=== PATIENT | female | born 1985 | race Caucasian/White ===

== ENCOUNTER 2023-11-07 06:38 | Emergency (ER) | payer SELFPAY ==
[2023-11-07 06:39] VITALS: BP 143/69
[2023-11-07 06:40] VITALS: BP 143/69; PULSE 72; RESP 16; TEMP 36.4; O2SAT 98; BMI 47.3
[2023-11-07 06:43] VITALS: BP 143/69; PULSE 72; RESP 16; TEMP 36.4; O2SAT 98
--- NOTE | 2023-11-07 06:53 | EX.ED.DYSGE1 ---
HPI History of Present Illness Chief Complaint: Dental Informant: patient Narrative Narrative: 1 week history right-sided jaw pain worse with opening closing and chewing. She has history of poor dentition however denies any hot cold sensitivities. Today she reported subjective fever took Tylenol. She is concerned also ear infection. No hearing loss. No drainage from the ear. History of nonalcoholic cirrhosis. Denies kidney injury or gastric ulcers. PFSH PFS Medical History Anxiety Asthma Bipolar disorder Congestive heart failure (CHF) Depression Hyperthyroidism Migraines Non-alcoholic cirrhosis Seizures Smoker Stroke/cerebrovascular accident Home Medications ibuprofen 600 mg tablet 600 mg PO Q6H PRN PRN pain #20 TABLETS 11/07/23 [Rx Last Taken Unknown] Allergy/AdvReac Type Severity Reaction Status Date / Time bee venom protein (honey bee) Allergy Severe Anaphylaxis Verified 11/07/23 06:52 diphenhydramine Allergy Severe Anaphylaxis Verified 11/07/23 06:52 [From Benadryl] Fish Containing Products AdvReac Severe Anaphylaxis Verified 11/07/23 06:52 Social History Smoking Status: Current every day smoker tobacco type: cigarettes ROS ROS ED Constitutional Constitutional ED: Denies chills, fever(s) or sweats Eyes Eyes: Denies change in vision ENT ENT ED: Reports other Details: Right jaw pain. ; Denies dysphagia or sore throat Cardiovascular Cardiovascular: Denies chest pain, leg edema, palpitations or racing heartbeat Respiratory/Chest Respiratory/Chest: Denies cough, dyspnea or dyspnea on exertion Gastrointestinal Gastrointestinal: Denies abdominal pain, diarrhea, nausea or vomiting Genitourinary Genitourinary ED: Denies dysuria, hematuria or urinary frequency Musculoskeletal Musculoskeletal: Denies back pain, extremity pain or neck pain Integumentary Denies rash or wounds Neurologic Neurologic: Denies headache(s), paresthesias or weakness EXAM Physical Exam Const Vital Signs: 11/07/23 06:40 11/07/23 06:39 11/07/23 06:43 Temperature 97.5 F L 97.5 F L Temperature Source Oral Oral Pulse Rate 72 72 Respiratory Rate 16 16 Blood Pressure 143/69 H 143/69 H 143/69 H Blood Pressure Mean 93 93 93 Pulse Ox 98 98 Oxygen Delivery Method Room Air Room Air Positive well nourished and well developed General Appearance ED: well developed and NAD HEENT Reports TM's clear and moist mucous membranes HEENT Narrative: Tender palpation right TMJ worse with opening closing the mouth. TMs are normal bilaterally. Poor dentition, there is broken tooth on right molar #2 around the feeling. There is no tenderness to percussion. No gum swelling. Missing tooth 29 and 30. No lower gum swelling no sublingual edema. normocephalic and atraumatic Tympanic Membrane ED: Yes TM's clear Eyes PERRL, EOMs intact bilaterally and conjunctivae normal General Eye ED: Yes normal appearance of both eyes Neck no lymphadenopathy and supple General: Negative for tenderness Chest Wall Chest: Negative for tenderness Resp normal respiratory effort and normal air movement Effort and Inspection: symmetric chest movement; Negative for respiratory distress Cardio regular rate, regular rhythm and no murmurs Peripheral Pulses: pulses 2+ throughout GI normal to inspection, nondistended, normoactive bowel sounds and non-tender Palpation: Negative for guarding or rebound tenderness present Back/Spine no CVA tenderness and no thoracic nor lumbar tenderness Extremity normal to inspection General Extremety ED: Negative for edema or tenderness General Extremity: Negative for edema Neuro oriented x3 and no sensory deficits noted Sensorium / Orientation: awake and alert Skin no rashes or lesions noted and no wounds MDM MDM MDM Narrative Medical decision making narrative: Interventions / MDM: Differential diagnosis: TMJ syndrome, dental caries Diagnosis considered but do not suspect: No clinical otitis media. No clinical dental infection My EKG interpretation: N/A Imaging independently reviewed and interpreted by myself: N/A External documents reviewed: N/A Test considered but not ordered:N/A ED course: Patient exam concerns more TMJ syndrome. No signs otitis media. Dental caries without pain or symptoms of infection. No indication for antibiotics. Started on ibuprofen, with a short prescription. Outpatient follow-up given ENT. All questions were answered. Re-evaluation: stable Disposition discussed with patient/family/significant other: Patient Case discussed with consulting clinician: N/A This note was generated with [employer] dictation software. It may contain incorrect words, spelling, and punctuation that were not noted in checking the note before signing. Discharge Plan Triage Chief Complaint: Dental ED Provider: Marcin Lazar Dx/Rx/DC Orders Clinical Impression: TMJ syndrome, Jaw pain Instructions: TMD Self Care, TMD Pain Relief Prescriptions: New ibuprofen 600 mg tablet 600 mg PO Q6H PRN PRN (Reason: pain) Qty: 20 0RF Referrals: Leander Rico MD [Med Staff - Active Staff] - 1 Week Disposition Disposition: Home, Self Care
[2023-11-07] MEDS: Ibuprofen 600 MG Tablet PO (06:57)
== END 2023-11-07 07:07 | disposition home or self-care (01) ==
LOC: ED 07:06
PROVIDERS: Emergency Provider Emergency Medicine; Visit Provider Emergency Medicine
DX: M26.629 Arthralgia of temporomandibular joint, unspecified side (principal); I50.9 Heart failure, unspecified; F17.210 Nicotine dependence, cigarettes, uncomplicated; Z86.73 Personal history of transient ischemic attack (TIA), and cerebral infarction without residual deficits
CPT/HCPCS: 99282

== ENCOUNTER 2024-04-11 20:56 | Emergency (ER) | payer SELFPAY ==
[2024-04-11 20:57] VITALS: BP 150/69; PULSE 85; RESP 18; TEMP 36.3; O2SAT 99; BMI 41.1
[2024-04-11 21:10] LABS: Mucous, Urine 0 SEEN /hpf (<or=2+); Red Blood Cells-Urine 0 SEEN /hpf (0-5); Squamous Epithelial Cells - UA 0 SEEN /hpf (5-10)
[2024-04-11 21:30] LABS: Color, Urine Yellow (Yellow); Glucose, Dipstick Normal (Normal); Ketone-Dipstick Negative (Negative); Leukocyte Esterase-Dipstick 25 /ul (Negative); Nitrite-Dipstick Negative (Negative); Occult Blood-Urine 10 /ul (Negative); Protein-Dipstick 15 mg/dl (Negative); Specific Gravity, Urine 1.025 (1.002-1.030); Urine Bilirubin Dipstick Negative (Negative); Urine Clarity Sl. Cloudy (Clear); Urine Urobilinogen 1 mg/dl (Normal)
[2024-04-11 22:25] LABS: Bacteria 1+ /hpf (None Seen); White Blood Cells 0-5 SEEN /hpf (0-5)
--- NOTE | 2024-04-11 22:34 | CT_ITS ---
EXAM: CT ABDOMEN AND PELVIS WITHOUT INTRAVENOUS CONTRAST CLINICAL INDICATION: lower abdominal pain TECHNIQUE: Helically acquired images were obtained of the abdomen and pelvis without intravenous contrast. This CT exam was performed using one or more of the following dose reduction techniques: automated exposure control, adjustment of the mA and/or kV according to patient size, and/or use of iterative reconstruction technique. COMPARISON: No relevant prior studies available. FINDINGS: LOWER THORAX: No significant abnormality. Lung bases are clear. No cardiomegaly. No significant pericardial effusion. ABDOMEN: LIVER: No significant abnormality. Homogeneous. GALLBLADDER AND BILE DUCTS: No significant abnormality. No calcified gallstones. No gallbladder distention or wall edema. No intra- or extrahepatic biliary ductal dilation. PANCREAS: No significant abnormality. No focal cystic mass. SPLEEN: No significant abnormality. Normal size without focal cystic or solid mass. ADRENALS: No significant abnormality. No nodules. KIDNEYS AND URETERS: No significant abnormality. Normal renal size and position. No hydronephrosis. STOMACH AND BOWEL: Diverticulosis of the colon without evidence of acute diverticulitis. No stomach or bowel distention. PELVIS: APPENDIX: A normal appendix is identified in the right lower quadrant. BLADDER: No significant abnormality. REPRODUCTIVE: Normal as visualized. No mass. ABDOMEN and PELVIS: INTRAPERITONEAL SPACE: No significant abnormality. No ascites or other fluid collection. No free air. BONES/JOINTS: No significant abnormality. No suspicious lytic or blastic abnormality. SOFT TISSUES: Body wall edema/anasarca. No discrete abdominal or pelvic wall hernia. VASCULATURE: No significant abnormality. Abdominal aorta is non-dilated. LYMPH NODES: Mildly prominent bilateral inguinal, iliac, and retroperitoneal lymph nodes which are nonspecific. CT/Abdomen/Pelvis without Cont IMPRESSION: 1. Body wall edema/anasarca. 2. Mildly prominent bilateral inguinal, iliac, and retroperitoneal lymph nodes which are nonspecific. 3. No additional acute pathology. 4. Diverticulosis of the colon without evidence of acute diverticulitis. Electronically Signed: Ji Irene DO at 23:59 EDT ,
--- NOTE | 2024-04-11 22:37 | EDS_ITS ---
HPI History of Present Illness Chief Complaint: Abd Pain Narrative Narrative: Chief complaint and HPI: Abdominal pain. 38-year-old female with history of anxiety, depression, seizures presents for evaluation of abdominal pain. Onset of symptoms was approximately 1.5 hours ago. Patient states she was sitting outside when she developed suprapubic and left flank pain. She states she took Tylenol with some relief of her symptoms. She denies any fever, chills, shortness of breath, chest pain, nausea, vomiting, diarrhea, constipation, dysuria, hematuria. Patient states her last menstrual cycle was 03/29/24 and normal at that time. She states she has a regular menstrual cycle. She denies any concern for STI. Denies any vaginal pain, bleeding, discharge. She denies any pelvic pain. Denies any abdominal surgeries. Review of systems: See HPI Medications: As listed on the chart Allergies: As listed on the chart PFSH: Per chart Vital signs: As listed on the chart. Reviewed. Physical exam: Gen: A&O x3, NAD Head: Normocephalic, atraumatic Eyes: No sclera icterus, conjunctiva clear ENT: Moist mucous membranes Neck: Trachea midline, No JVD CV: RRR, no murmurs, no peripheral edema Resp: Lungs CTA BL, no w/r/c GI: Abd soft, non-distended, minimal tender to palpation suprapubically, no r/r/g : No CVA tenderness Musc: Full ROM, no deformity Skin: Warm, dry Neuro: Alert, oriented, grossly intact, sensation intact Psych: Cooperative, appropriate mood and affect PFS PFS Medical History Anxiety Asthma Bipolar disorder Congestive heart failure (CHF) Depression Hyperthyroidism Migraines Non-alcoholic cirrhosis Seizures Smoker Stroke/cerebrovascular accident Home Medications ?Medication ?Instructions ?Recorded ?Last Taken ?Type ibuprofen 600 mg tablet 600 mg PO Q6H PRN PRN pain #20 11/07/23 Unknown Rx TABLETS cephalexin 500 mg capsule 500 mg PO BID 5 days #10 caps 04/12/24 Unknown Rx Allergy/AdvReac Type Severity Reaction Status Date / Time bee venom protein (honey bee) Allergy Severe Anaphylaxis Verified 04/11/24 20:57 diphenhydramine (From Allergy Severe Anaphylaxis Verified 04/11/24 20:57 Benadryl) Fish Containing Products AdvReac Severe Anaphylaxis Verified 04/11/24 20:57 Social History Smoking Status: Current every day smoker tobacco type: cigarettes EXAM Physical Exam Const Vital Signs: 04/11/24 20:57 04/11/24 23:02 04/12/24 00:33 Temperature 97.3 F L 98.4 F Temperature Source Temporal Pulse Rate 85 74 74 Respiratory Rate 18 18 18 Blood Pressure 150/69 H 138/56 H Blood Pressure Mean 96 83 Pulse Ox 99 97 96 Oxygen Delivery Method Room Air MDM MDM MDM Narrative Medical decision making narrative: 38-year-old female presents for evaluation of abdominal pain. Onset of symptoms about 1.5 hours ago. Vital stable other than hypertension. She denies any associated symptoms other than pain. UA was obtained in triage and is cloudy with leuk esterase and occult blood. +1 bacteria. UA is concerning for UTI however given the blood cannot rule out urolithiasis or infected stone given her flank pain. Will obtain basic labs including CT abdomen and pelvis. Dif ferential diagnosis includes but is not limited to UTI, urolithiasis. Less likely diverticulitis or gastroenteritis. Patient denies concern for STI. Denies pelvic pain. Pain medication with antiemetic given. CBC without leukocytosis. Patient has anemia of 11.3. I do not have any previous labs to compare to however she denies any GI bleeding. Currently asymptomatic from anemia. CMP relatively unremarkable except for mildly elevated alkaline phosphatase at 164. Patient states she has known fatty liver disease. She is not endorsing any right upper quadrant or epigastric abdominal pain. Urine negative. CT abdomen pelvis shows body wall edema/anasarca. She has mildly prominent bilateral inguinal/iliac, and retroperitoneal lymph nodes which are nonspecific. Diverticulosis without acute diverticulitis. Otherwise no acute abdominal pathology. No urolithiasis. At this point in time, I suspect that patient's symptoms are likely secondary to a UTI. Her physical exam was relatively benign other than some mild suprapubic tenderness and I do not think any further imaging is needed at this time. Patient's pain has improved. Her urine was sent for culture. Will put her on 5 days of Keflex. Patient was updated on all her results and the plan for discharge home. She was referred to PCP. She was told she needs to follow-up for her anemia as well as elevated alk phos and nonspecific lymphadenopathy in her abdomen. She confirmed understanding of the plan. Patient requesting work note. This was given. Return precautions explained Impression: 1. UTI Lab Data Labs: Laboratory Results - last 24 hr 04/11/24 04/11/24 21:00 22:56 WBC 7.1 RBC 4.42 Hgb 11.3 L Hct 36.8 L MCV 83.3 MCH 25.6 L MCHC 30.7 L RDW Std Deviation 42.2 RDW Coeff of Woody 13.9 Plt Count 212 MPV 10.2 Immature Gran % (Auto) 0.300 Neut % (Auto) 50.7 Lymph % (Auto) 40.6 [place] % (Auto) 5.7 Eos % (Auto) 2.4 Baso % (Auto) 0.3 Absolute Neuts (auto) 3.6 Absolute Lymphs (auto) 2.87 Nucleated RBC % 0 Sodium 137 Potassium 3.9 Chloride 106 Carbon Dioxide 26.0 Anion Gap 5 BUN 10 Creatinine 0.36 L Estim Creat Clear Calc 276.09 Est GFR (MDRD) Af Amer 257 Est GFR (MDRD) Non-Af 212 BUN/Creatinine Ratio 27.5 H Glucose 99 Calcium 9.0 Total Bilirubin 0.40 AST 17 ALT 23 Alkaline Phosphatase 164 H Total Protein 7.3 Albumin 3.0 L Globulin 4.3 H Albumin/Globulin Ratio 0.7 L Lipase 19 Urine Color Yellow Urine Clarity Sl. Cloudy Urine pH 6.0 Ur Specific [place] 1.025 Urine Protein 15 H Urine Glucose (UA) Normal Urine Ketones Negative Urine Occult Blood 10 H Urine Nitrite Negative Urine Bilirubin Negative Urine Urobilinogen 1 H Ur Leukocyte Esterase 25 H Urine RBC 0 SEEN Urine WBC 0-5 SEEN Ur Squamous Epith Cells 0 SEEN Urine Bacteria 1+ Urine Mucus 0 SEEN Urine Test Negative Radiography Diagnostic Testing: Clinical Impression(s) from Imaging Studies Abdomen/Pelvis CT 04/11/24 22:34 IMPRESSION: 1. Body wall edema/anasarca. 2. Mildly prominent bilateral inguinal, iliac, and retroperitoneal lymph nodes which are nonspecific. 3. No additional acute pathology. 4. Diverticulosis of the colon without evidence of acute diverticulitis. Electronically Signed: Ji Irene DO at 23:59 EDT , Discharge Plan Triage Chief Complaint: Abd Pain ED Provider: Mohan Gaspar Dx/Rx/DC Orders Clinical Impression: UTI (urinary tract infection) Instructions: Urinary Tract Infections in Women, UTIs Understanding Prescriptions: New cephalexin 500 mg capsule 500 mg PO BID 5 Days Qty: 10 0RF No Action ibuprofen 600 mg tablet 600 mg PO Q6H PRN PRN (Reason: pain) Qty: 20 0RF Stand Alone Forms: ED Work / School Excuse Primary Care Provider: Care Physician,No Primary Referrals: Lowell Franco MD [Med Staff - Active Staff] - 3-5 Days if not improving Print Language: [place] Disposition Disposition: Home, Self Care Discharge Date/Time: 04/12/24 00:49
[2024-04-11] MEDS: Morphine 4 MG/ML Syringe IV (22:55)
[2024-04-11] MEDS: Ondansetron 4 MG/2 ML Vial IV (22:55)
[2024-04-11] MEDS: 0.9% Normal Saline (1000mL) 1,000 ML 999 ML IV (22:55)
[2024-04-11 23:02] VITALS: PULSE 74; RESP 18; O2SAT 97
[2024-04-11 23:04] LABS: Absolute Lymphocyte Count 2.87 X10^3/uL (0.83-4.51); Absolute Neutrophil Count 3.6 X10^3/uL (2.0-7.7); Basophil# 0.02 X10^3/uL; Basophil% 0.3 % (0-1); Eosinophil# 0.17 X10^3/uL; Eosinophils% 2.4 % (0-5); Hematocrit 36.8 % (37-47); Hemoglobin 11.3 g/dL (12.0-15.0); Lymphocyte # 2.87 X10^3/ul (0.83-4.51); Lymphocyte % 40.6 % (19-41); Mean Corp Hgb Conc 30.7 g/dL (32-36); Mean Corpuscular Hgb 25.6 pg (27.0-32.0); Mean Corpuscular Volume 83.3 fL (81-99); Mean Platelet Vol. 10.2 fl (6.2-12.0); Monocyte% 5.7 % (0-10); NRBC Flagged by Analyzer 0 % (0-5); Neutrophil # 3.59 X10^3/uL (2.7-7.7); Neutrophil % 50.7 % (47-70); Platelet Count 212 K/mm3 (150-450); RBC Distribution Width CV 13.9 % (11.6-14.6); RBC Distribution Width SD 42.2 fl (35.1-43.9); Red Blood Count 4.42 M/mm3 (4.2-5.4); White Blood Count 7.1 K/mm3 (4.4-11.0)
[2024-04-11 23:04] LABS: Internal QC Validated? YES +Cl - CLEAR BKGD; Pregnancy, Urine Negative Negative
[2024-04-11 23:22] LABS: ALB/GLOB Ratio 0.7 RATIO (0.9-2.4); AST(SGOT) 17 U/L (15-37); Alanine Aminotransfer ALT/SGPT 23 U/L (13-56); Alkaline Phosphatase 164 U/L (45-117); Anion Gap 5 (5-15); BUN 10 mg/dL (7-18); BUN/Creat Ratio 27.5 RATIO (10-20); Chloride 106 mmol/L (98-107); Creatinine, Serum 0.36 mg/dL (0.55-1.02); EST Glomerular Filtration Rate 212 mL/min (>60); Est Glom Filt Rate - Afr Amer 257 mL/min (>60); Estimated Creatinine Clearance 276.09 ml/min; Globulin 4.3 g/dL (2.2-4.2); Glucose 99 mg/dL (74-106); Lipase 19 U/L (13-75); Potassium 3.9 mmol/L (3.5-5.1); Protein, Total 7.3 g/dL (6.4-8.2); Sodium Level 137 mmol/L (136-145)
[2024-04-12 00:33] VITALS: BP 138/56; PULSE 74; RESP 18; TEMP 36.9; O2SAT 96
== END 2024-04-12 00:49 | disposition home or self-care (01) ==
PROVIDERS: Emergency Provider Surgery; Visit Provider Surgery
DX: N39.0 Urinary tract infection, site not specified (principal); I50.9 Heart failure, unspecified; I11.0 Hypertensive heart disease with heart failure; K57.30 Diverticulosis of large intestine without perforation or abscess without bleeding; R59.9 Enlarged lymph nodes, unspecified; F41.9 Anxiety disorder, unspecified; D64.9 Anemia, unspecified; F17.210 Nicotine dependence, cigarettes, uncomplicated; Z86.73 Personal history of transient ischemic attack (TIA), and cerebral infarction without residual deficits
CPT/HCPCS: 74176; 80053; 81001; 81025; 83690; 85025; 87086; 87088; 96361; 96374; 96375; 99283; J7030; A4216; J2405

== ENCOUNTER 2024-04-19 20:20 | Emergency (ER) | payer SELFPAY ==
[2024-04-19 20:21] VITALS: BP 166/73; PULSE 98; RESP 16; TEMP 36.8; O2SAT 99; BMI 41.8
[2024-04-19] MEDS: LORazepam 2 MG/ML Syringe 1 MG IM (22:53)
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
[2024-04-19] MEDS: Acetaminophen 500 MG Tablet 1000 MG PO (23:24)
[2024-04-19 23:31] VITALS: BP 167/76; PULSE 85; RESP 18; TEMP 36.6; O2SAT 97
== END 2024-04-19 23:34 | disposition home or self-care (01) ==
PROVIDERS: Emergency Provider Surgery; Visit Provider Surgery
DX: F41.1 Generalized anxiety disorder (principal); K74.60 Unspecified cirrhosis of liver; I50.9 Heart failure, unspecified; F17.210 Nicotine dependence, cigarettes, uncomplicated; Z79.899 Other long term (current) drug therapy; Z86.73 Personal history of transient ischemic attack (TIA), and cerebral infarction without residual deficits
CPT/HCPCS: 96372; 99283

== ENCOUNTER 2024-05-07 02:11 | Emergency (ER) | payer SELFPAY ==
[2024-05-07 02:12] VITALS: BP 159/81; PULSE 107; RESP 18; TEMP 37.8; O2SAT 98; BMI 41.9
--- NOTE | 2024-05-07 02:29 | RAD_ITS ---
STUDY: X-RAY CHEST REASON FOR EXAM: Female, 38 years old patient with cough and shortness of breath. TECHNIQUE: PA and lateral views of the chest. COMPARISON: Prior comparison studies are not available for review at this time. FINDINGS: There appears to be crowding of the prominent bronchovascular markings. There is interstitial thickening visible throughout both lungs. There may be some peribronchial cuffing as well. The lungs are under expanded. There is no demonstrated pleural abnormality. Normal size heart. Normal mediastinum and juany. Normal visualized pulmonary arteries. Normal visualized aortic arch and descending thoracic aorta. Normal visualized thoracic spine. Normal visualized ribs, clavicles, and shoulders. There is no demonstrated abnormality of the visualized soft tissue structures of the upper abdomen. RAD/Chest PA and Lateral IMPRESSION: Findings suggest sequela of acute exacerbation of reactive airway disease and/or viral infection. Electronically Signed: Marita Jacobsen MD at 4:19 EDT ,
--- NOTE | 2024-05-07 02:30 | EX.ED.DYSGE1 ---
HPI History of Present Illness Chief Complaint: General Illness Informant: patient and friend Narrative Narrative: 38-year-old female for the last 5 or 6 hours or so has felt poorly, with subjective fevers and chills, cough with sputum that is sometimes clear sometimes yellowish nonbloody, little short of breath, and bodyaches all over. The body aches includes her abdomen but she does not specifically denote abdominal pain. No nausea, vomiting, or diarrhea. Friends/roommates, [facility] which [facility], accompanying her and states they all have the same illness and multiple others there as well have illnesses. She admits to urinary frequency but denies any dysuria or hematuria or burning. [facility] Medical History Anxiety Bipolar disorder Depression Hyperthyroidism Smoker Asthma Non-alcoholic cirrhosis Congestive heart failure (CHF) Migraines Stroke/cerebrovascular accident Seizures Home Medications ?Medication ?Instructions ?Recorded ?Last Taken ?Type ibuprofen 600 mg tablet 600 mg PO Q6H PRN PRN pain #20 11/07/23 Unknown Rx TABLETS spironolactone 50 mg tablet 50 mg PO DAILY liver cirrhosis 05/07/24 Unknown History (Aldactone) Allergy/AdvReac Type Severity Reaction Status Date / Time bee venom protein (honey bee) Allergy Severe Anaphylaxis Verified 05/07/24 02:17 diphenhydramine (From Allergy Severe Anaphylaxis Verified 05/07/24 02:17 Benadryl) Fish Containing Products AdvReac Severe Anaphylaxis Verified 05/07/24 02:17 Social History Smoking Status: Current every day smoker tobacco type: cigarettes ROS ROS ED Constitutional Constitutional ED: Reports body ache(s), chills, fever(s) and malaise Eyes Eyes: Denies change in vision or diplopia ENT ENT ED: Reports nasal congestion, rhinorrhea and sore throat; Denies throat swelling Cardiovascular Cardiovascular: Denies chest pain or palpitations Respiratory/Chest Respiratory/Chest: Reports cough, dyspnea and sputum Gastrointestinal Gastrointestinal: Denies diarrhea, nausea or vomiting Genitourinary Genitourinary ED: Denies dysuria or hematuria Musculoskeletal Musculoskeletal: Denies back pain or neck pain Integumentary Denies abscess or rash Neurologic Neurologic: Reports headache(s); Denies paresthesias or weakness EXAM Physical Exam Const Vital Signs: 05/07/24 02:12 05/07/24 02:18 05/07/24 02:58 Temperature 100.1 F H Temperature Source Oral Pulse Rate 107 H 110 H Respiratory Rate 18 26 H Respiratory Pattern Normal Tachypnea Blood Pressure 159/81 H Blood Pressure Mean 107 Pulse Ox 98 Oxygen Delivery Method Room Air Positive well nourished, well developed and obese General Appearance ED: well developed and NAD Nutritional Appearance: obese HEENT Reports moist mucous membranes normocephalic and atraumatic Throat: posterior oropharynx normal Eyes PERRL and EOMs intact bilaterally Neck full ROM, no lymphadenopathy and supple Resp normal respiratory effort and clear to auscultation bilaterally Cardio regular rate, regular rhythm and no murmurs GI non-tender and non-distended Auscultation: normoactive bowel sounds Palpation: soft Back/Spine no CVA tenderness General Back: other FROM Extremity normal to inspection General Extremety ED: Negative for edema, pulses abnormal or tenderness General Extremity: Negative for edema or pulses abnormal Neuro oriented x3, CN's II-XII intact bilaterally and no sensory deficits noted Sensorium / Orientation: awake and alert Motor Exam: strength 5/5 throughout Psych Mood & Affect: anxious Skin no rashes or lesions noted and no wounds MDM MDM MDM Narrative Medical decision making narrative: I suspect patient has viral syndrome especially given her multiple sick contacts with similar symptoms. She does have a history of asthma but since she was dyspneic without wheezing on exam, I obtained a chest x-ray. 2 views on my interpretation negative for pneumonia. She was given albuterol treatment which did help significantly suggesting asthma as the etiology for her dyspnea. We also did a urinalysis given her frequency, on my interpretation it does not indicate acute infection given lack of pyuria and more squamous epithelial cells and no bacteria. She was given an injection of Toradol as well as some oral Tylenol for her myalgias/pains and fever. She was conversive with her roommates and appeared objectively better, walking back and forth to the bathroom without difficulty. Her COVID/RSV/influenza swab returned negative. I suspect she has a different respiratory virus infection, we have been seeing quite a bit of this in the area recently. I do not think she needs a septic workup, she is well-appearing. She was offered steroids for asthma, short burst in the form of either a Kenalog injection or prescription for prednisone. She does not require prescription for antibiotic she is okay with an injection of steroids which will be given prior to discharge. Also she does not have a rescue inhaler, we are going to give her a couple of puffs and dispense it to her. Lab Data Attestation: I reviewed the patient's lab results. Labs: Laboratory Results - last 24 hr 05/07/24 02:55 Urine Color Yellow Urine Clarity Clear Urine pH 6.0 Ur Specific [place] 1.015 Urine Protein Negative Urine Glucose (UA) Normal Urine Ketones Negative Urine Occult Blood 25 H Urine Nitrite Negative Urine Bilirubin Negative Urine Urobilinogen Normal Ur Leukocyte Esterase 100 H Urine RBC 5-10 SEEN Urine WBC 0-5 SEEN Ur Squamous Epith Cells 5-10 SEEN Urine Bacteria 0 SEEN Hyaline Casts 0-5 SEEN Fine Granular Casts 0-5 SEEN Urine Mucus 0 SEEN Discharge Plan Triage Chief Complaint: General Illness ED Provider: Farzad Cortes Dx/Rx/DC Orders Clinical Impression: Acute viral syndrome, Acute asthma exacerbation Instructions: Asthma Prescriptions: No Action ibuprofen 600 mg tablet 600 mg PO Q6H PRN PRN (Reason: pain) Qty: 20 0RF spironolactone [Aldactone] 50 mg tablet 50 mg PO DAILY Primary Care Provider: Care Physician,No Primary Referrals: Evelyn Tee [Non-Staff] - 1 Week if not improving Print Language: Frisian Disposition Disposition: Home, Self Care
--- OUTSIDE RECORDS SUMMARY | 2024-05-07 02:37 | XMS RPT_ITS | CCD ---
Author Organization [facility] Care Team Providers Care Electronics Assembler And Tester Name Role Phone CASSIE MARTÍNEZ OLIVERLAS Attending Unavailabl CELINA Aburto Referring Unavailable NO, PHYSICIAN Primary Care Unavailable NO, PHYSICIAN Primary Care Unavailable No, Physician Primary Care Provider Unavailabl e No, Physician Primary Care Provider Unavailabl e SUSIE MEDLEY Attending Unavailable SYSTEM, PROVIDER NOT IN Primary Care Unavaila ble System, Provider Not In Primary Care Provider Un available Brent ASSEMBLY CLEANER, [place] Unavailable Unavailable Brent SUPERVISOR SHEARING-ASSEMBLY CLEANER, [place] D Primary Care Provider Doni SUPERVISOR SHEARING-ASSEMBLY CLEANER, Ludy Primary Care Provider Marcelo SUPERVISOR SHEARING-ASSEMBLY CLEANER, Concepción Duckworth Primary Care Provider [phone] Marcelo SUPERVISOR SHEARING-ASSEMBLY CLEANER, Concepción Donita Primary Care Provider CYNDY MARIN Attending Unavailable NO, PHYSICIAN Primary Care Unavailable CYNDY MARIN Admitting Unavailable NO, PHYSICIAN Primary Care Unavailable OMERO WALLER Attending Unavaila ble BRENT, AZALEA D Primary Care Unavailable BRENT, AZALEA D Primary Care Unavailable ROMARIO PAREKH Attending Unavailable CONSULT, NEUROLOGY Consulting Unavailable FLOYD RODRIGUEZ Admitting Unavailable DONI, LUDY Primary Care Unavailable CARLA MARROQUIN Admitting Unavailable NINOSKA FERNANDEZ Attending Unavailable DONI, LUDY Primary Care Unavailable BRENT, AZALEA D Primary Care Unavailable SHADI LOUIS Attending Unavailable BRENT, AZALEA D Primary Care Unavailable LUIS ARMANDO ESCOBEDO Attending Unavailable SELF, SELF Referring Unavailable VANGIE JON Attending Unavailable SELF, SELF Referring Unavailable DONI, LUDY Primary Care Unavailable BRENT, AZALEA D Referring Unavailable BRENT, AZALEA D Attending Unavailable BRENT, AZALEA D Primary Care Unavailable BRENT, AZALEA D Referring Unavailable RL TAVERAS Attending Unavailable BRENT, AZALEA D Primary Care Unavailable BRENT, AZALEA D Primary Care Unavailable BRENT, AZALEA D Primary Care Unavailable LUIS ARMANDO ESCOBEDO Attending Unavailable SELF, SELF Referring Unavailable MIKE DUKE Attending Unavailabl e MIKE DUKE Admitting Unavailabl e DONI, [place] Primary Care Unavailable DONI, [place] Primary Care Unavailable CARON DUGGAN Attending Unavailable DONI, [place] Primary Care Unavailable SHADI LOUIS Attending Unavailable FLOYD RODRIGUEZ Attending Unavailable DONI, [place] Primary Care Unavailable BRENT, AZALEA D Primary Care Unavailable MARROQUINCARLA Attending Unavailable OLGA LIDIA, CARON Sampson Attending Unavailable BRENT, AZALEA D Primary Care Unavailable BRENT, AZALEA D Primary Care Unavailable OLGA LIDIA, CARON Sampson Attending Unavailable BRENT, AZALEA D Primary Care Unavailable CARLA MARROQUIN Attending Unavailable DONI, [place] Primary Care Unavailable SAMAN-TOPPENVERAIS P Attending Unavail able DONI, [place] Primary Care Unavailable SAMAN-TOPPEN, CIRO P Attending Unavail able SUSIE PRATT Attending Unavailable SUSIE PRATT Admitting Unavailable ARACELI TAPIA Referring Unavailable BRENT, AZALEA D Primary Care Unavailable SYSTEM, PROVIDER NOT IN Primary Care UnavailAUBRIE Bruce JR. Attending Unavail able NO, PHYSICIAN Primary Care Unavailable JAYLON NIEVES Attending Unavailable Patel ASSEMBLY CLEANER, [place] Primary Care Provider Doni CUTTER HELPER, [place] Attending Unavailable Doni CUTTER HELPER, [place] Referring Unavailable RUBIN UP Attending Unavailable Allergies Allergy Classification Reported Allergen(s) Allergy Type Date of Onset Reaction(s) Facility (20 sources) diphenhydrAMINE; Translations: [Unknown] Drug Allergy 9 Hives, Shortness of Breath, Rash [facility] Repository (10 sources) FISH CONTAINING PRODUCTS; Translations: [FISH CONTAINING PRODUCTS] Propensity to adverse reactions to drug (disorder) 8 [facility] Repository (1 source) diphenhydrAMINE; Translations: [DIPHENHYDRAMINE HCL] Drug Allergy 5 Rash [facility] (11 sources) Fish - dietary Propensity to adverse reactions to drug 9 [facility] (7 sources) polyethylene glycol 300 Drug Allergy 1 [facility] (9 sources) *Seafood - Food Allergy Propensity to adverse reactions to drug 1 [facility] (9 sources) Fish-Derived Products Propensity to adverse reactions to drug 1 Rash [facility] (3 sources) Bee pollen; Translations: [BEE POLLEN] Propensity to adverse reactions to drug (disorder) 2 Unknown [facility] Repository (1 source) BENADRYL ALLERGY DECONGESTANT; Translations: [BENADRYL ALLERGY DECONGESTANT] Propensity to adverse reactions to drug (disorder) [facility] Repository Medications Current Medications Medication Drug Class(es) Dates Sig (Normalized) Sig (Original) [id number] 200 actuat albuterol 0.09 mg/actuat metered dose inhaler (6 sources) beta2-Adrenergic Agonist Start: 10-29-2021 take 1 puff(s) by inhalation every six hours as needed albuterol 108 (90 Base) MCG/ACT Aero Soln inhaler Inhale 1 puff every 6 hours as needed for Shortness of Breath. 6.7 g 0 10/29/2021 Active amoxicillin 875 mg / clavulanate 125 mg oral tablet (1 source) Penicillin-class Antibacterial Start: 03-25-2022 End: 04-04-2022 take 1 tablet by mouth every twelve hours amoxicillin-clavulan ate 875-125 MG tablet Take 1 tablet by mouth every 12 hours for 10 days. 20 tablet 0 03/25/2022 04/04/2022 Active chlorhexidine gluconate 1.2 mg/ml mouthwash (2 sources) Start: 01-22-2021 take 15 mL by mouth every twelve hours chlorhexidine 0.12 % Solution oral solution Swish and spit 15 mL every 12 hours for 7 days. 210 mL 0 01/22/2021 Active CUSTOM MEDICATION (2 sources) Start: 11-22-2020 CUSTOM MEDICATION Please obtain Chem 6 and Magnesium. Please fax labs attn: Ludy Doni ASSEMBLY CLEANER to [phone]. She will need to go to [facility] or another lab to have the labs drawn. 1 Each 0 11/22/2020 Active cyclobenzaprine hydrochloride 10 mg oral tablet (4 sources) Muscle Relaxant Start: 05-21-2020 End: 05-21-2020 take 1 tablet by mouth three times daily as needed for muscle spasms cyclobenzaprine 10 MG tablet Take 1 tablet by mouth 3 times daily as needed for Muscle spasms. 21 tablet 0 05/21/2020 Active famotidine 20 mg oral tablet (7 sources) Histamine-2 Receptor Antagonist Start: 09-02-2021 take 1 tablet by mouth every twelve hours faMOTIdine 20 MG tablet Take 1 tablet by mouth every 12 hours. 60 tablet 0 09/02/2021 Active furosemide 20 mg oral tablet (11 sources) Loop Diuretic Start: 08-20-2022 End: 08-20-2023 take 1 tablet by mouth once daily furosemide (LASIX) 20 MG tablet Take 1 (one) tablet (20 mg total) by mouth daily . 30 tablet 2 08/20/2022 08/20/2023 Active Start: 08-02-2021 take 1 tablet by faby th twice daily Lasix 40 mg tablet take 1 tablet by mouth twice daily - Active directions corrected. please discontinue previous order Start: 11-22-2020 take 1 tablet by faby th twice daily furOSEmide 40 MG tablet Take 1 tablet by mouth 2 times daily for 21 days. 42 tablet 0 11/22/2020 Active furOSEmide 40 MG tablet Take 20 mg by mouth 2 times daily. 0 Active take 1 tablet by faby th once daily furOSEmide 40 MG tablet Take 40 mg by mouth daily. 0 Active Comment on above: directions corrected . please discontinue previous order hydroCHLOROthiazide 12.5 mg oral capsule (2 sources) Thiazide Diuretic Start: 2020 take 1 capsule by mouth once daily hydroCHLOROthiazide (MICROZIDE) 12.5 mg capsule Take 1 (one) capsule (12.5 mg total) by mouth daily for 14 days . 14 capsule 0 06/19/2021 Active lisinopril 10 mg oral tablet (9 sources) Angiotensin Converting Enzyme Inhibitor Start: 2022 End: 2023 take 1 tablet by mouth once daily lisinopriL (PRINIVIL,ZESTRIL) 10 MG tablet Take 1 (one) tablet (10 mg total) by mouth daily . 30 tablet 2 08/20/2022 08/20/2023 Active Start: 07-21-2021 take 1 tablet by faby th twice daily lisinopril 10 mg tablet TAKE 1 TABLET BY MOUTH TWICE A DAY - Active take 1 tablet by faby th once daily lisinopril 10 MG tablet Take 10 mg by mouth daily. 0 Active meloxicam 7.5 mg oral tablet (2 sources) Nonsteroidal Anti-inflammatory Drug Start: 03-25-2022 take 1 tablet by mouth once daily meloxicam 7.5 MG tablet Take 1 tablet by mouth daily. 30 tablet 0 03/25/2022 Active methIMAzole 10 mg oral tablet (11 sources) Thyroid Hormone Synthesis Inhibitor Start: 09-04-2022 End: 09-04-2023 take 1 tablet by mouth three times daily methIMAzole (Tapazole) 10 MG tablet Take 1 (one) tablet (10 mg total) by mouth 3 (three) times a day . 90 tablet 1 09/04/2022 09/04/2023 Active Start: 08-02-2021 take 2 tablets by mo uth once daily methimazole 10 mg tablet take 2 tablet by oral route every day 20 MG - Active Start: 11-22-2020 take 2 tablets by mo uth twice daily methimazole 10 MG tablet Take 2 tablets by mouth 2 times daily. 120 tablet 0 11/22/2020 Active oxyCODONE hydrochloride 5 mg oral tablet (2 sources) Opioid Agonist Start: 01-22-2021 take 1 tablet by mouth every six hours as needed for pain oxyCODONE 5 MG tablet Indications: Neck abscess Take 1 tablet by mouth every 6 hours as needed for Moderate Pain for up to 5 days. 7 tablet 0 01/22/2021 Active polyethylene glycol 3350 23567 mg powder for oral solution (2 sources) Osmotic Laxative Start: 01-22-2021 take 1 dose by mouth once daily as needed for constipation polyethylene glycol 17 g Pack packet Take 1 packet by mouth daily as needed for Constipation 1st Line. 24 Each 0 01/22/2021 Active 21-iron fu-folic acid ( Complete) 14 mg iron- 400 mcg Tab (2 sources) Start: 06-19-2021 take 1 tablet by mouth once daily 21-iron fu-folic acid ( Complete) 14 mg iron- 400 mcg Tab Take 1 tablet by mouth daily . 30 tablet 0 06/19/2021 Active spironolactone 50 mg oral tablet (11 sources) Aldosterone Antagonist Start: 08-20-2022 End: 08-20-2023 take 1 tablet by mouth once daily spironolactone (ALDACTONE) 50 MG tablet Take 1 (one) tablet (50 mg total) by mouth daily . 30 tablet 2 08/20/2022 08/20/2023 Active Start: 09-03-2021 take 1 tablet by faby th once daily spironolactone 100 MG tablet Take 1 tablet by mouth daily. 30 tablet 0 09/03/2021 Active Start: 11-23-2020 take 1 tablet by faby th once daily spironolactone 100 MG tablet Take 1 tablet by mouth daily. 30 tablet 0 11/23/2020 Active Completed/Discontinued Medications Medication Drug Class(es) Dates Sig (Normalized) Sig (Original) acetaminophen 500 mg oral tablet (3 sources) Start: 04-09-2022 End: 04-09-2022 acetaminophen (TYLENOL) tablet 500 mg Start: 03-18-2022 End: 03-18-2022 acetaminophen (TYLENOL) tabl et 1,000 mg Start: 10-29-2021 End: 10-29-2021 acetaminophen (TYLENOL) tabl et 1,000 mg cephalexin 500 mg oral capsule (2 sources) Cephalosporin Antibacterial Start: 12-01-2021 End: 12-01-2021 cephALEXin (KEFLEX) capsule 500 mg Start: 11-30-2021 End: 12-05-2021 take 1 capsule by mouth every twelve hours cephALEXin 500 MG capsule Take 1 capsule by mouth every 12 hours for 5 days. 10 capsule 0 11/30/2021 12/05/2021 Active dexamethasone phosphate 10 mg/ml injectable solution (1 source) Corticosteroid Start: 03-10-2021 End: 03-10-2021 dexAMETHasone PF (DECADRON) 10 mg Start: 03-10-2021 End: 03-10-2021 dexAMETHasone PF (DECADRON) 10 mg ibuprofen 600 mg oral tablet (7 sources) Nonsteroidal Anti-inflammatory Drug Start: 01-31-2022 End: 01-31-2022 ibuprofen (MOTRIN) tablet 600 mg Start: 11-30-2021 End: 11-30-2021 ibuprofen (MOTRIN) tablet 60 0 mg Start: 10-29-2021 End: 10-29-2021 ibuprofen (MOTRIN) tablet 60 0 mg Start: 01-22-2021 take 1 tablet by faby th every six hours as needed ibuprofen 600 MG tablet Take 1 tablet by mouth every 6 hours as needed for Moderate Pain (1st line). 30 tablet 0 01/22/2021 Active Start: 06-10-2020 End: 06-10-2020 ibuprofen (MOTRIN) tablet 60 0 mg lidocaine 0.05 mg/mg medicated patch (2 sources) Antiarrhythmic, Amide Local Anesthetic Start: 01-31-2022 End: 01-31-2022 apply 1 dose transdermal route every twelve hours, then apply 1 dose transdermal route once 1 patch, Transdermal, Administer over 12 Hours, ONCE, 1 dose, On Thu01/31/22 at 0145 Apply to left foot . Remove patch after duration of 12 hours. An action of Patch Applied within the MAR will schedule the MAR patch removal 12 hours later. Start: 01-31-2022 End: 01-31-2022 lidocaine (LIDODERM) 5 % pat ch 1 patch naproxen 250 mg oral tablet (1 source) Nonsteroidal Anti-inflammatory Drug Start: 03-18-2022 End: 03-18-2022 naproxen (NAPROSYN) tablet 500 mg 2 ml ondansetron 2 mg/ml injection (8 sources) Serotonin-3 Receptor Antagonist Start: 11-30-2021 End: 11-30-2021 ondansetron 4mg/2ml (ZOFRAN) injection 4 mg Start: 11-30-2021 take 1 tablet by faby th every eight hours as needed ondansetron 4 MG Tab Dispersible tablet Take 1 tablet by mouth every 8 hours as needed for Nausea / Vomiting. 15 tablet 0 11/30/2021 Active Start: 10-29-2021 End: 11-30-2021 take 1 tablet by mouth every four hours as needed ondansetron 4 MG Tab Dispersible tablet Take 1 tablet by mouth every 4 hours as needed for Nausea. Place on tongue 30 tablet 0 10/29/2021 11/30/2021 Discontinued (Therapy completed) 250 ml sodium chloride 9 mg/ ml injection (3 sources) Start: 11-30-2021 End: 11-30-2021 sodium chloride 0.9% IV solution 1,000 mL Start: 10-16-2021 End: 10-18-2021 sodium chloride 0.9% IV solu tion Start: 10-16-2021 End: 10-18-2021 sodium chloride flush 0.9 % injection 5 mL Problems Active Problems Problem Classification Problem Date Documented Da te Episodic/Chronic Administrative/social admission (3 sources) Other reduced mobility; Translations: [Dietary counseling and surveillance] Onset: 09-13-2021 Episodic Cardiac dysrhythmias (2 sources) Tachycardia, unspecified; Translations: [Tachycardia, unspecified] Onset: 08-17-2022 Episodic Congestive heart failure; nonhypertensive (2 sources) Heart failure, unspecified; Translations: [Heart failure, unspecified] Onset: 08-30-2021 Chronic Diabetes mellitus without complication (14 sources) Type 2 diabetes mellitus; Translations: [Type 2 diabetes mellitus without complications] Onset: 02-02-2019 02-02-2019 Chronic Disorders of teeth and jaw (3 sources) Toothache; Translations: [Other specified disorders of teeth and supporting structures] Onset: 03-25-2022 Episodic Epilepsy; convulsions (2 sources) Epilepsy, unspecified, not intractable, without status epilepticus; Translations: [Epilepsy, unspecified, not intractable, without status epilepticus] Onset: 09-12-2021 Chronic Epilepsy; convulsions (6 sources) Neurological finding; Translations: [Unspecified convulsions] Onset: 03-03-2022 Episodic Essential hypertension (1 source) Essential (primary) hypertension; Translations: [Primary hypertension] Onset: 01-28-2023 Chronic Fracture of lower limb (3 sources) Closed fracture of fifth metatarsal bone; Translations: [Nondisplaced fracture of fifth metatarsal bone, left foot, initial encounter for closed fracture] Onset: 01-31-2022 Episodic Hepatitis (10 sources) Cirrhosis - non-alcoholic; Translations: [Nonalcoholic steatohepatitis (STEINER)] Onset: 09-10-2021 Chronic Menstrual disorders (5 sources) Amenorrhea; Translations: [Amenorrhea, unspecified] Onset: 02-02-2019 02-02-2019 Chronic Miscellaneous mental health disorders (2 sources) Other somatoform disorders; Translations: [Other somatoform disorders] Onset: 06-21-2021 Chronic Nonspecific chest pain (3 sources) Chest wall pain; Translations: [Other chest pain] Onset: 08-17-2022 Episodic Other gastrointestinal disorders (3 sources) Generalized intra-abdominal and pelvic swelling, mass and lump; Translations: [Generalized intra-abdominal and pelvic swelling, mass and lump] Onset: 07-11-2021 Episodic Other gastrointestinal disorders (1 source) Personal history of other diseases of the digestive system; Translations: [History of cirrhosis of liver] Onset: 01-28-2023 Episodic Other liver diseases (10 sources) Cirrhosis of liver; Translations: [Other cirrhosis of liver] Onset: 11-16-2020 Chronic Other liver diseases (2 sources) Unspecified cirrhosis of liver; Translations: [Unspecified cirrhosis of liver] Onset: 10-16-2021 Chronic Other nutritional; endocrine; and metabolic disorders (16 sources) Morbid obesity; Translations: [Morbid (severe) obesity due to excess calories] Onset: 02-02-2019 02-02-2019 Chronic Other nutritional; endocrine; and metabolic disorders (7 sources) Body mass index 40+ - severely obese; Translations: [Morbid (severe) obesity due to excess calories] Onset: 10-11-2020 08-31-2021 Chronic Other nutritional; endocrine; and metabolic disorders (2 sources) Other disorders of bilirubin metabolism; Translations: [Other disorders of bilirubin metabolism] Onset: 06-21-2021 Chronic Other nutritional; endocrine; and metabolic disorders (1 source) Body mass index (BMI) 45.0-49.9, adult; Translations: [Body mass index (BMI) 45.0-49.9, adult] Onset: 01-28-2023 Chronic Other nutritional; endocrine; and metabolic disorders (1 source) Localized adiposity; Translations: [Pendulous abdomen] Onset: 01-28-2023 Chronic Residual codes; unclassified (3 sources) Generalized edema; Translations: [Generalized edema] Onset: 11-16-2020 Episodic Residual codes; unclassified (3 sources) Patient's noncompliance with other medical treatment and regimen; Translations: [Patient's noncompliance with other medical treatment and regimen] Onset: 07-11-2021 Episodic Spondylosis; intervertebral disc disorders; other back problems (1 source) Sciatica, right side; Translations: [Sciatica, right side] Onset: 10-12-2023 Episodic Thyroid disorders (14 sources) Hyperthyroidism; Translations: [Thyrotoxicosis, unspecified without thyrotoxic crisis or storm] Onset: 11-17-2020 Chronic Unclassified (3 sources) Patient encounter status; Translations: [Encounter for preconception consultation] Onset: 02-02-2019 02-02-2019 Unclassified (1 source) Cough, unspecified; Translations: [Cough, unspecified] Onset: 05-22-2022 Viral infection (2 sources) COVID-19; Translations: [COVID-19] Onset: 04-09-2022 Past or Other Problems Problem Classification Problem Date Documented Da te Episodic/Chronic Abdominal pain (4 sources) Unspecified abdominal pain; Translations: [Pelvic and perineal pain] Onset: 06-15-2021 Episodic Acute bronchitis (2 sources) Acute bronchitis, unspecified; Translations: [Acute bronchitis, unspecified] Onset: 06-06-2021 Episodic Contraceptive and procreative management (2 sources) Patient encounter status; Translations: [Encounter for other general counseling and advice on procreation] Onset: 02-02-2019 02-02-2019 Episodic Deficiency and other anemia (7 sources) Deficiency anemias; Translations: [Other specified nutritional anemias] Onset: 01-20-2021 08-31-2021 Episodic Deficiency and other anemia (2 sources) Anemia; Translations: [Anemia, unspecified] Onset: 01-20-2021 01-20-2021 Episodic Deficiency and other anemia (2 sources) Anemia, unspecified; Translations: [Anemia, unspecified] Onset: 08-30-2021 Episodic Gastrointestinal hemorrhage (9 sources) Hematemesis; Translations: [Hematemesis] Onset: 11-16-2020 11-22-2020 Episodic Inflammatory diseases of female pelvic organs (2 sources) Inflammatory disease of cervix uteri; Translations: [Inflammatory disease of cervix uteri] Onset: 06-21-2021 Episodic Influenza (3 sources) Influenza due to Influenza A virus; Translations: [Influenza due to other identified influenza virus with other respiratory manifestations] Onset: 10-30-2021 Episodic Intracranial injury (2 sources) Concussion without loss of consciousness, initial encounter; Translations: [Concussion without loss of consciousness, initial encounter] Onset: 06-01-2021 Episodic Noninfectious gastroenteritis (3 sources) Acute gastroenteritis; Translations: [Noninfective gastroenteritis and colitis, unspecified] Onset: 11-30-2021 Episodic Other injuries and conditions due to external causes (2 sources) Other injury of unspecified body region, initial encounter; Translations: [Other injury of unspecified body region, initial encounter] Onset: 06-01-2021 Episodic Other lower respiratory disease (2 sources) Acute pulmonary edema; Translations: [Acute pulmonary edema] Onset: 08-30-2021 Episodic Other and delivery including normal (2 sources) Term Onset: 06-15-2021 Episodic Other skin disorders (9 sources) Facial swelling ; Translations: [Localized swelling, mass and lump, head] Onset: 01-20-2021 01-20-2021 Episodic Other upper respiratory infections (2 sources) Pharyngitis; Translations: [Acute pharyngitis, unspecified] Episodic Pleurisy; pneumothorax; pulmonary collapse (7 sources) Pleural effusion; Translations: [Pleural effusion, not elsewhere classified] Onset: 08-31-2021 08-31-2021 Episodic Residual codes; unclassified (5 sources) H/O: miscarriage; Translations: [Recurrent loss] Onset: 02-02-2019 02-02-2019 Episodic Residual codes; unclassified (9 sources) Edema, generalized; Translations: [Generalized edema] Onset: 11-16-2020 08-31-2021 Episodic Residual codes; unclassified (9 sources) Bilateral lower limb edema; Translations: [Localized edema] Onset: 11-22-2020 11-22-2020 Episodic Skin and subcutaneous tissue infections (13 sources) Abscess of neck; Translations: [Cutaneous abscess of neck] Onset: 01-20-2021 01-20-2021 Episodic Sprains and strains (1 source) Sprain of left ankle; Translations: [Sprain of unspecified ligament of left ankle, initial encounter] Episodic Unclassified (1 source) Level III - Detailed EST Onset: 09-11-2021 Unclassified (1 source) Cough, unspecified; Translations: [Cough, unspecified] Onset: 05-22-2022 Urinary tract infections (3 sources) Acute cystitis; Translations: [Acute cystitis without hematuria] Onset: 11-30-2021 Episodic Viral infection (3 sources) Disease caused by 2019-nCoV; Translations: [COVID-19] Onset: 10-31-2021 Episodic Results Test Name Value Interpretation Reference Range Facility XR CHEST PA/APon 08-17-2022 XR CHEST PA/AP EXAMINATION: XR CHEST PA/AP HISTORY: ORDERING SYSTEM PROVIDED HISTORY: sob, TECHNOLOGIST PROVIDED HISTORY: Illness/Other Reason for exam: sob Cancer History: . Surgery, RadiationHistory: . Encounter Type: Initial Additional signs and symptoms: sob and dizziness that started 2 hours ago ORDERING SYSTEM PROVIDED DIAGNOSIS CODES: COMPARISON: 05/22/2022 TECHNIQUE: Single view of the chest FINDINGS: Heart size is normal. No consolidation. No pleural effusion. No visualized pneumothorax. No vascular congestion. IMPRESSION: No acute findings. Workstation ID: [id number] Dictated by: GUS HUYNH on ThuAug 17, 2022 5:55:00 PM EST Transcribed by: GUS HUYNH on ThuAug 17, 2022 5:55:00 PM EST Finalized by: GUS HUYNH on ThuAug 17, 2022 5:55:00 PM EST Normal [facility] Comment on above: Order Comment: Injur y/Trauma or Illness?:Illness/Other How long have you had these symptoms (acute/chronic)?:Acute Reason for exam?:sob History of cancer?:. Surgeries, chemotherapy, or radiation?:. Type of Exam?:Initial Additional signs and symptoms?:sob and dizziness that started 2 hours ago XR CHEST AP/PA AND LATon XR CHEST AP/PA AND LAT EXAMINATION: XR CHEST AP/PA AND LAT DATE: 05/22/2022. HISTORY: cough Injury/Trauma or Illness?:Illness/Othe r How long have you had these symptoms (acute/chronic)?:Acut e Reason for exam?:cough History of cancer?: Surgeries, chemotherapy, or radiation?: R05.9 Cough, unspecified type COMPARISON: None available. TECHNIQUE: Frontal and lateral views of the chest are submitted. FINDINGS: Inspiration is suboptimal. No pleural effusion, focal dense infiltrate or overt vascular congestion is seen accounting for the suboptimal inspiration. The heart is not enlarged. Prominence of the left hilum is noted. Perihilar/peribronchi al cuffing is shown. IMPRESSION: 1. Limited inspiration with perihilar/peribronchi al cuffing compatible with reactive airways disease or bronchitis. 2. Prominence of the left hilum may be secondary to poor inspiration. Lymphadenopathy or other mass not excluded. Suggest follow-up PA and lateral views in 6-8 weeks. PRR/lab Workstation ID: [id number] Dictated by: VICTOR MANUEL VENCES on ThuMay 22, 2022 1:13:08 PM EDT Transcribed by: FLOYD BYNUM on ThuMay 22, 2022 1:34:56 PM EDT Finalized by: VICTOR MANUEL VENCES on ThuMay 22, 2022 2:20:03 PM EDT Normal [facility] Comment on above: Order Comment: Injur y/Trauma or Illness?:Illness/Other How long have you had these symptoms (acute/chronic)?:Acute Reason for exam?:cough History of cancer?: Surgeries, chemotherapy, or radiation?: Type of Exam?:Unknown Additional signs and symptoms?:productive cough x3 weeks BASIC METABOLIC PANELon 08- Calcium [Mass/Vol] 8.5 mg/dL Normal 8.4-10.2 [facility] Comment on above: Performed By: #### D NAPL #### [address] [address] CO2 [Moles/Vol] 26.0 mm/Hg Normal 22.0-30.0 [facility] Comment on above: Performed By: #### D NAPL #### [address] [address] Creatinine [Mass/Vol] 0.36 mg/dL Low 0.70-1.20 [facility] Comment on above: Performed By: #### D NAPL #### [address] [address] GFR/1.73 sq M.predicted (S/P/Bld) [Vol rate/Area] 218 mL/min Normal >60 [facility] Comment on above: Result Comment: Refe rence Range: 59 to 44 - Mild to moderate loss of kidney function 44 to 30 - Moderate to Severe loss of kidney function 29 to 15 - Severe loss of kidney function <15 - Kidney failure The estimated GFR is based on the MDRD formula for assessment of stable or slowly declining kidney function in adults. Estimated GFR values are not accurate in: -Obese (BMI>34) OR underweight (BMI<20) people -The very old OR very young -Races other than or -[place]an -People with acute illnesses, amputations, or acute kidney failure. Estimated GFR should be interpreted in clinical context and an alternative method such as a timed urine collection for creatinine clearance used to verify questionable results. (Ref. National Kid[employer] Foundation 2015) Performed By: #### D NAPL #### [address] [address] Glucose [Mass/Vol] 88 mg/dL Normal 70-100 [facility] Comment on above: Performed By: #### D NAPL #### [address] [address] Potassium [Moles/Vol] 5.8 mmol/L Normal [facility] Comment on above: Result Comment: 02-01 Performed By: #### D NAPL #### [address] [address] Urea nitrogen/Creatinine [Mass ratio] 8 mg/dL Normal 02-07 [facility] Comment on above: Performed By: #### D NAPL #### [address] [address] Chloride [Moles/Vol] 108 mmol/L Normal 100-110 [facility] [place] [facility] Comment on above: Performed By: #### D NAPL #### [address] [address] Potassium [Moles/Vol] 3.7 mmol/L Normal 3.5-5.0 [facility] Comment on above: Performed By: #### D NAPL #### [address] [address] Sodium [Moles/Vol] 139 mmol/L Normal 136-145 [facility] Comment on above: Performed By: #### D NAPL #### [address] [address] CBC WITH DIFFERENTIALon 02-17 Basophils (Bld) [#/Vol] 0.02 10*3/uL Normal 0.00-0.20 [facility] Comment on above: Performed By: #### D NAPL #### [address] [address] Basophils/100 WBC (Bld) 0.3 % Normal 0.0-2.0 [facility] Comment on above: Performed By: #### D NAPL #### [address] [address] Eosinophils (Bld) [#/Vol] 0.35 10*3/uL Normal 0.00-0.50 [facility] Comment on above: Performed By: #### D NAPL #### [address] [address] Eosinophils/100 WBC (Bld) 5.5 % High 0.0-4.0 [facility] Comment on above: Performed By: #### D NAPL #### [address] [address] Erythrocyte distribution width (RBC) [Ratio] 14.5 % Normal 11.5-14.5 [facility] Comment on above: Performed By: #### D NAPL #### [address] [address] Hematocrit (Bld) [Volume fraction] 33.2 % Low 35.0-47.0 [facility] Comment on above: Performed By: #### D NAPL #### [address] [address] Hemoglobin (Bld) [Mass/Vol] 10.6 g/dL Low 12.0-16.0 [facility] Comment on above: Performed By: #### D NAPL #### [address] [address] Lymphocytes (Bld) [#/Vol] 2.36 10*3/uL Normal 1.00-4.80 [facility] Comment on above: Performed By: #### D NAPL #### [address] [address] MCH (RBC) [Entitic mass] 27.0 pg Normal 25.6-32.2 [facility] Comment on above: Performed By: #### D NAPL #### [address] [address] MCHC (RBC) [Mass/Vol] 31.9 g/dL Low 32.0-36.0 [facility] Comment on above: Performed By: #### D NAPL #### [address] [address] MCV (RBC) [Entitic vol] 84.7 fL Normal 82.0-98.0 [facility] Comment on above: Performed By: #### D NAPL #### [address] [address] Monocytes (Bld) [#/Vol] 0.56 10*3/uL Normal 0.20-1.20 [facility] Comment on above: Performed By: #### D NAPL #### [address] [address] Monocytes/100 WBC (Bld) 8.8 % Normal 5.0-11.0 [facility] Comment on above: Performed By: #### D NAPL #### [address] [address] Neutrophils (Bld) [#/Vol] 3.10 10*3/uL Normal 2.00-7.50 [facility] Comment on above: Performed By: #### D NAPL #### [address] [address] NRBC COUNT 0.00 Normal 0.00-0.50 [facility] Comment on above: Performed By: #### D NAPL #### [address] [address] Nucleated RBC/100 WBC (Bld) [Ratio] 0.0 % Normal [facility] Comment on above: Performed By: #### D NAPL #### [address] [address] Platelet mean volume (Bld) [Entitic vol] 11.0 fL Normal 9.4-12.4 [facility] Comment on above: Performed By: #### D NAPL #### [address] [address] Platelets (Bld) [#/Vol] 184 10*3/uL Normal 150-400 [facility] Comment on above: Performed By: #### D NAPL #### [address] [address] RBC (Bld) [#/Vol] 3.92 10*6/uL Normal 3.80-5.10 [facility] Comment on above: Performed By: #### D NAPL #### [address] [address] Segmented neutrophils/100 WBC (Bld) 48.3 % Normal 36.0-66.0 [facility] Comment on above: Performed By: #### D NAPL #### [address] [address] Variant lymphocytes Auto Ql (Bld) 36.9 % Normal 24.0-44.0 [facility] Comment on above: Performed By: #### D NAPL #### [address] [address] WBC (Bld) [#/Vol] 6.40 10*3/uL Normal 4.80-10.80 [facility] Comment on above: Performed By: #### D NAPL #### [address] [address] [address] HEAD WITHOUT CONTRASTon 0 03-04-2022 CT HEAD WITHOUT CONTRAST CLINICAL INDICATION: headache, abnormal spells with possible seizure EXAM DESCRIPTION: CT HEAD WITHOUT CONTRAST 03/03/2022 5:05 pm COMPARISON: 06/01/2021 TECHNIQUE: Multiple contiguous 5 mm axial sections were obtained through the brain without contrast material. Dose modulation, iterative reconstruction, and/or weight based dosing was utilized when appropriate to reduce radiation dose to as low as reasonably achievable. FINDINGS: Cisternal spaces are well maintained. The ventricular system is normal. The wilde-white interface is normal. Osseous structures are unremarkable. IMPRESSION: Negative Normal [facility] Comment on above: Order Comment: Vet n o FOLATE SERUMon 03-04-2022 Folate [Mass/Vol] 11.70 ng/mL Normal 2.76-20.00 [facility] Comment on above: Performed By: #### D NAPL #### [address] [address] CBC WITH DIFFERENTIALon 02-17 Basophils (Bld) [#/Vol] 0.01 10*3/uL Normal 0.00-0.20 [facility] Comment on above: Performed By: #### L IPA, HFP, BASIC, CBCD, TROPO, NTBNP, DDIM, SPT #### [address] [address] Basophils/100 WBC (Bld) 0.1 % Normal 0.0-2.0 [facility] Comment on above: Performed By: #### L IPA, HFP, BASIC, CBCD, TROPO, NTBNP, DDIM, SPT #### [address] [address] Eosinophils (Bld) [#/Vol] 0.29 10*3/uL Normal 0.00-0.50 [facility] Comment on above: Performed By: #### L IPA, HFP, BASIC, CBCD, TROPO, NTBNP, DDIM, SPT #### [address] [address] Eosinophils/100 WBC (Bld) 4.3 % High 0.0-4.0 [facility] Comment on above: Performed By: #### L IPA, HFP, BASIC, CBCD, TROPO, NTBNP, DDIM, SPT #### [address] [address] Erythrocyte distribution width (RBC) [Ratio] 14.6 % High 11.5-14.5 [facility] Comment on above: Performed By: #### L IPA, HFP, BASIC, CBCD, TROPO, NTBNP, DDIM, SPT #### [address] [address] Hematocrit (Bld) [Volume fraction] 33.4 % Low 35.0-47.0 [facility] Comment on above: Performed By: #### L IPA, HFP, BASIC, CBCD, TROPO, NTBNP, DDIM, SPT #### [address] [address] Hemoglobin (Bld) [Mass/Vol] 10.7 g/dL Low 12.0-16.0 [facility] Comment on above: Performed By: #### L IPA, HFP, BASIC, CBCD, TROPO, NTBNP, DDIM, SPT #### [address] [address] Lymphocytes (Bld) [#/Vol] 2.15 10*3/uL Normal 1.00-4.80 [facility] Comment on above: Performed By: #### L IPA, HFP, BASIC, CBCD, TROPO, NTBNP, DDIM, SPT #### [address] [address] MCH (RBC) [Entitic mass] 27.4 pg Normal 25.6-32.2 [facility] Comment on above: Performed By: #### L IPA, HFP, BASIC, CBCD, TROPO, NTBNP, DDIM, SPT #### [address] [address] MCHC (RBC) [Mass/Vol] 32.0 g/dL Normal 32.0-36.0 [facility] Comment on above: Performed By: #### L IPA, HFP, BASIC, CBCD, TROPO, NTBNP, DDIM, SPT #### [address] [address] MCV (RBC) [Entitic vol] 85.6 fL Normal 82.0-98.0 [facility] Comment on above: Performed By: #### L IPA, HFP, BASIC, CBCD, TROPO, NTBNP, DDIM, SPT #### [address] [address] Monocytes (Bld) [#/Vol] 0.58 10*3/uL Normal 0.20-1.20 [facility] Comment on above: Performed By: #### L IPA, HFP, BASIC, CBCD, TROPO, NTBNP, DDIM, SPT #### [address] [address] Monocytes/100 WBC (Bld) 8.6 % Normal 5.0-11.0 [facility] Comment on above: Performed By: #### L IPA, HFP, BASIC, CBCD, TROPO, NTBNP, DDIM, SPT #### [address] [address] Neutrophils (Bld) [#/Vol] 3.73 10*3/uL Normal 2.00-7.50 [facility] Comment on above: Performed By: #### L IPA, HFP, BASIC, CBCD, TROPO, NTBNP, DDIM, SPT #### [address] [address] NRBC COUNT 0.00 Normal 0.00-0.50 [facility] Comment on above: Performed By: #### L IPA, HFP, BASIC, CBCD, TROPO, NTBNP, DDIM, SPT #### [address] [address] Nucleated RBC/100 WBC (Bld) [Ratio] 0.0 % Normal [facility] Comment on above: Performed By: #### L IPA, HFP, BASIC, CBCD, TROPO, NTBNP, DDIM, SPT #### [address] [address] Platelet mean volume (Bld) [Entitic vol] 10.4 fL Normal 9.4-12.4 [facility] Comment on above: Performed By: #### L IPA, HFP, BASIC, CBCD, TROPO, NTBNP, DDIM, SPT #### [address] [address] Platelets (Bld) [#/Vol] 174 10*3/uL Normal 150-400 [facility] Comment on above: Performed By: #### L IPA, HFP, BASIC, CBCD, TROPO, NTBNP, DDIM, SPT #### [address] [address] RBC (Bld) [#/Vol] 3.90 10*6/uL Normal 3.80-5.10 [facility] Comment on above: Performed By: #### L IPA, HFP, BASIC, CBCD, TROPO, NTBNP, DDIM, SPT #### [address] [address] Segmented neutrophils/100 WBC (Bld) 55.1 % Normal 36.0-66.0 [facility] Comment on above: Performed By: #### L IPA, HFP, BASIC, CBCD, TROPO, NTBNP, DDIM, SPT #### [address] [address] Variant lymphocytes Auto Ql (Bld) 31.8 % Normal 24.0-44.0 [facility] Comment on above: Performed By: #### L IPA, HFP, BASIC, CBCD, TROPO, NTBNP, DDIM, SPT #### [address] [address] WBC (Bld) [#/Vol] 6.77 10*3/uL Normal 4.80-10.80 [facility] Comment on above: Performed By: #### L IPA, HFP, BASIC, CBCD, TROPO, NTBNP, DDIM, SPT #### [address] [address] COMPREHENSIVE METABOLIC PANE Jude 03-03-2022 Albumin [Mass/Vol] 3.4 g/dL Low 3.5-5.0 [facility] Comment on above: Performed By: #### L IPA, HFP, BASIC, CBCD, TROPO, NTBNP, DDIM, SPT #### [address] [address] ALP [Catalytic activity/Vol] 123 U/L Normal 38-126 [facility] Comment on above: Performed By: #### L IPA, HFP, BASIC, CBCD, TROPO, NTBNP, DDIM, SPT #### [address] [address] ALT [Catalytic activity/Vol] 17 U/L Normal 9-52 [facility] Comment on above: Performed By: #### L IPA, HFP, BASIC, CBCD, TROPO, NTBNP, DDIM, SPT #### [address] [address] AST [Catalytic activity/Vol] 24 U/L Normal 14-56 [facility] Comment on above: Performed By: #### L IPA, HFP, BASIC, CBCD, TROPO, NTBNP, DDIM, SPT #### [address] [address] Bilirubin [Mass or moles/Vol] 0.4 mg/dL Normal 0.2-1.2 [facility] Comment on above: Performed By: #### L IPA, HFP, BASIC, CBCD, TROPO, NTBNP, DDIM, SPT #### [address] [address] Calcium [Mass/Vol] 8.6 mg/dL Normal 8.4-10.2 [facility] Comment on above: Performed By: #### L IPA, HFP, BASIC, CBCD, TROPO, NTBNP, DDIM, SPT #### [address] [address] CO2 [Moles/Vol] 25.0 mm/Hg Normal 22.0-30.0 [facility] Comment on above: Performed By: #### L IPA, HFP, BASIC, CBCD, TROPO, NTBNP, DDIM, SPT #### [address] [address] Creatinine [Mass/Vol] 0.38 mg/dL Low 0.70-1.20 [facility] Comment on above: Performed By: #### L IPA, HFP, BASIC, CBCD, TROPO, NTBNP, DDIM, SPT #### [address] [address] GFR/1.73 sq M.predicted (S/P/Bld) [Vol rate/Area] 204 mL/min Normal >60 [facility] Comment on above: Result Comment: Refe rence Range: 59 to 44 - Mild to moderate loss of kidney function 44 to 30 - Moderate to Severe loss of kidney function 29 to 15 - Severe loss of kidney function <15 - Kidney failure The estimated GFR is based on the MDRD formula for assessment of stable or slowly declining kidney function in adults. Estimated GFR values are not accurate in: -Obese (BMI>34) OR underweight (BMI<20) people -The very old OR very young -Races other than or -[place]an -People with acute illnesses, amputations, or acute kidney failure. Estimated GFR should be interpreted in clinical context and an alternative method such as a timed urine collection for creatinine clearance used to verify questionable results. (Ref. National Kidney Foundation 2015) Performed By: #### L IPA, HFP, BASIC, CBCD, TROPO, NTBNP, DDIM, SPT #### [address] [address] Glucose [Mass/Vol] 117 mg/dL High 70-100 [facility] Comment on above: Performed By: #### L IPA, HFP, BASIC, CBCD, TROPO, NTBNP, DDIM, SPT #### [address] [address] Potassium [Moles/Vol] 7.2 mmol/L Normal [facility] Comment on above: Result Comment: 02-01 Performed By: #### L IPA, HFP, BASIC, CBCD, TROPO, NTBNP, DDIM, SPT #### [address] [address] Protein [Mass/Vol] 6.8 g/dL Normal 6.0-8.2 [facility] Comment on above: Performed By: #### L IPA, HFP, BASIC, CBCD, TROPO, NTBNP, DDIM, SPT #### [address] [address] Urea nitrogen/Creatinine [Mass ratio] 7 mg/dL Normal 7-22 [facility] Comment on above: Performed By: #### L IPA, HFP, BASIC, CBCD, TROPO, NTBNP, DDIM, SPT #### [address] [address] Potassium [Moles/Vol] 3.5 mmol/L Normal 3.5-5.0 [facility] Comment on above: Performed By: #### L IPA, HFP, BASIC, CBCD, TROPO, NTBNP, DDIM, SPT #### [address] [address] Chloride [Moles/Vol] 108 mmol/L Normal 100-110 [facility] [place] [facility] Comment on above: Performed By: #### L IPA, HFP, BASIC, CBCD, TROPO, NTBNP, DDIM, SPT #### [address] [address] Sodium [Moles/Vol] 140 mmol/L Normal 136-145 [facility] Comment on above: Performed By: #### L IPA, HFP, BASIC, CBCD, TROPO, NTBNP, DDIM, SPT #### [address] [address] ECGon 03-03-2022 Electrocardiogram [facility] Test Date: 2022-03-03 Pat Name: GIULIANA GREWAL Department: Room: [facility] Gender: Female [employer] Clerk: : 1985 Requested By: [id number] Order Number: [id number] Donna MD: Romario Lawrence Measurements Intervals [place] Rate: 88 P: 76 [place]: 168 QRS: 82 QRSD: 98 T: 75 QT: 364 QTc: 440 Interpretive Statements Normal sinus rhythm Electronically Signed On 03-03-2022 15:06:37 EDT by Romario Lawrence [facility] Comment on above: Order Comment: Vet n o HCG - QUALITATIVEon 03-03-20 HCG ( test) Ql Negative [facility] Comment on above: Performed By: #### L IPA, HFP, BASIC, CBCD, TROPO, NTBNP, DDIM, SPT #### [address] [address] MAGNESIUMon 03-03-2022 Magnesium [Mass/Vol] 1.8 mg/dL Normal 1.7-2.2 [facility] [place] [facility] Comment on above: Order Comment: May u se already collected blood Performed By: #### L IPA, HFP, BASIC, CBCD, TROPO, NTBNP, DDIM, SPT #### [address] [address] PHOSPHORUSon 03-03-2022 Phosphate [Mass/Vol] 3.8 mg/dL Normal 2.5-4.6 [facility] Comment on above: Order Comment: May u se already collected blood Performed By: #### L IPA, HFP, BASIC, CBCD, TROPO, NTBNP, DDIM, SPT #### [address] [address] THYROID PANEL 1 REFLEXon Free T4 index Calc [Mass/Vol] 24.06 High 5.93-13.13 [facility] Comment on above: Performed By: #### L IPA, HFP, BASIC, CBCD, TROPO, NTBNP, DDIM, SPT #### [address] [address] T4 [Moles/Vol] 18.8 ug/dL High 5.5-11.0 [facility] Comment on above: Performed By: #### L IPA, HFP, BASIC, CBCD, TROPO, NTBNP, DDIM, SPT #### [address] [address] T3RU 51.2 % High 23.5-40.5 [facility] Comment on above: Performed By: #### L IPA, HFP, BASIC, CBCD, TROPO, NTBNP, DDIM, SPT #### [address] [address] TROPONIN Ion 03-03-2022 Troponin I.cardiac [Mass/Vol] ng/mL Normal 0.012-0.120 [facility] Comment on above: Result Comment: RE FERENCE RANGE IS 0.012 - 0.120 ng/ml cTnI - The cutoff of 0.120 ng/ml is recommended for diagnosis of AMI, yielding optimal performance of 95% sensitivity and 93% specificity. Performed By: #### L IPA, HFP, BASIC, CBCD, TROPO, NTBNP, DDIM, SPT #### [address] [address] TSH REFLEXon 03-03-2022 TSH Qn m[IU]/L Low 0.34-5.60 [facility] Comment on above: Result Comment: TSH REFERENCE RANGE IS FOR AGE 10 AND OLDER. CHILDREN UNDER 1 YEAR OLD HAVE SIGNIFICANTLY HIGHER NORMAL RANGE, WHICH GRADUALLY DECREASES WITH AGE. PLEASE CONSULT THE PATHOLOGIST FOR SPECIFIC INFORMATION. Performed By: #### L IPA, HFP, BASIC, CBCD, TROPO, NTBNP, DDIM, SPT #### [address] [address] VENOUS BLOOD GAS - Serena 02-17 Base excess Calc (BldV) [Moles/Vol] 0.9 mmol/L Normal [facility] Comment on above: Result Comment: Refe rence ranges have not been established for venous gases. Performed By: #### D NAPL #### [address] [address] Carboxyhemoglobin (BldV) [Mass fraction] 10.7 g/dL Normal [facility] Comment on above: Performed By: #### D NAPL #### [address] [address] CO2 (BldV) [Partial pressure] 24.6 mmol/L Normal [facility] Comment on above: Performed By: #### D NAPL #### [address] [address] CO2 [Moles/Vol] 44.5 mmol/L [facility] Comment on above: Performed By: #### D NAPL #### [address] [address] Deoxyhemoglobin (BldV) [Mass fraction] 21.5 [facility] Comment on above: Performed By: #### D NAPL #### [address] [address] Gas and Carbon monoxide panel (BldV) 4.4 [facility] Comment on above: Performed By: #### D NAPL #### [address] [address] HCO3 standard (BldV) [Moles/Vol] 26.3 mmol/L [facility] Comment on above: Performed By: #### D NAPL #### [address] [address] Methemoglobin (BldV) [Pure mass fraction] 1.0 [facility] Comment on above: Performed By: #### D NAPL #### [address] [address] Oxygen (BldV) [Partial pressure] 40.5 mm[Hg] [facility] Comment on above: Performed By: #### D NAPL #### [address] [address] Oxyhemoglobin (BldV) [Mass fraction] 73.1 [facility] Comment on above: Performed By: #### D NAPL #### [address] [address] pH (BldV) 7.380 [pH] [facility] Comment on above: Performed By: #### D NAPL #### [address] [address] SaO2% (BldCoV) [Mass fraction] 77.3 [facility] Comment on above: Performed By: #### D NAPL #### [address] [address] VITAMIN B12on 03-03-2022 Cobalamin (Vitamin B12) [Mass/Vol] 369 pg/mL Normal 239-931 [facility] Comment on above: Order Comment: May u se already collected blood Performed By: #### L IPA, HFP, BASIC, CBCD, TROPO, NTBNP, DDIM, SPT #### [address] [address] XR FOOT LEFT 3 VIEWSon 01-31 XR FOOT LEFT 3 VIEWS CLINICAL INDICATION : left foot pain EXAM DESCRIPTION: XR FOOT LEFT 3 VIEWS 01/31/2022 12:41 am COMPARISON: 03/13/2021 TECHNIQUE: Three views of the left foot were obtained. FINDINGS: Acute fracture is identified through the neck of the 5th metatarsal. No significant angulation or displacement is identified. Joint spaces are not involved. The remainder of the left foot is normal. IMPRESSION: Acute fracture 5th metatarsal Normal [facility] Comment on above: Order Comment: Vet n o XR Foot - left 3 Viewson IMPRESSION: Acute fracture 5th metatarsal RADIOLOGY CLINICAL INDICATION: left foot pain EXAM DESCRIPTION: XR FOOT LEFT 3 VIEWS 01/31/2022 12:41 am COMPARISON: 03/13/2021 TECHNIQUE: Three views of the left foot were obtained. FINDINGS: Acute fracture is identified through the neck of the 5th metatarsal. No significant angulation or displacement is identified. Joint spaces are not involved. The remainder of the left foot is normal. RADIOLOGY Shemar Hilton D O - 01/31/2022 CLINICAL INDICATION: left foot pain EXAM DESCRIPTION: XR FOOT LEFT 3 VIEWS 01/31/2022 12:41 am COMPARISON: 03/13/2021 TECHNIQUE: Three views of the left foot were obtained. FINDINGS: Acute fracture is identified through the neck of the 5th metatarsal. No significant angulation or displacement is identified. Joint spaces are not involved. The remainder of the left foot is normal. IMPRESSION IMPRESSION: Acute fracture 5th metatarsal [facility] Radiology Study observation (narrative) [facility] XR Foot - left 3 ViewsOrdere d By: Shemar Hilton on 01-31-2022 [facility] Work Phone: CULTURE-URINEon 12-02-2021 Bacteria identified Cx Nom (U) Abnormal [facility] Comment on above: Order Comment: For i ndwelling catheters, specimen collection is acceptableon catheter day 1 and 2 only. ?SPECIMEN SOURCE URINE - CLEAN CATCH--- PLEASE USE TO LABEL EXTRA URINE TUBES --- Result Comment: L- 601 75,000-100,000 CFU/mL Performed By: #### L IPA, HFP, BASIC, CBCD, TROPO, NTBNP, DDIM, SPT #### [address] [address] CBC WITH DIFFERENTIALon 11-17 Basophils (Bld) [#/Vol] 0.01 10*3/uL Normal 0.00-0.20 [facility] Comment on above: Order Comment: For i ndwelling catheters, specimen collection is acceptableon catheter day 1 and 2 only. ?SPECIMEN SOURCE URINE - CLEAN CATCH Performed By: #### L IPA, HFP, BASIC, CBCD, TROPO, NTBNP, DDIM, SPT #### [address] [address] Basophils/100 WBC (Bld) 0.2 % Normal 0.0-2.0 [facility] Comment on above: Order Comment: For i ndwelling catheters, specimen collection is acceptableon catheter day 1 and 2 only. ?SPECIMEN SOURCE URINE - CLEAN CATCH Performed By: #### L IPA, HFP, BASIC, CBCD, TROPO, NTBNP, DDIM, SPT #### [address] [address] Eosinophils (Bld) [#/Vol] 0.02 10*3/uL Normal 0.00-0.50 [facility] Comment on above: Order Comment: For i ndwelling catheters, specimen collection is acceptableon catheter day 1 and 2 only. ?SPECIMEN SOURCE URINE - CLEAN CATCH Performed By: #### L IPA, HFP, BASIC, CBCD, TROPO, NTBNP, DDIM, SPT #### [address] [address] Eosinophils/100 WBC (Bld) 0.3 % Normal 0.0-4.0 [facility] Comment on above: Order Comment: For i ndwelling catheters, specimen collection is acceptableon catheter day 1 and 2 only. ?SPECIMEN SOURCE URINE - CLEAN CATCH Performed By: #### L IPA, HFP, BASIC, CBCD, TROPO, NTBNP, DDIM, SPT #### [address] [address] Erythrocyte distribution width (RBC) [Ratio] 15.1 % High 11.5-14.5 [facility] [facility] Comment on above: Order Comment: For i ndwelling catheters, specimen collection is acceptableon catheter day 1 and 2 only. ?SPECIMEN SOURCE URINE - CLEAN CATCH Performed By: #### L IPA, HFP, BASIC, CBCD, TROPO, NTBNP, DDIM, SPT #### [address] [address] Hematocrit (Bld) [Volume fraction] 38.5 % Normal 35.0-47.0 [facility] Comment on above: Order Comment: For i ndwelling catheters, specimen collection is acceptableon catheter day 1 and 2 only. ?SPECIMEN SOURCE URINE - CLEAN CATCH Performed By: #### L IPA, HFP, BASIC, CBCD, TROPO, NTBNP, DDIM, SPT #### [address] [address] Hemoglobin (Bld) [Mass/Vol] 12.5 g/dL Normal 12.0-16.0 [facility] Comment on above: Order Comment: For i ndwelling catheters, specimen collection is acceptableon catheter day 1 and 2 only. ?SPECIMEN SOURCE URINE - CLEAN CATCH Performed By: #### L IPA, HFP, BASIC, CBCD, TROPO, NTBNP, DDIM, SPT #### [address] [address] Lymphocytes (Bld) [#/Vol] 1.10 10*3/uL Normal 1.00-4.80 [facility] Comment on above: Order Comment: For i ndwelling catheters, specimen collection is acceptableon catheter day 1 and 2 only. ?SPECIMEN SOURCE URINE - CLEAN CATCH Performed By: #### L IPA, HFP, BASIC, CBCD, TROPO, NTBNP, DDIM, SPT #### [address] [address] MCH (RBC) [Entitic mass] 28.0 pg Normal 25.6-32.2 [facility] Comment on above: Order Comment: For i ndwelling catheters, specimen collection is acceptableon catheter day 1 and 2 only. ?SPECIMEN SOURCE URINE - CLEAN CATCH Performed By: #### L IPA, HFP, BASIC, CBCD, TROPO, NTBNP, DDIM, SPT #### [address] [address] MCHC (RBC) [Mass/Vol] 32.5 g/dL Normal 32.0-36.0 [facility] [place] on above: Order Comment: For i ndwelling catheters, specimen collection is acceptableon catheter day 1 and 2 only. ?SPECIMEN SOURCE URINE - CLEAN CATCH Performed By: #### L IPA, HFP, BASIC, CBCD, TROPO, NTBNP, DDIM, SPT #### [address] [address] MCV (RBC) [Entitic vol] 86.3 fL Normal 82.0-98.0 [facility] Comment on above: Order Comment: For i ndwelling catheters, specimen collection is acceptableon catheter day 1 and 2 only. ?SPECIMEN SOURCE URINE - CLEAN CATCH Performed By: #### L IPA, HFP, BASIC, CBCD, TROPO, NTBNP, DDIM, SPT #### [address] [address] Monocytes (Bld) [#/Vol] 0.43 10*3/uL Normal 0.20-1.20 [facility] Comment on above: Order Comment: For i ndwelling catheters, specimen collection is acceptableon catheter day 1 and 2 only. ?SPECIMEN SOURCE URINE - CLEAN CATCH Performed By: #### L IPA, HFP, BASIC, CBCD, TROPO, NTBNP, DDIM, SPT #### [address] [address] Monocytes/100 WBC (Bld) 7.0 % Normal 5.0-11.0 [facility] Comment on above: Order Comment: For i ndwelling catheters, specimen collection is acceptableon catheter day 1 and 2 only. ?SPECIMEN SOURCE URINE - CLEAN CATCH Performed By: #### L IPA, HFP, BASIC, CBCD, TROPO, NTBNP, DDIM, SPT #### [address] [address] Neutrophils (Bld) [#/Vol] 4.60 10*3/uL Normal 2.00-7.50 [facility] Comment on above: Order Comment: For i ndwelling catheters, specimen collection is acceptableon catheter day 1 and 2 only. ?SPECIMEN SOURCE URINE - CLEAN CATCH Performed By: #### L IPA, HFP, BASIC, CBCD, TROPO, NTBNP, DDIM, SPT #### [address] [address] NRBC COUNT 0.00 Normal 0.00-0.50 [facility] Comment on above: Order Comment: For i ndwelling catheters, specimen collection is acceptableon catheter day 1 and 2 only. ?SPECIMEN SOURCE URINE - CLEAN CATCH Performed By: #### L IPA, HFP, BASIC, CBCD, TROPO, NTBNP, DDIM, SPT #### [address] [address] Nucleated RBC/100 WBC (Bld) [Ratio] 0.0 % Normal [facility] Comment on above: Order Comment: For i ndwelling catheters, specimen collection is acceptableon catheter day 1 and 2 only. ?SPECIMEN SOURCE URINE - CLEAN CATCH Performed By: #### L IPA, HFP, BASIC, CBCD, TROPO, NTBNP, DDIM, SPT #### [address] [address] Platelet mean volume (Bld) [Entitic vol] 9.9 fL Normal 9.4-12.4 [facility] Comment on above: Order Comment: For i ndwelling catheters, specimen collection is acceptableon catheter day 1 and 2 only. ?SPECIMEN SOURCE URINE - CLEAN CATCH Performed By: #### L IPA, HFP, BASIC, CBCD, TROPO, NTBNP, DDIM, SPT #### [address] [address] Platelets (Bld) [#/Vol] 172 10*3/uL Normal 150-400 [facility] Comment on above: Order Comment: For i ndwelling catheters, specimen collection is acceptableon catheter day 1 and 2 only. ?SPECIMEN SOURCE URINE - CLEAN CATCH Performed By: #### L IPA, HFP, BASIC, CBCD, TROPO, NTBNP, DDIM, SPT #### [address] [address] RBC (Bld) [#/Vol] 4.46 10*6/uL Normal 3.80-5.10 [facility] Comment on above: Order Comment: For i ndwelling catheters, specimen collection is acceptableon catheter day 1 and 2 only. ?SPECIMEN SOURCE URINE - CLEAN CATCH Performed By: #### L IPA, HFP, BASIC, CBCD, TROPO, NTBNP, DDIM, SPT #### [address] [address] Segmented neutrophils/100 WBC (Bld) 74.4 % High 36.0-66.0 [facility] Comment on above: Order Comment: For i ndwelling catheters, specimen collection is acceptableon catheter day 1 and 2 only. ?SPECIMEN SOURCE URINE - CLEAN CATCH Performed By: #### L IPA, HFP, BASIC, CBCD, TROPO, NTBNP, DDIM, SPT #### [address] [address] Variant lymphocytes Auto Ql (Bld) 17.8 % Low 24.0-44.0 [facility] Comment on above: Order Comment: For i ndwelling catheters, specimen collection is acceptableon catheter day 1 and 2 only. ?SPECIMEN SOURCE URINE - CLEAN CATCH Performed By: #### L IPA, HFP, BASIC, CBCD, TROPO, NTBNP, DDIM, SPT #### [address] [address] WBC (Bld) [#/Vol] 6.18 10*3/uL Normal 4.80-10.80 [facility] Comment on above: Order Comment: For i ndwelling catheters, specimen collection is acceptableon catheter day 1 and 2 only. ?SPECIMEN SOURCE URINE - CLEAN CATCH Performed By: #### L IPA, HFP, BASIC, CBCD, TROPO, NTBNP, DDIM, SPT #### [address] [address] COMPREHENSIVE METABOLIC PANE Jude 12-01-2021 Albumin [Mass/Vol] 3.4 g/dL Low 3.5-5.0 [facility] Comment on above: Order Comment: For i ndwelling catheters, specimen collection is acceptableon catheter day 1 and 2 only. ?SPECIMEN SOURCE URINE - CLEAN CATCH Performed By: #### L IPA, HFP, BASIC, CBCD, TROPO, NTBNP, DDIM, SPT #### [address] [address] ALP [Catalytic activity/Vol] 123 U/L Normal 38-126 [facility] Comment on above: Order Comment: For i ndwelling catheters, specimen collection is acceptableon catheter day 1 and 2 only. ?SPECIMEN SOURCE URINE - CLEAN CATCH Performed By: #### L IPA, HFP, BASIC, CBCD, TROPO, NTBNP, DDIM, SPT #### [address] [address] ALT [Catalytic activity/Vol] 19 U/L Normal 9-52 [facility] Comment on above: Order Comment: For i ndwelling catheters, specimen collection is acceptableon catheter day 1 and 2 only. ?SPECIMEN SOURCE URINE - CLEAN CATCH Performed By: #### L IPA, HFP, BASIC, CBCD, TROPO, NTBNP, DDIM, SPT #### [address] [address] AST [Catalytic activity/Vol] 32 U/L Normal 14-56 [facility] Comment on above: Order Comment: For i ndwelling catheters, specimen collection is acceptableon catheter day 1 and 2 only. ?SPECIMEN SOURCE URINE - CLEAN CATCH Performed By: #### L IPA, HFP, BASIC, CBCD, TROPO, NTBNP, DDIM, SPT #### [address] [address] Calcium [Mass/Vol] 8.2 mg/dL Low 8.4-10.2 [facility] Comment on above: Order Comment: For i ndwelling catheters, specimen collection is acceptableon catheter day 1 and 2 only. ?SPECIMEN SOURCE URINE - CLEAN CATCH Performed By: #### L IPA, HFP, BASIC, CBCD, TROPO, NTBNP, DDIM, SPT #### [address] [address] CO2 [Moles/Vol] 24.0 mm/Hg Normal 22.0-30.0 [facility] Comment on above: Order Comment: For i ndwelling catheters, specimen collection is acceptableon catheter day 1 and 2 only. ?SPECIMEN SOURCE URINE - CLEAN CATCH Performed By: #### L IPA, HFP, BASIC, CBCD, TROPO, NTBNP, DDIM, SPT #### [address] [address] Glucose [Mass/Vol] 99 mg/dL Normal 70-100 [facility] Comment on above: Order Comment: For i ndwelling catheters, specimen collection is acceptableon catheter day 1 and 2 only. ?SPECIMEN SOURCE URINE - CLEAN CATCH Performed By: #### L IPA, HFP, BASIC, CBCD, TROPO, NTBNP, DDIM, SPT #### [address] [address] Potassium [Moles/Vol] 5.3 mmol/L Normal [facility] Comment on above: Order Comment: For i ndwelling catheters, specimen collection is acceptableon catheter day 1 and 2 only. ?SPECIMEN SOURCE URINE - CLEAN CATCH Result Comment: 02-01 Performed By: #### L IPA, HFP, BASIC, CBCD, TROPO, NTBNP, DDIM, SPT #### [address] [address] Protein [Mass/Vol] 7.2 g/dL Normal 6.0-8.2 [facility] Comment on above: Order Comment: For i ndwelling catheters, specimen collection is acceptableon catheter day 1 and 2 only. ?SPECIMEN SOURCE URINE - CLEAN CATCH Performed By: #### L IPA, HFP, BASIC, CBCD, TROPO, NTBNP, DDIM, SPT #### [address] [address] Bilirubin [Mass or moles/Vol] 0.8 mg/dL Normal 0.2-1.2 [facility] Comment on above: Order Comment: For i ndwelling catheters, specimen collection is acceptableon catheter day 1 and 2 only. ?SPECIMEN SOURCE URINE - CLEAN CATCH Performed By: #### L IPA, HFP, BASIC, CBCD, TROPO, NTBNP, DDIM, SPT #### [address] [address] Creatinine [Mass/Vol] 0.46 mg/dL Low 0.70-1.20 [facility] Comment on above: Order Comment: For i ndwelling catheters, specimen collection is acceptableon catheter day 1 and 2 only. ?SPECIMEN SOURCE URINE - CLEAN CATCH Performed By: #### L IPA, HFP, BASIC, CBCD, TROPO, NTBNP, DDIM, SPT #### [address] [address] GFR/1.73 sq M.predicted (S/P/Bld) [Vol rate/Area] 164 mL/min Normal >60 [facility] Comment on above: Order Comment: For i ndwelling catheters, specimen collection is acceptableon catheter day 1 and 2 only. ?SPECIMEN SOURCE URINE - CLEAN CATCH Result Comment: Refe rence Range: 59 to 44 - Mild to moderate loss of kidney function 44 to 30 - Moderate to Severe loss of kidney function 29 to 15 - Severe loss of kidney function <15 - Kidney failure The estimated GFR is based on the MDRD formula for assessment of stable or slowly declining kidney function in adults. Estimated GFR values are not accurate in: -Obese (BMI>34) OR underweight (BMI<20) people -The very old OR very young -Races other than or -[place] -People with acute illnesses, amputations, or acute kidney failure. Estimated GFR should be interpreted in clinical context and an alternative method such as a timed urine collection for creatinine clearance used to verify questionable results. (Ref. [employer] 2015) Performed By: #### L IPA, HFP, BASIC, CBCD, TROPO, NTBNP, DDIM, SPT #### [address] [address] Urea nitrogen/Creatinine [Mass ratio] 10 mg/dL Normal 7-22 [facility] Comment on above: Order Comment: For i ndwelling catheters, specimen collection is acceptableon catheter day 1 and 2 only. ?SPECIMEN SOURCE URINE - CLEAN CATCH Performed By: #### L IPA, HFP, BASIC, CBCD, TROPO, NTBNP, DDIM, SPT #### [address] [address] Chloride [Moles/Vol] 104 mmol/L Normal 100-110 [facility] Comment on above: Order Comment: For i ndwelling catheters, specimen collection is acceptableon catheter day 1 and 2 only. ?SPECIMEN SOURCE URINE - CLEAN CATCH Performed By: #### L IPA, HFP, BASIC, CBCD, TROPO, NTBNP, DDIM, SPT #### [address] [address] Potassium [Moles/Vol] 3.5 mmol/L Normal 3.5-5.0 [facility] Comment on above: Order Comment: For i ndwelling catheters, specimen collection is acceptableon catheter day 1 and 2 only. ?SPECIMEN SOURCE URINE - CLEAN CATCH Performed By: #### L IPA, HFP, BASIC, CBCD, TROPO, NTBNP, DDIM, SPT #### [address] [address] Sodium [Moles/Vol] 133 mmol/L Low 136-145 [facility] Comment on above: Order Comment: For i ndwelling catheters, specimen collection is acceptableon catheter day 1 and 2 only. ?SPECIMEN SOURCE URINE - CLEAN CATCH Performed By: #### L IPA, HFP, BASIC, CBCD, TROPO, NTBNP, DDIM, SPT #### [address] [address] COVID RSV FLU PANELon 2021 FLUAV Ag IA Ql (Unsp spec) Negative [facility] Comment on above: Order Comment: This order code is for the COVID/Flu/RSV combo testing. Performed By: #### L IPA, HFP, BASIC, CBCD, TROPO, NTBNP, DDIM, SPT #### [address] [address] FLUBV Ab IA Ql (S) Negative [facility] Comment on above: Order Comment: This order code is for the COVID/Flu/RSV combo testing. Performed By: #### L IPA, HFP, BASIC, CBCD, TROPO, NTBNP, DDIM, SPT #### [address] [address] RSV BY PCR Negative [facility] Comment on above: Order Comment: This order code is for the COVID/Flu/RSV combo testing. Performed By: #### L IPA, HFP, BASIC, CBCD, TROPO, NTBNP, DDIM, SPT #### [address] [address] SARS-CoV-2 (COVID-19) RNA YOAN+probe Ql (Resp) Negative [facility] Comment on above: Order Comment: This order code is for the COVID/Flu/RSV combo testing. Performed By: #### L IPA, HFP, BASIC, CBCD, TROPO, NTBNP, DDIM, SPT #### [address] [address] DIRECT BILIRUBINon 2 Bilirubin.direct [Mass/Vol] 0.2 mg/dL Normal 0.0-0.4 [facility] Comment on above: Order Comment: For i ndwelling catheters, specimen collection is acceptableon catheter day 1 and 2 only. ?SPECIMEN SOURCE URINE - CLEAN CATCH Performed By: #### L IPA, HFP, BASIC, CBCD, TROPO, NTBNP, DDIM, SPT #### [address] [address] TEST URINEon 12-01 HCG ( test) Ql (U) Negative Normal [facility] Comment on above: Order Comment: For i ndwelling catheters, specimen collection is acceptableon catheter day 1 and 2 only. ?SPECIMEN SOURCE URINE - CLEAN CATCH Performed By: #### L IPA, HFP, BASIC, CBCD, TROPO, NTBNP, DDIM, SPT #### [address] [address] UA COMPLETE & REFLEX TO CULT UREon 12-01-2021 Bacteria Auto Ql (U) 2 /hpf Abnormal NONE [facility] Comment on above: Order Comment: For i ndwelling catheters, specimen collection is acceptableon catheter day 1 and 2 only. ?SPECIMEN SOURCE URINE - CLEAN CATCH Performed By: #### L IPA, HFP, BASIC, CBCD, TROPO, NTBNP, DDIM, SPT #### [address] [address] Casts LM.HPF (Urine sed) [#/Area] OCC Abnormal NONE [facility] Comment on above: Order Comment: For i ndwelling catheters, specimen collection is acceptableon catheter day 1 and 2 only. ?SPECIMEN SOURCE URINE - CLEAN CATCH Performed By: #### L IPA, HFP, BASIC, CBCD, TROPO, NTBNP, DDIM, SPT #### [address] [address] Epithelial cells LM Ql (Urine sed) 10 /hpf High 0-5 [facility] Comment on above: Order Comment: For i ndwelling catheters, specimen collection is acceptableon catheter day 1 and 2 only. ?SPECIMEN SOURCE URINE - CLEAN CATCH Performed By: #### L IPA, HFP, BASIC, CBCD, TROPO, NTBNP, DDIM, SPT #### [address] [address] RBC (U) [#/Vol] 5 /hpf Abnormal 0-2 [facility] Comment on above: Order Comment: For i ndwelling catheters, specimen collection is acceptableon catheter day 1 and 2 only. ?SPECIMEN SOURCE URINE - CLEAN CATCH Performed By: #### L IPA, HFP, BASIC, CBCD, TROPO, NTBNP, DDIM, SPT #### [address] [address] URINE REFLEX CASTS REVIEW Normal [facility] Comment on above: Order Comment: For i ndwelling catheters, specimen collection is acceptableon catheter day 1 and 2 only. ?SPECIMEN SOURCE URINE - CLEAN CATCH Performed By: #### L IPA, HFP, BASIC, CBCD, TROPO, NTBNP, DDIM, SPT #### [address] [address] URINE REFLEX CELLS NORMAL Normal [facility] Comment on above: Order Comment: For i ndwelling catheters, specimen collection is acceptableon catheter day 1 and 2 only. ?SPECIMEN SOURCE URINE - CLEAN CATCH Performed By: #### L IPA, HFP, BASIC, CBCD, TROPO, NTBNP, DDIM, SPT #### [address] [address] URINE REFLEX CRYSTALS NORMAL Normal [facility] Comment on above: Order Comment: For i ndwelling catheters, specimen collection is acceptableon catheter day 1 and 2 only. ?SPECIMEN SOURCE URINE - CLEAN CATCH Performed By: #### L IPA, HFP, BASIC, CBCD, TROPO, NTBNP, DDIM, SPT #### [address] [address] URINE REFLEX YEAST NORMAL Normal [facility] Comment on above: Order Comment: For i ndwelling catheters, specimen collection is acceptableon catheter day 1 and 2 only. ?SPECIMEN SOURCE URINE - CLEAN CATCH Performed By: #### L IPA, HFP, BASIC, CBCD, TROPO, NTBNP, DDIM, SPT #### [address] [address] WBC (U) [#/Vol] 14 /hpf High 0-5 [facility] Comment on above: Order Comment: For i ndwelling catheters, specimen collection is acceptableon catheter day 1 and 2 only. ?SPECIMEN SOURCE URINE - CLEAN CATCH Performed By: #### L IPA, HFP, BASIC, CBCD, TROPO, NTBNP, DDIM, SPT #### [address] [address] Bilirubin (U) [Mass/Vol] Negative Normal NEGATIVE [facility] Comment on above: Order Comment: For i ndwelling catheters, specimen collection is acceptableon catheter day 1 and 2 only. ?SPECIMEN SOURCE URINE - CLEAN CATCH Performed By: #### L IPA, HFP, BASIC, CBCD, TROPO, NTBNP, DDIM, SPT #### [address] [address] Color (U) YELLOW Normal [facility] Comment on above: Order Comment: For i ndwelling catheters, specimen collection is acceptableon catheter day 1 and 2 only. ?SPECIMEN SOURCE URINE - CLEAN CATCH Performed By: #### L IPA, HFP, BASIC, CBCD, TROPO, NTBNP, DDIM, SPT #### [address] [address] Glucose Test strip (U) [Mass/Vol] Negative Normal NEGATIVE [facility] Comment on above: Order Comment: For i ndwelling catheters, specimen collection is acceptableon catheter day 1 and 2 only. ?SPECIMEN SOURCE URINE - CLEAN CATCH Performed By: #### L IPA, HFP, BASIC, CBCD, TROPO, NTBNP, DDIM, SPT #### [address] [address] Ketones (U) [Mass/Vol] Negative Normal NEGATIVE [facility] Comment on above: Order Comment: For i ndwelling catheters, specimen collection is acceptableon catheter day 1 and 2 only. ?SPECIMEN SOURCE URINE - CLEAN CATCH Performed By: #### L IPA, HFP, BASIC, CBCD, TROPO, NTBNP, DDIM, SPT #### [address] [address] Leukocyte esterase Test strip Ql (U) LARGE Abnormal NEGATIVE [facility] Comment on above: Order Comment: For i ndwelling catheters, specimen collection is acceptableon catheter day 1 and 2 only. ?SPECIMEN SOURCE URINE - CLEAN CATCH Performed By: #### L IPA, HFP, BASIC, CBCD, TROPO, NTBNP, DDIM, SPT #### [address] [place] [address] Nitrite (U) [Mass/Vol] Negative Normal NEGATIVE [facility] Comment on above: Order Comment: For i ndwelling catheters, specimen collection is acceptableon catheter day 1 and 2 only. ?SPECIMEN SOURCE URINE - CLEAN CATCH Performed By: #### L IPA, HFP, BASIC, CBCD, TROPO, NTBNP, DDIM, SPT #### [address] [address] pH (U) 5.5 [pH] Normal 6.0-8.5 [facility] Comment on above: Order Comment: For i ndwelling catheters, specimen collection is acceptableon catheter day 1 and 2 only. ?SPECIMEN SOURCE URINE - CLEAN CATCH Performed By: #### L IPA, HFP, BASIC, CBCD, TROPO, NTBNP, DDIM, SPT #### [address] [address] Protein (U) [Mass/Vol] 20 mg/dL Abnormal NEG/TRACE [facility] Comment on above: Order Comment: For i ndwelling catheters, specimen collection is acceptableon catheter day 1 and 2 only. ?SPECIMEN SOURCE URINE - CLEAN CATCH Performed By: #### L IPA, HFP, BASIC, CBCD, TROPO, NTBNP, DDIM, SPT #### [address] [address] RBC Ql (U) Negative Normal NEGATIVE [facility] Comment on above: Order Comment: For i ndwelling catheters, specimen collection is acceptableon catheter day 1 and 2 only. ?SPECIMEN SOURCE URINE - CLEAN CATCH Performed By: #### L IPA, HFP, BASIC, CBCD, TROPO, NTBNP, DDIM, SPT #### [address] [address] Specific gravity (U) [Rel density] 1.030 Normal 1.010 - 1.030 [facility] Comment on above: Order Comment: For i ndwelling catheters, specimen collection is acceptableon catheter day 1 and 2 only. ?SPECIMEN SOURCE URINE - CLEAN CATCH Performed By: #### L IPA, HFP, BASIC, CBCD, TROPO, NTBNP, DDIM, SPT #### [address] [address] Turbidity Ql (U) SL CLOUDY Normal [facility] Comment on above: Order Comment: For i ndwelling catheters, specimen collection is acceptableon catheter day 1 and 2 only. ?SPECIMEN SOURCE URINE - CLEAN CATCH Performed By: #### L IPA, HFP, BASIC, CBCD, TROPO, NTBNP, DDIM, SPT #### [address] [address] Urobilinogen (U) [Mass/Vol] 3 mg/dL Abnormal <2.0 [facility] Comment on above: Order Comment: For i ndwelling catheters, specimen collection is acceptableon catheter day 1 and 2 only. ?SPECIMEN SOURCE URINE - CLEAN CATCH Performed By: #### L IPA, HFP, BASIC, CBCD, TROPO, NTBNP, DDIM, SPT #### [address] [address] URINE MICROSCOPICon 12-02-19 22 Crystals LM Nom (Urine sed) None Normal NONE [facility] Comment on above: Order Comment: For i ndwelling catheters, specimen collection is acceptableon catheter day 1 and 2 only. ?SPECIMEN SOURCE URINE - CLEAN CATCH Performed By: #### L IPA, HFP, BASIC, CBCD, TROPO, NTBNP, DDIM, SPT #### [address] [address] OTHER CELLS MICROSCOPIC OCC CLUE CELLS Abnormal NONE [facility] Comment on above: Order Comment: For i ndwelling catheters, specimen collection is acceptableon catheter day 1 and 2 only. ?SPECIMEN SOURCE URINE - CLEAN CATCH Performed By: #### L IPA, HFP, BASIC, CBCD, TROPO, NTBNP, DDIM, SPT #### [address] [address] Other elements LM Nom (Urine sed) None Normal NONE [facility] Comment on above: Order Comment: For i ndwelling catheters, specimen collection is acceptableon catheter day 1 and 2 only. ?SPECIMEN SOURCE URINE - CLEAN CATCH Performed By: #### L IPA, HFP, BASIC, CBCD, TROPO, NTBNP, DDIM, SPT #### [address] [address] OTHER SIGNIFICANT CASTS None Normal NONE [facility] Comment on above: Order Comment: For i ndwelling catheters, specimen collection is acceptableon catheter day 1 and 2 only. ?SPECIMEN SOURCE URINE - CLEAN CATCH Performed By: #### L IPA, HFP, BASIC, CBCD, TROPO, NTBNP, DDIM, SPT #### [address] [address] YEAST MICROSCOPIC NONE Normal [facility] Comment on above: Order Comment: For i ndwelling catheters, specimen collection is acceptableon catheter day 1 and 2 only. ?SPECIMEN SOURCE URINE - CLEAN CATCH Performed By: #### L IPA, HFP, BASIC, CBCD, TROPO, NTBNP, DDIM, SPT #### [facility] [address] [place] [address] BILIRUBIN DIRECTon Bilirubin.direct [Mass/Vol] 0.2 mg/dL 0.0 - 0.4 mg/dL [facility] CBC, EDIF, PLATELETon 2021 Basophils (Bld) [#/Vol] 0.01 10*3/uL 0.00 - 0.20 10*3/uL [facility] Basophils/100 WBC (Bld) 0.2 % 0.0 - 2.0 % [facility] Eosinophils (Bld) [#/Vol] 0.02 10*3/uL 0.00 - 0.50 10*3/uL [facility] Eosinophils/100 WBC (Bld) 0.3 % 0.0 - 4.0 % [facility] Erythrocyte distribution width (RBC) [Ratio] 15.1 % High 11.5 - 14.5 % [facility] Hematocrit (Bld) [Volume fraction] 38.5 % 35.0 - 47.0 % [facility] Hemoglobin (Bld) [Mass/Vol] 12.5 g/dL 12.0 - 16.0 g/dL [facility] Interpretation and review of laboratory results Abnormal [facility] Lymphocytes (Bld) [#/Vol] 1.10 10*3/uL 1.00 - 4.80 10*3/uL [facility] MCH (RBC) [Entitic mass] 28.0 pg 25.6 - 32.2 pg [facility] MCHC (RBC) [Mass/Vol] 32.5 g/dL 32.0 - 36.0 g/dL [facility] MCV (RBC) [Entitic vol] 86.3 fL 82.0 - 98.0 fL [facility] Monocytes (Bld) [#/Vol] 0.43 10*3/uL 0.20 - 1.20 10*3/uL [facility] Monocytes/100 WBC (Bld) 7.0 % 5.0 - 11.0 % [facility] Neutrophils (Bld) [#/Vol] 4.60 10*3/uL 2.00 - 7.50 10*3/uL [facility] Nucleated RBC/100 WBC (Bld) [Ratio] 0.0 % [facility] Platelet mean volume (Bld) [Entitic vol] 9.9 fL 9.4 - 12.4 fL [facility] Platelets (Bld) [#/Vol] 172 10*3/uL 150 - 400 10*3/uL [facility] RBC (Bld) [#/Vol] 4.46 10*6/uL 3.80 - 5.1 0 10*6/uL [facility] RBC, NUCLEATED, ABSOLUTE 0.00 [facility] Segmented neutrophils/100 WBC (Bld) 74.4 % High 36.0 - 66.0 % [facility] Variant lymphocytes Auto Ql (Bld) 17.8 % Low 24.0 - 44.0 % [facility] WBC (Bld) [#/Vol] 6.18 10*3/uL 4.80 - 10. 80 10*3/uL [facility] COMPREHENSIVE METABOLIC PANE Jude 11-30-2021 Albumin [Mass/Vol] 3.4 g/dL Low 3.5 - 5.0 g/dL [facility] ALP [Catalytic activity/Vol] 123 U/L 38 - 126 U/L [facility] ALT [Catalytic activity/Vol] 19 U/L 9 - 52 U/L [facility] Anion gap [Moles/Vol] 5.3 mmol/L [facility] Comment on above: 7-16 AST [Catalytic activity/Vol] 32 U/L 14 - 56 U/L [facility] Bilirubin [Mass or moles/Vol] 0.8 mg/dL 0.2 - 1.2 mg/dL [facility] Calcium [Mass/Vol] 8.2 mg/dL Low 8.4 - 10. 2 mg/dL [facility] Chloride [Moles/Vol] 104 mmol/L 100 - 1 10 mmol/L [facility] CO2 [Moles/Vol] 24.0 mmol/L [facility] Creatinine [Mass/Vol] 0.46 mg/dL Low 0.70 - 1.20 mg/dL [facility] GFR/1.73 sq M.predicted (S/P/Bld) [Vol rate/Area] 164 mL/min >60 mL/min/1.73 m2 [facility] Comment on above: Reference Range: 59 to 44 - Mild to moderate loss of kidney function 44 to 30 - Moderate to Severe loss of kidney function 29 to 15 - Severe loss of kidney function <15 - Kidney failure The estimated GFR is based on the MDRD formula for assessment of stable or slowly declining kidney function in adults. Estimated GFR values are not accurate in: -Obese (BMI>34) OR underweight (BMI<20) people -The very old OR very young -Races other than or -[place] -People with acute illnesses, amputations, or acute kidney failure. Estimated GFR should be interpreted in clinical context and an alternative method such as a timed urine collection for creatinine clearance used to verify questionable results. (Ref. [employer] 2015) Glucose [Mass/Vol] 99 mg/dL 70 - 100 mg/dL [facility] Interpretation and review of laboratory results Abnormal [facility] Potassium [Moles/Vol] 3.5 mmol/L 3.5 - 5.0 mmol/L [facility] Protein [Mass/Vol] 7.2 g/dL 6.0 - 8.2 g/dL [facility] Sodium [Moles/Vol] 133 mmol/L Low 136 - 145 mmol/L [facility] Urea nitrogen/Creatinine [Mass ratio] 10 mg/dL 7 - 22 mg/dL [facility] CULTURE-URINEon 11-30-2021 Amikacin TRACEY [Susc] Amikacin [Susceptibility] by Minimum inhibitory concentration (TRACEY)(TRACEY)<=16 [facility] Comment on above: Order Comment: For i ndwelling catheters, specimen collection is acceptableon catheter day 1 and 2 only. ?SPECIMEN SOURCE URINE - CLEAN CATCH--- PLEASE USE TO LABEL EXTRA URINE TUBES --- Performed By: #### L IPA, HFP, BASIC, CBCD, TROPO, NTBNP, DDIM, SPT #### [address] [address] Amoxicillin+Clavulana te TRACEY [Susc] Amoxicillin+Clavulana te [Susceptibility] by Minimum inhibitory concentration (TRACEY)(TRACEY)<=8 [facility] Comment on above: Order Comment: For i ndwelling catheters, specimen collection is acceptableon catheter day 1 and 2 only. ?SPECIMEN SOURCE URINE - CLEAN CATCH--- PLEASE USE TO LABEL EXTRA URINE TUBES --- Performed By: #### L IPA, HFP, BASIC, CBCD, TROPO, NTBNP, DDIM, SPT #### [address] [address] Ampicillin TRACEY [Susc] Ampicillin [Susceptibility] by Minimum inhibitory concentration (TRACEY)(TRACEY)<=8 [facility] Comment on above: Order Comment: For i ndwelling catheters, specimen collection is acceptableon catheter day 1 and 2 only. ?SPECIMEN SOURCE URINE - CLEAN CATCH--- PLEASE USE TO LABEL EXTRA URINE TUBES --- Performed By: #### L IPA, HFP, BASIC, CBCD, TROPO, NTBNP, DDIM, SPT #### [address] [address] Aztreonam TRACEY [Susc] Aztreonam [Susceptibility] by Minimum inhibitory concentration (TRACEY)(TRACEY)<=4 [facility] Comment on above: Order Comment: For i ndwelling catheters, specimen collection is acceptableon catheter day 1 and 2 only. ?SPECIMEN SOURCE URINE - CLEAN CATCH--- PLEASE USE TO LABEL EXTRA URINE TUBES --- Performed By: #### L IPA, HFP, BASIC, CBCD, TROPO, NTBNP, DDIM, SPT #### [address] [address] Bacterial susceptibility panel by [facility] Comment on above: Order Comment: For i ndwelling catheters, specimen collection is acceptableon catheter day 1 and 2 only. ?SPECIMEN SOURCE URINE - CLEAN CATCH--- PLEASE USE TO LABEL EXTRA URINE TUBES --- Performed By: #### L IPA, HFP, BASIC, CBCD, TROPO, NTBNP, DDIM, SPT #### [address] [address] ceFAZolin TRACEY [Susc] Cefazolin [Susceptibility] by Minimum inhibitory concentration (TRACEY)(TRACEY)<=2 [facility] Comment on above: Order Comment: For i ndwelling catheters, specimen collection is acceptableon catheter day 1 and 2 only. ?SPECIMEN SOURCE URINE - CLEAN CATCH--- PLEASE USE TO LABEL EXTRA URINE TUBES --- Performed By: #### L IPA, HFP, BASIC, CBCD, TROPO, NTBNP, DDIM, SPT #### [address] [address] Cefepime TRACEY [Susc] Cefepime [Susceptibility] by Minimum inhibitory concentration (TRACEY)(TRACEY)<=2 [facility] Comment on above: Order Comment: For i ndwelling catheters, specimen collection is acceptableon catheter day 1 and 2 only. ?SPECIMEN SOURCE URINE - CLEAN CATCH--- PLEASE USE TO LABEL EXTRA URINE TUBES --- Performed By: #### L IPA, HFP, BASIC, CBCD, TROPO, NTBNP, DDIM, SPT #### [address] [address] Cefotaxime TRACEY [Susc] Cefotaxime [Susceptibility] by Minimum inhibitory concentration (TRACEY)(TRACEY)<=2 [facility] Comment on above: Order Comment: For i ndwelling catheters, specimen collection is acceptableon catheter day 1 and 2 only. ?SPECIMEN SOURCE URINE - CLEAN CATCH--- PLEASE USE TO LABEL EXTRA URINE TUBES --- Performed By: #### L IPA, HFP, BASIC, CBCD, TROPO, NTBNP, DDIM, SPT #### [address] [address] cefoTEtan TRACEY [Susc] Cefotetan [Susceptibility] by Minimum inhibitory concentration (TRACEY)(TRACEY)<=16 [facility] Comment on above: Order Comment: For i ndwelling catheters, specimen collection is acceptableon catheter day 1 and 2 only. ?SPECIMEN SOURCE URINE - CLEAN CATCH--- PLEASE USE TO LABEL EXTRA URINE TUBES --- Performed By: #### L IPA, HFP, BASIC, CBCD, TROPO, NTBNP, DDIM, SPT #### [address] [address] cefTAZidime TRACEY [Susc] Ceftazidime [Susceptibility] by Minimum inhibitory concentration (TRACEY)(TRACEY)<=1 [facility] Comment on above: Order Comment: For i ndwelling catheters, specimen collection is acceptableon catheter day 1 and 2 only. ?SPECIMEN SOURCE URINE - CLEAN CATCH--- PLEASE USE TO LABEL EXTRA URINE TUBES --- Performed By: #### L IPA, HFP, BASIC, CBCD, TROPO, NTBNP, DDIM, SPT #### [address] [address] cefTRIAXone TRACEY [Susc] Ceftriaxone [Susceptibility] by Minimum inhibitory concentration (TRACEY)(TRACEY)<=1 [facility] Comment on above: Order Comment: For i ndwelling catheters, specimen collection is acceptableon catheter day 1 and 2 only. ?SPECIMEN SOURCE URINE - CLEAN CATCH--- PLEASE USE TO LABEL EXTRA URINE TUBES --- Performed By: #### L IPA, HFP, BASIC, CBCD, TROPO, NTBNP, DDIM, SPT #### [address] [address] Ciprofloxacin TRACEY [Susc] Ciprofloxacin [Susceptibility] by Minimum inhibitory concentration (TRACEY)(TRACEY)<=1 [facility] Comment on above: Order Comment: For i ndwelling catheters, specimen collection is acceptableon catheter day 1 and 2 only. ?SPECIMEN SOURCE URINE - CLEAN CATCH--- PLEASE USE TO LABEL EXTRA URINE TUBES --- Performed By: #### L IPA, HFP, BASIC, CBCD, TROPO, NTBNP, DDIM, SPT #### [address] [address] Ertapenem(TRACEY) Ertapenem(TRACEY) <=0.5 [facility] Comment on above: Order Comment: For i ndwelling catheters, specimen collection is acceptableon catheter day 1 and 2 only. ?SPECIMEN SOURCE URINE - CLEAN CATCH--- PLEASE USE TO LABEL EXTRA URINE TUBES --- Performed By: #### L IPA, HFP, BASIC, CBCD, TROPO, NTBNP, DDIM, SPT #### [address] [address] Gentamicin TRACEY [Susc] Gentamicin [Susceptibility] by Minimum inhibitory concentration (TRACEY)(TRACEY)<=4 [facility] Comment on above: Order Comment: For i ndwelling catheters, specimen collection is acceptableon catheter day 1 and 2 only. ?SPECIMEN SOURCE URINE - CLEAN CATCH--- PLEASE USE TO LABEL EXTRA URINE TUBES --- Performed By: #### L IPA, HFP, BASIC, CBCD, TROPO, NTBNP, DDIM, SPT #### [address] [address] levoFLOXacin TRACEY [Susc] Levofloxacin [Susceptibility] by Minimum inhibitory concentration (TRACEY)(TRACEY)<=2 [facility] Comment on above: Order Comment: For i ndwelling catheters, specimen collection is acceptableon catheter day 1 and 2 only. ?SPECIMEN SOURCE URINE - CLEAN CATCH--- PLEASE USE TO LABEL EXTRA URINE TUBES --- Performed By: #### L IPA, HFP, BASIC, CBCD, TROPO, NTBNP, DDIM, SPT #### [address] [address] Meropenem TRACEY [Susc] Meropenem [Susceptibility] by Minimum inhibitory concentration (TRACEY)(TRACEY)<=1 [facility] Comment on above: Order Comment: For i ndwelling catheters, specimen collection is acceptableon catheter day 1 and 2 only. ?SPECIMEN SOURCE URINE - CLEAN CATCH--- PLEASE USE TO LABEL EXTRA URINE TUBES --- Performed By: #### L IPA, HFP, BASIC, CBCD, TROPO, NTBNP, DDIM, SPT #### [address] [address] Nitrofurantoin TRACEY [Susc] Nitrofurantoin [Susceptibility] by Minimum inhibitory concentration (TRACEY)(TRACEY)<=32 [facility] Comment on above: Order Comment: For i ndwelling catheters, specimen collection is acceptableon catheter day 1 and 2 only. ?SPECIMEN SOURCE URINE - CLEAN CATCH--- PLEASE USE TO LABEL EXTRA URINE TUBES --- Performed By: #### L IPA, HFP, BASIC, CBCD, TROPO, NTBNP, DDIM, SPT #### [address] [address] Piperacillin+Tazobact am TRACEY [Susc] Piperacillin+Tazobact am [Susceptibility] by Minimum inhibitory concentration (TRACEY)(TRACEY)<=16 [facility] Comment on above: Order Comment: For i ndwelling catheters, specimen collection is acceptableon catheter day 1 and 2 only. ?SPECIMEN SOURCE URINE - CLEAN CATCH--- PLEASE USE TO LABEL EXTRA URINE TUBES --- Performed By: #### L IPA, HFP, BASIC, CBCD, TROPO, NTBNP, DDIM, SPT #### [address] [address] Sulbactam TRACEY [Susc] Sulbactam [Susceptibility] by Minimum inhibitory concentration (TRACEY)(TRACEY)<=8 [facility] Comment on above: Order Comment: For i ndwelling catheters, specimen collection is acceptableon catheter day 1 and 2 only. ?SPECIMEN SOURCE URINE - CLEAN CATCH--- PLEASE USE TO LABEL EXTRA URINE TUBES --- Performed By: #### L IPA, HFP, BASIC, CBCD, TROPO, NTBNP, DDIM, SPT #### [address] [address] Tetracycline TRACEY [Susc] Tetracycline [Susceptibility] by Minimum inhibitory concentration (TRACEY)(TRACEY)<=4 [facility] Comment on above: Order Comment: For i ndwelling catheters, specimen collection is acceptableon catheter day 1 and 2 only. ?SPECIMEN SOURCE URINE - CLEAN CATCH--- PLEASE USE TO LABEL EXTRA URINE TUBES --- Performed By: #### L IPA, HFP, BASIC, CBCD, TROPO, NTBNP, DDIM, SPT #### [address] [address] Tobramycin TRACEY [Susc] Tobramycin [Susceptibility] by Minimum inhibitory concentration (TRACEY)(TRACEY)<=4 [facility] Comment on above: Order Comment: For i ndwelling catheters, specimen collection is acceptableon catheter day 1 and 2 only. ?SPECIMEN SOURCE URINE - CLEAN CATCH--- PLEASE USE TO LABEL EXTRA URINE TUBES --- Performed By: #### L IPA, HFP, BASIC, CBCD, TROPO, NTBNP, DDIM, SPT #### [address] [address] Trimethoprim+Sulfamet hoxazole TRACEY [Susc] Trimethoprim+Sulfamet hoxazole [Susceptibility] by Minimum inhibitory concentration (TRACEY)(TRACEY)<=2 [facility] Comment on above: Order Comment: For i ndwelling catheters, specimen collection is acceptableon catheter day 1 and 2 only. ?SPECIMEN SOURCE URINE - CLEAN CATCH--- PLEASE USE TO LABEL EXTRA URINE TUBES --- Performed By: #### L IPA, HFP, BASIC, CBCD, TROPO, NTBNP, DDIM, SPT #### [address] [address] HCG QUALITATIVE, URINEon HCG ( test) Ql (U) Negative [facility] No Panel Informationon 11-30 [facility] RESPIRATORY PANEL (COVID, [place] U, RSV)on 11-30-2021 FLUAV Ag IA Ql (Unsp spec) Negative [facility] FLUBV Ab IA Ql (S) Negative [facility] Respiratory Syncytial Virus (RSV) Negative [facility] SARS-CoV-2 (COVID-19) RNA YOAN+probe Ql (Resp) Negative [facility] SARS-CoV-2 (COVID-19) RNA YOAN+probe Ql (Unsp spec) This order code is for the COVID/Flu/RSV combo testing. [facility] [place] - [address] [place] [address] UA COMPLETE & REFLEX TO CULT UREon 11-30-2021 Urinalysis specimen collection method Nom (U) Not stated Normal [facility] Comment on above: Order Comment: For i ndwelling catheters, specimen collection is acceptableon catheter day 1 and 2 only. ?SPECIMEN SOURCE URINE - CLEAN CATCH Performed By: #### L IPA, HFP, BASIC, CBCD, TROPO, NTBNP, DDIM, SPT #### [address] [address] URINALYSIS REFLEX TO CULTURE on 11-30-2021 Bacteria Auto Ql (U) 2+ Abnormal NONE /hpf [facility] Bilirubin (U) [Mass/Vol] Negative NEGATIVE mg/dL [facility] Casts LM Ql (Urine sed) REVIEW [facility] Cast LM.HPF (Urine sed) [#/Area] OCC Abnormal NONE /hpf [facility] Color (U) YELLOW [facility] Epithelial cells LM Ql (Urine sed) 10 High [facility] Glucose Test strip (U) [Mass/Vol] Negative NEGATIVE mg/dL [facility] Interpretation and review of laboratory results Abnormal [facility] ISCN band level Molgen Ql (Bld/Tiss) NORMAL [facility] Ketones (U) [Mass/Vol] Negative NEGATIVE mg/dL [facility] Leukocyte esterase Test strip Ql (U) LARGE Abnormal NEGATIVE /uL [facility] Nitrite (U) [Mass/Vol] Negative NEGATIVE mg/dL [facility] pH (U) 5.5 [pH] [facility] Protein (U) [Mass/Vol] 20 mg/dL Abnormal NEG/TRACE [facility] RBC (U) [#/Vol] 5 /uL Abnormal [facility] RBC Ql (U) Negative NEGATIVE U/L [facility] Specific gravity (U) [Rel density] 1.030 [facility] Turbidity Ql (U) SL CLOUDY [facility] Unidentified crystals LM Ql (Urine sed) NORMAL [facility] Urinalysis specimen collection method Nom (U) Not stated [facility] Urobilinogen (U) [Mass/Vol] 3 mg/dL Abnormal <2.0 [facility] WBC (U) [#/Vol] 14 /uL High [facility] Yeast NORMAL [facility] URINE MICROSCOPICon 12-01-19 22 Casts LM Ql (Urine sed) None NONE /hpf [facility] CELLS, OTHER OCC CLUE CELLS Abnormal NONE /hpf [facility] Crystals LM Nom (Urine sed) None NONE /hpf [facility] Interpretation and review of laboratory results Abnormal [facility] Other elements LM Nom (Urine sed) None NONE /hpf [facility] Yeast NONE [facility] CULTURE-URINEon 10-31-2021 Bacteria identified Cx Nom (U) NO GROWTH AT 35 HOURS Normal [facility] Comment on above: Order Comment: SPECI MEN SOURCE URINE - CLEAN CATCH--- PLEASE USE TO LABEL EXTRA URINE TUBES --- Performed By: #### L IPA, HFP, BASIC, CBCD, TROPO, NTBNP, DDIM, SPT #### [address] [address] COVID RSV FLU PANELon 2021 FLUAV Ag IA Ql (Unsp spec) Positive [facility] Comment on above: Order Comment: SANDOVAL D ER 10/29/2021, 23:26, ANC, VERBAL READ BACK BY Jessica Han order code is for the COVID/Flu/RSV combo testing. Performed By: #### L IPA, HFP, BASIC, CBCD, TROPO, NTBNP, DDIM, SPT #### [address] [address] FLUBV Ab IA Ql (S) Negative Normal [facility] Comment on above: Order Comment: SANDOVAL D ER 10/29/2021, 23:26, ANC, VERBAL READ BACK BY Jessica Han order code is for the COVID/Flu/RSV combo testing. Performed By: #### L IPA, HFP, BASIC, CBCD, TROPO, NTBNP, DDIM, SPT #### [address] [address] RSV BY PCR Negative Normal [facility] Comment on above: Order Comment: JAIME Watson ER 10/29/2021, 23:26, ANC, VERBAL READ BACK BY Jessica Han order code is for the COVID/Flu/RSV combo testing. Performed By: #### L IPA, HFP, BASIC, CBCD, TROPO, NTBNP, DDIM, SPT #### [address] [address] SARS-CoV-2 (COVID-19) RNA YOAN+probe Ql (Resp) Negative Normal [facility] Comment on above: Order Comment: SANDOVAL D ER 10/29/2021, 23:26, ANC, VERBAL READ BACK BY Jessica Han order code is for the COVID/Flu/RSV combo testing. Performed By: #### L IPA, HFP, BASIC, CBCD, TROPO, NTBNP, DDIM, SPT #### [address] [address] TEST URINEon 10-30 HCG ( test) Ql (U) Negative Normal [facility] Comment on above: Order Comment: SPECI MEN SOURCE URINE - CLEAN CATCH Performed By: #### L IPA, HFP, BASIC, CBCD, TROPO, NTBNP, DDIM, SPT #### [address] [address] Portable XR Chest Viewson IMPRESSION: Interval improved aeration with no consolidation, effusion or pneumothorax. RADIOLOGY CLINICAL INDICATION: fever EXAM DESCRIPTION: XR CHEST PORTABLE 10/29/2021 11:32 pm COMPARISON: 09/01/2021 TECHNIQUE: FINDINGS: Cardiomediastinal silhouette and central vasculature are stable. There is improved aeration at the right lung base with resolution of previously seen effusion with adjacent atelectasis. There is no consolidation, effusion or pneumothorax. RADIOLOGY Romario Luz MD - 10/30/2021 CLINICAL INDICATION: fever EXAM DESCRIPTION: XR CHEST PORTABLE 10/29/2021 11:32 pm COMPARISON: 09/01/2021 TECHNIQUE: FINDINGS: Cardiomediastinal silhouette and central vasculature are stable. There is improved aeration at the right lung base with resolution of previously seen effusion with adjacent atelectasis. There is no consolidation, effusion or pneumothorax. IMPRESSION IMPRESSION: Interval improved aeration with no consolidation, effusion or pneumothorax. [facility] Portable XR Chest ViewsOrder ed By: Romario Luz on 10-30-2021 [facility] Work Phone: UA COMPLETE & REFLEX TO CULT UREon 10-30-2021 Bacteria Auto Ql (U) NONE Normal NONE [facility] Comment on above: Order Comment: SPECI MEN SOURCE URINE - CLEAN CATCH Performed By: #### L IPA, HFP, BASIC, CBCD, TROPO, NTBNP, DDIM, SPT #### [address] [address] Casts LM.HPF (Urine sed) [#/Area] NONE Normal NONE [facility] Comment on above: Order Comment: SPECI MEN SOURCE URINE - CLEAN CATCH Performed By: #### L IPA, HFP, BASIC, CBCD, TROPO, NTBNP, DDIM, SPT #### [address] [address] Epithelial cells LM Ql (Urine sed) 1 /hpf Normal 0-5 [facility] Comment on above: Order Comment: SPECI MEN SOURCE URINE - CLEAN CATCH Performed By: #### L IPA, HFP, BASIC, CBCD, TROPO, NTBNP, DDIM, SPT #### [address] [address] RBC (U) [#/Vol] 0 /hpf Normal 0-2 [facility] Comment on above: Order Comment: SPECI MEN SOURCE URINE - CLEAN CATCH Performed By: #### L IPA, HFP, BASIC, CBCD, TROPO, NTBNP, DDIM, SPT #### [address] [address] URINE REFLEX CASTS NORMAL Normal [facility] Comment on above: Order Comment: SPECI MEN SOURCE URINE - CLEAN CATCH Performed By: #### L IPA, HFP, BASIC, CBCD, TROPO, NTBNP, DDIM, SPT #### [address] [address] URINE REFLEX CELLS NORMAL Normal [facility] Comment on above: Order Comment: SPECI MEN SOURCE URINE - CLEAN CATCH Performed By: #### L IPA, HFP, BASIC, CBCD, TROPO, NTBNP, DDIM, SPT #### [address] [address] URINE REFLEX CRYSTALS NORMAL Normal [facility] Comment on above: Order Comment: SPECI MEN SOURCE URINE - CLEAN CATCH Performed By: #### L IPA, HFP, BASIC, CBCD, TROPO, NTBNP, DDIM, SPT #### [address] [address] URINE REFLEX YEAST NORMAL Normal [facility] Comment on above: Order Comment: SPECI MEN SOURCE URINE - CLEAN CATCH Performed By: #### L IPA, HFP, BASIC, CBCD, TROPO, NTBNP, DDIM, SPT #### [address] [address] WBC (U) [#/Vol] 7 /hpf High 0-5 [facility] Comment on above: Order Comment: SPECI MEN SOURCE URINE - CLEAN CATCH Performed By: #### L IPA, HFP, BASIC, CBCD, TROPO, NTBNP, DDIM, SPT #### [address] [address] Bilirubin (U) [Mass/Vol] Negative Normal NEGATIVE [facility] Comment on above: Order Comment: SPECI MEN SOURCE URINE - CLEAN CATCH Performed By: #### L IPA, HFP, BASIC, CBCD, TROPO, NTBNP, DDIM, SPT #### [address] [address] Color (U) COLORLESS Normal [facility] Comment on above: Order Comment: SPECI MEN SOURCE URINE - CLEAN CATCH Performed By: #### L IPA, HFP, BASIC, CBCD, TROPO, NTBNP, DDIM, SPT #### [address] [address] Glucose Test strip (U) [Mass/Vol] Negative Normal NEGATIVE [facility] Comment on above: Order Comment: SPECI MEN SOURCE URINE - CLEAN CATCH Performed By: #### L IPA, HFP, BASIC, CBCD, TROPO, NTBNP, DDIM, SPT #### [address] [address] Ketones (U) [Mass/Vol] Negative Normal NEGATIVE [facility] Comment on above: Order Comment: SPECI MEN SOURCE URINE - CLEAN CATCH Performed By: #### L IPA, HFP, BASIC, CBCD, TROPO, NTBNP, DDIM, SPT #### [address] [address] Leukocyte esterase Test strip Ql (U) SMALL Abnormal NEGATIVE [facility] Comment on above: Order Comment: SPECI MEN SOURCE URINE - CLEAN CATCH Performed By: #### L IPA, HFP, BASIC, CBCD, TROPO, NTBNP, DDIM, SPT #### [address] [address] Nitrite (U) [Mass/Vol] Negative Normal NEGATIVE [facility] Comment on above: Order Comment: SPECI MEN SOURCE URINE - CLEAN CATCH Performed By: #### L IPA, HFP, BASIC, CBCD, TROPO, NTBNP, DDIM, SPT #### [address] [address] pH (U) 6.5 [pH] Normal 6.0-8.5 [facility] Comment on above: Order Comment: SPECI MEN SOURCE URINE - CLEAN CATCH Performed By: #### L IPA, HFP, BASIC, CBCD, TROPO, NTBNP, DDIM, SPT #### [address] [address] Protein (U) [Mass/Vol] Negative Normal NEG/TRACE [facility] Comment on above: Order Comment: SPECI MEN SOURCE URINE - CLEAN CATCH Performed By: #### L IPA, HFP, BASIC, CBCD, TROPO, NTBNP, DDIM, SPT #### [address] [address] RBC Ql (U) Negative Normal NEGATIVE [facility] Comment on above: Order Comment: SPECI MEN SOURCE URINE - CLEAN CATCH Performed By: #### L IPA, HFP, BASIC, CBCD, TROPO, NTBNP, DDIM, SPT #### [address] [address] Specific gravity (U) [Rel density] 1.004 Normal 1.010 - 1.030 [facility] Comment on above: Order Comment: SPECI MEN SOURCE URINE - CLEAN CATCH Performed By: #### L IPA, HFP, BASIC, CBCD, TROPO, NTBNP, DDIM, SPT #### [address] [address] Turbidity Ql (U) CLEAR Normal [facility] Comment on above: Order Comment: SPECI MEN SOURCE URINE - CLEAN CATCH Performed By: #### L IPA, HFP, BASIC, CBCD, TROPO, NTBNP, DDIM, SPT #### [address] [address] Urobilinogen (U) [Mass/Vol] 0.2 mg/dL Normal <2.0 [facility] Comment on above: Order Comment: SPECI MEN SOURCE URINE - CLEAN CATCH Performed By: #### L IPA, HFP, BASIC, CBCD, TROPO, NTBNP, DDIM, SPT #### [address] [address] Urinalysis specimen collection method Nom (U) Not stated Normal [facility] Comment on above: Order Comment: SPECI MEN SOURCE URINE - CLEAN CATCH Performed By: #### L IPA, HFP, BASIC, CBCD, TROPO, NTBNP, DDIM, SPT #### [address] [address] XR CHEST PORTABLEon 10-31-19 22 XR CHEST PORTABLE CLINICAL INDICATION: fever EXAM DESCRIPTION: XR CHEST PORTABLE 10/29/2021 11:32 pm COMPARISON: 09/01/2021 TECHNIQUE: FINDINGS: Cardiomediastinal silhouette and central vasculature are stable. There is improved aeration at the right lung base with resolution of previously seen effusion with adjacent atelectasis. There is no consolidation, effusion or pneumothorax. IMPRESSION: Interval improved aeration with no consolidation, effusion or pneumothorax. Normal [facility] Comment on above: Order Comment: Vet n o HCG ( test) Ql (U)o n 10-29-2021 [facility] HCG QUALITATIVE, URINEon HCG ( test) Ql (U) Negative [facility] Portable XR Chest Viewson Radiology Study observation (narrative) [facility] RESPIRATORY PANEL (COVID, [place] U, RSV)on 10-29-2021 FLUAV Ag IA Ql (Unsp spec) Positive [facility] FLUBV Ab IA Ql (S) Negative [facility] Respiratory Syncytial Virus (RSV) Negative [facility] SARS-CoV-2 (COVID-19) RNA YOAN+probe Ql (Resp) Negative [facility] SARS-CoV-2 (COVID-19) RNA YOAN+probe Ql (Unsp spec) This order code is for the COVID/Flu/RSV combo testing. [facility] [place] - [address] [place] [address] URINALYSIS REFLEX TO CULTURE on 10-29-2021 Bacteria Auto Ql (U) NONE NONE /hpf [facility] Bilirubin (U) [Mass/Vol] Negative NEGATIVE mg/dL [facility] Casts LM Ql (Urine sed) NORMAL [facility] Casts LM.HPF (Urine sed) [#/Area] NONE NONE /hpf [facility] Color (U) COLORLESS [facility] Epithelial cells LM Ql (Urine sed) 1 [facility] Glucose Test strip (U) [Mass/Vol] Negative NEGATIVE mg/dL [facility] Interpretation and review of laboratory results Abnormal [facility] ISCN band level Molgen Ql (Bld/Tiss) NORMAL [facility] Ketones (U) [Mass/Vol] Negative NEGATIVE mg/dL [facility] Leukocyte esterase Test strip Ql (U) SMALL Abnormal NEGATIVE /uL [facility] Nitrite (U) [Mass/Vol] Negative NEGATIVE mg/dL [facility] pH (U) 6.5 [pH] [facility] Protein (U) [Mass/Vol] Negative NEG/TRACE mg/dL [facility] RBC (U) [#/Vol] 0 /uL [facility] RBC Ql (U) Negative NEGATIVE U/L [facility] Specific gravity (U) [Rel density] 1.004 [facility] Turbidity Ql (U) CLEAR [facility] Unidentified crystals LM Ql (Urine sed) NORMAL [facility] Urinalysis specimen collection method Nom (U) Not stated [facility] Urobilinogen (U) [Mass/Vol] 0.2 mg/dL <2.0 [facility] WBC (U) [#/Vol] 7 /uL High [facility] Yeast [facility] ENDOSCOPYon 10-16-2021 [facility] Gastroenterology Patient Name: Giuliana Grewal Procedure Date: 10/16/2021 8:39 AM Date of : 1985 Admit Type: Outpatient Age: 35 Room: Endo Room #1 Gender: Female Note Status: Finalized Attending MD: Susie Pratt MD Procedure: Upper GI endoscopy Indications: Unexplained iron deficiency anemia Providers: Susie Pratt MD, Tawanna Phan RN (Nurse), Eloise Richardson RN (Nurse), CALI Mcintyre (Anesthesia Staff) Referring MD: GURU Donald Complications: No immediate complications. Medicines: Monitored Anesthesia Care Requesting Provider: Procedure: Pre-Anesthesia Assessment: - Prior to the procedure, a History and Physical was performed, and patient medications and allergies were reviewed. The patient is competent. The risks and benefits of the procedure and the sedation options and risks were discussed with the patient. All questions were answered and informed consent was obtained. Patient identification and proposed procedure were verified by the physician, the nurse and the anesthesiologist in the pre-procedure area in the procedure room. Mental Status Examination: normal. Airway Examination: Mallampati Class III (part of the uvula and soft palate visualized). Respiratory Examination: clear to auscultation. CV Examination: normal. Prophylactic Antibiotics: The patient does not require prophylactic antibiotics. Prior Anticoagulants: The patient has taken no anticoagulant or antiplatelet agents. ASA Grade Assessment: III - A patient with severe systemic disease. After reviewing the risks and benefits, the patient was deemed in satisfactory condition to undergo the procedure. The anesthesia plan was to use monitored anesthesia care (MAC). Immediately prior to administration of medications, the patient was re-assessed for adequacy to receive sedatives. The heart rate, respiratory rate, oxygen saturations, blood pressure, adequacy of pulmonary ventilation, and response to care were monitored throughout the procedure. The physical status of the patient was re-assessed after the procedure. - After reviewing the risks and benefits, the patient was deemed in satisfactory condition to undergo the procedure. After obtaining informed consent, the endoscope was passed under direct vision. Throughout the procedure, the patient's blood pressure, pulse, and oxygen saturations were monitored continuously. The Endoscope was introduced through the mouth, and advanced to the third part of duodenum. The upper GI endoscopy was accomplished without difficulty. The patient tolerated the procedure well. Findings: The Z-line was regular and was found 40 cm from the incisors. The gastroesophageal flap valve was visualized endoscopically and classified as Hill Grade I (prominent fold, tight to endoscope). The stomach was normal. The examined duodenum was normal. Biopsies for histology were taken with a cold forceps for evaluation of celiac disease. Impression: - Z-line regular, 40 cm from the incisors. - Gastroesophageal flap valve classified as Hill Grade I (prominent fold, tight to endoscope). - Normal stomach. - Normal examined duodenum. Biopsied. Estimated Blood Loss: Estimated blood loss: none. Recommendation: - Discharge patient to home. - Patient has a contact number available for emergencies. The signs and symptoms of potential delayed complications were discussed with the patient. Return to normal activities tomorrow. Written discharge instructions were provided to the patie (more content not included)... LAB, [facility] AFP TUMOR MARKERon AFP TUMOR MARKER 1.2 ng/mL Normal <8.5 [facility] Comment on above: Result Comment: NOTE : New reference range of < 8.5 IU/ml Performed By: #### L IPA, HFP, BASIC, CBCD, TROPO, NTBNP, DDIM, SPT #### [address] [address] BASIC METABOLIC PANELon 08-20 Calcium [Mass/Vol] 8.3 mg/dL Low 8.4-10.2 [facility] Comment on above: Performed By: #### L IPA, HFP, BASIC, CBCD, TROPO, NTBNP, DDIM, SPT #### [address] [address] CO2 [Moles/Vol] 24.0 mm/Hg Normal 22.0-30.0 [facility] Comment on above: Performed By: #### L IPA, HFP, BASIC, CBCD, TROPO, NTBNP, DDIM, SPT #### [address] [address] Glucose [Mass/Vol] 83 mg/dL Normal 70-100 [facility] Comment on above: Performed By: #### L IPA, HFP, BASIC, CBCD, TROPO, NTBNP, DDIM, SPT #### [address] [address] Potassium [Moles/Vol] 8.2 mmol/L Normal 10-14 [facility] Comment on above: Performed By: #### L IPA, HFP, BASIC, CBCD, TROPO, NTBNP, DDIM, SPT #### [address] [address] Urea nitrogen/Creatinine [Mass ratio] 12 mg/dL Normal 7-22 [facility] Comment on above: Performed By: #### L IPA, HFP, BASIC, CBCD, TROPO, NTBNP, DDIM, SPT #### [address] [address] Creatinine [Mass/Vol] 0.44 mg/dL Low 0.70-1.20 [facility] Comment on above: Performed By: #### L IPA, HFP, BASIC, CBCD, TROPO, NTBNP, DDIM, SPT #### [address] [address] GFR/1.73 sq M.predicted (S/P/Bld) [Vol rate/Area] 173 mL/min Normal >60 [facility] Comment on above: Result Comment: Refe rence Range: 59 to 44 - Mild to moderate loss of kidney function 44 to 30 - Moderate to Severe loss of kidney function 29 to 15 - Severe loss of kidney function <15 - Kidney failure The estimated GFR is based on the MDRD formula for assessment of stable or slowly declining kidney function in adults. Estimated GFR values are not accurate in: -Obese (BMI>34) OR underweight (BMI<20) people -The very old OR very young -Races other than or -[place]an -People with acute illnesses, amputations, or acute kidney failure. Estimated GFR should be interpreted in clinical context and an alternative method such as a timed urine collection for creatinine clearance used to verify questionable results. (Ref. National Kidney Foundation 2015) Performed By: #### L IPA, HFP, BASIC, CBCD, TROPO, NTBNP, DDIM, SPT #### [address] [address] Potassium [Moles/Vol] 4.3 mmol/L Normal 3.5-5.0 [facility] Comment on above: Performed By: #### L IPA, HFP, BASIC, CBCD, TROPO, NTBNP, DDIM, SPT #### [address] [address] Sodium [Moles/Vol] 139 mmol/L Normal 136-145 [facility] Comment on above: Performed By: #### L IPA, HFP, BASIC, CBCD, TROPO, NTBNP, DDIM, SPT #### [address] [address] Chloride [Moles/Vol] 106 mmol/L Normal 100-110 [facility] Comment on above: Performed By: #### L IPA, HFP, BASIC, CBCD, TROPO, NTBNP, DDIM, SPT #### [address] [address] CBC WITH DIFFERENTIALon 08-20 Basophils (Bld) [#/Vol] 0.01 10*3/uL Normal 0.00-0.20 [facility] Comment on above: Performed By: #### L IPA, HFP, BASIC, CBCD, TROPO, NTBNP, DDIM, SPT #### [address] [address] Basophils/100 WBC (Bld) 0.2 % Normal 0.0-2.0 [facility] Comment on above: Performed By: #### L IPA, HFP, BASIC, CBCD, TROPO, NTBNP, DDIM, SPT #### [address] [address] Eosinophils (Bld) [#/Vol] 0.16 10*3/uL Normal 0.00-0.50 [facility] Comment on above: Performed By: #### L IPA, HFP, BASIC, CBCD, TROPO, NTBNP, DDIM, SPT #### [address] [address] Eosinophils/100 WBC (Bld) 2.7 % Normal 0.0-4.0 [facility] Comment on above: Performed By: #### L IPA, HFP, BASIC, CBCD, TROPO, NTBNP, DDIM, SPT #### [address] [address] Erythrocyte distribution width (RBC) [Ratio] 15.0 % High 11.5-14.5 [facility] Comment on above: Performed By: #### L IPA, HFP, BASIC, CBCD, TROPO, NTBNP, DDIM, SPT #### [address] [address] Hematocrit (Bld) [Volume fraction] 26.7 % Low 35.0-47.0 [facility] Comment on above: Performed By: #### L IPA, HFP, BASIC, CBCD, TROPO, NTBNP, DDIM, SPT #### [address] [address] Hemoglobin (Bld) [Mass/Vol] 8.4 g/dL Low 12.0-16.0 [facility] Comment on above: Performed By: #### L IPA, HFP, BASIC, CBCD, TROPO, NTBNP, DDIM, SPT #### [address] [address] Lymphocytes (Bld) [#/Vol] 1.77 10*3/uL Normal 1.00-4.80 [facility] Comment on above: Performed By: #### L IPA, HFP, BASIC, CBCD, TROPO, NTBNP, DDIM, SPT #### [address] [address] MCH (RBC) [Entitic mass] 27.6 pg Normal 25.6-32.2 [facility] Comment on above: Performed By: #### L IPA, HFP, BASIC, CBCD, TROPO, NTBNP, DDIM, SPT #### [address] [address] MCHC (RBC) [Mass/Vol] 31.5 g/dL Low 32.0-36.0 [facility] Comment on above: Performed By: #### L IPA, HFP, BASIC, CBCD, TROPO, NTBNP, DDIM, SPT #### [address] [address] MCV (RBC) [Entitic vol] 87.8 fL Normal 82.0-98.0 [facility] Comment on above: Performed By: #### L IPA, HFP, BASIC, CBCD, TROPO, NTBNP, DDIM, SPT #### [address] [address] Monocytes (Bld) [#/Vol] 0.52 10*3/uL Normal 0.20-1.20 [facility] Comment on above: Performed By: #### L IPA, HFP, BASIC, CBCD, TROPO, NTBNP, DDIM, SPT #### [address] [address] Monocytes/100 WBC (Bld) 8.9 % Normal 5.0-11.0 [facility] Comment on above: Performed By: #### L IPA, HFP, BASIC, CBCD, TROPO, NTBNP, DDIM, SPT #### [address] [address] Neutrophils (Bld) [#/Vol] 3.37 10*3/uL Normal 2.00-7.50 [facility] Comment on above: Performed By: #### L IPA, HFP, BASIC, CBCD, TROPO, NTBNP, DDIM, SPT #### [address] [address] NRBC COUNT 0.00 Normal 0.00-0.50 [facility] Comment on above: Performed By: #### L IPA, HFP, BASIC, CBCD, TROPO, NTBNP, DDIM, SPT #### [address] [address] Nucleated RBC/100 WBC (Bld) [Ratio] 0.0 % Normal [facility] Comment on above: Performed By: #### L IPA, HFP, BASIC, CBCD, TROPO, NTBNP, DDIM, SPT #### [address] [address] Platelet mean volume (Bld) [Entitic vol] 11.8 fL Normal 9.4-12.4 [facility] Comment on above: Performed By: #### L IPA, HFP, BASIC, CBCD, TROPO, NTBNP, DDIM, SPT #### [address] [address] Platelets (Bld) [#/Vol] 177 10*3/uL Normal 150-400 [facility] Comment on above: Performed By: #### L IPA, HFP, BASIC, CBCD, TROPO, NTBNP, DDIM, SPT #### [address] [address] RBC (Bld) [#/Vol] 3.04 10*6/uL Low 3.80-5.10 [facility] Comment on above: Performed By: #### L IPA, HFP, BASIC, CBCD, TROPO, NTBNP, DDIM, SPT #### [address] [address] Segmented neutrophils/100 WBC (Bld) 57.6 % Normal 36.0-66.0 [facility] Comment on above: Performed By: #### L IPA, HFP, BASIC, CBCD, TROPO, NTBNP, DDIM, SPT #### [address] [address] Variant lymphocytes Auto Ql (Bld) 30.3 % Normal 24.0-44.0 [facility] Comment on above: Performed By: #### L IPA, HFP, BASIC, CBCD, TROPO, NTBNP, DDIM, SPT #### [address] [address] WBC (Bld) [#/Vol] 5.85 10*3/uL Normal 4.80-10.80 [facility] Comment on above: Performed By: #### L IPA, HFP, BASIC, CBCD, TROPO, NTBNP, DDIM, SPT #### [address] [address] CULTURE-URINEon 09-02-2021 Bacteria identified Cx Nom (U) Abnormal [facility] Comment on above: Order Comment: SPECI MEN SOURCE URINE - CLEAN CATCH--- PLEASE USE TO LABEL EXTRA URINE TUBES --- Result Comment: [id number] 25,000-50,000 CFU/mL Performed By: #### L IPA, HFP, BASIC, CBCD, TROPO, NTBNP, DDIM, SPT #### [address] [address] ECGon 09-02-2021 Electrocardiogram [facility] Test Date: 2021-08-30 Pat Name: GIULIANA GREWAL Department: Room: [facility] Gender: Female Township Clerk: : 1985 Requested By: [id number] Order Number: [id number] Donna MD: Stanislaw Calloway Measurements Intervals [place] Rate: 104 P: 47 [place]: 156 QRS: 73 QRSD: 76 T: 10 QT: 318 QTc: 418 Interpretive Statements Sinus tachycardia Possible Inferior infarct , age undetermined Cannot rule out Anterior infarct , age undetermined Electronically Signed On 09-02-2021 12:51:28 EST by Stanislaw Petit [facility] MAGNESIUMon 09-02-2021 Magnesium [Mass/Vol] 2.0 mg/dL Normal 1.7-2.2 [facility] Comment on above: Performed By: #### L IPA, HFP, BASIC, CBCD, TROPO, NTBNP, DDIM, SPT #### [address] [address] BASIC METABOLIC PANELon 08-20 Calcium [Mass/Vol] 8.4 mg/dL Normal 8.4-10.2 [facility] Comment on above: Performed By: #### L IPA, HFP, BASIC, CBCD, TROPO, NTBNP, DDIM, SPT #### [address] [address] Glucose [Mass/Vol] 86 mg/dL Normal 70-100 [facility] Comment on above: Performed By: #### L IPA, HFP, BASIC, CBCD, TROPO, NTBNP, DDIM, SPT #### [address] [address] CO2 [Moles/Vol] 22.0 mm/Hg Normal 22.0-30.0 [facility] Comment on above: Performed By: #### L IPA, HFP, BASIC, CBCD, TROPO, NTBNP, DDIM, SPT #### [address] [address] Creatinine [Mass/Vol] 0.41 mg/dL Low 0.70-1.20 [facility] Comment on above: Performed By: #### L IPA, HFP, BASIC, CBCD, TROPO, NTBNP, DDIM, SPT #### [address] [address] GFR/1.73 sq M.predicted (S/P/Bld) [Vol rate/Area] 188 mL/min Normal >60 [facility] Comment on above: Result Comment: Refe rence Range: 59 to 44 - Mild to moderate loss of kidney function 44 to 30 - Moderate to Severe loss of kidney function 29 to 15 - Severe loss of kidney function <15 - Kidney failure The estimated GFR is based on the MDRD formula for assessment of stable or slowly declining kidney function in adults. Estimated GFR values are not accurate in: -Obese (BMI>34) OR underweight (BMI<20) people -The very old OR very young -Races other than or -[place]an -People with acute illnesses, amputations, or acute kidney failure. Estimated GFR should be interpreted in clinical context and an alternative method such as a timed urine collection for creatinine clearance used to verify questionable results. (Ref. National Kidney Foundation 2015) Performed By: #### L IPA, HFP, BASIC, CBCD, TROPO, NTBNP, DDIM, SPT #### [address] [address] Potassium [Moles/Vol] 10.1 mmol/L Normal 10-14 [facility] [place] [place] Comment on above: Performed By: #### L IPA, HFP, BASIC, CBCD, TROPO, NTBNP, DDIM, SPT #### [address] [address] Urea nitrogen/Creatinine [Mass ratio] 11 mg/dL Normal 7-22 [facility] Comment on above: Performed By: #### L IPA, HFP, BASIC, CBCD, TROPO, NTBNP, DDIM, SPT #### [address] [address] Chloride [Moles/Vol] 108 mmol/L Normal 100-110 [facility] [place] [facility] Comment on above: Performed By: #### L IPA, HFP, BASIC, CBCD, TROPO, NTBNP, DDIM, SPT #### [address] [address] Potassium [Moles/Vol] 4.3 mmol/L Normal 3.5-5.0 [facility] Comment on above: Performed By: #### L IPA, HFP, BASIC, CBCD, TROPO, NTBNP, DDIM, SPT #### [address] [address] Sodium [Moles/Vol] 140 mmol/L Normal 136-145 [facility] Comment on above: Performed By: #### L IPA, HFP, BASIC, CBCD, TROPO, NTBNP, DDIM, SPT #### [address] [address] CBC WITH DIFFERENTIALon 08-20 Basophils (Bld) [#/Vol] 0.01 10*3/uL Normal 0.00-0.20 [facility] Comment on above: Performed By: #### L IPA, HFP, BASIC, CBCD, TROPO, NTBNP, DDIM, SPT #### [address] [address] Basophils/100 WBC (Bld) 0.2 % Normal 0.0-2.0 [facility] Comment on above: Performed By: #### L IPA, HFP, BASIC, CBCD, TROPO, NTBNP, DDIM, SPT #### [address] [address] Eosinophils (Bld) [#/Vol] 0.16 10*3/uL Normal 0.00-0.50 [facility] Comment on above: Performed By: #### L IPA, HFP, BASIC, CBCD, TROPO, NTBNP, DDIM, SPT #### [address] [address] Eosinophils/100 WBC (Bld) 2.9 % Normal 0.0-4.0 [facility] Comment on above: Performed By: #### L IPA, HFP, BASIC, CBCD, TROPO, NTBNP, DDIM, SPT #### [address] [address] Erythrocyte distribution width (RBC) [Ratio] 14.9 % High 11.5-14.5 [facility] Comment on above: Performed By: #### L IPA, HFP, BASIC, CBCD, TROPO, NTBNP, DDIM, SPT #### [address] [address] Hematocrit (Bld) [Volume fraction] 25.1 % Low 35.0-47.0 [facility] Comment on above: Performed By: #### L IPA, HFP, BASIC, CBCD, TROPO, NTBNP, DDIM, SPT #### [address] [address] Hemoglobin (Bld) [Mass/Vol] 8.0 g/dL Low 12.0-16.0 [facility] Comment on above: Performed By: #### L IPA, HFP, BASIC, CBCD, TROPO, NTBNP, DDIM, SPT #### [address] [address] Lymphocytes (Bld) [#/Vol] 1.69 10*3/uL Normal 1.00-4.80 [facility] Comment on above: Performed By: #### L IPA, HFP, BASIC, CBCD, TROPO, NTBNP, DDIM, SPT #### [address] [address] MCH (RBC) [Entitic mass] 27.8 pg Normal 25.6-32.2 [facility] Comment on above: Performed By: #### L IPA, HFP, BASIC, CBCD, TROPO, NTBNP, DDIM, SPT #### [address] [address] MCHC (RBC) [Mass/Vol] 31.9 g/dL Low 32.0-36.0 [facility] Comment on above: Performed By: #### L IPA, HFP, BASIC, CBCD, TROPO, NTBNP, DDIM, SPT #### [address] [address] MCV (RBC) [Entitic vol] 87.2 fL Normal 82.0-98.0 [facility] Comment on above: Performed By: #### L IPA, HFP, BASIC, CBCD, TROPO, NTBNP, DDIM, SPT #### [address] [address] Monocytes (Bld) [#/Vol] 0.53 10*3/uL Normal 0.20-1.20 [facility] Comment on above: Performed By: #### L IPA, HFP, BASIC, CBCD, TROPO, NTBNP, DDIM, SPT #### [address] [address] Monocytes/100 WBC (Bld) 9.5 % Normal 5.0-11.0 [facility] Comment on above: Performed By: #### L IPA, HFP, BASIC, CBCD, TROPO, NTBNP, DDIM, SPT #### [address] [address] Neutrophils (Bld) [#/Vol] 3.18 10*3/uL Normal 2.00-7.50 [facility] Comment on above: Performed By: #### L IPA, HFP, BASIC, CBCD, TROPO, NTBNP, DDIM, SPT #### [address] [address] NRBC COUNT 0.00 Normal 0.00-0.50 [facility] Comment on above: Performed By: #### L IPA, HFP, BASIC, CBCD, TROPO, NTBNP, DDIM, SPT #### [address] [address] Nucleated RBC/100 WBC (Bld) [Ratio] 0.0 % Normal [facility] Comment on above: Performed By: #### L IPA, HFP, BASIC, CBCD, TROPO, NTBNP, DDIM, SPT #### [address] [address] Platelet mean volume (Bld) [Entitic vol] 12.0 fL Normal 9.4-12.4 [facility] Comment on above: Performed By: #### L IPA, HFP, BASIC, CBCD, TROPO, NTBNP, DDIM, SPT #### [address] [address] Platelets (Bld) [#/Vol] 164 10*3/uL Normal 150-400 [facility] Comment on above: Performed By: #### L IPA, HFP, BASIC, CBCD, TROPO, NTBNP, DDIM, SPT #### [address] [address] RBC (Bld) [#/Vol] 2.88 10*6/uL Low 3.80-5.10 [facility] Comment on above: Performed By: #### L IPA, HFP, BASIC, CBCD, TROPO, NTBNP, DDIM, SPT #### [address] [address] Segmented neutrophils/100 WBC (Bld) 56.9 % Normal 36.0-66.0 [facility] Comment on above: Performed By: #### L IPA, HFP, BASIC, CBCD, TROPO, NTBNP, DDIM, SPT #### [address] [address] Variant lymphocytes Auto Ql (Bld) 30.3 % Normal 24.0-44.0 [facility] Comment on above: Performed By: #### L IPA, HFP, BASIC, CBCD, TROPO, NTBNP, DDIM, SPT #### [address] [address] WBC (Bld) [#/Vol] 5.58 10*3/uL Normal 4.80-10.80 [facility] Comment on above: Performed By: #### L IPA, HFP, BASIC, CBCD, TROPO, NTBNP, DDIM, SPT #### [address] [address] MAGNESIUMon 09-01-2021 Magnesium [Mass/Vol] 1.8 mg/dL Normal 1.7-2.2 [facility] [place] [facility] Comment on above: Performed By: #### L IPA, HFP, BASIC, CBCD, TROPO, NTBNP, DDIM, SPT #### [address] [address] STOOL CULTURE BY PCRon 09-01 STOOL CULTURE BY PCR NEGATIVE FOR CAMPYLOBACTER , SALMONELLA , SHIGELLA , VIBRIO , YERSINIA , Normal [facility] Comment on above: Performed By: #### L IPA, HFP, BASIC, CBCD, TROPO, NTBNP, DDIM, SPT #### [address] [address] XR CHEST PA AND LATERALon XR CHEST PA AND LATERAL CLINICAL INDICATION: Follow up for right pleural effusions EXAM DESCRIPTION: XR CHEST PA AND LATERAL 09/01/2021 6:43 am COMPARISON: 08/30/2021. TECHNIQUE: Frontal lateral views of the chest. FINDINGS: Trachea is midline. The cardiac, mediastinal and hilar silhouettes are stable with central peribronchial cuffing and interstitial prominence. Low lung volumes are again noted with asymmetric elevation right hemidiaphragm. There is again blunting of the right costophrenic angle which appears improved radiographically. No pneumothorax or left-sided pleural effusion is identified. Previously described adenopathy and nodular ground-glass opacities in the left lung are better seen on recent CT. Osseous structures are stable. IMPRESSION: 1. Interval improvement of right pleural effusion. 2. Central peribronchial cuffing and interstitial prominence which could relate to low lung volumes, vascular congestion or bronchial inflammation. Correlate clinically. Normal [facility] AMMONIAon 08-31-2021 Ammonia (P) [Moles/Vol] 20.0 umol/L Normal 9.0-30.0 [facility] Comment on above: Performed By: #### L IPA, HFP, BASIC, CBCD, TROPO, NTBNP, DDIM, SPT #### [address] [address] BASIC METABOLIC PANELon 08-20 Calcium [Mass/Vol] 8.4 mg/dL Normal 8.4-10.2 [facility] Comment on above: Performed By: #### L IPA, HFP, BASIC, CBCD, TROPO, NTBNP, DDIM, SPT #### [address] [address] Glucose [Mass/Vol] 86 mg/dL Normal 70-100 [facility] Comment on above: Performed By: #### L IPA, HFP, BASIC, CBCD, TROPO, NTBNP, DDIM, SPT #### [address] [address] Urea nitrogen/Creatinine [Mass ratio] 9 mg/dL Normal 7-22 [facility] Comment on above: Performed By: #### L IPA, HFP, BASIC, CBCD, TROPO, NTBNP, DDIM, SPT #### [address] [address] CO2 [Moles/Vol] 22.0 mm/Hg Normal 22.0-30.0 [facility] Comment on above: Performed By: #### L IPA, HFP, BASIC, CBCD, TROPO, NTBNP, DDIM, SPT #### [address] [address] Creatinine [Mass/Vol] 0.34 mg/dL Low 0.70-1.20 [facility] [place] on above: Performed By: #### L IPA, HFP, BASIC, CBCD, TROPO, NTBNP, DDIM, SPT #### [address] [address] GFR/1.73 sq M.predicted (S/P/Bld) [Vol rate/Area] 233 mL/min Normal >60 [facility] Comment on above: Result Comment: Refe rence Range: 59 to 44 - Mild to moderate loss of kidney function 44 to 30 - Moderate to Severe loss of kidney function 29 to 15 - Severe loss of kidney function <15 - Kidney failure The estimated GFR is based on the MDRD formula for assessment of stable or slowly declining kidney function in adults. Estimated GFR values are not accurate in: -Obese (BMI>34) OR underweight (BMI<20) people -The very old OR very young -Races other than or -[place]an -People with acute illnesses, amputations, or acute kidney failure. Estimated GFR should be interpreted in clinical context and an alternative method such as a timed urine collection for creatinine clearance used to verify questionable results. (Ref. [employer] 2015) Performed By: #### L IPA, HFP, BASIC, CBCD, TROPO, NTBNP, DDIM, SPT #### [address] [address] Potassium [Moles/Vol] 11.5 mmol/L Normal 10-14 [facility] [place] [place] Comment on above: Performed By: #### L IPA, HFP, BASIC, CBCD, TROPO, NTBNP, DDIM, SPT #### [address] [address] Potassium [Moles/Vol] 4.1 mmol/L Normal 3.5-5.0 [facility] [place] on above: Performed By: #### L IPA, HFP, BASIC, CBCD, TROPO, NTBNP, DDIM, SPT #### [address] [address] Sodium [Moles/Vol] 140 mmol/L Normal 136-145 [facility] Comment on above: Performed By: #### L IPA, HFP, BASIC, CBCD, TROPO, NTBNP, DDIM, SPT #### [address] [address] Chloride [Moles/Vol] 107 mmol/L Normal 100-110 [facility] [place] Comment on above: Performed By: #### L IPA, HFP, BASIC, CBCD, TROPO, NTBNP, DDIM, SPT #### [address] [address] CBC WITH DIFFERENTIALon 08-20 Basophils (Bld) [#/Vol] 0.01 10*3/uL Normal 0.00-0.20 [facility] Comment on above: Performed By: #### L IPA, HFP, BASIC, CBCD, TROPO, NTBNP, DDIM, SPT #### [address] [address] Basophils/100 WBC (Bld) 0.2 % Normal 0.0-2.0 [facility] Comment on above: Performed By: #### L IPA, HFP, BASIC, CBCD, TROPO, NTBNP, DDIM, SPT #### [address] [address] Eosinophils (Bld) [#/Vol] 0.13 10*3/uL Normal 0.00-0.50 [facility] Comment on above: Performed By: #### L IPA, HFP, BASIC, CBCD, TROPO, NTBNP, DDIM, SPT #### [address] [address] Eosinophils/100 WBC (Bld) 2.2 % Normal 0.0-4.0 [facility] Comment on above: Performed By: #### L IPA, HFP, BASIC, CBCD, TROPO, NTBNP, DDIM, SPT #### [address] [address] Erythrocyte distribution width (RBC) [Ratio] 14.8 % High 11.5-14.5 [facility] Comment on above: Performed By: #### L IPA, HFP, BASIC, CBCD, TROPO, NTBNP, DDIM, SPT #### [address] [address] Hematocrit (Bld) [Volume fraction] 25.0 % Low 35.0-47.0 [facility] Comment on above: Performed By: #### L IPA, HFP, BASIC, CBCD, TROPO, NTBNP, DDIM, SPT #### [address] [address] Hemoglobin (Bld) [Mass/Vol] 8.0 g/dL Low 12.0-16.0 [facility] Comment on above: Performed By: #### L IPA, HFP, BASIC, CBCD, TROPO, NTBNP, DDIM, SPT #### [address] [address] Lymphocytes (Bld) [#/Vol] 1.89 10*3/uL Normal 1.00-4.80 [facility] Comment on above: Performed By: #### L IPA, HFP, BASIC, CBCD, TROPO, NTBNP, DDIM, SPT #### [address] [address] MCH (RBC) [Entitic mass] 27.7 pg Normal 25.6-32.2 [facility] Comment on above: Performed By: #### L IPA, HFP, BASIC, CBCD, TROPO, NTBNP, DDIM, SPT #### [address] [address] MCHC (RBC) [Mass/Vol] 32.0 g/dL Normal 32.0-36.0 [facility] [place] on above: Performed By: #### L IPA, HFP, BASIC, CBCD, TROPO, NTBNP, DDIM, SPT #### [address] [address] MCV (RBC) [Entitic vol] 86.5 fL Normal 82.0-98.0 [facility] Comment on above: Performed By: #### L IPA, HFP, BASIC, CBCD, TROPO, NTBNP, DDIM, SPT #### [address] [address] Monocytes (Bld) [#/Vol] 0.55 10*3/uL Normal 0.20-1.20 [facility] Comment on above: Performed By: #### L IPA, HFP, BASIC, CBCD, TROPO, NTBNP, DDIM, SPT #### [address] [address] Monocytes/100 WBC (Bld) 9.3 % Normal 5.0-11.0 [facility] Comment on above: Performed By: #### L IPA, HFP, BASIC, CBCD, TROPO, NTBNP, DDIM, SPT #### [address] [address] Neutrophils (Bld) [#/Vol] 3.34 10*3/uL Normal 2.00-7.50 [facility] Comment on above: Performed By: #### L IPA, HFP, BASIC, CBCD, TROPO, NTBNP, DDIM, SPT #### [address] [address] NRBC COUNT 0.00 Normal 0.00-0.50 [facility] Comment on above: Performed By: #### L IPA, HFP, BASIC, CBCD, TROPO, NTBNP, DDIM, SPT #### [address] [address] Nucleated RBC/100 WBC (Bld) [Ratio] 0.0 % Normal [facility] Comment on above: Performed By: #### L IPA, HFP, BASIC, CBCD, TROPO, NTBNP, DDIM, SPT #### [address] [address] Platelet mean volume (Bld) [Entitic vol] 11.7 fL Normal 9.4-12.4 [facility] Comment on above: Performed By: #### L IPA, HFP, BASIC, CBCD, TROPO, NTBNP, DDIM, SPT #### [address] [address] Platelets (Bld) [#/Vol] 176 10*3/uL Normal 150-400 [facility] Comment on above: Performed By: #### L IPA, HFP, BASIC, CBCD, TROPO, NTBNP, DDIM, SPT #### [address] [address] RBC (Bld) [#/Vol] 2.89 10*6/uL Low 3.80-5.10 [facility] Comment on above: Performed By: #### L IPA, HFP, BASIC, CBCD, TROPO, NTBNP, DDIM, SPT #### [address] [address] Segmented neutrophils/100 WBC (Bld) 56.2 % Normal 36.0-66.0 [facility] Comment on above: Performed By: #### L IPA, HFP, BASIC, CBCD, TROPO, NTBNP, DDIM, SPT #### [address] [address] Variant lymphocytes Auto Ql (Bld) 31.8 % Normal 24.0-44.0 [facility] Comment on above: Performed By: #### L IPA, HFP, BASIC, CBCD, TROPO, NTBNP, DDIM, SPT #### [address] [address] WBC (Bld) [#/Vol] 5.94 10*3/uL Normal 4.80-10.80 [facility] Comment on above: Performed By: #### L IPA, HFP, BASIC, CBCD, TROPO, NTBNP, DDIM, SPT #### [address] [address] FERRITINon 08-31-2021 Ferritin [Mass/Vol] 54.20 ng/mL Normal 6.24-137.00 [facility] [place] on above: Performed By: #### L IPA, HFP, BASIC, CBCD, TROPO, NTBNP, DDIM, SPT #### [address] [address] HEPATIC FUNCTION PANELon ALP [Catalytic activity/Vol] 163 U/L High 38-126 [facility] Comment on above: Performed By: #### L IPA, HFP, BASIC, CBCD, TROPO, NTBNP, DDIM, SPT #### [address] [address] ALT [Catalytic activity/Vol] 11 U/L Normal 9-52 [facility] Comment on above: Performed By: #### L IPA, HFP, BASIC, CBCD, TROPO, NTBNP, DDIM, SPT #### [address] [address] AST [Catalytic activity/Vol] 27 U/L Normal 14-56 [facility] Comment on above: Performed By: #### L IPA, HFP, BASIC, CBCD, TROPO, NTBNP, DDIM, SPT #### [address] [address] Bilirubin [Mass or moles/Vol] 3.5 mg/dL High 0.2-1.2 [facility] Comment on above: Performed By: #### L IPA, HFP, BASIC, CBCD, TROPO, NTBNP, DDIM, SPT #### [address] [address] Bilirubin.direct [Mass/Vol] 1.9 mg/dL High 0.0-0.4 [facility] Comment on above: Performed By: #### L IPA, HFP, BASIC, CBCD, TROPO, NTBNP, DDIM, SPT #### [address] [address] Protein [Mass/Vol] 7.6 g/dL Normal 6.0-8.2 [facility] Comment on above: Performed By: #### L IPA, HFP, BASIC, CBCD, TROPO, NTBNP, DDIM, SPT #### [address] [address] Albumin [Mass/Vol] 3.5 g/dL Normal 3.5-5.0 [facility] Comment on above: Performed By: #### L IPA, HFP, BASIC, CBCD, TROPO, NTBNP, DDIM, SPT #### [address] [address] MAGNESIUMon 08-31-2021 Magnesium [Mass/Vol] 1.8 mg/dL Normal 1.7-2.2 [facility] [place] Comment on above: Order Comment: Add-o n Performed By: #### L IPA, HFP, BASIC, CBCD, TROPO, NTBNP, DDIM, SPT #### [address] [address] PROTIMEon 08-31-2021 INR Coag (PPP) [Relative time] 1.3 {INR} Normal 1.0-3.0 [facility] Comment on above: Order Comment: Add-o n Result Comment: THERAPEUTIC RANGES FOR INR: GROUP A (2.0 - 3.0) GROUP B (2.5 - 3.5) INDICATIONS FOR GROUP A: Prophylaxis and treatment of DVT, treatment of pulmonary embolism, prevention of systemic embolism, tissue heart valves, acute AK, valvular heart disease, and atrial fibrillation. INDICATION FOR GROUP B: Recurrent systemic embolism, mechanical prostetic valves, prevention of recurrent AK. Performed By: #### L IPA, HFP, BASIC, CBCD, TROPO, NTBNP, DDIM, SPT #### [address] [address] PT panel Coag (PPP) 13.8 High 9.6-12.1 [facility] Comment on above: Order Comment: Add-o n Performed By: #### L IPA, HFP, BASIC, CBCD, TROPO, NTBNP, DDIM, SPT #### [address] [address] RETICULOCTYE COUNT RATIOon 0 08-31-2021 Reticulocytes/100 RBC (Bld) 3.4 % High 0.6-2.7 [facility] Comment on above: Performed By: #### L IPA, HFP, BASIC, CBCD, TROPO, NTBNP, DDIM, SPT #### [address] [address] SATURATION PERCENT PANELon 0 08-31-2021 Iron binding capacity [Moles/Vol] 275 ug/dL Normal 265-497 [facility] Comment on above: Performed By: #### L IPA, HFP, BASIC, CBCD, TROPO, NTBNP, DDIM, SPT #### [address] [address] SATURATION PERCENT FOR 16 % Normal 11-46 [facility] Comment on above: Performed By: #### L IPA, HFP, BASIC, CBCD, TROPO, NTBNP, DDIM, SPT #### [address] [address] Iron [Mass/Vol] 45 ug/dL Normal 37-170 [facility] Comment on above: Performed By: #### L IPA, HFP, BASIC, CBCD, TROPO, NTBNP, DDIM, SPT #### [address] [address] THYROID PANEL 1 REFLEXon Free T4 index Calc [Mass/Vol] SEE COMMENT Invalid Interpretation Code 5.93-13.13 [facility] Comment on above: Result Comment: Unab le to calculate result due to T3 being greater than 65.0. Performed By: #### L IPA, HFP, BASIC, CBCD, TROPO, NTBNP, DDIM, SPT #### [address] [address] T3RU SEE COMMENT Invalid Interpretation Code 23.5-40.5 [facility] Comment on above: Result Comment: Resu lt >65.0. Performed By: #### L IPA, HFP, BASIC, CBCD, TROPO, NTBNP, DDIM, SPT #### [address] [address] T4 [Moles/Vol] 22.8 ug/dL High 5.5-11.0 [facility] Comment on above: Performed By: #### L IPA, HFP, BASIC, CBCD, TROPO, NTBNP, DDIM, SPT #### [address] [address] TSH REFLEXon 08-31-2021 TSH Qn m[IU]/L Low 0.34-5.60 [facility] Comment on above: Result Comment: TSH REFERENCE RANGE IS FOR AGE 10 AND OLDER. CHILDREN UNDER 1 YEAR OLD HAVE SIGNIFICANTLY HIGHER NORMAL RANGE, WHICH GRADUALLY DECREASES WITH AGE. PLEASE CONSULT THE PATHOLOGIST FOR SPECIFIC INFORMATION. Performed By: #### L IPA, HFP, BASIC, CBCD, TROPO, NTBNP, DDIM, SPT #### [address] [address] VITAMIN B12on 08-31-2021 Cobalamin (Vitamin B12) [Mass/Vol] 728 pg/mL Normal 239-931 [facility] Comment on above: Order Comment: Add-o n Performed By: #### L IPA, HFP, BASIC, CBCD, TROPO, NTBNP, DDIM, SPT #### [address] [address] BASIC METABOLIC PANELon 08-20 Calcium [Mass/Vol] 8.4 mg/dL Normal 8.4-10.2 [facility] Comment on above: Performed By: #### L IPA, HFP, BASIC, CBCD, TROPO, NTBNP, DDIM, SPT #### [address] [address] CO2 [Moles/Vol] 22.0 mm/Hg Normal 22.0-30.0 [facility] Comment on above: Performed By: #### L IPA, HFP, BASIC, CBCD, TROPO, NTBNP, DDIM, SPT #### [address] [address] Glucose [Mass/Vol] 95 mg/dL Normal 70-100 [facility] Comment on above: Performed By: #### L IPA, HFP, BASIC, CBCD, TROPO, NTBNP, DDIM, SPT #### [address] [address] Potassium [Moles/Vol] 10.3 mmol/L Normal 10-14 [facility] [place], [place] Comment on above: Performed By: #### L IPA, HFP, BASIC, CBCD, TROPO, NTBNP, DDIM, SPT #### [address] [address] Urea nitrogen/Creatinine [Mass ratio] 9 mg/dL Normal 7-22 [facility] Comment on above: Performed By: #### L IPA, HFP, BASIC, CBCD, TROPO, NTBNP, DDIM, SPT #### [address] [address] Creatinine [Mass/Vol] 0.31 mg/dL Low 0.70-1.20 [facility] [place] on above: Performed By: #### L IPA, HFP, BASIC, CBCD, TROPO, NTBNP, DDIM, SPT #### [address] [address] GFR/1.73 sq M.predicted (S/P/Bld) [Vol rate/Area] 259 mL/min Normal >60 [facility] Comment on above: Result Comment: Refe rence Range: 59 to 44 - Mild to moderate loss of kidney function 44 to 30 - Moderate to Severe loss of kidney function 29 to 15 - Severe loss of kidney function <15 - Kidney failure The estimated GFR is based on the MDRD formula for assessment of stable or slowly declining kidney function in adults. Estimated GFR values are not accurate in: -Obese (BMI>34) OR underweight (BMI<20) people -The very old OR very young -Races other than or -[place] -People with acute illnesses, amputations, or acute kidney failure. Estimated GFR should be interpreted in clinical context and an alternative method such as a timed urine collection for creatinine clearance used to verify questionable results. (Ref. National Kid[employer] Foundation 2015) Performed By: #### L IPA, HFP, BASIC, CBCD, TROPO, NTBNP, DDIM, SPT #### [address] [address] Potassium [Moles/Vol] 3.6 mmol/L Normal 3.5-5.0 [facility] [place] on above: Performed By: #### L IPA, HFP, BASIC, CBCD, TROPO, NTBNP, DDIM, SPT #### [address] [address] Chloride [Moles/Vol] 108 mmol/L Normal 100-110 [facility] [place] Comment on above: Performed By: #### L IPA, HFP, BASIC, CBCD, TROPO, NTBNP, DDIM, SPT #### [address] [address] Sodium [Moles/Vol] 141 mmol/L Normal 136-145 [facility] Comment on above: Performed By: #### L IPA, HFP, BASIC, CBCD, TROPO, NTBNP, DDIM, SPT #### [address] [address] CBC WITH DIFFERENTIALon 08-20 Basophils (Bld) [#/Vol] 0.01 10*3/uL Normal 0.00-0.20 [facility] Comment on above: Performed By: #### L IPA, HFP, BASIC, CBCD, TROPO, NTBNP, DDIM, SPT #### [address] [address] Basophils/100 WBC (Bld) 0.2 % Normal 0.0-2.0 [facility] Comment on above: Performed By: #### L IPA, HFP, BASIC, CBCD, TROPO, NTBNP, DDIM, SPT #### [address] [address] Eosinophils (Bld) [#/Vol] 0.13 10*3/uL Normal 0.00-0.50 [facility] Comment on above: Performed By: #### L IPA, HFP, BASIC, CBCD, TROPO, NTBNP, DDIM, SPT #### [address] [address] Eosinophils/100 WBC (Bld) 2.3 % Normal 0.0-4.0 [facility] Comment on above: Performed By: #### L IPA, HFP, BASIC, CBCD, TROPO, NTBNP, DDIM, SPT #### [address] [address] Erythrocyte distribution width (RBC) [Ratio] 15.0 % High 11.5-14.5 [facility] Comment on above: Performed By: #### L IPA, HFP, BASIC, CBCD, TROPO, NTBNP, DDIM, SPT #### [address] [address] Hematocrit (Bld) [Volume fraction] 27.3 % Low 35.0-47.0 [facility] Comment on above: Performed By: #### L IPA, HFP, BASIC, CBCD, TROPO, NTBNP, DDIM, SPT #### [address] [address] Hemoglobin (Bld) [Mass/Vol] 8.5 g/dL Low 12.0-16.0 [facility] Comment on above: Performed By: #### L IPA, HFP, BASIC, CBCD, TROPO, NTBNP, DDIM, SPT #### [address] [address] Lymphocytes (Bld) [#/Vol] 1.59 10*3/uL Normal 1.00-4.80 [facility] Comment on above: Performed By: #### L IPA, HFP, BASIC, CBCD, TROPO, NTBNP, DDIM, SPT #### [address] [address] MCH (RBC) [Entitic mass] 27.3 pg Normal 25.6-32.2 [facility] Comment on above: Performed By: #### L IPA, HFP, BASIC, CBCD, TROPO, NTBNP, DDIM, SPT #### [address] [address] MCHC (RBC) [Mass/Vol] 31.1 g/dL Low 32.0-36.0 [facility] [place] on above: Performed By: #### L IPA, HFP, BASIC, CBCD, TROPO, NTBNP, DDIM, SPT #### [address] [address] MCV (RBC) [Entitic vol] 87.8 fL Normal 82.0-98.0 [facility] Comment on above: Performed By: #### L IPA, HFP, BASIC, CBCD, TROPO, NTBNP, DDIM, SPT #### [address] [address] Monocytes (Bld) [#/Vol] 0.53 10*3/uL Normal 0.20-1.20 [facility] Comment on above: Performed By: #### L IPA, HFP, BASIC, CBCD, TROPO, NTBNP, DDIM, SPT #### [address] [address] Monocytes/100 WBC (Bld) 9.6 % Normal 5.0-11.0 [facility] Comment on above: Performed By: #### L IPA, HFP, BASIC, CBCD, TROPO, NTBNP, DDIM, SPT #### [address] [address] Neutrophils (Bld) [#/Vol] 3.27 10*3/uL Normal 2.00-7.50 [facility] Comment on above: Performed By: #### L IPA, HFP, BASIC, CBCD, TROPO, NTBNP, DDIM, SPT #### [address] [address] NRBC COUNT 0.00 Normal 0.00-0.50 [facility] Comment on above: Performed By: #### L IPA, HFP, BASIC, CBCD, TROPO, NTBNP, DDIM, SPT #### [address] [address] Nucleated RBC/100 WBC (Bld) [Ratio] 0.0 % Normal [facility] Comment on above: Performed By: #### L IPA, HFP, BASIC, CBCD, TROPO, NTBNP, DDIM, SPT #### [address] [address] Platelet mean volume (Bld) [Entitic vol] 11.8 fL Normal 9.4-12.4 [facility] Comment on above: Performed By: #### L IPA, HFP, BASIC, CBCD, TROPO, NTBNP, DDIM, SPT #### [address] [address] Platelets (Bld) [#/Vol] 174 10*3/uL Normal 150-400 [facility] Comment on above: Performed By: #### L IPA, HFP, BASIC, CBCD, TROPO, NTBNP, DDIM, SPT #### [address] [address] RBC (Bld) [#/Vol] 3.11 10*6/uL Low 3.80-5.10 [facility] Comment on above: Performed By: #### L IPA, HFP, BASIC, CBCD, TROPO, NTBNP, DDIM, SPT #### [address] [address] Segmented neutrophils/100 WBC (Bld) 59.0 % Normal 36.0-66.0 [facility] Comment on above: Performed By: #### L IPA, HFP, BASIC, CBCD, TROPO, NTBNP, DDIM, SPT #### [address] [address] Variant lymphocytes Auto Ql (Bld) 28.7 % Normal 24.0-44.0 [facility] Comment on above: Performed By: #### L IPA, HFP, BASIC, CBCD, TROPO, NTBNP, DDIM, SPT #### [address] [address] WBC (Bld) [#/Vol] 5.54 10*3/uL Normal 4.80-10.80 [facility] Comment on above: Performed By: #### L IPA, HFP, BASIC, CBCD, TROPO, NTBNP, DDIM, SPT #### [address] [address] COVID RSV FLU PANELon 2021 FLUAV Ag IA Ql (Unsp spec) Negative [facility] Comment on above: Order Comment: Use r kevin, foam, polyester or flocked swabs to collect anasopharyngeal specimen. After collection, fold over the openend of the collection sleeve and seal with patient lablabel, double bag in biohazard bag, and transport to the labASAP, no later than 60 minutes from collection. Collectionmust be done while wearing N-95 mask, eye protection, gownand gloves.Patient has a known exposure to COVID-19:->UnknownUse mitra, foam, polyester or flocked swabs to collect aThis order code is for the COVID/Flu/RSV combo testing. Performed By: #### L IPA, HFP, BASIC, CBCD, TROPO, NTBNP, DDIM, SPT #### [address] [address] FLUBV Ab IA Ql (S) Negative [facility] Comment on above: Order Comment: Use r kevin, foam, polyester or flocked swabs to collect anasopharyngeal specimen. After collection, fold over the openend of the collection sleeve and seal with patient lablabel, double bag in biohazard bag, and transport to the labASAP, no later than 60 minutes from collection. Collectionmust be done while wearing N-95 mask, eye protection, gownand gloves.Patient has a known exposure to COVID-19:->UnknownUse mitra, foam, polyester or flocked swabs to collect aThis order code is for the COVID/Flu/RSV combo testing. Performed By: #### L IPA, HFP, BASIC, CBCD, TROPO, NTBNP, DDIM, SPT #### [address] [address] RSV BY PCR Negative [facility] Comment on above: Order Comment: Use r kevin, foam, polyester or flocked swabs to collect anasopharyngeal specimen. After collection, fold over the openend of the collection sleeve and seal with patient lablabel, double bag in biohazard bag, and transport to the labASAP, no later than 60 minutes from collection. Collectionmust be done while wearing N-95 mask, eye protection, gownand gloves.Patient has a known exposure to COVID-19:->UnknownUse mitra, foam, polyester or flocked swabs to collect aThis order code is for the COVID/Flu/RSV combo testing. Performed By: #### L IPA, HFP, BASIC, CBCD, TROPO, NTBNP, DDIM, SPT #### [address] [address] SARS-CoV-2 (COVID-19) RNA YOAN+probe Ql (Resp) Negative [facility] Comment on above: Order Comment: Use r kevin, foam, polyester or flocked swabs to collect anasopharyngeal specimen. After collection, fold over the openend of the collection sleeve and seal with patient lablabel, double bag in biohazard bag, and transport to the labASAP, no later than 60 minutes from collection. Collectionmust be done while wearing N-95 mask, eye protection, gownand gloves.Patient has a known exposure to COVID-19:->UnknownUse mitra, foam, polyester or flocked swabs to collect aThis order code is for the COVID/Flu/RSV combo testing. Performed By: #### L IPA, HFP, BASIC, CBCD, TROPO, NTBNP, DDIM, SPT #### [address] [address] [address] ABDOMEN/PELVIS WITH CONTR Daniel 08-30-2021 CT ABDOMEN/PELVIS WITH CONTRAST CLINICAL INDICATION: Diffuse abdominal pain EXAM DESCRIPTION: CT ABDOMEN/PELVIS WITH CONTRAST 08/30/2021 7:34 pm COMPARISON: 07/02/2021. TECHNIQUE: Contiguous axial imaging was performed through the abdomen and pelvis after the uncomplicated intravenous administration of 75mL of Isovue 370 contrast. Coronal and sagittal reformatted images were created and reviewed. Dose modulation techniques were employed including automated exposure control, adjustment of mA and kV according to patient size and the use of iterative reconstruction. FINDINGS: The liver is dysmorphic in appearance without focal lesion or intrahepatic biliary ductal dilatation. Trace perihepatic ascites remains stable. The gallbladder, spleen, pancreas and adrenal glands are stable. The stomach is incompletely distended. The small bowel and colon are normal in course and caliber without evidence of bowel obstruction. The appendix is identified appears noninflamed. There is a small volume of stool throughout the colon. No pneumatosis, portal venous gas or pneumoperitoneum is identified. There is nonspecific fat stranding in the retroperitoneal fat and mesenteric root with prominent lymph nodes, not significantly changed. No drainable fluid collection is identified. The kidneys enhance symmetrically without asymmetric perinephric fat stranding or focal lesion. No urinary tract calculus or hydroureteronephrosis is appreciated. The urinary bladder is incompletely distended. A small volume of pelvic ascites is present, not significantly changed from previous examination. Prominent bilateral inguinal lymph nodes are again present, not significantly changed. There is skin thickening and extensive subcutaneous fat stranding throughout the abdominal wall soft tissues, similar to previous examination. No subcutaneous emphysema or fluid collection is identified. Osseous structures are intact without acute interval abnormality. The abdominal aorta is normal in course and caliber without evidence of aneurysm. Inferior vena cava is normal configuration. IMPRESSION: 1. Findings suggestive of anasarca with trace abdominal and small pelvic ascites, not significantly changed from previous study. 2. Dysmorphic/cirrhotic appearance of the liver. 3. Nonspecific prominent inguinal, pelvic, retroperitoneal mesenteric lymphadenopathy, not significantly changed and is of unknown clinical significance. Attention on follow-up imaging Normal [facility] CT PE STUDYon 08-30-2021 CT PE STUDY CLINICAL INDICATION: PE suspected, low/intermediate prob, positive D-dimer EXAM DESCRIPTION: CT PE STUDY 08/30/2021 7:34 pm COMPARISON: Chest radiographs performed the same day. TECHNIQUE: Contiguous axial imaging was performed through the pulmonary arteries per CTA protocol after the uncomplicated intravenous administration of 75 mL of Isovue 370 contrast. Coronal and sagittal reformatted images were created and reviewed. Three dimensional reformatted images were created and reviewed on a separate dedicated workstation. Dose modulation techniques were employed including automated exposure control, adjustment of mA and kV according to patient size and the use of iterative reconstruction. FINDINGS: The imaged thyroid gland is diffusely enlarged. Bilateral axillary lymphadenopathy is present. Additional enlarged nodes are suspected throughout the mediastinum, difficult to visualize due to motion degradation. No bulky hilar or supraclavicular lymphadenopathy is identified. The thoracic aorta and pulmonary trunk are motion degraded. No thoracic aortic aneurysm or dissection is identified within limitations of examination. The pulmonary trunk is grossly normal. Evaluation of the segmental and subsegmental pulmonary arteries is limited due to a combination motion degradation suboptimal contrast opacification. The central airways are patent. Evaluation of the lung parenchyma is limited secondary to motion degradation. There is a moderate to large right pleural effusion, intervally increased in size from 07/02/2021 CT. Diffuse ground-glass opacities are noted throughout the lungs with interlobular septal thickening. More focal areas of nodular ground-glass opacities are seen in the left upper lobe and left lower lobe. No pneumothorax is identified. There is bilateral cyst skin thickening of the chest wall and diffuse subcutaneous fat stranding, nonspecific. No drainable fluid collection is identified. Bony structures are unremarkable without focal abnormality or acute process. IMPRESSION: 1. Significantly compromised examination limiting evaluation of the segmental and subsegmental pulmonary arteries as described. No acute pulmonary embolism within limitations of examination. There is no CT evidence of right heart strain. 2. Moderate to large right pleural effusion, intervally increased in size. 3. Bilateral ground-glass opacities with interlobular septal thickening. Findings could represent pulmonary edema/fluid overload. 4. More focal areas of nodular ground-glass opacities in left upper lobe and left lower lobe. Superimposed infectious/inflammato ry process would be difficult to exclude. Alveolar edema is felt less likely. 5. Bilateral axillary mediastinal lymphadenopathy, nonspecific. Attention on follow-up imaging. 6. Anasarca [facility] CULTURE-URINEon 08-30-2021 Amikacin TRACEY [Susc] Amikacin [Susceptibility] by Minimum inhibitory concentration (TRACEY)(TRACEY)<=16 S [facility] Comment on above: Order Comment: SPECI MEN SOURCE URINE - CLEAN CATCH--- PLEASE USE TO LABEL EXTRA URINE TUBES --- Performed By: #### L IPA, HFP, BASIC, CBCD, TROPO, NTBNP, DDIM, SPT #### [address] [address] Amoxicillin+Clavulana te TRACEY [Susc] Amoxicillin+Clavulana te [Susceptibility] by Minimum inhibitory concentration (TRACEY)(TRACEY)<=8 S [facility] Comment on above: Order Comment: SPECI MEN SOURCE URINE - CLEAN CATCH--- PLEASE USE TO LABEL EXTRA URINE TUBES --- Performed By: #### L IPA, HFP, BASIC, CBCD, TROPO, NTBNP, DDIM, SPT #### [address] [address] Ampicillin TRACEY [Susc] Ampicillin [Susceptibility] by Minimum inhibitory concentration (TRACEY)(TRACEY)>16 R [facility] Comment on above: Order Comment: SPECI MEN SOURCE URINE - CLEAN CATCH--- PLEASE USE TO LABEL EXTRA URINE TUBES --- Performed By: #### L IPA, HFP, BASIC, CBCD, TROPO, NTBNP, DDIM, SPT #### [address] [address] Aztreonam TRACEY [Susc] Aztreonam [Susceptibility] by Minimum inhibitory concentration (TRACEY)(TRACEY)<=4 S [facility] Comment on above: Order Comment: SPECI MEN SOURCE URINE - CLEAN CATCH--- PLEASE USE TO LABEL EXTRA URINE TUBES --- Performed By: #### L IPA, HFP, BASIC, CBCD, TROPO, NTBNP, DDIM, SPT #### [address] [address] Bacterial susceptibility panel by TRACEY [facility] Comment on above: Order Comment: SPECI MEN SOURCE URINE - CLEAN CATCH--- PLEASE USE TO LABEL EXTRA URINE TUBES --- Performed By: #### L IPA, HFP, BASIC, CBCD, TROPO, NTBNP, DDIM, SPT #### [address] [address] ceFAZolin TRACEY [Susc] Cefazolin [Susceptibility] by Minimum inhibitory concentration (TRACEY)(TRACEY)<=2 S [facility] Comment on above: Order Comment: SPECI MEN SOURCE URINE - CLEAN CATCH--- PLEASE USE TO LABEL EXTRA URINE TUBES --- Performed By: #### L IPA, HFP, BASIC, CBCD, TROPO, NTBNP, DDIM, SPT #### [address] [address] Cefepime TRACEY [Susc] Cefepime [Susceptibility] by Minimum inhibitory concentration (TRACEY)(TRACEY)<=2 S [facility] Comment on above: Order Comment: SPECI MEN SOURCE URINE - CLEAN CATCH--- PLEASE USE TO LABEL EXTRA URINE TUBES --- Performed By: #### L IPA, HFP, BASIC, CBCD, TROPO, NTBNP, DDIM, SPT #### [address] [address] Cefotaxime TRACEY [Susc] Cefotaxime [Susceptibility] by Minimum inhibitory concentration (TRACEY)(TRACEY)<=2 S [facility] Comment on above: Order Comment: SPECI MEN SOURCE URINE - CLEAN CATCH--- PLEASE USE TO LABEL EXTRA URINE TUBES --- Performed By: #### L IPA, HFP, BASIC, CBCD, TROPO, NTBNP, DDIM, SPT #### [address] [address] cefoTEtan TRACEY [Susc] Cefotetan [Susceptibility] by Minimum inhibitory concentration (TRACEY)(TRACEY)<=16 S [facility] Comment on above: Order Comment: SPECI MEN SOURCE URINE - CLEAN CATCH--- PLEASE USE TO LABEL EXTRA URINE TUBES --- Performed By: #### L IPA, HFP, BASIC, CBCD, TROPO, NTBNP, DDIM, SPT #### [address] [address] cefTAZidime TRACEY [Susc] Ceftazidime [Susceptibility] by Minimum inhibitory concentration (TRACEY)(TRACEY)<=1 S [facility] Comment on above: Order Comment: SPECI MEN SOURCE URINE - CLEAN CATCH--- PLEASE USE TO LABEL EXTRA URINE TUBES --- Performed By: #### L IPA, HFP, BASIC, CBCD, TROPO, NTBNP, DDIM, SPT #### [address] [address] cefTRIAXone TRACEY [Susc] Ceftriaxone [Susceptibility] by Minimum inhibitory concentration (TRACEY)(TRACEY)<=1 S [facility] Comment on above: Order Comment: SPECI MEN SOURCE URINE - CLEAN CATCH--- PLEASE USE TO LABEL EXTRA URINE TUBES --- Performed By: #### L IPA, HFP, BASIC, CBCD, TROPO, NTBNP, DDIM, SPT #### [address] [address] Ciprofloxacin TRACEY [Susc] Ciprofloxacin [Susceptibility] by Minimum inhibitory concentration (TRACEY)(TRACEY)<=1 S [facility] Comment on above: Order Comment: SPECI MEN SOURCE URINE - CLEAN CATCH--- PLEASE USE TO LABEL EXTRA URINE TUBES --- Performed By: #### L IPA, HFP, BASIC, CBCD, TROPO, NTBNP, DDIM, SPT #### [address] [address] Ertapenem(TRACEY) Ertapenem(TRACEY) <=0.5 S [facility] Comment on above: Order Comment: SPECI MEN SOURCE URINE - CLEAN CATCH--- PLEASE USE TO LABEL EXTRA URINE TUBES --- Performed By: #### L IPA, HFP, BASIC, CBCD, TROPO, NTBNP, DDIM, SPT #### [address] [address] Gentamicin TRACEY [Susc] Gentamicin [Susceptibility] by Minimum inhibitory concentration (TRACEY)(TRACEY)<=4 S [facility] Comment on above: Order Comment: SPECI MEN SOURCE URINE - CLEAN CATCH--- PLEASE USE TO LABEL EXTRA URINE TUBES --- Performed By: #### L IPA, HFP, BASIC, CBCD, TROPO, NTBNP, DDIM, SPT #### [address] [address] levoFLOXacin TRACEY [Susc] Levofloxacin [Susceptibility] by Minimum inhibitory concentration (TRACEY)(TRACEY)<=2 S [facility] Comment on above: Order Comment: SPECI MEN SOURCE URINE - CLEAN CATCH--- PLEASE USE TO LABEL EXTRA URINE TUBES --- Performed By: #### L IPA, HFP, BASIC, CBCD, TROPO, NTBNP, DDIM, SPT #### [address] [address] Meropenem TRACEY [Susc] Meropenem [Susceptibility] by Minimum inhibitory concentration (TRACEY)(TRACEY)<=1 S [facility] Comment on above: Order Comment: SPECI MEN SOURCE URINE - CLEAN CATCH--- PLEASE USE TO LABEL EXTRA URINE TUBES --- Performed By: #### L IPA, HFP, BASIC, CBCD, TROPO, NTBNP, DDIM, SPT #### [address] [address] Nitrofurantoin TRACEY [Susc] Nitrofurantoin [Susceptibility] by Minimum inhibitory concentration (TRACEY)(TRACEY)<=32 S [facility] Comment on above: Order Comment: SPECI MEN SOURCE URINE - CLEAN CATCH--- PLEASE USE TO LABEL EXTRA URINE TUBES --- Performed By: #### L IPA, HFP, BASIC, CBCD, TROPO, NTBNP, DDIM, SPT #### [address] [address] Piperacillin+Tazobact am TRACEY [Susc] Piperacillin+Tazobact am [Susceptibility] by Minimum inhibitory concentration (TRACEY)(TRACEY)<=16 S [facility] Comment on above: Order Comment: SPECI MEN SOURCE URINE - CLEAN CATCH--- PLEASE USE TO LABEL EXTRA URINE TUBES --- Performed By: #### L IPA, HFP, BASIC, CBCD, TROPO, NTBNP, DDIM, SPT #### [address] [address] Sulbactam TRACEY [Susc] Sulbactam [Susceptibility] by Minimum inhibitory concentration (TRACEY)(TRACEY)<=8 S [facility] Comment on above: Order Comment: SPECI MEN SOURCE URINE - CLEAN CATCH--- PLEASE USE TO LABEL EXTRA URINE TUBES --- Performed By: #### L IPA, HFP, BASIC, CBCD, TROPO, NTBNP, DDIM, SPT #### [address] [address] Tetracycline TRACEY [Susc] Tetracycline [Susceptibility] by Minimum inhibitory concentration (TRACEY)(TRACEY)<=4 S [facility] Comment on above: Order Comment: SPECI MEN SOURCE URINE - CLEAN CATCH--- PLEASE USE TO LABEL EXTRA URINE TUBES --- Performed By: #### L IPA, HFP, BASIC, CBCD, TROPO, NTBNP, DDIM, SPT #### [address] [address] Tobramycin TRACEY [Susc] Tobramycin [Susceptibility] by Minimum inhibitory concentration (TRACEY)(TRACEY)<=4 S [facility] Comment on above: Order Comment: SPECI MEN SOURCE URINE - CLEAN CATCH--- PLEASE USE TO LABEL EXTRA URINE TUBES --- Performed By: #### L IPA, HFP, BASIC, CBCD, TROPO, NTBNP, DDIM, SPT #### [address] [address] Trimethoprim+Sulfamet hoxazole TRACEY [Susc] Trimethoprim+Sulfamet hoxazole [Susceptibility] by Minimum inhibitory concentration (TRACEY)(TRACEY)<=2 S Normal [facility] Comment on above: Order Comment: SPECI MEN SOURCE URINE - CLEAN CATCH--- PLEASE USE TO LABEL EXTRA URINE TUBES --- Performed By: #### L IPA, HFP, BASIC, CBCD, TROPO, NTBNP, DDIM, SPT #### [address] [address] D-DIMER QUANTITATIVEon 08-30 Fibrin D-dimer DDU (PPP) [Mass/Vol] 3.43 High 0.00-0.50 [facility] Comment on above: Result Comment: 08-11 D-DIMER QUANTITATIVE REFERENCE INTERVAL: Anticoagulant therapy decreases the D-dimer levels and may generate false negative results Quantitative D-dimer performed on the [employer] [id number] analyzer. Cutoff value is 0.50 mg/L FEU in an attempt to obtain a negative predictive value close to 100 percent. (for DVT and PE). Non-VTE causes of elevated D-dimer include: trauma, AK, stroke, sepsis, DIC, active collagen diseases, post-surgery, cancer, thrombolytic therapy, large hematoma, diabetes, and post-. Clinical data and imaging studies may be used in order to confirm a positive D-dimer test. The above D-dimer assay may be used for DIC screening in conjunction with other coagulation procedures (PT, PTT, fibrinogen and platelet count). Pathology consultation is available. 08-11-16 Performed By: #### L IPA, HFP, BASIC, CBCD, TROPO, NTBNP, DDIM, SPT #### [address] [address] HCG - QUALITATIVEon 08-30-19 HCG ( test) Ql Negative [facility] Comment on above: Performed By: #### L IPA, HFP, BASIC, CBCD, TROPO, NTBNP, DDIM, SPT #### [address] [address] HEPATIC FUNCTION PANELon ALP [Catalytic activity/Vol] 179 U/L High 38-126 [facility] Comment on above: Performed By: #### L IPA, HFP, BASIC, CBCD, TROPO, NTBNP, DDIM, SPT #### [address] [address] ALT [Catalytic activity/Vol] 11 U/L Normal 9-52 [facility] Comment on above: Performed By: #### L IPA, HFP, BASIC, CBCD, TROPO, NTBNP, DDIM, SPT #### [address] [address] AST [Catalytic activity/Vol] 27 U/L Normal 14-56 [facility] Comment on above: Performed By: #### L IPA, HFP, BASIC, CBCD, TROPO, NTBNP, DDIM, SPT #### [address] [address] Bilirubin [Mass or moles/Vol] 3.1 mg/dL High 0.2-1.2 [facility] Comment on above: Performed By: #### L IPA, HFP, BASIC, CBCD, TROPO, NTBNP, DDIM, SPT #### [address] [address] Bilirubin.direct [Mass/Vol] 1.8 mg/dL High 0.0-0.4 [facility] Comment on above: Performed By: #### L IPA, HFP, BASIC, CBCD, TROPO, NTBNP, DDIM, SPT #### [address] [address] Protein [Mass/Vol] 8.1 g/dL Normal 6.0-8.2 [facility] Comment on above: Performed By: #### L IPA, HFP, BASIC, CBCD, TROPO, NTBNP, DDIM, SPT #### [address] [address] Albumin [Mass/Vol] 3.8 g/dL Normal 3.5-5.0 [facility] Comment on above: Performed By: #### L IPA, HFP, BASIC, CBCD, TROPO, NTBNP, DDIM, SPT #### [address] [address] LIPASEon 08-30-2021 Lipase [Catalytic activity/Vol] 99 U/L Normal 23-300 [facility] Comment on above: Performed By: #### L IPA, HFP, BASIC, CBCD, TROPO, NTBNP, DDIM, SPT #### [address] [address] NT-PRO BNPon 08-30-2021 Natriuretic peptide B (Bld) [Mass/Vol] 718.00 pg/mL High 0.00-450.00 [facility] Comment on above: Performed By: #### L IPA, HFP, BASIC, CBCD, TROPO, NTBNP, DDIM, SPT #### [address] [address] TROPONIN Ion 08-30-2021 Troponin I.cardiac [Mass/Vol] ng/mL Normal 0.012-0.120 [facility] Comment on above: Result Comment: RE FERENCE RANGE IS 0.012 - 0.120 ng/ml cTnI - The cutoff of 0.120 ng/ml is recommended for diagnosis of AMI, yielding optimal performance of 95% sensitivity and 93% specificity. Performed By: #### T ROPO #### [address] [address] Troponin I.cardiac [Mass/Vol] ng/mL Normal 0.012-0.120 [facility] Comment on above: Result Comment: RE FERENCE RANGE IS 0.012 - 0.120 ng/ml cTnI - The cutoff of 0.120 ng/ml is recommended for diagnosis of AMI, yielding optimal performance of 95% sensitivity and 93% specificity. Performed By: #### L IPA, HFP, BASIC, CBCD, TROPO, NTBNP, DDIM, SPT #### [address] [address] UA COMPLETE & REFLEX TO CULT UREon 08-30-2021 Bacteria Auto Ql (U) 3 /hpf Abnormal NONE [facility] Comment on above: Order Comment: This is for GC & CHLAMYDIA PROBES done at . This test can be used on rando m~ urine also. Performed By: #### D NAPL #### [address] [address] Casts LM.HPF (Urine sed) [#/Area] NONE Normal NONE [facility] Comment on above: Order Comment: This is for GC & CHLAMYDIA PROBES done at . This test can be used on rando m~ urine also. Performed By: #### D NAPL #### [address] [address] Epithelial cells LM Ql (Urine sed) 4 /hpf Normal 0-5 [facility] Comment on above: Order Comment: This is for GC & CHLAMYDIA PROBES done at . This test can be used on rando m~ urine also. Performed By: #### D NAPL #### [address] [address] RBC (U) [#/Vol] 37 /hpf High 0-2 [facility] Comment on above: Order Comment: This is for GC & CHLAMYDIA PROBES done at . This test can be used on rando m~ urine also. Performed By: #### D NAPL #### [address] [address] URINE REFLEX CASTS NORMAL Normal [facility] Comment on above: Order Comment: This is for GC & CHLAMYDIA PROBES done at . This test can be used on rando m~ urine also. Performed By: #### D NAPL #### [address] [address] URINE REFLEX CELLS NORMAL Normal [facility] Comment on above: Order Comment: This is for GC & CHLAMYDIA PROBES done at . This test can be used on rando m~ urine also. Performed By: #### D NAPL #### [address] [address] URINE REFLEX CRYSTALS NORMAL Normal [facility] Comment on above: Order Comment: This is for GC & CHLAMYDIA PROBES done at . This test can be used on rando m~ urine also. Performed By: #### D NAPL #### [address] [address] URINE REFLEX YEAST NORMAL Normal [facility] Comment on above: Order Comment: This is for GC & CHLAMYDIA PROBES done at . This test can be used on rando m~ urine also. Performed By: #### D NAPL #### [address] [address] WBC (U) [#/Vol] 14 /hpf High 0-5 [facility] Comment on above: Order Comment: This is for GC & CHLAMYDIA PROBES done at . This test can be used on rando m~ urine also. Performed By: #### D NAPL #### [address] [address] Bilirubin (U) [Mass/Vol] 2.0 mg/dL Normal NEGATIVE [facility] Comment on above: Order Comment: This is for GC & CHLAMYDIA PROBES done at . This test can be used on rando m~ urine also. Performed By: #### D NAPL #### [address] [address] Color (U) DARK YELLOW Normal [facility] Comment on above: Order Comment: This is for GC & CHLAMYDIA PROBES done at . This test can be used on rando m~ urine also. Performed By: #### D NAPL #### [address] [address] Glucose Test strip (U) [Mass/Vol] Negative Normal NEGATIVE [facility] Comment on above: Order Comment: This is for GC & CHLAMYDIA PROBES done at . This test can be used on rando m~ urine also. Performed By: #### D NAPL #### [address] [address] Ketones (U) [Mass/Vol] Negative Normal NEGATIVE [facility] Comment on above: Order Comment: This is for GC & CHLAMYDIA PROBES done at . This test can be used on rando m~ urine also. Performed By: #### D NAPL #### [address] [address] Leukocyte esterase Test strip Ql (U) MODERATE Abnormal NEGATIVE [facility] Comment on above: Order Comment: This is for GC & CHLAMYDIA PROBES done at . This test can be used on rando m~ urine also. Performed By: #### D NAPL #### [address] [address] Nitrite (U) [Mass/Vol] Negative Normal NEGATIVE [facility] Comment on above: Order Comment: This is for GC & CHLAMYDIA PROBES done at . This test can be used on rando urine also. Performed By: #### D NAPL #### [address] [address] pH (U) 5.5 [pH] Normal 6.0-8.5 [facility] Comment on above: Order Comment: This is for GC & CHLAMYDIA PROBES done at . This test can be used on rando ~ urine also. Performed By: #### D NAPL #### [address] [address] Protein (U) [Mass/Vol] 20 mg/dL Abnormal NEG/TRACE [facility] Comment on above: Order Comment: This is for GC & CHLAMYDIA PROBES done at . This test can be used on rando ~ urine also. Performed By: #### Walter NAPL #### [address] [address] RBC Ql (U) TRACE Abnormal NEGATIVE [facility] Comment on above: Order Comment: This is for GC & CHLAMYDIA PROBES done at . This test can be used on rando urine also. Performed By: #### D NAPL #### [address] [address] Specific gravity (U) [Rel density] 1.027 Normal 1.010 - 1.030 [facility] Comment on above: Order Comment: This is for GC & CHLAMYDIA PROBES done at . This test can be used on rando ~ urine also. Performed By: #### D NAPL #### [address] [address] Turbidity Ql (U) SL CLOUDY Normal [facility] Comment on above: Order Comment: This is for GC & CHLAMYDIA PROBES done at . This test can be used on rando urine also. Performed By: #### D NAPL #### [address] [address] Urobilinogen (U) [Mass/Vol] 6 mg/dL Abnormal <2.0 [facility] Comment on above: Order Comment: This is for GC & CHLAMYDIA PROBES done at . This test can be used on rando m~ urine also. Performed By: #### D NAPL #### [address] [address] Urinalysis specimen collection method Nom (U) [employer] Normal [facility] Comment on above: Order Comment: This is for GC & CHLAMYDIA PROBES done at . This test can be used on rando m~ urine also. Performed By: #### D NAPL #### [address] [address] XR CHEST AP PORTABLEon 08-30 XR CHEST AP PORTABLE CLINICAL INDICATION : SOB EXAM DESCRIPTION: XR CHEST AP PORTABLE 08/30/2021 6:41 pm COMPARISON: 05/21/2020. TECHNIQUE: Frontal view of the chest. FINDINGS: Trachea is midline. The cardiac and mediastinal silhouettes are stable. Central peribronchial cuffing is suspected. There is asymmetric elevation right hemidiaphragm with right basilar opacities. There is obscuration of the right costophrenic angle. The left costophrenic angles well demarcated. No pneumothorax is identified. The imaged structures are grossly intact. IMPRESSION: 1. Right basilar opacities which could represent subsegmental atelectasis/scarring or infectious/inflammato ry process. 2. Central peribronchial cuffing and interstitial prominence. Findings could relate to low lung volumes or vascular congestion. Correlate clinically. 3. Blunting of the right costophrenic angle which could represent trace effusion. Normal [facility] BASIC METABOLIC PANELon 12-1 Calcium [Mass/Vol] 8.9 mg/dL Normal 8.4-10.2 [facility] Comment on above: Performed By: #### D NAPL #### [address] [address] CO2 [Moles/Vol] 26.0 mm/Hg Normal 22.0-30.0 [facility] Comment on above: Performed By: #### D NAPL #### [address] [address] Creatinine [Mass/Vol] 0.45 mg/dL Low 0.70-1.20 [facility] Comment on above: Performed By: #### D NAPL #### [address] [address] GFR/1.73 sq M.predicted (S/P/Bld) [Vol rate/Area] 169 mL/min Normal >60 [facility] Comment on above: Result Comment: Refe rence Range: 59 to 44 - Mild to moderate loss of kidney function 44 to 30 - Moderate to Severe loss of kidney function 29 to 15 - Severe loss of kidney function <15 - Kidney failure The estimated GFR is based on the MDRD formula for assessment of stable or slowly declining kidney function in adults. Estimated GFR values are not accurate in: -Obese (BMI>34) OR underweight (BMI<20) people -The very old OR very young -Races other than or -[place] -People with acute illnesses, amputations, or acute kidney failure. Estimated GFR should be interpreted in clinical context and an alternative method such as a timed urine collection for creatinine clearance used to verify questionable results. (Ref. [employer] 2015) Performed By: #### D NAPL #### [address] [address] Glucose [Mass/Vol] 122 mg/dL High 70-100 [facility] Comment on above: Performed By: #### D NAPL #### [address] [address] Potassium [Moles/Vol] 8.1 mmol/L Normal 10-14 [facility] Comment on above: Performed By: #### D NAPL #### [address] [address] Urea nitrogen/Creatinine [Mass ratio] 7 mg/dL Normal 7-22 [facility] Comment on above: Performed By: #### D NAPL #### [address] [address] Chloride [Moles/Vol] 108 mmol/L Normal 100-110 [facility] Comment on above: Performed By: #### D NAPL #### [address] [address] Potassium [Moles/Vol] 3.8 mmol/L Normal 3.5-5.0 [facility] Comment on above: Performed By: #### D NAPL #### [address] [address] Sodium [Moles/Vol] 142 mmol/L Normal 136-145 [facility] Comment on above: Performed By: #### D NAPL #### [address] [address] CBC WITH DIFFERENTIALon 06-19 Basophils (Bld) [#/Vol] 0.02 10*3/uL Normal 0.00-0.20 [facility] Comment on above: Performed By: #### D NAPL #### [address] [address] Basophils/100 WBC (Bld) 0.3 % Normal 0.0-2.0 [facility] Comment on above: Performed By: #### D NAPL #### [address] [address] Eosinophils (Bld) [#/Vol] 0.20 10*3/uL Normal 0.00-0.50 [facility] Comment on above: Performed By: #### D NAPL #### [address] [address] Eosinophils/100 WBC (Bld) 3.5 % Normal 0.0-4.0 [facility] Comment on above: Performed By: #### Walter NAPL #### [address] [address] Erythrocyte distribution width (RBC) [Ratio] 15.0 % High 11.5-14.5 [facility] Comment on above: Performed By: #### Walter NAPL #### [address] [address] Hematocrit (Bld) [Volume fraction] 28.3 % Low 35.0-47.0 [facility] Comment on above: Performed By: #### D NAPL #### [address] [address] Hemoglobin (Bld) [Mass/Vol] 8.6 g/dL Low 12.0-16.0 [facility] Comment on above: Performed By: #### D NAPL #### [address] [address] Lymphocytes (Bld) [#/Vol] 1.86 10*3/uL Normal 1.00-4.80 [facility] Comment on above: Performed By: #### D NAPL #### [address] [address] MCH (RBC) [Entitic mass] 26.5 pg Normal 25.6-32.2 [facility] Comment on above: Performed By: #### D NAPL #### [address] [address] MCHC (RBC) [Mass/Vol] 30.4 g/dL Low 32.0-36.0 [facility] Comment on above: Performed By: #### D NAPL #### [address] [address] MCV (RBC) [Entitic vol] 87.1 fL Normal 82.0-98.0 [facility] Comment on above: Performed By: #### D NAPL #### [address] [address] Monocytes (Bld) [#/Vol] 0.60 10*3/uL Normal 0.20-1.20 [facility] Comment on above: Performed By: #### D NAPL #### [address] [address] Monocytes/100 WBC (Bld) 10.4 % Normal 5.0-11.0 [facility] Comment on above: Performed By: #### D NAPL #### [address] [address] Neutrophils (Bld) [#/Vol] 3.10 10*3/uL Normal 2.00-7.50 [facility] Comment on above: Performed By: #### D NAPL #### [address] [address] NRBC COUNT 0.00 Normal 0.00-0.50 [facility] Comment on above: Performed By: #### D NAPL #### [address] [address] Nucleated RBC/100 WBC (Bld) [Ratio] 0.0 % Normal [facility] Comment on above: Performed By: #### D NAPL #### [address] [address] Platelet mean volume (Bld) [Entitic vol] 11.6 fL Normal 9.4-12.4 [facility] Comment on above: Performed By: #### D NAPL #### [address] [address] Platelets (Bld) [#/Vol] 172 10*3/uL Normal 150-400 [facility] Comment on above: Performed By: #### D NAPL #### [address] [address] RBC (Bld) [#/Vol] 3.25 10*6/uL Low 3.80-5.10 [facility] Comment on above: Performed By: #### D NAPL #### [address] [address] Segmented neutrophils/100 WBC (Bld) 53.5 % Normal 36.0-66.0 [facility] Comment on above: Performed By: #### D NAPL #### [address] [address] Variant lymphocytes Auto Ql (Bld) 32.1 % Normal 24.0-44.0 [facility] Comment on above: Performed By: #### D NAPL #### [address] [address] WBC (Bld) [#/Vol] 5.79 10*3/uL Normal 4.80-10.80 [facility] Comment on above: Performed By: #### D NAPL #### [address] [address] [address] ABDOMEN/PELVIS WITHOUT CO NTRASTon 07-02-2021 CT ABDOMEN/PELVIS WITHOUT CONTRAST CLINICAL INDICATION: Pannus cellulitis EXAM DESCRIPTION: CT ABDOMEN/PELVIS WITHOUT CONTRAST 07/02/2021 6:47 pm COMPARISON: 11/16/2020. TECHNIQUE: Contiguous axial imaging was performed through the abdomen and pelvis without the use of IV contrast. Coronal and sagittal reformatted images were created and reviewed. Dose modulation techniques were employed including automated exposure control, adjustment of mA and kV according to patient size and the use of iterative reconstruction. FINDINGS: Evaluation of the viscera and vasculature is limited without the use of IV contrast. The liver is steatotic and dysmorphic in appearance. No focal lesion or intrahepatic biliary ductal dilatation. The gallbladder is contracted. The spleen, pancreas and adrenal glands are stable. Debris is noted in the stomach the small bowel and colon are normal in course and caliber without evidence of bowel obstruction. The appendix is not well visualized. No focal inflammatory changes are noted near the ileocecal junction to suggest acute appendicitis. A small to moderate amount of stool scattered throughout the colon. No pneumatosis, portal venous gas or pneumoperitoneum is identified. There is trace perihepatic ascites as well as trace ascites along the left paracolic gutter. Edema is present throughout the intra-abdominal and intrapelvic fat. There are multiple prominent retroperitoneal lymph nodes and smaller lymph nodes throughout the mesentery, not significantly changed. The kidneys are similar in size and attenuation without asymmetric perinephric fat stranding. No appreciable urinary tract calculus or hydroureteronephrosis . The urinary bladder is incompletely distended. A small volume of fluid is seen within the pelvis. The uterus is anteverted and appears grossly unremarkable. No appreciable adnexal mass is identified. Prominent bilateral inguinal lymph nodes are again present. Edema is present throughout the body wall soft tissues with associated skin thickening, similar to the previous examination. No body wall fluid collection is identified. The osseous structures are intact without acute abnormality. No suspicious lytic or blastic lesion. A small to moderate size right pleural effusion is partially imaged, intervally increased. The heart is stable in size without evidence of pericardial effusion. The abdominal aorta is normal in course and caliber. The inferior vena cava is normal configuration. IMPRESSION: 1. Findings suggestive of anasarca with enlarging small to moderate right pleural effusion. Trace abdominal and pelvic ascites, new from comparison. Otherwise examination appears stable. 2. Suspected dysmorphic/cirrhotic liver with portal hypertension 3. Nonspecific prominent inguinal, pelvic and retroperitoneal lymph nodes, not significantly changed and of unknown clinical significance. Normal [facility] HCG - QUALITATIVEon 07-02-20 21 HCG ( test) Ql Negative Normal [facility] Comment on above: Performed By: #### D NAPL #### [address] [address] SED RATEon 07-02-2021 ESR (Bld) [Velocity] 30 mm/h High 0-15 [facility] Comment on above: Performed By: #### D NAPL #### [address] [address] CBC WITH DIFFERENTIALon 06-19 Basophils (Bld) [#/Vol] 0.02 10*3/uL Normal 0.00-0.20 [facility] Comment on above: Order Comment: SPECI MEN SOURCE URINE - CLEAN CATCH Performed By: #### L IPA, HFP, BASIC, CBCD, TROPO, NTBNP, DDIM, SPT #### [address] [address] Basophils/100 WBC (Bld) 0.3 % Normal 0.0-2.0 [facility] Comment on above: Order Comment: SPECI MEN SOURCE URINE - CLEAN CATCH Performed By: #### L IPA, HFP, BASIC, CBCD, TROPO, NTBNP, DDIM, SPT #### [address] [address] Eosinophils (Bld) [#/Vol] 0.29 10*3/uL Normal 0.00-0.50 [facility] Comment on above: Order Comment: SPECI MEN SOURCE URINE - CLEAN CATCH Performed By: #### L IPA, HFP, BASIC, CBCD, TROPO, NTBNP, DDIM, SPT #### [address] [address] Eosinophils/100 WBC (Bld) 4.1 % High 0.0-4.0 [facility] Comment on above: Order Comment: SPECI MEN SOURCE URINE - CLEAN CATCH Performed By: #### L IPA, HFP, BASIC, CBCD, TROPO, NTBNP, DDIM, SPT #### [address] [address] Erythrocyte distribution width (RBC) [Ratio] 14.7 % High 11.5-14.5 [facility] Comment on above: Order Comment: SPECI MEN SOURCE URINE - CLEAN CATCH Performed By: #### L IPA, HFP, BASIC, CBCD, TROPO, NTBNP, DDIM, SPT #### [address] [address] Hematocrit (Bld) [Volume fraction] 26.7 % Low 35.0-47.0 [facility] Comment on above: Order Comment: SPECI MEN SOURCE URINE - CLEAN CATCH Performed By: #### L IPA, HFP, BASIC, CBCD, TROPO, NTBNP, DDIM, SPT #### [address] [address] Hemoglobin (Bld) [Mass/Vol] 8.2 g/dL Low 12.0-16.0 [facility] Comment on above: Order Comment: SPECI MEN SOURCE URINE - CLEAN CATCH Performed By: #### L IPA, HFP, BASIC, CBCD, TROPO, NTBNP, DDIM, SPT #### [address] [address] Lymphocytes (Bld) [#/Vol] 2.32 10*3/uL Normal 1.00-4.80 [facility] Comment on above: Order Comment: SPECI MEN SOURCE URINE - CLEAN CATCH Performed By: #### L IPA, HFP, BASIC, CBCD, TROPO, NTBNP, DDIM, SPT #### [address] [address] MCH (RBC) [Entitic mass] 26.5 pg Normal 25.6-32.2 [facility] Comment on above: Order Comment: SPECI MEN SOURCE URINE - CLEAN CATCH Performed By: #### L IPA, HFP, BASIC, CBCD, TROPO, NTBNP, DDIM, SPT #### [address] [address] MCHC (RBC) [Mass/Vol] 30.7 g/dL Low 32.0-36.0 [facility] Comment on above: Order Comment: SPECI MEN SOURCE URINE - CLEAN CATCH Performed By: #### L IPA, HFP, BASIC, CBCD, TROPO, NTBNP, DDIM, SPT #### [address] [address] MCV (RBC) [Entitic vol] 86.4 fL Normal 82.0-98.0 [facility] Comment on above: Order Comment: SPECI MEN SOURCE URINE - CLEAN CATCH Performed By: #### L IPA, HFP, BASIC, CBCD, TROPO, NTBNP, DDIM, SPT #### [address] [address] Monocytes (Bld) [#/Vol] 0.59 10*3/uL Normal 0.20-1.20 [facility] Comment on above: Order Comment: SPECI MEN SOURCE URINE - CLEAN CATCH Performed By: #### L IPA, HFP, BASIC, CBCD, TROPO, NTBNP, DDIM, SPT #### [address] [address] Monocytes/100 WBC (Bld) 8.4 % Normal 5.0-11.0 [facility] Comment on above: Order Comment: SPECI MEN SOURCE URINE - CLEAN CATCH Performed By: #### L IPA, HFP, BASIC, CBCD, TROPO, NTBNP, DDIM, SPT #### [address] [address] Neutrophils (Bld) [#/Vol] 3.77 10*3/uL Normal 2.00-7.50 [facility] Comment on above: Order Comment: SPECI MEN SOURCE URINE - CLEAN CATCH Performed By: #### L IPA, HFP, BASIC, CBCD, TROPO, NTBNP, DDIM, SPT #### [address] [address] NRBC COUNT 0.00 Normal 0.00-0.50 [facility] Comment on above: Order Comment: SPECI MEN SOURCE URINE - CLEAN CATCH Performed By: #### L IPA, HFP, BASIC, CBCD, TROPO, NTBNP, DDIM, SPT #### [address] [address] Nucleated RBC/100 WBC (Bld) [Ratio] 0.0 % Normal [facility] Comment on above: Order Comment: SPECI MEN SOURCE URINE - CLEAN CATCH Performed By: #### L IPA, HFP, BASIC, CBCD, TROPO, NTBNP, DDIM, SPT #### [address] [address] Platelet mean volume (Bld) [Entitic vol] 12.2 fL Normal 9.4-12.4 [facility] Comment on above: Order Comment: SPECI MEN SOURCE URINE - CLEAN CATCH Performed By: #### L IPA, HFP, BASIC, CBCD, TROPO, NTBNP, DDIM, SPT #### [address] [address] Platelets (Bld) [#/Vol] 164 10*3/uL Normal 150-400 [facility] Comment on above: Order Comment: SPECI MEN SOURCE URINE - CLEAN CATCH Performed By: #### L IPA, HFP, BASIC, CBCD, TROPO, NTBNP, DDIM, SPT #### [address] [address] RBC (Bld) [#/Vol] 3.09 10*6/uL Low 3.80-5.10 [facility] Comment on above: Order Comment: SPECI MEN SOURCE URINE - CLEAN CATCH Performed By: #### L IPA, HFP, BASIC, CBCD, TROPO, NTBNP, DDIM, SPT #### [address] [address] Segmented neutrophils/100 WBC (Bld) 54.0 % Normal 36.0-66.0 [facility] Comment on above: Order Comment: SPECI MEN SOURCE URINE - CLEAN CATCH Performed By: #### L IPA, HFP, BASIC, CBCD, TROPO, NTBNP, DDIM, SPT #### [address] [address] Variant lymphocytes Auto Ql (Bld) 33.1 % Normal 24.0-44.0 [facility] Comment on above: Order Comment: SPECI MEN SOURCE URINE - CLEAN CATCH Performed By: #### L IPA, HFP, BASIC, CBCD, TROPO, NTBNP, DDIM, SPT #### [address] [address] WBC (Bld) [#/Vol] 7.00 10*3/uL Normal 4.80-10.80 [facility] Comment on above: Order Comment: SPECI MEN SOURCE URINE - CLEAN CATCH Performed By: #### L IPA, HFP, BASIC, CBCD, TROPO, NTBNP, DDIM, SPT #### [address] [address] COMPREHENSIVE METABOLIC PANE Jude 06-29-2021 ALP [Catalytic activity/Vol] 163 U/L High 38-126 [facility] Comment on above: Order Comment: SPECI MEN SOURCE URINE - CLEAN CATCH Performed By: #### L IPA, HFP, BASIC, CBCD, TROPO, NTBNP, DDIM, SPT #### [address] [address] ALT [Catalytic activity/Vol] 11 U/L Normal 9-52 [facility] Comment on above: Order Comment: SPECI MEN SOURCE URINE - CLEAN CATCH Performed By: #### L IPA, HFP, BASIC, CBCD, TROPO, NTBNP, DDIM, SPT #### [address] [address] AST [Catalytic activity/Vol] 27 U/L Normal 14-56 [facility] Comment on above: Order Comment: SPECI MEN SOURCE URINE - CLEAN CATCH Performed By: #### L IPA, HFP, BASIC, CBCD, TROPO, NTBNP, DDIM, SPT #### [address] [address] Bilirubin [Mass or moles/Vol] 1.4 mg/dL High 0.2-1.2 [facility] Comment on above: Order Comment: SPECI MEN SOURCE URINE - CLEAN CATCH Performed By: #### L IPA, HFP, BASIC, CBCD, TROPO, NTBNP, DDIM, SPT #### [address] [address] Calcium [Mass/Vol] 8.8 mg/dL Normal 8.4-10.2 [facility] Comment on above: Order Comment: SPECI MEN SOURCE URINE - CLEAN CATCH Performed By: #### L IPA, HFP, BASIC, CBCD, TROPO, NTBNP, DDIM, SPT #### [address] [address] CO2 [Moles/Vol] 24.0 mm/Hg Normal 22.0-30.0 [facility] Comment on above: Order Comment: SPECI MEN SOURCE URINE - CLEAN CATCH Performed By: #### L IPA, HFP, BASIC, CBCD, TROPO, NTBNP, DDIM, SPT #### [address] [address] Glucose [Mass/Vol] 97 mg/dL Normal 70-100 [facility] Comment on above: Order Comment: SPECI MEN SOURCE URINE - CLEAN CATCH Performed By: #### L IPA, HFP, BASIC, CBCD, TROPO, NTBNP, DDIM, SPT #### [facility] [address] [place] [address] Potassium [Moles/Vol] 10.8 mmol/L Normal 10-14 [facility] [place] [place] Comment on above: Order Comment: SPECI MEN SOURCE URINE - CLEAN CATCH Performed By: #### L IPA, HFP, BASIC, CBCD, TROPO, NTBNP, DDIM, SPT #### [address] [address] Protein [Mass/Vol] 7.6 g/dL Normal 6.0-8.2 [facility] Comment on above: Order Comment: SPECI MEN SOURCE URINE - CLEAN CATCH Performed By: #### L IPA, HFP, BASIC, CBCD, TROPO, NTBNP, DDIM, SPT #### [address] [address] Urea nitrogen/Creatinine [Mass ratio] 10 mg/dL Normal 7-22 [facility] Comment on above: Order Comment: SPECI MEN SOURCE URINE - CLEAN CATCH Performed By: #### L IPA, HFP, BASIC, CBCD, TROPO, NTBNP, DDIM, SPT #### [address] [address] Creatinine [Mass/Vol] 0.46 mg/dL Low 0.70-1.20 [facility] [place] on above: Order Comment: SPECI MEN SOURCE URINE - CLEAN CATCH Performed By: #### L IPA, HFP, BASIC, CBCD, TROPO, NTBNP, DDIM, SPT #### [address] [address] GFR/1.73 sq M.predicted (S/P/Bld) [Vol rate/Area] 165 mL/min Normal >60 [facility] Comment on above: Order Comment: SPECI MEN SOURCE URINE - CLEAN CATCH Result Comment: Refe rence Range: 59 to 44 - Mild to moderate loss of kidney function 44 to 30 - Moderate to Severe loss of kidney function 29 to 15 - Severe loss of kidney function <15 - Kidney failure The estimated GFR is based on the MDRD formula for assessment of stable or slowly declining kidney function in adults. Estimated GFR values are not accurate in: -Obese (BMI>34) OR underweight (BMI<20) people -The very old OR very young -Races other than or -[place] -People with acute illnesses, amputations, or acute kidney failure. Estimated GFR should be interpreted in clinical context and an alternative method such as a timed urine collection for creatinine clearance used to verify questionable results. (Ref. [employer] 2015) Performed By: #### L IPA, HFP, BASIC, CBCD, TROPO, NTBNP, DDIM, SPT #### [address] [address] Albumin [Mass/Vol] 3.7 g/dL Normal 3.5-5.0 [facility] Comment on above: Order Comment: SPECI MEN SOURCE URINE - CLEAN CATCH Performed By: #### L IPA, HFP, BASIC, CBCD, TROPO, NTBNP, DDIM, SPT #### [address] [address] Chloride [Moles/Vol] 106 mmol/L Normal 100-110 [facility] [place] Comment on above: Order Comment: SPECI MEN SOURCE URINE - CLEAN CATCH Performed By: #### L IPA, HFP, BASIC, CBCD, TROPO, NTBNP, DDIM, SPT #### [address] [address] Potassium [Moles/Vol] 3.6 mmol/L Normal 3.5-5.0 [facility] Comment on above: Order Comment: SPECI MEN SOURCE URINE - CLEAN CATCH Performed By: #### L IPA, HFP, BASIC, CBCD, TROPO, NTBNP, DDIM, SPT #### [address] [address] Sodium [Moles/Vol] 141 mmol/L Normal 136-145 [facility] Comment on above: Order Comment: SPECI MEN SOURCE URINE - CLEAN CATCH Performed By: #### L IPA, HFP, BASIC, CBCD, TROPO, NTBNP, DDIM, SPT #### [address] [address] HCG - QUALITATIVEon 06-29-20 21 HCG ( test) Ql Negative Normal [facility] Comment on above: Order Comment: SPECI MEN SOURCE URINE - CLEAN CATCH Performed By: #### L IPA, HFP, BASIC, CBCD, TROPO, NTBNP, DDIM, SPT #### [address] [address] UA COMPLETE & REFLEX TO CULT UREon 06-29-2021 Bacteria Auto Ql (U) NONE Normal NONE [facility] Comment on above: Order Comment: SPECI MEN SOURCE URINE - CLEAN CATCH Performed By: #### L IPA, HFP, BASIC, CBCD, TROPO, NTBNP, DDIM, SPT #### [address] [address] Casts LM.HPF (Urine sed) [#/Area] NONE Normal NONE [facility] Comment on above: Order Comment: SPECI MEN SOURCE URINE - CLEAN CATCH Performed By: #### L IPA, HFP, BASIC, CBCD, TROPO, NTBNP, DDIM, SPT #### [address] [address] Epithelial cells LM Ql (Urine sed) 2 /hpf Normal 0-5 [facility] Comment on above: Order Comment: SPECI MEN SOURCE URINE - CLEAN CATCH Performed By: #### L IPA, HFP, BASIC, CBCD, TROPO, NTBNP, DDIM, SPT #### [address] [address] RBC (U) [#/Vol] 1 /hpf Normal 0-2 [facility] Comment on above: Order Comment: SPECI MEN SOURCE URINE - CLEAN CATCH Performed By: #### L IPA, HFP, BASIC, CBCD, TROPO, NTBNP, DDIM, SPT #### [address] [address] URINE REFLEX CASTS NORMAL Normal [facility] Comment on above: Order Comment: SPECI MEN SOURCE URINE - CLEAN CATCH Performed By: #### L IPA, HFP, BASIC, CBCD, TROPO, NTBNP, DDIM, SPT #### [address] [address] URINE REFLEX CELLS NORMAL Normal [facility] Comment on above: Order Comment: SPECI MEN SOURCE URINE - CLEAN CATCH Performed By: #### L IPA, HFP, BASIC, CBCD, TROPO, NTBNP, DDIM, SPT #### [address] [address] URINE REFLEX CRYSTALS NORMAL Normal [facility] Comment on above: Order Comment: SPECI MEN SOURCE URINE - CLEAN CATCH Performed By: #### L IPA, HFP, BASIC, CBCD, TROPO, NTBNP, DDIM, SPT #### [address] [address] URINE REFLEX YEAST NORMAL Normal [facility] Comment on above: Order Comment: SPECI MEN SOURCE URINE - CLEAN CATCH Performed By: #### L IPA, HFP, BASIC, CBCD, TROPO, NTBNP, DDIM, SPT #### [address] [address] WBC (U) [#/Vol] 3 /hpf Normal 0-5 [facility] Comment on above: Order Comment: SPECI MEN SOURCE URINE - CLEAN CATCH Performed By: #### L IPA, HFP, BASIC, CBCD, TROPO, NTBNP, DDIM, SPT #### [address] [address] Bilirubin (U) [Mass/Vol] Negative Normal NEGATIVE [facility] Comment on above: Order Comment: SPECI MEN SOURCE URINE - CLEAN CATCH Performed By: #### L IPA, HFP, BASIC, CBCD, TROPO, NTBNP, DDIM, SPT #### [address] [address] Color (U) YELLOW Normal [facility] Comment on above: Order Comment: SPECI MEN SOURCE URINE - CLEAN CATCH Performed By: #### L IPA, HFP, BASIC, CBCD, TROPO, NTBNP, DDIM, SPT #### [address] [address] Glucose Test strip (U) [Mass/Vol] Negative Normal NEGATIVE [facility] Comment on above: Order Comment: SPECI MEN SOURCE URINE - CLEAN CATCH Performed By: #### L IPA, HFP, BASIC, CBCD, TROPO, NTBNP, DDIM, SPT #### [address] [address] Ketones (U) [Mass/Vol] Negative Normal NEGATIVE [facility] Comment on above: Order Comment: SPECI MEN SOURCE URINE - CLEAN CATCH Performed By: #### L IPA, HFP, BASIC, CBCD, TROPO, NTBNP, DDIM, SPT #### [address] [address] Leukocyte esterase Test strip Ql (U) Negative Normal NEGATIVE [facility] Comment on above: Order Comment: SPECI MEN SOURCE URINE - CLEAN CATCH Performed By: #### L IPA, HFP, BASIC, CBCD, TROPO, NTBNP, DDIM, SPT #### [address] [address] Nitrite (U) [Mass/Vol] Negative Normal NEGATIVE [facility] Comment on above: Order Comment: SPECI MEN SOURCE URINE - CLEAN CATCH Performed By: #### L IPA, HFP, BASIC, CBCD, TROPO, NTBNP, DDIM, SPT #### [address] [address] pH (U) 5.5 [pH] Normal 6.0-8.5 [facility] Comment on above: Order Comment: SPECI MEN SOURCE URINE - CLEAN CATCH Performed By: #### L IPA, HFP, BASIC, CBCD, TROPO, NTBNP, DDIM, SPT #### [address] [address] Protein (U) [Mass/Vol] Negative Normal NEG/TRACE [facility] Comment on above: Order Comment: SPECI MEN SOURCE URINE - CLEAN CATCH Performed By: #### L IPA, HFP, BASIC, CBCD, TROPO, NTBNP, DDIM, SPT #### [address] [address] RBC Ql (U) Negative Normal NEGATIVE [facility] Comment on above: Order Comment: SPECI MEN SOURCE URINE - CLEAN CATCH Performed By: #### L IPA, HFP, BASIC, CBCD, TROPO, NTBNP, DDIM, SPT #### [address] [address] Specific gravity (U) [Rel density] 1.018 Normal 1.010 - 1.030 [facility] Comment on above: Order Comment: SPECI MEN SOURCE URINE - CLEAN CATCH Performed By: #### L IPA, HFP, BASIC, CBCD, TROPO, NTBNP, DDIM, SPT #### [address] [address] Turbidity Ql (U) CLEAR Normal [facility] Comment on above: Order Comment: SPECI MEN SOURCE URINE - CLEAN CATCH Performed By: #### L IPA, HFP, BASIC, CBCD, TROPO, NTBNP, DDIM, SPT #### [address] [address] Urobilinogen (U) [Mass/Vol] 2 mg/dL Abnormal <2.0 [facility] Comment on above: Order Comment: SPECI MEN SOURCE URINE - CLEAN CATCH Performed By: #### L IPA, HFP, BASIC, CBCD, TROPO, NTBNP, DDIM, SPT #### [address] [address] Urinalysis specimen collection method Nom (U) Not stated [facility] Comment on above: Order Comment: SPECI MEN SOURCE URINE - CLEAN CATCH Performed By: #### L IPA, HFP, BASIC, CBCD, TROPO, NTBNP, DDIM, SPT #### [address] [address] CULTURE-URINEon 06-23-2021 Bacteria identified Cx Nom (U) <10,000 CFU/ML MIXED CONTAMINATION [facility] Comment on above: Order Comment: SPECI MEN SOURCE URINE - CLEAN CATCH--- PLEASE USE TO LABEL EXTRA URINE TUBES --- Performed By: #### L IPA, HFP, BASIC, CBCD, TROPO, NTBNP, DDIM, SPT #### [address] [address] CBC WITH DIFFERENTIALon Basophils (Bld) [#/Vol] 0.02 10*3/uL Normal 0.00-0.20 [facility] Comment on above: Performed By: #### L IPA, HFP, BASIC, CBCD, TROPO, NTBNP, DDIM, SPT #### [address] [address] Basophils/100 WBC (Bld) 0.3 % Normal 0.0-2.0 [facility] Comment on above: Performed By: #### L IPA, HFP, BASIC, CBCD, TROPO, NTBNP, DDIM, SPT #### [address] [address] Eosinophils (Bld) [#/Vol] 0.20 10*3/uL Normal 0.00-0.50 [facility] Comment on above: Performed By: #### L IPA, HFP, BASIC, CBCD, TROPO, NTBNP, DDIM, SPT #### [address] [address] Eosinophils/100 WBC (Bld) 2.7 % Normal 0.0-4.0 [facility] Comment on above: Performed By: #### L IPA, HFP, BASIC, CBCD, TROPO, NTBNP, DDIM, SPT #### [address] [address] Erythrocyte distribution width (RBC) [Ratio] 14.9 % High 11.5-14.5 [facility] Comment on above: Performed By: #### L IPA, HFP, BASIC, CBCD, TROPO, NTBNP, DDIM, SPT #### [address] [address] Hematocrit (Bld) [Volume fraction] 28.0 % Low 35.0-47.0 [facility] Comment on above: Performed By: #### L IPA, HFP, BASIC, CBCD, TROPO, NTBNP, DDIM, SPT #### [address] [address] Hemoglobin (Bld) [Mass/Vol] 8.7 g/dL Low 12.0-16.0 [facility] Comment on above: Performed By: #### L IPA, HFP, BASIC, CBCD, TROPO, NTBNP, DDIM, SPT #### [address] [address] Lymphocytes (Bld) [#/Vol] 2.26 10*3/uL Normal 1.00-4.80 [facility] Comment on above: Performed By: #### L IPA, HFP, BASIC, CBCD, TROPO, NTBNP, DDIM, SPT #### [address] [address] MCH (RBC) [Entitic mass] 26.9 pg Normal 25.6-32.2 [facility] Comment on above: Performed By: #### L IPA, HFP, BASIC, CBCD, TROPO, NTBNP, DDIM, SPT #### [address] [address] MCHC (RBC) [Mass/Vol] 31.1 g/dL Low 32.0-36.0 [facility] Comment on above: Performed By: #### L IPA, HFP, BASIC, CBCD, TROPO, NTBNP, DDIM, SPT #### [address] [address] MCV (RBC) [Entitic vol] 86.7 fL Normal 82.0-98.0 [facility] Comment on above: Performed By: #### L IPA, HFP, BASIC, CBCD, TROPO, NTBNP, DDIM, SPT #### [address] [address] Monocytes (Bld) [#/Vol] 0.62 10*3/uL Normal 0.20-1.20 [facility] Comment on above: Performed By: #### L IPA, HFP, BASIC, CBCD, TROPO, NTBNP, DDIM, SPT #### [address] [address] Monocytes/100 WBC (Bld) 8.2 % Normal 5.0-11.0 [facility] Comment on above: Performed By: #### L IPA, HFP, BASIC, CBCD, TROPO, NTBNP, DDIM, SPT #### [address] [address] Neutrophils (Bld) [#/Vol] 4.42 10*3/uL Normal 2.00-7.50 [facility] Comment on above: Performed By: #### L IPA, HFP, BASIC, CBCD, TROPO, NTBNP, DDIM, SPT #### [address] [address] NRBC COUNT 0.00 Normal 0.00-0.50 [facility] Comment on above: Performed By: #### L IPA, HFP, BASIC, CBCD, TROPO, NTBNP, DDIM, SPT #### [address] [address] Nucleated RBC/100 WBC (Bld) [Ratio] 0.0 % Normal [facility] Comment on above: Performed By: #### L IPA, HFP, BASIC, CBCD, TROPO, NTBNP, DDIM, SPT #### [address] [address] Platelet mean volume (Bld) [Entitic vol] 11.9 fL Normal 9.4-12.4 [facility] Comment on above: Performed By: #### L IPA, HFP, BASIC, CBCD, TROPO, NTBNP, DDIM, SPT #### [address] [address] Platelets (Bld) [#/Vol] 194 10*3/uL Normal 150-400 [facility] Comment on above: Performed By: #### L IPA, HFP, BASIC, CBCD, TROPO, NTBNP, DDIM, SPT #### [address] [address] RBC (Bld) [#/Vol] 3.23 10*6/uL Low 3.80-5.10 [facility] Comment on above: Performed By: #### L IPA, HFP, BASIC, CBCD, TROPO, NTBNP, DDIM, SPT #### [address] [address] Segmented neutrophils/100 WBC (Bld) 58.7 % Normal 36.0-66.0 [facility] Comment on above: Performed By: #### L IPA, HFP, BASIC, CBCD, TROPO, NTBNP, DDIM, SPT #### [address] [address] Variant lymphocytes Auto Ql (Bld) 30.0 % Normal 24.0-44.0 [facility] Comment on above: Performed By: #### L IPA, HFP, BASIC, CBCD, TROPO, NTBNP, DDIM, SPT #### [address] [address] WBC (Bld) [#/Vol] 7.53 10*3/uL Normal 4.80-10.80 [facility] Comment on above: Performed By: #### L IPA, HFP, BASIC, CBCD, TROPO, NTBNP, DDIM, SPT #### [address] [address] COMPREHENSIVE METABOLIC PANE Jude 06-21-2021 Calcium [Mass/Vol] 8.9 mg/dL Normal 8.4-10.2 [facility] Comment on above: Performed By: #### L IPA, HFP, BASIC, CBCD, TROPO, NTBNP, DDIM, SPT #### [address] [address] ALP [Catalytic activity/Vol] 181 U/L High 38-126 [facility] Comment on above: Performed By: #### L IPA, HFP, BASIC, CBCD, TROPO, NTBNP, DDIM, SPT #### [address] [address] ALT [Catalytic activity/Vol] 14 U/L Normal 9-52 [facility] Comment on above: Performed By: #### L IPA, HFP, BASIC, CBCD, TROPO, NTBNP, DDIM, SPT #### [address] [address] AST [Catalytic activity/Vol] 33 U/L Normal 14-56 [facility] Comment on above: Performed By: #### L IPA, HFP, BASIC, CBCD, TROPO, NTBNP, DDIM, SPT #### [address] [address] Bilirubin [Mass or moles/Vol] 2.4 mg/dL High 0.2-1.2 [facility] Comment on above: Performed By: #### L IPA, HFP, BASIC, CBCD, TROPO, NTBNP, DDIM, SPT #### [address] [address] CO2 [Moles/Vol] 27.0 mm/Hg Normal 22.0-30.0 [facility] Comment on above: Performed By: #### L IPA, HFP, BASIC, CBCD, TROPO, NTBNP, DDIM, SPT #### [address] [address] Glucose [Mass/Vol] 96 mg/dL Normal 70-100 [facility] Comment on above: Performed By: #### L IPA, HFP, BASIC, CBCD, TROPO, NTBNP, DDIM, SPT #### [address] [address] Potassium [Moles/Vol] 8.7 mmol/L Normal 10-14 [facility] Comment on above: Performed By: #### L IPA, HFP, BASIC, CBCD, TROPO, NTBNP, DDIM, SPT #### [address] [address] Protein [Mass/Vol] 7.8 g/dL Normal 6.0-8.2 [facility] Comment on above: Performed By: #### L IPA, HFP, BASIC, CBCD, TROPO, NTBNP, DDIM, SPT #### [address] [address] Urea nitrogen/Creatinine [Mass ratio] 9 mg/dL Normal 7-22 [facility] Comment on above: Performed By: #### L IPA, HFP, BASIC, CBCD, TROPO, NTBNP, DDIM, SPT #### [address] [address] Creatinine [Mass/Vol] 0.50 mg/dL Low 0.70-1.20 [facility] Comment on above: Performed By: #### L IPA, HFP, BASIC, CBCD, TROPO, NTBNP, DDIM, SPT #### [address] [address] GFR/1.73 sq M.predicted (S/P/Bld) [Vol rate/Area] 150 mL/min Normal >60 [facility] Comment on above: Result Comment: Refe rence Range: 59 to 44 - Mild to moderate loss of kidney function 44 to 30 - Moderate to Severe loss of kidney function 29 to 15 - Severe loss of kidney function <15 - Kidney failure The estimated GFR is based on the MDRD formula for assessment of stable or slowly declining kidney function in adults. Estimated GFR values are not accurate in: -Obese (BMI>34) OR underweight (BMI<20) people -The very old OR very young -Races other than or -[place] -People with acute illnesses, amputations, or acute kidney failure. Estimated GFR should be interpreted in clinical context and an alternative method such as a timed urine collection for creatinine clearance used to verify questionable results. (Ref. [employer] 2015) Performed By: #### L IPA, HFP, BASIC, CBCD, TROPO, NTBNP, DDIM, SPT #### [address] [address] Albumin [Mass/Vol] 3.8 g/dL Normal 3.5-5.0 [facility] Comment on above: Performed By: #### L IPA, HFP, BASIC, CBCD, TROPO, NTBNP, DDIM, SPT #### [address] [address] Chloride [Moles/Vol] 107 mmol/L Normal 100-110 [facility] Comment on above: Performed By: #### L IPA, HFP, BASIC, CBCD, TROPO, NTBNP, DDIM, SPT #### [address] [address] Potassium [Moles/Vol] 3.5 mmol/L Normal 3.5-5.0 [facility] Comment on above: Performed By: #### L IPA, HFP, BASIC, CBCD, TROPO, NTBNP, DDIM, SPT #### [address] [address] Sodium [Moles/Vol] 143 mmol/L Normal 136-145 [facility] Comment on above: Performed By: #### L IPA, HFP, BASIC, CBCD, TROPO, NTBNP, DDIM, SPT #### [address] [address] DNA GC & CHLAMYDIA BY AMPLIF ICATIONon 06-21-2021 Chlamydia sp DNA YOAN+probe Ql (Genital specimen) Negative [facility] Comment on above: Order Comment: This is for GC & CHLAMYDIA PROBES done at . This test can be used on rando m~ urine also. Performed By: #### D NAPL #### [address] [address] N. gonorrhoeae DNA YOAN+probe Ql (Urethra) Negative [facility] Comment on above: Order Comment: This is for GC & CHLAMYDIA PROBES done at . This test can be used on rando m~ urine also. Performed By: #### D NAPL #### [address] [address] LIPASEon 06-21-2021 Lipase [Catalytic activity/Vol] 51 U/L Normal 23-300 [facility] Comment on above: Performed By: #### L IPA, HFP, BASIC, CBCD, TROPO, NTBNP, DDIM, SPT #### [address] [address] QUANT BETA HCGon 06-21-2021 HCG.beta subunit Qn m[IU]/mL Normal 0.00-5.00 [facility] Comment on above: Result Comment: Healthy non- individuals have low (<5) miu/ml to undetectable HCG in serum. APPROXIMATE GESTATIONAL AGE REFERENCE INTERVAL: 0.1 - 1 WEEK: 5 - 50 1 - 2 WEEKS: 50 - 500 2 - 3 WEEKS: 100 - 5000 3 - 4 WEEKS: 500 - [address] 4 - 5 WEEKS: 1,000 - 50,000 5 - 6 WEEKS: 10,000 - 100,000 6 - 8 WEEKS: 15,000 - 200,000 8 - 12 WEEKS: 10,000 - 100,000 The concentration of BHCG rises rapidly, doubling approximately every 1.5 - 3 days. For the first 6 weeks, levels rise until the end of the first trimester Performed By: #### L IPA, HFP, BASIC, CBCD, TROPO, NTBNP, DDIM, SPT #### [address] [address] UA COMPLETE & REFLEX TO CULT UREon 06-21-2021 Bacteria Auto Ql (U) NONE Normal NONE [facility] Comment on above: Order Comment: SPECI MEN SOURCE URINE - CLEAN CATCH Performed By: #### L IPA, HFP, BASIC, CBCD, TROPO, NTBNP, DDIM, SPT #### [address] [address] Casts LM.HPF (Urine sed) [#/Area] NONE Normal NONE [facility] Comment on above: Order Comment: SPECI MEN SOURCE URINE - CLEAN CATCH Performed By: #### L IPA, HFP, BASIC, CBCD, TROPO, NTBNP, DDIM, SPT #### [address] [address] Epithelial cells LM Ql (Urine sed) 3 /hpf Normal 0-5 [facility] Comment on above: Order Comment: SPECI MEN SOURCE URINE - CLEAN CATCH Performed By: #### L IPA, HFP, BASIC, CBCD, TROPO, NTBNP, DDIM, SPT #### [address] [address] RBC (U) [#/Vol] 3 /hpf Abnormal 0-2 [facility] Comment on above: Order Comment: SPECI MEN SOURCE URINE - CLEAN CATCH Performed By: #### L IPA, HFP, BASIC, CBCD, TROPO, NTBNP, DDIM, SPT #### [address] [address] URINE REFLEX CASTS NORMAL Normal [facility] Comment on above: Order Comment: SPECI MEN SOURCE URINE - CLEAN CATCH Performed By: #### L IPA, HFP, BASIC, CBCD, TROPO, NTBNP, DDIM, SPT #### [address] [address] URINE REFLEX CELLS NORMAL Normal [facility] Comment on above: Order Comment: SPECI MEN SOURCE URINE - CLEAN CATCH Performed By: #### L IPA, HFP, BASIC, CBCD, TROPO, NTBNP, DDIM, SPT #### [address] [address] URINE REFLEX CRYSTALS NORMAL Normal [facility] Comment on above: Order Comment: SPECI MEN SOURCE URINE - CLEAN CATCH Performed By: #### L IPA, HFP, BASIC, CBCD, TROPO, NTBNP, DDIM, SPT #### [address] [address] URINE REFLEX YEAST NORMAL Normal [facility] Comment on above: Order Comment: SPECI MEN SOURCE URINE - CLEAN CATCH Performed By: #### L IPA, HFP, BASIC, CBCD, TROPO, NTBNP, DDIM, SPT #### [address] [address] WBC (U) [#/Vol] 5 /hpf Normal 0-5 [facility] Comment on above: Order Comment: SPECI MEN SOURCE URINE - CLEAN CATCH Performed By: #### L IPA, HFP, BASIC, CBCD, TROPO, NTBNP, DDIM, SPT #### [address] [address] Bilirubin (U) [Mass/Vol] Negative Normal NEGATIVE [facility] Comment on above: Order Comment: SPECI MEN SOURCE URINE - CLEAN CATCH Performed By: #### L IPA, HFP, BASIC, CBCD, TROPO, NTBNP, DDIM, SPT #### [address] [place] [address] Color (U) YELLOW Normal [facility] Comment on above: Order Comment: SPECI MEN SOURCE URINE - CLEAN CATCH Performed By: #### L IPA, HFP, BASIC, CBCD, TROPO, NTBNP, DDIM, SPT #### [address] [address] Glucose Test strip (U) [Mass/Vol] Negative Normal NEGATIVE [facility] Comment on above: Order Comment: SPECI MEN SOURCE URINE - CLEAN CATCH Performed By: #### L IPA, HFP, BASIC, CBCD, TROPO, NTBNP, DDIM, SPT #### [address] [address] Ketones (U) [Mass/Vol] Negative Normal NEGATIVE [facility] Comment on above: Order Comment: SPECI MEN SOURCE URINE - CLEAN CATCH Performed By: #### L IPA, HFP, BASIC, CBCD, TROPO, NTBNP, DDIM, SPT #### [address] [address] Leukocyte esterase Test strip Ql (U) SMALL Abnormal NEGATIVE [facility] Comment on above: Order Comment: SPECI MEN SOURCE URINE - CLEAN CATCH Performed By: #### L IPA, HFP, BASIC, CBCD, TROPO, NTBNP, DDIM, SPT #### [address] [address] Nitrite (U) [Mass/Vol] Negative Normal NEGATIVE [facility] Comment on above: Order Comment: SPECI MEN SOURCE URINE - CLEAN CATCH Performed By: #### L IPA, HFP, BASIC, CBCD, TROPO, NTBNP, DDIM, SPT #### [address] [address] pH (U) 5.0 [pH] Abnormal 6.0-8.5 [facility] Comment on above: Order Comment: SPECI MEN SOURCE URINE - CLEAN CATCH Performed By: #### L IPA, HFP, BASIC, CBCD, TROPO, NTBNP, DDIM, SPT #### [address] [address] Protein (U) [Mass/Vol] 10 mg/dL Abnormal NEG/TRACE [facility] Comment on above: Order Comment: SPECI MEN SOURCE URINE - CLEAN CATCH Performed By: #### L IPA, HFP, BASIC, CBCD, TROPO, NTBNP, DDIM, SPT #### [address] [address] RBC Ql (U) Negative Normal NEGATIVE [facility] Comment on above: Order Comment: SPECI MEN SOURCE URINE - CLEAN CATCH Performed By: #### L IPA, HFP, BASIC, CBCD, TROPO, NTBNP, DDIM, SPT #### [address] [address] Specific gravity (U) [Rel density] 1.018 Normal 1.010 - 1.030 [facility] Comment on above: Order Comment: SPECI MEN SOURCE URINE - CLEAN CATCH Performed By: #### L IPA, HFP, BASIC, CBCD, TROPO, NTBNP, DDIM, SPT #### [address] [address] Turbidity Ql (U) CLEAR Normal [facility] Comment on above: Order Comment: SPECI MEN SOURCE URINE - CLEAN CATCH Performed By: #### L IPA, HFP, BASIC, CBCD, TROPO, NTBNP, DDIM, SPT #### [address] [address] Urobilinogen (U) [Mass/Vol] 2 mg/dL Abnormal <2.0 [facility] Comment on above: Order Comment: SPECI MEN SOURCE URINE - CLEAN CATCH Performed By: #### L IPA, HFP, BASIC, CBCD, TROPO, NTBNP, DDIM, SPT #### [address] [address] Urinalysis specimen collection method Nom (U) [employer] Normal [facility] Comment on above: Order Comment: SPECI MEN SOURCE URINE - CLEAN CATCH Performed By: #### L IPA, HFP, BASIC, CBCD, TROPO, NTBNP, DDIM, SPT #### [address] [address] WET PREP STAINon 06-21-2021 Clue cells Wet prep Ql (Unsp spec) OCCASIONAL [facility] Comment on above: Performed By: #### D NAPL #### [address] [address] WBC Wet prep Ql (Vag fld) OCCASIONAL [facility] Comment on above: Performed By: #### D NAPL #### [address] [address] Yeast Wet prep Ql (Unsp spec) NONE SEEN [facility] Comment on above: Performed By: #### D NAPL #### [address] [address] T. vaginalis DNA YOAN+probe Ql (Unsp spec) Negative [facility] Comment on above: Performed By: #### D NAPL #### [address] [address] CULTURE-URINEon 06-17-2021 Bacteria identified Cx Nom (U) NO GROWTH AT 35 HOURS [facility] Comment on above: Order Comment: For i ndwelling catheters, specimen collection is acceptableon catheter day 1 and 2 only. ?SPECIMEN SOURCE URINE - CLEAN CATCH--- PLEASE USE TO LABEL EXTRA URINE TUBES --- Performed By: #### L IPA, HFP, BASIC, CBCD, TROPO, NTBNP, DDIM, SPT #### [address] [address] [address] ABDOMEN PELVIS WITHOUT CO NTRASTon 06-16-2021 CT ABDOMEN PELVIS WITHOUT CONTRAST EXAMINATION: CT ABDOMEN PELVIS WITHOUT CONTRAST HISTORY: ORDERING SYSTEM PROVIDED HISTORY: Abdominal pain, acute, nonlocalized, TECHNOLOGIST PROVIDED HISTORY: Illness/Other Reason for exam: Abdominal pain, acute, nonlocalized Encounter Type: Initial Additional signs and symptoms: NO ORDERING SYSTEM PROVIDED DIAGNOSIS CODES: COMPARISON: No relevant prior study available at time of interpretation. TECHNIQUE: Axial CT images of the abdomen and pelvis were obtained without intravenous contrast. Multiplanar 2-D reconstructed images were obtained and reviewed. Dose reduction techniques were achieved by using: automated exposure control and/or adjustment of mA and /or kV according to patient size and/or use of iterative reconstruction technique. FINDINGS: Please note that the sensitivity for detection of focal lesions or vascular disease is markedly reduced without intravenous contrast. LOWER CHEST: The imaged lung bases are clear. LIVER: Hepatomegaly up to 21 cm. Probable fibrofatty changes of the liver. No significant nodularity of the hepatic contour seen at this time. GALLBLADDER: Nonspecific mild distension of the gallbladder. BILE DUCTS: No pathologic biliary ductal dilatation. SPLEEN: Splenomegaly up to 13.5 cm. PANCREAS: Unremarkable. ADRENAL GLANDS: Unremarkable. KIDNEYS/URETERS: No urolithiasis or hydronephrosis. URINARY BLADDER: Unremarkable. PELVIC STRUCTURES: Uterus is present. No adnexal masses. Nonspecific small pelvic free fluid. GI: Limited evaluation due to fecal contents and lack of distension. No bowel obstruction. Normal appendix. PERITONEUM: No free air. No abscess. Nonspecific mesenteric edema. VASCULATURE: Unremarkable. LYMPH NODES: No pathologically enlarged lymph nodes by CT size criteria. Scattered slightly prominent, not pathologically enlarged lymph nodes are likely reactive. SOFT TISSUE: Diffuse body wall edema. It is unclear if this relates to body habitus. There is significant subcutaneous edema in the patient's pannus region with skin thickening. No discrete fluid collection. BONE: No acute osseous abnormality. No suspicious osseous lesions. IMPRESSION: No acute findings to definitely explain abdominal pain. Nonspecific mesenteric edema. Nonspecific small pelvic free fluid. Hepatosplenomegaly. Probable fibrofatty changes of the liver. Nonspecific mild distension of the gallbladder. Diffuse body wall edema. It is unclear if this relates to body habitus. There is significant subcutaneous edema in the patient's pannus region with skin thickening. No discrete fluid collection. No urolithiasis or hydronephrosis. Normal appendix. Workstation ID: [id number] Dictated by: CALE ARREOLA on ThuJun 16, 2021 7:38:39 PM EST Transcribed by: CALE ARREOLA on ThuJun 16, 2021 7:38:39 PM EST Finalized by: CALE ARREOLA on ThuJun 16, 2021 7:38:39 PM EST Normal [facility] Comment on above: Order Comment: Injur y/Trauma or Illness?:Illness/Other How long have you had these symptoms (acute/chronic)?:Acute Reason for exam?:Abdominal pain, acute, nonlocalized Type of Exam?:Initial Additional signs and symptoms?:NO US PELVIC TRANSABDOMINAL AND TRANSVAGINAL WITH COLOR FLOWon 06-16-2021 US PELVIC TRANSABDOMINAL AND TRANSVAGINAL WITH COLOR FLOW EXAMINATION: US PELVIC TRANSABDOMINAL AND TRANSVAGINAL WITH COLOR FLOW HISTORY: ORDERING SYSTEM PROVIDED HISTORY: abd pain, TECHNOLOGIST PROVIDED HISTORY: Illness/Other Reason for exam: abd pain Cancer History: Surgery, RadiationHistory: Encounter Type: Initial Additional signs and symptoms: ORDERING SYSTEM PROVIDED DIAGNOSIS CODES: I10 Hypertension, unspecified type R79.89 Elevated liver function tests R10.2 Pelvic pain in female COMPARISON: None. TECHNIQUE: Real time pelvic ultrasound examination was performed using Duplex Doppler by a transabdominal approach. A transvaginal examination was performed for better evaluation of the ovaries. FINDINGS: The uterus is normal in size and echogenicity measuring 6.5 cm in length. No focal myometrial lesions are seen. The endometrium is within normal limits with the stripe measuring up to 0.8 cm in thickness. Cervical nabothian cysts are seen. The ovaries are not seen due to the patient's body habitus and overlying bowel gas. There is no significant free fluid. IMPRESSION: 1. The uterus appears within normal limits. 2. The ovaries are not seen due to overlying bowel gas and the patient's body habitus. [facility] Workstation ID: [id number] Dictated by: EMORY SNOWDEN on ThuJun 16, 2021 1:45:20 AM EST Transcribed by: FRANKY CLIFFORD on ThuJun 16, 2021 1:47:31 AM EST Finalized by: EMORY SNOWDEN on ThuJun 16, 2021 1:48:[address] [facility] Comment on above: Order Comment: Injur y/Trauma or Illness?:Illness/Other How long have you had these symptoms (acute/chronic)?:Acute Reason for exam?:abd pain History of cancer?: Surgeries, chemotherapy, or radiation?: Type of Exam?:Initial Additional signs and symptoms?: CBCon 06-15-2021 Erythrocyte distribution width (RBC) [Ratio] 14.3 % Normal 11.5-14.5 [facility] Comment on above: Performed By: #### L IPA, HFP, BASIC, CBCD, TROPO, NTBNP, DDIM, SPT #### [address] [address] Hematocrit (Bld) [Volume fraction] 28.7 % Low 35.0-47.0 [facility] Comment on above: Performed By: #### L IPA, HFP, BASIC, CBCD, TROPO, NTBNP, DDIM, SPT #### [address] [address] Hemoglobin (Bld) [Mass/Vol] 8.7 g/dL Low 12.0-16.0 [facility] Comment on above: Performed By: #### L IPA, HFP, BASIC, CBCD, TROPO, NTBNP, DDIM, SPT #### [address] [address] MCH (RBC) [Entitic mass] 26.1 pg Normal 25.6-32.2 [facility] Comment on above: Performed By: #### L IPA, HFP, BASIC, CBCD, TROPO, NTBNP, DDIM, SPT #### [address] [address] MCHC (RBC) [Mass/Vol] 30.3 g/dL Low 32.0-36.0 [facility] Comment on above: Performed By: #### L IPA, HFP, BASIC, CBCD, TROPO, NTBNP, DDIM, SPT #### [address] [address] MCV (RBC) [Entitic vol] 86.2 fL Normal 82.0-98.0 [facility] Comment on above: Performed By: #### L IPA, HFP, BASIC, CBCD, TROPO, NTBNP, DDIM, SPT #### [address] [address] Platelet mean volume (Bld) [Entitic vol] 11.7 fL Normal 9.4-12.4 [facility] Comment on above: Performed By: #### L IPA, HFP, BASIC, CBCD, TROPO, NTBNP, DDIM, SPT #### [address] [address] Platelets (Bld) [#/Vol] 198 10*3/uL Normal 150-400 [facility] Comment on above: Performed By: #### L IPA, HFP, BASIC, CBCD, TROPO, NTBNP, DDIM, SPT #### [address] [address] RBC (Bld) [#/Vol] 3.33 10*6/uL Low 3.80-5.10 [facility] Comment on above: Performed By: #### L IPA, HFP, BASIC, CBCD, TROPO, NTBNP, DDIM, SPT #### [address] [address] WBC (Bld) [#/Vol] 6.81 10*3/uL Normal 4.80-10.80 [facility] Comment on above: Performed By: #### L IPA, HFP, BASIC, CBCD, TROPO, NTBNP, DDIM, SPT #### [address] [address] HCG - QUALITATIVEon 06-15-20 HCG ( test) Ql Negative Normal [facility] Comment on above: Performed By: #### L IPA, HFP, BASIC, CBCD, TROPO, NTBNP, DDIM, SPT #### [address] [address] UA COMPLETE & REFLEX TO CULT UREon 06-15-2021 Bacteria Auto Ql (U) NONE Normal NONE [facility] Comment on above: Order Comment: For i ndwelling catheters, specimen collection is acceptableon catheter day 1 and 2 only. ?SPECIMEN SOURCE URINE - CLEAN CATCH Performed By: #### L IPA, HFP, BASIC, CBCD, TROPO, NTBNP, DDIM, SPT #### [address] [address] Casts LM.HPF (Urine sed) [#/Area] OCC Abnormal NONE [facility] Comment on above: Order Comment: For i ndwelling catheters, specimen collection is acceptableon catheter day 1 and 2 only. ?SPECIMEN SOURCE URINE - CLEAN CATCH Performed By: #### L IPA, HFP, BASIC, CBCD, TROPO, NTBNP, DDIM, SPT #### [address] [address] Epithelial cells LM Ql (Urine sed) 4 /hpf Normal 0-5 [facility] Comment on above: Order Comment: For i ndwelling catheters, specimen collection is acceptableon catheter day 1 and 2 only. ?SPECIMEN SOURCE URINE - CLEAN CATCH Performed By: #### L IPA, HFP, BASIC, CBCD, TROPO, NTBNP, DDIM, SPT #### [address] [address] RBC (U) [#/Vol] 3 /hpf Abnormal 0-2 [facility] Comment on above: Order Comment: For i ndwelling catheters, specimen collection is acceptableon catheter day 1 and 2 only. ?SPECIMEN SOURCE URINE - CLEAN CATCH Performed By: #### L IPA, HFP, BASIC, CBCD, TROPO, NTBNP, DDIM, SPT #### [address] [address] URINE REFLEX CASTS NORMAL Normal [facility] Comment on above: Order Comment: For i ndwelling catheters, specimen collection is acceptableon catheter day 1 and 2 only. ?SPECIMEN SOURCE URINE - CLEAN CATCH Performed By: #### L IPA, HFP, BASIC, CBCD, TROPO, NTBNP, DDIM, SPT #### [address] [address] URINE REFLEX CELLS NORMAL Normal [facility] Comment on above: Order Comment: For i ndwelling catheters, specimen collection is acceptableon catheter day 1 and 2 only. ?SPECIMEN SOURCE URINE - CLEAN CATCH Performed By: #### L IPA, HFP, BASIC, CBCD, TROPO, NTBNP, DDIM, SPT #### [address] [address] URINE REFLEX CRYSTALS NORMAL Normal [facility] Comment on above: Order Comment: For i ndwelling catheters, specimen collection is acceptableon catheter day 1 and 2 only. ?SPECIMEN SOURCE URINE - CLEAN CATCH Performed By: #### L IPA, HFP, BASIC, CBCD, TROPO, NTBNP, DDIM, SPT #### [address] [address] URINE REFLEX YEAST NORMAL Normal [facility] Comment on above: Order Comment: For i ndwelling catheters, specimen collection is acceptableon catheter day 1 and 2 only. ?SPECIMEN SOURCE URINE - CLEAN CATCH Performed By: #### L IPA, HFP, BASIC, CBCD, TROPO, NTBNP, DDIM, SPT #### [address] [address] WBC (U) [#/Vol] 6 /hpf Abnormal 0-5 [facility] Comment on above: Order Comment: For i ndwelling catheters, specimen collection is acceptableon catheter day 1 and 2 only. ?SPECIMEN SOURCE URINE - CLEAN CATCH Performed By: #### L IPA, HFP, BASIC, CBCD, TROPO, NTBNP, DDIM, SPT #### [address] [address] Bilirubin (U) [Mass/Vol] Negative Normal NEGATIVE [facility] Comment on above: Order Comment: For i ndwelling catheters, specimen collection is acceptableon catheter day 1 and 2 only. ?SPECIMEN SOURCE URINE - CLEAN CATCH Performed By: #### L IPA, HFP, BASIC, CBCD, TROPO, NTBNP, DDIM, SPT #### [address] [address] Color (U) YELLOW Normal [facility] Comment on above: Order Comment: For i ndwelling catheters, specimen collection is acceptableon catheter day 1 and 2 only. ?SPECIMEN SOURCE URINE - CLEAN CATCH Performed By: #### L IPA, HFP, BASIC, CBCD, TROPO, NTBNP, DDIM, SPT #### [address] [address] Glucose Test strip (U) [Mass/Vol] Negative Normal NEGATIVE [facility] Comment on above: Order Comment: For i ndwelling catheters, specimen collection is acceptableon catheter day 1 and 2 only. ?SPECIMEN SOURCE URINE - CLEAN CATCH Performed By: #### L IPA, HFP, BASIC, CBCD, TROPO, NTBNP, DDIM, SPT #### [address] [address] Ketones (U) [Mass/Vol] Negative Normal NEGATIVE [facility] Comment on above: Order Comment: For i ndwelling catheters, specimen collection is acceptableon catheter day 1 and 2 only. ?SPECIMEN SOURCE URINE - CLEAN CATCH Performed By: #### L IPA, HFP, BASIC, CBCD, TROPO, NTBNP, DDIM, SPT #### [address] [address] Leukocyte esterase Test strip Ql (U) MODERATE Abnormal NEGATIVE [facility] Comment on above: Order Comment: For i ndwelling catheters, specimen collection is acceptableon catheter day 1 and 2 only. ?SPECIMEN SOURCE URINE - CLEAN CATCH Performed By: #### L IPA, HFP, BASIC, CBCD, TROPO, NTBNP, DDIM, SPT #### [address] [address] Nitrite (U) [Mass/Vol] Negative Normal NEGATIVE [facility] Comment on above: Order Comment: For i ndwelling catheters, specimen collection is acceptableon catheter day 1 and 2 only. ?SPECIMEN SOURCE URINE - CLEAN CATCH Performed By: #### L IPA, HFP, BASIC, CBCD, TROPO, NTBNP, DDIM, SPT #### [address] [address] pH (U) 5.0 [pH] Abnormal 6.0-8.5 [facility] Comment on above: Order Comment: For i ndwelling catheters, specimen collection is acceptableon catheter day 1 and 2 only. ?SPECIMEN SOURCE URINE - CLEAN CATCH Performed By: #### L IPA, HFP, BASIC, CBCD, TROPO, NTBNP, DDIM, SPT #### [address] [address] Protein (U) [Mass/Vol] 10 mg/dL Abnormal NEG/TRACE [facility] Comment on above: Order Comment: For i ndwelling catheters, specimen collection is acceptableon catheter day 1 and 2 only. ?SPECIMEN SOURCE URINE - CLEAN CATCH Performed By: #### L IPA, HFP, BASIC, CBCD, TROPO, NTBNP, DDIM, SPT #### [address] [address] RBC Ql (U) Negative Normal NEGATIVE [facility] Comment on above: Order Comment: For i ndwelling catheters, specimen collection is acceptableon catheter day 1 and 2 only. ?SPECIMEN SOURCE URINE - CLEAN CATCH Performed By: #### L IPA, HFP, BASIC, CBCD, TROPO, NTBNP, DDIM, SPT #### [address] [address] Specific gravity (U) [Rel density] 1.021 Normal 1.010 - 1.030 [facility] Comment on above: Order Comment: For i ndwelling catheters, specimen collection is acceptableon catheter day 1 and 2 only. ?SPECIMEN SOURCE URINE - CLEAN CATCH Performed By: #### L IPA, HFP, BASIC, CBCD, TROPO, NTBNP, DDIM, SPT #### [address] [address] Turbidity Ql (U) CLEAR Normal [facility] Comment on above: Order Comment: For i ndwelling catheters, specimen collection is acceptableon catheter day 1 and 2 only. ?SPECIMEN SOURCE URINE - CLEAN CATCH Performed By: #### L IPA, HFP, BASIC, CBCD, TROPO, NTBNP, DDIM, SPT #### [address] [address] Urobilinogen (U) [Mass/Vol] 2 mg/dL Abnormal <2.0 [facility] Comment on above: Order Comment: For i ndwelling catheters, specimen collection is acceptableon catheter day 1 and 2 only. ?SPECIMEN SOURCE URINE - CLEAN CATCH Performed By: #### L IPA, HFP, BASIC, CBCD, TROPO, NTBNP, DDIM, SPT #### [address] [address] Urinalysis specimen collection method Nom (U) Not stated Normal [facility] Comment on above: Order Comment: For i ndwelling catheters, specimen collection is acceptableon catheter day 1 and 2 only. ?SPECIMEN SOURCE URINE - CLEAN CATCH Performed By: #### L IPA, HFP, BASIC, CBCD, TROPO, NTBNP, DDIM, SPT #### [address] [address] [address] HEAD WITHOUT CONTRASTon 1 08-01-2020 CT HEAD WITHOUT CONTRAST CLINICAL INDICATION: fall, facial trauma, new neurological symptoms EXAM DESCRIPTION: CT HEAD WITHOUT CONTRAST 06/01/2021 3:52 am COMPARISON: 02/01/2016. TECHNIQUE: Contiguous axial imaging was performed through the brain extending from skull vertex to the foramen magnum. Coronal and sagittal reformatted images were created and reviewed. Dose modulation techniques were employed including automated exposure control, adjustment of mA and kV according to patient size and the use of iterative reconstruction. FINDINGS: Examination is limited due to motion degradation. No acute intracranial hemorrhage or midline shift, as visualized. There is no abnormal intra-axial or extra-axial fluid collection. Calcification is noted along the falx. The ventricles, cisterns and sulci are symmetric and appropriate. Wilde-white differentiation appears well preserved without large territorial infarction. No depressed calvarial fracture is identified. The mastoid air cells and imaged paranasal sinuses are clear. No focal extracranial soft tissue swelling is identified. The orbits and globes are symmetric. IMPRESSION: No CT evidence of acute intracranial abnormality, as visualized. Initial interpretation was provided by [facility] [employer] with results communicated at approximately 4:45 a.m. on 06/01/2021. Normal [facility] XR ANKLE LEFT 3+ VIEWSon IMPRESSION: Soft tissue swelling of the ankle without evidence of acute fracture or dislocation. Chronic fracture along the lateral malleolus without significant callus formation. [facility] CLINICAL INDICATION: Edema status post injury. EXAM DESCRIPTION: XR ANKLE LEFT 3+ VIEWS 03/13/2021 4:27 pm COMPARISON: 10/08/2020. TECHNIQUE: Three views of the left ankle. FINDINGS: Soft tissue swelling is seen about the ankle. Talar dome appears intact. There is redemonstration of a transverse fracture involving the lateral malleolus approximately 2 mm of distraction. No significant bony callus formation is appreciated. No acute fracture or dislocation is identified. [facility] Abdiel Hayes, DO - 03/13/2021 CLINICAL INDICATION: Edema status post injury. EXAM DESCRIPTION: XR ANKLE LEFT 3+ VIEWS 03/13/2021 4:27 pm COMPARISON: 10/08/2020. TECHNIQUE: Three views of the left ankle. FINDINGS: Soft tissue swelling is seen about the ankle. Talar dome appears intact. There is redemonstration of a transverse fracture involving the lateral malleolus approximately 2 mm of distraction. No significant bony callus formation is appreciated. No acute fracture or dislocation is identified. IMPRESSION IMPRESSION: Soft tissue swelling of the ankle without evidence of acute fracture or dislocation. Chronic fracture along the lateral malleolus without significant callus formation. [facility] Radiology Study observation (narrative) [facility] XR FOOT LEFT 3 VIEWSon 03-13 IMPRESSION: Prominent soft tissue swelling along the dorsal aspect of foot. No underlying fracture or dislocation is appreciated radiographically. Calcaneal enthesopathy. RADIOLOGY CLINICAL INDICATION: Pain and injury. EXAM DESCRIPTION: XR FOOT LEFT 3 VIEWS 03/13/2021 4:25 pm COMPARISON: 07/25/2019. TECHNIQUE: Three views of the left foot. FINDINGS: Alignment is anatomic on this limited non weight-bearing study. Bony structures appear somewhat demineralized. No acute fracture or dislocation is identified. A plantar calcaneal spur and Achilles tendon enthesophyte is present. Prominent soft tissue swelling is noted along the dorsal aspect of the foot. [facility] Abdiel Hayes, DO - 03/13/2021 CLINICAL INDICATION: Pain and injury. EXAM DESCRIPTION: XR FOOT LEFT 3 VIEWS 03/13/2021 4:25 pm COMPARISON: 07/25/2019. TECHNIQUE: Three views of the left foot. FINDINGS: Alignment is anatomic on this limited non weight-bearing study. Bony structures appear somewhat demineralized. No acute fracture or dislocation is identified. A plantar calcaneal spur and Achilles tendon enthesophyte is present. Prominent soft tissue swelling is noted along the dorsal aspect of the foot. IMPRESSION IMPRESSION: Prominent soft tissue swelling along the dorsal aspect of foot. No underlying fracture or dislocation is appreciated radiographically. Calcaneal enthesopathy. [facility] Radiology Study observation (narrative) [facility] XR FOOT LEFT 3 VIEWSOrdered By: Abdiel Hayes on 03-13-2021 [facility] Work Phone: CULTURE STREP A SCREENon STREPTOCOCCUS, GROUP A CULTURE Negative [facility] CULTURE STREP A SCREENOrdere d By: Other Other on 06-10-2020 STREPTOCOCCUS, GROUP A CULTURE Negative [facility] RAPID STREP A ANTIGEN WITH R EFLEX TO THROAT CULTUREOrdered By: Ciro Parker on 06-10-2020 S. pyogenes Ag Ql (Throat) Negative Negative [facility] XR CHEST PORTABLEOrdered By: Abdiel Hayes on 05-21-2020 IMPRESSION: No radiographic finding to suggest acute cardiopulmonary process. [facility] CLINICAL INDICATION: right chest pain EXAM DESCRIPTION: XR CHEST AP PORTABLE 05/21/2020 1:04 am COMPARISON: 05/01/2019 TECHNIQUE: FINDINGS: The cardiomediastinal silhouette and central vasculature are within normal limits. The lungs are normally aerated. There is no consolidation, effusion or pneumothorax. [facility] User, Interfaces - 05/21/2020 7:23 AM EST CLINICAL INDICATION: right chest pain EXAM DESCRIPTION: XR CHEST AP PORTABLE 05/21/2020 1:04 am COMPARISON: 05/01/2019 TECHNIQUE: FINDINGS: The cardiomediastinal silhouette and central vasculature are within normal limits. The lungs are normally aerated. There is no consolidation, effusion or pneumothorax. IMPRESSION IMPRESSION: No radiographic finding to suggest acute cardiopulmonary process. [facility] XR-FOOT, LEFT MIN 3 VIEWSon 07-25-2019 XR-FOOT, LEFT MIN 3 VIEWS CLINICAL INDICATION: PAIN IN LEFT FOOT EXAM DESCRIPTION: XR-FOOT, LEFT MIN 3 VIEWS COMPARISON: 12/04/2017 TECHNIQUE: Three views of the left foot were obtained. FINDINGS: Articular surfaces are smooth and regular. No fracture or dislocation is identified. Enthesophyte arise from the calcaneus. Mild soft tissue swelling is noted about the dorsum of the mid/forefoot. No erosions are appreciated. IMPRESSION: 1. Calcaneal enthesophyte. 2. Soft tissue swelling, nonspecific Read By: SHEMAR HILTON DO Normal [facility] BASIC METABOLIC PANELon 04-19 Anion gap [Moles/Vol] 9.6 mmol/L Normal -14 [facility] Comment on above: Performed By: #### B ASIC #### [address] [address] Calcium [Mass/Vol] 9.0 mg/dL Normal 8.4-10.2 [facility] Comment on above: Performed By: #### B ASIC #### [address] [address] CO2 [Moles/Vol] 26.0 mm/Hg Normal 22.0-30.0 [facility] Comment on above: Performed By: #### B ASIC #### [address] [address] Creatinine [Mass/Vol] 0.50 mg/dL Low 0.70-1.20 [facility] Comment on above: Performed By: #### B ASIC #### [address] [address] GFR/1.73 sq M predicted among non-blacks MDRD (S/P/Bld) [Vol rate/Area] 152 mL/min/1.73 m2 Normal >60 [facility] Comment on above: Result Comment: Refe rence Range: 59 to 44 - Mild to moderate loss of kidney function 44 to 30 - Moderate to Severe loss of kidney function 29 to 15 - Severe loss of kidney function <15 - Kidney failure The estimated GFR is based on the MDRD formula for assessment of stable or slowly declining kidney function in adults. Estimated GFR values are not accurate in: -Obese (BMI>34) OR underweight (BMI<20) people -The very old OR very young -Races other than or -[place] -People with acute illnesses, amputations, or acute kidney failure. Estimated GFR should be interpreted in clinical context and an alternative method such as a timed urine collection for creatinine clearance used to verify questionable results. (Ref. [employer] 2015) Performed By: #### B ASIC #### [address] [address] Glucose [Mass/Vol] 290 mg/dL High 70-100 [facility] Comment on above: Performed By: #### B ASIC #### [address] [address] Urea nitrogen [Mass/Vol] 6 mg/dL Low 7-22 [facility] Comment on above: Performed By: #### B ASIC #### [address] [address] Chloride [Moles/Vol] 100 mmol/L Normal 100-110 [facility] Comment on above: Performed By: #### B ASIC #### [address] [address] Potassium [Moles/Vol] 4.0 mmol/L Normal 3.5-5.0 [facility] Comment on above: Performed By: #### B ASIC #### [address] [address] Sodium [Moles/Vol] 136 mmol/L Normal 136-145 [facility] Comment on above: Performed By: #### B ASIC #### [address] [address] BLOOD CULTUREon 05-01-2019 Bacteria identified Cx Nom (Bld) PATIENT: GIULIANA GREWAL LOCATION: ER I.D.#: [id number] : 1985 AGE: 33 SEX: F ORDER# [id number] ORDERED BY: CALISTA SULLIVAN Source: BLO Collected: 05/01/19 19:37 Site: Received : 05/01/19 19:46 BLOOD CULTURE FINAL 05/08/19 21:20 05/08/19 NO GROWTH AT 7 DAYS Normal [facility] Comment on above: Performed By: #### T 4 #### [place] [address] BLOOD CULTURE- 2ND SETon BLOOD CULTURE- 2ND SET PATIENT: GIULIANA GREWAL LOCATION: ER I.D.#: [id number] : 1985 AGE: 33 SEX: F ORDER# [id number] ORDERED BY: CALISTA SULLIVAN Source: BLO Collected: 05/01/19 19:37 Site: Received : 05/01/19 19:46 BLOOD CULTURE- 2ND SET FINAL 05/08/19 21:00 05/08/19 NO GROWTH AT 7 DAYS Normal [facility] Comment on above: Performed By: #### C BLD2 #### [address] [address] CBC WITH DIFFERENTIALon 04-19 Basophils (Bld) [#/Vol] 0.03 10*3/uL Normal 0.00-0.20 [facility] Comment on above: Performed By: #### C BCD #### [address] [address] Basophils/100 WBC (Bld) 0.3 % Normal 0.0-2.0 [facility] Comment on above: Performed By: #### C BCD #### [address] [address] Eosinophils (Bld) [#/Vol] 0.20 10*3/uL Normal 0.00-0.50 [facility] Comment on above: Performed By: #### C BCD #### [address] [address] Eosinophils/100 WBC (Bld) 2.1 % Normal 0.0-4.0 [facility] Comment on above: Performed By: #### C BCD #### [address] [address] Erythrocyte distribution width (RBC) [Ratio] 13.7 % Normal 11.5-14.5 [facility] Comment on above: Performed By: #### C BCD #### [address] [address] Hematocrit (Bld) [Volume fraction] 38.5 % Normal 35.0-47.0 [facility] Comment on above: Performed By: #### C BCD #### [address] [address] Hemoglobin (Bld) [Mass/Vol] 12.2 g/dL Normal 12.0-16.0 [facility] Comment on above: Performed By: #### C BCD #### [address] [address] Lymphocytes (Bld) [#/Vol] 1.66 10*3/uL Normal 1.00-4.80 [facility] Comment on above: Performed By: #### C BCD #### [address] [address] Lymphocytes/100 WBC (Bld) 17.4 % Low 24.0-44.0 [facility] Comment on above: Performed By: #### C BCD #### [address] [address] MCH (RBC) [Entitic mass] 26.6 pg Normal 25.6-32.2 [facility] Comment on above: Performed By: #### C BCD #### [address] [address] MCHC (RBC) [Mass/Vol] 31.7 g/dL Low 32.0-36.0 [facility] Comment on above: Performed By: #### C BCD #### [address] [address] MCV (RBC) [Entitic vol] 83.9 fL Normal 82.0-98.0 [facility] Comment on above: Performed By: #### C BCD #### [address] [address] Monocytes (Bld) [#/Vol] 0.49 10*3/uL Normal 0.20-1.20 [facility] Comment on above: Performed By: #### C BCD #### [address] [address] Monocytes/100 WBC (Bld) 5.1 % Normal 5.0-11.0 [facility] Comment on above: Performed By: #### C BCD #### [address] [address] Neutrophils (Bld) [#/Vol] 7.12 10*3/uL Normal 2.00-7.50 [facility] Comment on above: Performed By: #### C BCD #### [address] [address] Neutrophils/100 WBC (Bld) 74.8 % High 36.0-66.0 [facility] Comment on above: Performed By: #### C BCD #### [address] [address] NRBC COUNT 0.00 Normal 0.00-0.50 [facility] Comment on above: Performed By: #### C BCD #### [address] [address] Nucleated RBC/100 WBC (Bld) [Ratio] 0.0 % Normal [facility] Comment on above: Performed By: #### C BCD #### [address] [address] Platelet mean volume (Bld) [Entitic vol] 10.4 fL Normal 9.4-12.4 [facility] Comment on above: Performed By: #### C BCD #### [address] [address] Platelets (Bld) [#/Vol] 343 10*3/uL Normal 150-400 [facility] Comment on above: Performed By: #### C BCD #### [address] [address] RBC (Bld) [#/Vol] 4.59 10*6/uL Normal 3.80-5.10 [facility] Comment on above: Performed By: #### C BCD #### [address] [address] WBC (Bld) [#/Vol] 9.53 10*3/uL Normal 4.80-10.80 [facility] Comment on above: Performed By: #### C BCD #### [address] [address] HCG - QUALITATIVEon 05-01-20 19 HCG - QUALITATIVE Negative Normal [facility] Comment on above: Performed By: #### S PT #### [address] [address] LACTIC ACIDon 05-01-2019 Lactate [Moles/Vol] 2.6 mmol/L High 0.7-2.1 [facility] Comment on above: Performed By: #### L ACT #### [address] [address] RAPID FLU A AND Bon 05-01-20 19 RAPID FLU A Negative Normal Negative [facility] Comment on above: Performed By: #### R INAB #### [address] [address] RAPID FLU B Negative Normal Negative [facility] Comment on above: Performed By: #### R INAB #### [address] [address] XR-Chest Xray - PA and Later al - 2 Viewon 05-01-2019 XR-Chest Xray - PA and Lateral - 2 View CLINICAL INDICATION: SHORTNESS OF BREATH EXAM DESCRIPTION: XR-Chest Xray - PA and Lateral - 2 View COMPARISON: 07/16/2018 FINDINGS: The cardiomediastinal silhouette and central vasculature are within normal limits. The lungs are normally aerated. There is no consolidation, effusion or pneumothorax. IMPRESSION: No radiographic finding to suggest acute cardiopulmonary process. Read By: MAGDY TEIXEIRA, ROMARIO Pardo Normal [facility] Comment on above: Order Comment: cough , SOB T3 UPTAKEon 04-07-2019 T3 UPTAKE 39.7 % Normal 23.5-40.5 [facility] Comment on above: Performed By: #### T 3U #### [address] [address] T4 THYROXINEon 04-07-2019 T4 [Mass/Vol] 12.3 ug/dL High 5.5-11.0 [facility] Comment on above: Performed By: #### T 4 #### [address] [address] TSH ULTRASENSITIVEon 019 TSH Qn m[IU]/L Low 0.34-5.60 [facility] Comment on above: Result Comment: TSH REFERENCE RANGE IS FOR AGE 10 AND OLDER. CHILDREN UNDER 1 YEAR OLD HAVE SIGNIFICANTLY HIGHER NORMAL RANGE, WHICH GRADUALLY DECREASES WITH AGE. PLEASE CONSULT THE PATHOLOGIST FOR SPECIFIC INFORMATION. Performed By: #### T SH #### [address] [address] CBCon 02-02-2019 Erythrocyte distribution width (RBC) [Entitic vol] 14.0 % 11.6 - 14.8 % [facility] Hematocrit (Bld) [Volume fraction] 39.4 % 36 - 46 % [facility] Hemoglobin (Bld) [Mass/Vol] 12.5 g/dL 12 - 16 g/dL [facility] Interpretation and review of laboratory results Abnormal [facility] MCH (RBC) [Entitic mass] 26.5 pg 26 - 34 pg [facility] MCHC (RBC) [Mass/Vol] 31.7 g/dL 31 - 37 g/dL [facility] MCV (RBC) [Entitic vol] 83.5 fL 80 - 100 fL [facility] Nucleated RBC (Bld) [#/Vol] 0.00 10*3/uL [facility] Nucleated RBC/100 WBC (Bld) [Ratio] 0.0 % [facility] Platelet mean volume (Bld) [Entitic vol] 11.0 fL 9 - 15.5 fL [facility] Platelets (Bld) [#/Vol] 322 10*3/uL [facility] RBC (Bld) [#/Vol] 4.72 10*6/uL [facility]alth WBC (Bld) [#/Vol] 12.76 10*3/uL High [facility] Comprehensive Metabolic Pane jude 02-02-2019 Albumin [Mass/Vol] 3.6 g/dL 3.2 - 5.2 g/dL [facility] ALP [Catalytic activity/Vol] 148 U/L High 40 - 140 U/L [facility] ALT [Catalytic activity/Vol] 18 U/L 0 - 40 U/L [facility] Anion gap [Moles/Vol] 15 mmol/L 10 - 2 0 mmol/L [facility] AST [Catalytic activity/Vol] 16 U/L 0 - 45 U/L [facility] Bilirubin [Mass/Vol] 0.3 mg/dL 0 - 1.3 mg/dL [facility] Calcium [Mass/Vol] 9.3 mg/dL 8.4 - 10. 2 mg/dL [facility] Chloride [Moles/Vol] 100 mmol/L 98 - 10 8 mmol/L [facility] Creatinine [Mass/Vol] 0.41 mg/dL 0.4 - 1.1 mg/dL [facility] GFR/1.73 sq M predicted among non-blacks MDRD (S/P/Bld) [Vol rate/Area] The eGFR should be used for monitoring renal function only and not for medication dosing. [facility] GFR/1.73 sq M.predicted CKD-EPI (S/P/Bld) [Vol rate/Area] 137 >=60 mL/min/1.73 m2 [facility] Glucose [Mass/Vol] 373 mg/dL High 65 - 99 mg/dL [facility] HCO3 [Moles/Vol] 25 mmol/L 21 - 32 mmol/L [facility] Potassium [Moles/Vol] 4.2 mmol/L 3.5 - 5.1 mmol/L [facility] Protein [Mass/Vol] 7.2 g/dL 6 - 8 g/dL [facility] Sodium [Moles/Vol] 136 mmol/L 135 - 145 mmol/L [facility] Urea nitrogen [Mass/Vol] 6 mg/dL Low 8 - 25 mg/dL [facility] Urea nitrogen/Creatinine [Mass ratio] 14.6 mg/mg [facility] Hemoglobin A1con 02-02-2019 Average glucose Estimated from glycated hemoglobin mass conc (Bld) 301 mg/dL High 74 - 114 mg/dL [facility] HbA1c (Bld) [Mass fraction] 12.1 % High 4.2 - 5.6 % [facility] Comment on above: Normal: 4.2% - 5.6% Increased risk for diabetes: 5.7% - 6.4% Diabetes: >= 6.5% Pediatrics: No established reference range Estimated average glucose: 74-114 mg/dL Please note: Reference intervals were changed as of 08/26/2018 to align with current [place] [employer] guidelines Interpretation and review of laboratory results Abnormal [facility] Otheron 02-02-2019 Interpretation and review of laboratory results Abnormal [facility] TSH with Reflex Free T4on TSH Qn m[IU]/L Low [facility] hCG, Blood, Quantitativeon 0 02-02-2019 Beta HCG ( test) Ql (U) Males and non females: <5 mIU/mL Females during : 3-4 weeks 9-130 mIU/mL 4-5 weeks 75-2600 mIU/mL 5-6 weeks 850-20,800 mIU/mL 6-7 weeks 4000-100,200 mIU/mL 7-12 weeks 11,500-289,000 mIU/mL 12-16 weeks 18,300-137,000 mIU/mL 16-29 weeks 1,400-53,000 mIU/mL 29-41 weeks 940-60,000 mIU/mL [facility] HCG Qn m[IU]/mL [facility] Interpretation and review of laboratory results Normal [facility] Vital Signs Date Time Vital Sign Value Performing Clinician Hilaria mishra 04-09-2022 19:35-0400 Body height 167.6 cm Shadi Louis MD Work Phone: [facility] 04-09-2022 19:35-0400 Body temperature 101.19 [degF] Shadi Louis MD Work Phone: [facility] 04-09-2022 19:35-0400 Diastolic blood pressure 63 mm[Hg] Shadi Louis MD Work Phone: [facility] 04-09-2022 19:35-0400 Heart rate 91 /min Shadi Louis MD Work Phone: [facility] 04-09-2022 19:35-0400 Respiratory rate 18 /min Shadi Louis MD Work Phone: [facility] 04-09-2022 19:35-0400 SaO2% (BldA) [Mass fraction] 99 % Shadi Louis MD Work Phone: [facility] 04-09-2022 19:35-0400 Systolic blood pressure 153 mm[Hg] Shadi Louis MD Work Phone: [facility] 03-25-2022 15:22-0400 Body temperature 98.8 [degF] Luis Armando Escobedo PA-C Work Phone: [facility] 03-25-2022 15:22-0400 Diastolic blood pressure 82 mm[Hg] Luis Armando Escobedo PA-C Work Phone: [facility] 03-25-2022 15:22-0400 Heart rate 71 /min Luis Armando Escobedo PA-C Work Phone: [facility] 03-25-2022 15:22-0400 Respiratory rate 18 /min Luis Armando Escobedo PA-C Work Phone: [facility] 03-25-2022 15:22-0400 SaO2% (BldA) [Mass fraction] 98 % Luis Armando Escobedo PA-C Work Phone: [facility] 03-25-2022 15:22-0400 Systolic blood pressure 134 mm[Hg] Luis Armando Escobedo PA-C Work Phone: [facility] 03-18-2022 16:20-0400 Body height 167.6 cm Carla Marroquin DO Work Phone: [facility] 03-18-2022 16:19-0400 Body temperature 99 [degF] Carla Marroquin DO Work Phone: [facility] 03-18-2022 16:19-0400 Diastolic blood pressure 74 mm[Hg] Carla Marroquin DO Work Phone: [facility] 03-18-2022 16:19-0400 Heart rate 98 /min Carla Marroquin DO Work Phone: [facility] 03-18-2022 16:19-0400 Respiratory rate 18 /min Carla Marroquin DO Work Phone: [facility] 03-18-2022 16:19-0400 SaO2% (BldA) [Mass fraction] 100 % Carla Marroquin DO Work Phone: [facility] 03-18-2022 16:19-0400 Systolic blood pressure 161 mm[Hg] Carla Marroquin DO Work Phone: [facility] 01-30-2022 23:59-0400 Body height 167.6 cm Caron Duggan MD Work Phone: [facility] 01-30-2022 23:57-0400 Body temperature 98.49 [degF] Caron Duggan MD Work Phone: [facility] 01-30-2022 23:57-0400 Diastolic blood pressure 86 mm[Hg] Caron Duggan MD Work Phone: [facility] 01-30-2022 23:57-0400 Heart rate 94 /min Caron Duggan MD Work Phone: [facility] 01-30-2022 23:57-0400 Respiratory rate 18 /min Caron Duggan MD Work Phone: [facility] 01-30-2022 23:57-0400 SaO2% (BldA) [Mass fraction] 98 % Caron Duggan MD Work Phone: [facility] 01-30-2022 23:57-0400 Systolic blood pressure 151 mm[Hg] Caron Duggan MD Work Phone: [facility] 12-01-2021 00:00-0400 Diastolic blood pressure 78 mm[Hg] Christopher Farabaugh DO Work Phone: [facility] 12-01-2021 00:00-0400 Heart rate 88 /min Christopher Farabaugh DO Work Phone: [facility] 12-01-2021 00:00-0400 Respiratory rate 16 /min Christopher Farabaugh DO Work Phone: [facility] 12-01-2021 00:00-0400 SaO2% (BldA) [Mass fraction] 99 % Christopher Farabaugh DO Work Phone: [facility] 12-01-2021 00:00-0400 Systolic blood pressure 142 mm[Hg] Christopher Farabaugh DO Work Phone: [facility] 11-30-2021 20:31-0400 Body temperature 102 [degF] Christopher Farabaugh DO Work Phone: [facility] 11-30-2021 20:30-0400 Body height 167.6 cm Christopher Farabaugh DO Work Phone: [facility] 10-29-2021 23:57-0400 Body temperature 98.91 [degF] Caron Duggan MD Work Phone: [facility] 10-29-2021 23:57-0400 Heart rate 99 /min Caron Duggan MD Work Phone: [facility] 10-29-2021 23:57-0400 Respiratory rate 18 /min Caron Duggan MD Work Phone: [facility] 10-29-2021 23:57-0400 SaO2% (BldA) [Mass fraction] 98 % Caron Duggan MD Work Phone: [facility] 10-29-2021 21:52-0400 Body height 167.6 cm Caron Duggan MD Work Phone: [facility] 10-29-2021 21:52-0400 Body mass index (BMI) [Ratio] 34.7 kg/m2 Caron Duggan MD Work Phone: [facility] 10-29-2021 21:52-0400 Body weight 97.52 kg Caron Duggan MD Work Phone: [facility] 10-29-2021 21:51-0400 Diastolic blood pressure 79 mm[Hg] Caron Duggan MD Work Phone: [facility] 10-29-2021 21:51-0400 Systolic blood pressure 141 mm[Hg] Caron Duggan MD Work Phone: [facility] 10-16-2021 09:11-0400 Diastolic blood pressure 63 mm[Hg] Susie Pratt MD Work Phone: [facility] 10-16-2021 09:11-0400 Respiratory rate 20 /min Susie Pratt MD Work Phone: [facility] 10-16-2021 09:11-0400 SaO2% (BldA) [Mass fraction] 99 % Susie Pratt MD Work Phone: [facility] 10-16-2021 09:11-0400 Systolic blood pressure 109 mm[Hg] Susie Pratt MD Work Phone: [facility] 10-16-2021 09:01-0400 Body temperature 97.81 [degF] Susie Pratt MD Work Phone: [facility] 10-16-2021 09:01-0400 Heart rate 66 /min Susie Pratt MD Work Phone: [facility] 10-16-2021 08:11-0400 Body height 167.6 cm Susie Pratt MD Work Phone: [facility] 10-16-2021 08:11-0400 Body mass index (BMI) [Ratio] 34.8 kg/m2 Susie Pratt MD Work Phone: [facility] 10-16-2021 08:11-0400 Body weight 97.8 kg Susie Pratt MD Work Phone: [facility] 09-11-2021 18:27-0500 Diastolic blood pressure 67 mm[Hg] Azalea Brent [employer]SEM[employer] [facility] 09-11-2021 18:27-0500 Systolic blood pressure 126 mm[Hg] Azalea Brent [employer]SEM[employer] [facility] 09-11-2021 17:33-0500 Body height 162.56 cm Azalea Brent [employer]SEM[employer] [facility] 09-11-2021 17:33-0500 Body mass index (BMI) [Ratio] 38.12 kg/m2 Azalea Brent [employer]SEM[employer] [facility] 09-11-2021 17:33-0500 Body weight 100.74 kg Azalea Brent [employer]SEM[employer] [facility] 09-11-2021 17:33-0500 Diastolic blood pressure 64 mm[Hg] Azalea Brent [employer]SEM[employer] [facility] 09-11-2021 17:33-0500 Heart rate 70 /min Azalea Brent [employer]SEM[employer] [facility] 09-11-2021 17:33-0500 SaO2% (BldA) [Mass fraction] 100 % Azalea Brent [employer]SEM[employer] [facility] 09-11-2021 17:33-0500 Systolic blood pressure 184 mm[Hg] Azalea Brent [employer]SEM[employer] [facility] 03-13-2021 15:56-0400 Body height 167.6 cm Shadi Louis MD Work Phone: [facility] 03-13-2021 15:56-0400 Body mass index (BMI) [Ratio] 39.71 kg/m2 Shadi Louis MD Work Phone: [facility] 03-13-2021 15:56-0400 Body weight 111.58 kg Shadi Louis MD Work Phone: [facility] 03-13-2021 15:49-0400 Body temperature 98.01 [degF] Shadi Louis MD Work Phone: [facility] 03-13-2021 15:49-0400 Diastolic blood pressure 75 mm[Hg] Shadi Louis MD Work Phone: [facility] 03-13-2021 15:49-0400 Heart rate 93 /min Shadi Louis MD Work Phone: [facility] 03-13-2021 15:49-0400 Respiratory rate 16 /min Shadi Louis MD Work Phone: [facility] 03-13-2021 15:49-0400 SaO2% (BldA) [Mass fraction] 97 % Shadi Louis MD Work Phone: [facility] 03-13-2021 15:49-0400 Systolic blood pressure 171 mm[Hg] Shadi Louis MD Work Phone: [facility] 03-10-2021 21:50-0400 Body temperature 98.29 [degF] Caron Duggan MD Work Phone: [facility] 03-10-2021 21:50-0400 Diastolic blood pressure 72 mm[Hg] Caron Duggan MD Work Phone: [facility] 03-10-2021 21:50-0400 Heart rate 91 /min Caron Duggan MD Work Phone: [facility] 03-10-2021 21:50-0400 Respiratory rate 18 /min Caron Duggan MD Work Phone: [facility] 03-10-2021 21:50-0400 SaO2% (BldA) [Mass fraction] 97 % Caron Duggan MD Work Phone: [facility] 03-10-2021 21:50-0400 Systolic blood pressure 154 mm[Hg] Caron Duggan MD Work Phone: [facility] 03-10-2021 21:49-0400 Body height 167.6 cm Caron Duggan MD Work Phone: [facility] 06-10-2020 00:02-0500 Body height 167.6 cm Ciro Church MD, PhD Work Phone: [facility] 06-10-2020 00:02-0500 Body mass index (BMI) [Ratio] 38.58 kg/m2 Ciro Church MD, PhD Work Phone: [facility] 06-10-2020 00:02-0500 Body weight 108.41 kg Ciro Church MD, PhD Work Phone: [facility] 06-10-2020 00:01-0500 Body temperature 97.2 [degF] Ciro Church MD, PhD Work Phone: [facility] 06-10-2020 00:01-0500 Diastolic blood pressure 92 mm[Hg] Ciro Church MD, PhD Work Phone: [facility] 06-10-2020 00:01-0500 Heart rate 96 /min Ciro Church MD, PhD Work Phone: [facility] 06-10-2020 00:01-0500 Respiratory rate 18 /min Ciro Church MD, PhD Work Phone: [facility] 06-10-2020 00:01-0500 SaO2% (BldA) [Mass fraction] 98 % Ciro Church MD, PhD Work Phone: [facility] 06-10-2020 00:01-0500 Systolic blood pressure 163 mm[Hg] Ciro Church MD, PhD Work Phone: [facility] 05-21-2020 00:14-0500 Body temperature 98.01 [degF] Abdiel Hayes DO Work Phone: [facility] 05-21-2020 00:14-0500 Diastolic blood pressure 78 mm[Hg] Abdiel Abigail DO Work Phone: [facility] 05-21-2020 00:14-0500 Heart rate 78 /min Abdiel Abigail DO Work Phone: [facility] 05-21-2020 00:14-0500 Respiratory rate 20 /min Abdiel Hayes DO Work Phone: [facility] 05-21-2020 00:14-0500 SaO2% (BldA) [Mass fraction] 100 % Abdiel Abigail DO Work Phone: [facility] 05-21-2020 00:14-0500 Systolic blood pressure 145 mm[Hg] Abdiel Hayes DO Work Phone: [facility] 05-21-2020 00:13-0500 Body height 167.6 cm Abdiel Hayes DO Work Phone: [facility] Encounters Encounter Date Encounter Type Care Provider Facility Start: 10-12-2023 End: 10-12-2023 Emergency department patient visit RUBIN [facility] Start: 01-28-2023 ambulatory Ludy Marion [employer] Start: 09-11-2022 End: 09-11-2022 Patient encounter procedure Seun Le MD Work Phone: [facility] Comment on above: Graves disease (Prim sarahi Dx) Start: 08-17-2022 End: 08-17-2022 Emergency department patient visit PHYSICIAN NO [facility] Start: 05-22-2022 End: 05-22-2022 Emergency department patient visit PROVIDER NOT IN SYSTEM [facility] Start: 04-09-2022 End: 04-09-2022 Emergency department patient visit AZALEA KENNEDY Facility:[facility] Start: 04-09-2022 End: 04-09-2022 Emergency department patient visit Shadi Louis MD Work Phone: [facility] Emergency Department Start: 03-25-2022 ambulatory AZALEA KENNEDY Facility: [facility] Start: 03-25-2022 End: 03-25-2022 Office outpatient visit 25 minutes Luis Armando Escobedo PA-C Work Phone: [facility] Comment on above: Pain, dental (Primar y Dx) Start: 03-18-2022 End: 03-18-2022 Emergency department patient visit AZALEA D BRENT Facility:[facility] Start: 03-18-2022 End: 03-18-2022 Emergency department patient visit Carla Marroquin DO Work Phone: [facility] Emergency Department Start: 03-05-2022 ambulatory AZALEA D BRENT Facility: [facility] Start: 03-03-2022 End: 03-04-2022 ambulatory AZALEA D BRENT Facility:[facility] Start: 01-31-2022 End: 01-31-2022 Emergency department patient visit CARON DUGGAN Facility:[facility] Start: 01-31-2022 End: 01-31-2022 Emergency department patient visit Caron Duggan MD Work Phone: [facility] Emergency Department Start: 11-30-2021 End: 12-01-2021 Emergency department patient visit AZALEA D BRENT Facility:[facility] Start: 11-30-2021 End: 12-01-2021 Emergency department patient visit Gaurang Olson DO Work Phone: [facility] Emergency Department Start: 10-31-2021 ambulatory AZALEA D BRENT Facility: [facility] Start: 10-30-2021 End: 10-30-2021 Emergency department patient visit AZALEA D BRENT Facility:[facility] Start: 10-29-2021 End: 10-30-2021 Emergency department patient visit Caron Duggan MD Work Phone: [facility] Emergency Department Start: 10-16-2021 End: 10-16-2021 ambulatory SUSIE PRATT Facility:[facility] Start: 10-16-2021 End: 10-16-2021 Subsequent hospital visit by physician Susie Pratt MD Work Phone: [facility] Surgery Comment on above: Other cirrhosis of l iver Start: 09-13-2021 ambulatory AZALEA D BRENT Facility: [facility] Start: 09-12-2021 ambulatory AZALEA D BRENT Facility: [facility] Start: 09-11-2021 End: 09-11-2021 Office outpatient visit 25 minutes Azalea Brent [employer]SEM[employer] CLEANER Work Phone: [employer] [place] Start: 09-10-2021 ambulatory AZALEA D BRENT Facility: [facility] Start: 08-30-2021 End: 09-02-2021 ambulatory LUDY DONI Facility:[facility] Start: 08-22-2021 Transcribe Orders Azalea Kay e [employer]SEM[employer] CLEANER Work Phone: [facility] Comment on above: Hyperthyroidism (Denise connie Dx) Start: 08-02-2021 End: 08-02-2021 Azalea Brent ASSEMBLY CLEANER Work Phone: [employer] [place] Start: 07-21-2021 End: 07-21-2021 Azalea Brent ASSEMBLY CLEANER Work Phone: [employer] Start: 07-11-2021 ambulatory LUDY DONI Facility :[facility] Start: 07-11-2021 Office outpatient vi sit 25 minutes Ludy Doni [employer] [place] Start: 07-02-2021 End: 07-02-2021 Emergency department patient visit FLOYD RODRIGUEZ Facility:[facility] Start: 06-29-2021 End: 06-29-2021 Emergency department patient visit LUDY DONI Facility:[facility] Start: 06-21-2021 End: 06-21-2021 Emergency department patient visit [facility] Facility:[facility] Start: 06-16-2021 End: 06-16-2021 Emergency department [facility] Start: 06-16-2021 End: 06-16-2021 Emergency department patient visit PHYSICIAN GREENBERG [facility] Start: 06-16-2021 End: 06-16-[address] [facility] Start: 06-15-2021 End: 06-15-2021 Emergency department patient visit LUDY OLSONL Facility:[facility] Start: 06-15-2021 End: 06-15-2021 ambulatory MIKE DUKE Facility:[facility] Start: 06-06-2021 ambulatory VANGIE JON Facility: [facility] Start: 06-01-2021 End: 06-01-2021 Emergency department patient visit LUDY MARION Facility:[facility] Start: 03-13-2021 End: 03-13-2021 Emergency department patient visit Shadi Louis MD Work Phone: [facility] Emergency Department Start: 03-10-2021 End: 03-10-2021 Emergency department patient visit Caron Duggan MD Work Phone: [facility] Emergency Department Start: 09-27-2020 End: 09-27-2020 Orders Only Nohelia Mortensen Work Phone: [facility] Start: 06-09-2020 End: 06-10-2020 Emergency department patient visit Ciro Church MD, PhD Work Phone: [facility] Emergency Department Start: 05-21-2020 End: 05-21-2020 Emergency department patient visit Abdiel Hayes DO Work Phone: [facility] Emergency Department Start: 02-02-2019 End: 02-06-2019 Patient encounter procedure PHYSICIAN NO [facility] Start: 02-02-2019 End: 02-02-2019 Office consultation new/estab patient 40 min Celina Dickey Work Phone: [facility] Maternal Medicine Comment on above: Encounter for precon ception consultation (Primary Dx); Type 2 diabetes mellitus with hyperglycemia, with long-term current use of insulin (HCC); History of recurrent miscarriages; Morbid obesity (HCC); Amenorrhea Start: 08-26-2018 End: 08-26-2018 Concepción Hughes NP Work Phone: [employer] [employer] Start: 01-04-2018 End: 01-04-2018 Rabia Braga Work Phone: [facility] [place] Start: 05-18-2017 End: 05-18-2017 Rabia Braga Work Phone: [employer] [place] Start: 01-27-2017 End: 01-27-2017 Concepción CLINEP Work Phone: [facility] [place] Start: 07-28-2016 End: 07-28-2016 Concepción Robertson [employer] WORK[employer] Work Phone: [facility] [place] Start: 05-14-2015 End: 05-14-2015 Concepción Robertson [employer]ER TICKET WORKER Work Phone: [facility] [place] Start: 01-29-2015 End: 01-29-2015 Concepción Robertson [employer] TICK[employer] WORKER Work Phone: [facility] [place] Procedures Date Procedure Procedure Detail Performing Clinician Start: 08-07-2022 Adult depression screening assessment Seun Le MD Work Phone: Start: 01-31-2022 Radex foot complete minimum 3 views Ammon Duggan MD Work Phone: Start: 11-30-2021 RESPIRATORY PANEL (COVID, FLU, RSV) Migel Myers [employer]SEMBLY CLEANER Work Phone: Start: 11-30-2021 Complete blood count with white cell differential, automated Valarie Myers [employer]SEMBLY CLEANER Work Phone: Start: 11-30-2021 Comprehensive metabolic panel Valarie willett ASSEMBLY CLEANER Work Phone: Start: 11-30-2021 Culture bacterial quanttative colony count urine Valarie Myers ASSEMBLY CLEANER Work Phone: Start: 11-30-2021 URINALYSIS REFLEX TO CULTURE Valarie mitchell [employer]SEMBLY CLEANER Work Phone: Start: 10-29-2021 Radiologic exam chest single view Cassidy Dgugan MD Work Phone: Start: 10-29-2021 Gonadotropin chorionic qualitative Carla S kinner DO Work Phone: Start: 10-29-2021 URINALYSIS REFLEX TO CULTURE Carla Marroquin DO Work Phone: Start: 10-29-2021 RESPIRATORY PANEL (COVID, FLU, RSV) Carla Marroquin DO Work Phone: Start: 10-16-2021 End: 10-16-2021 Esophagogastroduodenoscopy transoral diagnostic Azalea Kennedy [employer]PER[employer]OR [facility] Work Phone: Start: 09-11-2021 End: 09-11-2021 Most recent diastolic blood pressure < 80 mm hg Azalea Kennedy [employer]SEMBLY CLEANER Start: 09-11-2021 End: 09-11-2021 Most recent systolic blood pressure <130 mm hg Azalea Kennedy [employer]SEM[employer] CLE[employer]ER Start: 07-11-2021 Most recent diastolic blood pressure < 80 mm hg Ludy Doni [employer] Start: 07-11-2021 Most recent systolic blood pres>/equal 140 mm hg Ludy Doni [employer]TER HELPER Start: 03-13-2021 End: 03-13-2021 Radex ankle complete minimum 3 views Eloise Gregorio SUPERVISOR [facility] Work Phone: Start: 03-10-2021 Microbial identification kit, rapid strep method Caron Duggan MD Work Phone: Start: 06-10-2020 Iadna streptococcus group a amplified probe tq Ciro Church MD, PhD Work Phone: Start: 06-10-2020 Microbial identification kit, rapid strep method Other Other Start: 05-21-2020 Radiologic exam chest single view Abdiel Hayes DO Work Phone: Start: 02-02-2019 Choriogonadotropin [Units/volume] in Serum or Plasma Martínez Burk Work Phone: Start: 10-15-2015 Microscopic observation [Identifier] in Cervix by Cyto stain Celina Dickey Plan of Treatment Date Care Activity Detail Author Start: 04-11-2029 Tetanus vaccination Tetanus: Every 10yrs [facility] Start: 08-07-2023 Depression screening using PHQ-9 (Patient Health Questionnaire 9) score Depression Screening (PHQ-2/9) [facility] Start: 03-04-2023 Potassium [Moles/volume] in Serum or Plasma POTASSIUM [facility] Start: 11-30-2022 Potassium [Moles/volume] in Serum or Plasma POTASSIUM [facility] Start: 11-26-2022 End: 11-26-2022 Patient encounter procedure 11/26/2022 Office Visit Endocrinology Seun Le MD [address] [place] [address] [facility] Start: 09-02-2022 Potassium [Moles/volume] in Serum or Plasma POTASSIUM [facility] Start: 03-20-2022 Influenza vaccination [facility] Start: 01-21-2022 Potassium [Moles/volume] in Serum or Plasma POTASSIUM [facility] Start: 12-30-2021 End: 12-30-2021 Patient encounter procedure 12/30/2021 Office Visit Gastroenterology Navarro, Shadi Duckworth MD [address] [facility] [address] [place] [address] [facility] Start: 09-11-2021 Dietary management education, guidance, and counseling Dietary management education, guidance, and [facility] Work Phone: Start: 09-11-2021 Lifestyle education regarding diet Lifestyle education regarding diet [facility] [employer] Work Phone: Start: 05-20-2021 Hemoglobin A1c measurement A1C [facility] Start: 03-20-2021 Influenza vaccination [facility] Start: 03-18-2021 End: 03-18-2021 Patient encounter procedure 03/18/2021 Office Visit Endocrinology, Diabetes & Metabolism Josef Angel MBBS [address] [facility] [address] [place] [id number] Endocrinology Outpatient Care [facility] Start: 03-20-2020 Influenza vaccination INFLUENZA VACCINE (#1) [facility] Start: 03-20-2020 Influenza vaccination given Sequential Influenza Vaccine (#1) [facility] Start: 08-05-2019 HbA1c (Bld) [Mass fraction] A1C [facility] Start: 03-20-2019 Influenza vaccination given SEQUENTIAL INFLUENZA VACCINE (#1) [facility] Start: 10-14-2018 Screening for malignant neoplasm of cervix PAP SMEAR [facility] Start: 11-10-2007 Screening for malignant neoplasm of cervix CERVICAL CANCER SCREENING DISCUSSION [facility] Start: 2005 Third diphtheria, tetanus and acellular pertussis (DTaP) vaccination TDAP (ADULT) [facility] Start: 2004 Hepatitis C antibody, confirmatory test Hepatitis C Screening [facility] Start: 2004 Hepatitis C screening Hepatitis C Screening [facility] Start: 2004 Tetanus vaccination TETANUS [facility] Start: 2002 COVID-19 Vaccine (1 of 2) COVID-19 Vaccine (1 of 2) [facility] Start: 2001 HIV screening HIV Screening [facility] Start: 11-10-1999 HIV screening HIV SCREENING DISCUSSION [facility] Start: 1998 Adolescent depression screening assessment Depression Screening (PHQ9) [facility] Start: 1998 COVID-19 VACCINE (1) COVID-19 VACCINE (1) [facility] Start: 1998 Depression screening using PHQ-9 (Patient Health Questionnaire 9) score Depression Screening (PHQ-2/9) [facility] Start: 1996 Albumin DL <= 20 mg/L (U) [Mass/Vol] URINE MICROALBUMIN [facility] Start: 1996 Diabetic foot examination FOOT EXAM [facility] Start: 1996 Glaucoma screening Ophthalmology Exam [facility] Start: 1996 Microalbumin measurement, urine, quantitative Urine Microalbumin [facility] Start: 1996 Ophthalmic examination and evaluation Ophthalmology Exam [facility] Start: 1996 Urine screening for protein Urine Microalbumin [facility] Start: 1992 PNEUMOCOCCAL VACCINE SERIES (1 - PCV) PNEUMOCOCCAL VACCINE SERIES (1 - PCV) [facility] Start: 1992 Pneumococcal Vaccine: Ped or At-Risk (1 - PCV) Pneumococcal Vaccine: Ped or At-Risk (1 - PCV) [facility] Start: 1992 Pneumococcal Vaccine: Ped or At-Risk (1 of 2 - PPSV23) Pneumococcal Vaccine: Ped or At-Risk (1 of 2 - PPSV23) [facility] Start: 11-10-1991 COVID-19 VACCINE (#1) COVID-19 VACCINE (#1) [facility] Start: 11-10-1991 COVID-19 Vaccine (1) COVID-19 Vaccine (1) [facility] Start: 1989 History and physical examination, annual for health maintenance Wellness Visit [facility] Start: 05-11-1987 COVID-19 VACCINE (#1) COVID-19 VACCINE (#1) [facility] Start: 1986 HbA1c (Bld) [Mass fraction] A1C [facility] Start: 1986 Hepatitis C antibody, confirmatory test HEPATITIS C VIRUS SCREENING [facility] Start: 1986 Tetanus vaccination [facility] Bacteria identified in Urine by Culture URINE CULTURE Microbiology Routine 10/29/2021 11:25 PM EDT [facility] Work Phone: Bacteria identified in Urine by Culture URINE CULTURE Microbiology Routine 11/30/2021 9:50 PM EDT [facility] End: 02-02-2020 Beta-2 Glycoprotein 1 Antibodies, IgG Beta-2 Glycoprotein 1 Antibodies, IgG Lab Routine History of recurrent miscarriages 1 Occurrences starting 02/02/2019 until 02/02/2020 [facility] Comment on above: 1 Occurrences starting 02/02/2019 until 02/02/2020 Beta-2 Glycoprotein 1 Antibodies, IgG Beta-2 Glycoprotein 1 Antibodies, IgG Lab Routine History of recurrent miscarriages 02/02/2019 3:20 PM EDT [facility] End: 02-03-2020 Beta-2 Glycoprotein 1 Antibodies, IgM Beta-2 Glycoprotein 1 Antibodies, IgM Lab Routine History of recurrent miscarriages 1 Occurrences starting 02/02/2019 until 02/03/2020 [facility] Comment on above: 1 Occurrences starting 02/02/2019 until 02/03/2020 Beta-2 Glycoprotein 1 Antibodies, IgM Beta-2 Glycoprotein 1 Antibodies, IgM Lab Routine History of recurrent miscarriages 02/02/2019 3:20 PM EDT [facility] End: 02-02-2020 Dilute Kenny viper venom time DRVVT(Lupus Anticoagulant) Lab Routine History of recurrent miscarriages 1 Occurrences starting 02/02/2019 until 02/02/2020 [facility] Comment on above: 1 Occurrences starting 02/02/2019 until 02/02/2020 Dilute Kenny viper venom time DRVVT(Lupus Anticoagulant) Lab Routine History of recurrent miscarriages 02/02/2019 3:20 PM EDT [facility] End: 02-02-2020 Serum anti-cardiolipin measurement Cardiolipin Antibodies Lab Routine History of recurrent miscarriages 1 Occurrences starting 02/02/2019 until 02/02/2020 [facility] Comment on above: 1 Occurrences starting 02/02/2019 until 02/02/2020 Serum anti-cardiolip in measurement Cardiolipin Antibodies Lab Routine History of recurrent miscarriages 02/02/2019 3:20 PM EDT [facility] Immunizations Immunization Date Immunization Notes Care Provider Kristian Moreno-02-2020 influenza virus vacc ine, unspecified formulation Susie Pratt MD Work Phone: [facility] 08-26-2018 Influenza, injectabl e, Madin Heather Canine Kidney, preservative free, quadrivalent Azalea Brent [employer] [facility] Comment on above: Source: New Immuniza tion Record 08-26-2018 influenza virus vacc ine, unspecified formulation Abdiel Hayes DO Work Phone: [facility] 05-18-2017 influenza, seasonal, injectable Azalea Brent [employer] [facility] Comment on above: Source: New Immuniza tion Record 01-28-2017 pneumococcal polysaccharide vaccine, 23 valent Azalea Brent [employer] [facility] Comment on above: Source: New Immuniza tion Record 07-28-2016 influenza, seasonal, injectable Azalea Brent [employer] [facility] Comment on above: Source: New Immuniza tion Record 05-15-2015 influenza, seasonal, injectable, preservative free Azalea Brent [employer] [facility] Comment on above: Source: New Immuniza tion Record Payers Date Payer Category Payer Unknown GENERIC PA[employer] [id number] 2021-Present [phone] [id number] [place] [address] [id number] 2020 Unknown [id number] 2019 Unknown [id number] [id number]. [id number] 2015 Medicaid [id number] 2015 Medicaid [employer] MEDICA[employer] xxxxxxxxxxx 2015-Present xxxxxxxxxxx [id number] 2015 Medicaid [id number]. [id number] 2015 Medicaid [id number]. 1.13.385.2.7.3. [id number] 2015 Medicaid [id number] 1986 Unknown [id number] 2.16.840.1.749090.3.579.2.900 1986 Unknown [id number] 2.16.840.1.584781.3.579.2.900 1986 Unknown [id number] 2.16.840.1.679878.3.579.2.902 1986 Unknown [id number] 2.16.840.1.419979.3.579.2.903 1986 Unknown [id number] 2.16.840.1.935700.3.579.2.903 1986 Unknown [id number] 2.16.840.1.702780.3.579.2.594 1986 Unknown [id number] 2.16.840.1.549621.3.579.2.478 1986 Unknown [id number] 2.16.840.1.093188.3.579.2.478 1986 Unknown [id number] 2.16.840.1.865465.3.579.2.478 1986 Unknown [id number] 2.16.840.1.898595.3.579.2.478 1986 Unknown [id number] 2.16.840.1.227479.3.579.2.478 1986 Unknown [id number] 2.16.840.1.510440.3.579.2.478 1986 Unknown [id number] 2.16.840.1.436038.3.579.2.478 1986 Unknown [id number] 2.16.840.1.644093.3.579.2478 1986 Unknown [id number] 2.16.840.1.446337.3.579.2 1986 Unknown [id number] 2.16.840.1.297980.3.579.247 1986 Unknown [id number] 2.16840.1.751196.3.579.2 1986 Unknown [id number] 2.16.840.1.263069.3.579.247 1986 Unknown [id number] 2.16840.1.807144.3.579.2 1986 Unknown [id number] 2.16840.1.644108.3.579. 1986 Unknown [id number] 2.840.1.174776.3.579.2 1986 Unknown [id number] 2.16840.1.807703.3.579.2 1986 Unknown [id number] 2.16840.1.911113.3.579.2 1986 Unknown [id number] 2.16840.1.790301.3.579.2 1986 Unknown [id number] 2.840.1.257220.3.579.2 1986 Unknown [id number] 2.16840.1.012630.3.579.247 1986 Unknown [id number] 2.16840.1.471806.3.579.2 1986 Unknown [id number] 2.16840.1.358510.3.579.2.900 1986 Unknown [id number] 2.16840.1.569793.3.579.2.903 Medicaid [id number] Social History Date Type Detail Facility Tobacco smoking status MNIS Unknown if ever smoked [facility] Start: 1985 Sex Assigned At Not on file [facility] Start: 06-16-2021 Tobacco smoking status NHIS Never smoked tobacco [facility] Start: 06-16-2021 End: 08-17-2022 Tobacco use and exposure Smokeless tobacco non-user [facility] Start: 06-16-2021 End: 08-20-2022 Alcohol intake Ex-drinker (finding) [facility] Start: 05-21-2020 End: 09-11-2021 Tobacco smoking status NHIS Unknown if ever smoked [facility] Start: 09-11-2021 Health-related behavior Caffeine Use Details [facility] Work Phone: Sex Assigned At Female [facility] Work Phone: Start: 09-10-2021 Tobacco smoking status NHIS Ex-smoker [facility] Start: 07-20-2002 End: 06-19-2021 History of tobacco use Current smoker [facility] Start: 07-20-2002 End: 06-19-2021 History of tobacco use Cigarette Smoker [facility] Start: 09-10-2021 End: 08-17-2022 Cigarettes smoked current (pack per day) - Reported 1 [facility] Start: 10-08-2020 History SDOH Alcohol Frequency 1 [facility] Start: 12-10-2020 Tobacco Comment Started at age 17. M [facility] Start: 10-06-2021 End: 08-17-2022 Exposure to SARS-CoV-2 (event) Not sure [facility] Start: 10-08-2020 End: 08-17-2022 Tobacco smoking status NHIS Current every day smoker [facility] Start: 01-20-2021 Alcohol intake Lifetime non-d rancho (finding) [facility] Start: 01-21-2022 End: 04-09-2022 Exposure to SARS-CoV-2 (event) Unable to assess [facility] Start: 03-03-2022 End: 03-25-2022 Alcohol intake Current drinker of alcohol (finding) [facility] Start: 03-03-2022 History SDOH Alcohol Comment socially [facility] NEGATED: Highlighted row Alcohol intake Alcohol Use Details [facility] Work Phone: NEGATED: Highlighted rowStart: 09-11-2021 History of tobacco use Ex-cigarette smoker [facility] Work Phone: Clinical Notes 05-21-2020 to 10-12-2023 Seun Le MD - 09/11/2022 11:00 AM GURU Richey - 04/09/2022 7:38 PM EDTGURU Mckinney - 04/09/2022 7:38 PM Shae Valentine RN - 04/09/2022 7:33 PM EDTAttachments Note Date & Type Note Facility 10-12-2023 Note PROCEDURE INFORMATIO N: Exam: XR Right Hip Exam date and time: 10/12/2023 2:19 AM Age: 37 years old Clinical indication: Hip pain; Bilateral; Additional info: Leg pain TECHNIQUE: Imaging protocol: Radiologic exam of the right hip. Views: 2 or 3 views hip with pelvis when performed. COMPARISON: CR XR LUMBAR SPINE AP AND LATERAL 10/12/2023 2:18 AM FINDINGS: Bones/joints: Unremarkable. No acute fracture. Soft tissues: Unremarkable. IMPRESSION: No acute findings. THIS DOCUMENT HAS BEEN ELECTRONICALLY SIGNED BY MICHAEL AMBROSE MD ON 10/12/2023 03:13 AM [facility] 10-12-2023 Note PROCEDURE INFORMATIO N: Exam: XR Lumbosacral Spine Exam date and time: 10/12/2023 2:18 AM Age: 37 years old Clinical indication: Low back pain; Additional info: Leg pain TECHNIQUE: Imaging protocol: Radiologic exam of the lumbosacral spine. Views: 2 or 3 views. COMPARISON: No relevant prior studies available. FINDINGS: Bones/joints: Normal. No acute fracture. Normal alignment. Mild dextro concave curvature may be positional. Soft tissues: Unremarkable. IMPRESSION: No acute findings. THIS DOCUMENT HAS BEEN ELECTRONICALLY SIGNED BY MICHAEL AMBROSE MD ON 10/12/2023 03:14 AM [facility] 09-11-2022 History of Present illness Narrative This is a precharting note. Patient cancelled appointment. Reason for visit/chief complaint: hyperthyroidism Date: 09/11/2022 Referring Provider: No ref. provider found Primary Care Provider: Azalea Patel CNP HPI: Ms. Grewal is a 36 y.o. female with hx of HTN, STEINER cirrhosis, asthma, DM, ?seizures, recurrent miscarriages. Patient was diagnosed with hyperthyroidism in (labs showed low TSH and high FT4 since at least 2018). She was seen by endocrinology at [facility] in 10/2020 when labs showed thyrotoxicosis (undetectable TSH, FT4 >6 and T3 3.82) and TSI/TRAb were high indicating Graves disease. She was discharged on MMI 20 mg bid. She was seen as outpatient at [facility] by endocrine in 11/2020 when FT4 and T3 normalized, and MMI dose was recommended to be decreased from 20 mg bid to daily. She didn't take MMI from 05/2022 till late 07/2022 when she resumed it at 10 mg bid; at that time TSH was undetectable and FT4 was 7.1 (no T3). Dose was increased to 10 mg tid on 09/04/2022 by PCP; at that time FT4 has already improved to 2 (no T3). beta-blockers. 11/16/2020: TSI >40 11/19/2020: TRAb 24 (high, range <1.75) Latest Reference Range & Units 08/17/22 17:21 Sodium 135 - 145 mmol/L 135 Potassium 3.5 - 5.1 mmol/L 4.5 Chloride 98 - 108 mmol/L 108 Bicarbonate 21 - 32 mmol/L 22 Anion Gap 10 - 20 mmol/L 10 Glucose 65 - 99 mg/dL 120 (H) BUN 8 - 25 mg/dL 27 (H) Creatinine 0.40 - 1.10 mg/dL 0.44 eGFR >=60 mL/min/1.73 m2 130 BUN/Creatinine Ratio 10.0 - 20.0 61.4 (H) Total Protein 6.0 - 8.0 g/dL 7.0 Albumin 3.2 - 5.2 g/dL 3.0 (L) Bilirubin, Direct 0.0 - 0.4 mg/dL 0.2 ALK PHOS 40 - 140 U/L 119 AST 0 - 45 U/L 30 ALT 14 - 65 U/L 42 Total Bilirubin 0.0 - 1.3 mg/dL 0.3 WBC 4.50 - 11.00 K/mcL 8.76 RBCs 4.00 - 5.20 M/mcL 4.47 Hemoglobin 12.0 - 16.0 g/dL 12.8 Hematocrit 36.0 - 46.0 % 38.2 MCV 80.0 - 100.0 fL 85.5 MCH 26.0 - 34.0 pg 28.6 MCHC 31.0 - 37.0 g/dL 33.5 RDW 11.6 - 14.8 % 13.1 Platelets 150 - 400 K/mcL 224 MPV 9.4 - 12.4 fL 11.0 Latest Reference Range & Units 02/02/19 15:20 08/17/22 17:21 09/03/22 14:12 TSH 0.27 - 4.20 mcIU/mL <0.01 (L) <0.01 (L) <0.01 (L) FREE T4 0.7 - 1.7 ng/dL 2.0 (H) 7.1 (H) 2.0 (H) documented in this encounter [facility] 04-09-2022 Physician Emergency department Note ED PROVIDER NOTE Giuliana Grewal is a 36 y.o. female With a past medical history of has a past medical history of Anemia, Asthma, Cirrhosis, Congestive heart failure, Graves' disease, Migraine, STEINER (nonalcoholic steatohepatitis), Other cirrhosis of liver, Polycystic ovarian disease, and Seizure disorder.presenting with complaints of myalgias, nasal congestion, diarrhea, headache, onset today. The patient states that these symptoms began gradually. The history is obtained from the patient. The patient states that he has had some subjective chills at home. Patient has not been vaccinated for COVID. The patient denies any abdominal pain, left upper quadrant fullness, or early satiety. She took dayquil OTC this morning at 10am. She did have a positive home COVID test today. Review of systems all systems were reviewed and are negative except as noted above or presents elsewhere in the chart. Constitutional: pos for fever, chills Eyes: neg for injection ENT: neg for epistaxis GI: neg for vomiting : neg for incontinence MS: pos for myalgias Psych: neg for agitation Neuro: neg for confusion Respiratory: neg for dyspnea Skin: neg for rash Allergies Allergen Reactions Benadryl [Diphenhydramine] Hives, Shortness of Breath and Rash *Seafood - Food Allergy Throat closes up and turns red Fish Allergy Fish-Derived Products Rash Throat swells closed. Peg-8 Beeswax [Polyethylene Glycol] No current facility-administered medications for this encounter. Current Outpatient Medications: albuterol 108 (90 Base) MCG/ACT Aero Soln inhaler, Inhale 1 puff every 6 hours as needed for Shortness of Breath. (Patient not taking: Reported on 03/25/2022), Disp: 6.7 g, Rfl: 0 faMOTIdine 20 MG tablet, Take 1 tablet by mouth every 12 hours., Disp: 60 tablet, Rfl: 0 furOSEmide 40 MG tablet, Take 20 mg by mouth 2 times daily., Disp: , Rfl: lisinopril 10 MG tablet, Take 10 mg by mouth daily., Disp: , Rfl: meloxicam 7.5 MG tablet, Take 1 tablet by mouth daily., Disp: 30 tablet, Rfl: 0 methimazole 10 MG tablet, Take 20 mg by mouth daily., Disp: , Rfl: ondansetron 4 MG Tab Dispersible tablet, Take 1 tablet by mouth every 8 hours as needed for Nausea / Vomiting. (Patient not taking: Reported on 03/25/2022), Disp: 15 tablet, Rfl: 0 spironolactone 100 MG tablet, Take 1 tablet by mouth daily., Disp: 30 tablet, Rfl: 0 Past Surgical History: Procedure Laterality Date EGD DIAGNOSTIC N/A 10/16/2021 Laterality: N/A; Surgeon: Susie Pratt MD; Location: [facility] OR EGD DIAGNOSTIC N/A 11/17/2020 Laterality: N/A; Surgeon: Christiano Sepulveda MD; [facility] Social History Socioeconomic History Marital status: Spouse name: Not on file Number of children: Not on file Years of education: Not on file Highest education level: Not on file Occupational History Not on file Tobacco Use Smoking status: Current Every Day Smoker Packs/day: 1.00 Types: Cigarettes Start date: 2002 Last attempt to quit: 06/2021 Years since quittin.8 Smokeless tobacco: Never Used Tobacco comment: Started at age 17. Vaping Use Vaping Use: Every day Substances: Nicotine, THC, Started at age 31. Devices: Refillable tank Substance and Sexual Activity Alcohol use: Yes Comment: socially Drug use: Yes Frequency: 2.0 times per week Types: Marijuana Sexual activity: Not on file Other Topics Concern Service Not Asked Blood Transfusions Not Asked Caffeine Concern Not Asked Occupational Exposure Not Asked Hobby Hazards Not Asked Sleep Concern Not Asked Stress Concern Not Asked Weight Concern Not Asked Special Diet Not Asked Back Care Not Asked Exercise Not Asked Bike Helmet Not Asked Seat Belt Not Asked Domestic Violence Not Asked Social History Narrative Not on file Social Determinants of Health Financial Resource Strain: Not on file Food Insecurity: Not on file Transportation Needs: Not on file Physical Activity: Not on file Stress: Not on file Social Connections: Not on file Intimate Partner Violence: Not on file Housing Stability: Not on file Vitals: 04/09/22 1935 BP: 153/63 Pulse: 91 Resp: 18 Temp: 101.2 F (38.4 C) Physical exam: Constitutional: Vital signs and nursing note are reviewed; the patient is comfortable. The patient is alert and oriented and conversant. The patient is not toxic. Head: The head is atraumatic and normocephalic. Eyes: No discharge is present from the eyes. The sclera are normal. ENT: Tolerates PO secretions, no phonation changes Neck: Normal range of motion is achieved in the neck. There is no JVD present. No meningeal signs are present Respiratory/chest: easy, regular, unlabored. No accessory muscle use. No rales, rhonchi, or stridor. Breath sounds are CTA bilaterally. There is no respiratory distress. Cardiovascular: Heart shows a regular rate and rhythm without murmurs clicks or gallops. abdominal exam: The abdomen is non tender diffusely. No guarding, no rebound, no peritoneal signs. BS x4. obese appearance. Neuro: AAOx3, ambulates steadily, no focal CN deficits. GCS 15 Skin: No evidence of rashes on exposed skin, no cyanosis Psych: The patient is calm, and appropriate for the situation. Medical decision making: I estimate there is LOW risk for ACUTE CORONARY SYNDROME, PNEUMONIA REQUIRING ADMISSION, OR MENINGITIS thus I consider the discharge disposition reasonable. Giuliana Grewal (or their surrogate) and I have discussed the diagnosis and risks, and we agree with discharging home with close follow-up. We also discussed returning to the Emergency Department immediately if new or worsening symptoms occur. We have discussed the symptoms which are most concerning that necessitate immediate return. IMPRESSION: COVID 19 PLAN: Pertinent labs and images reviewed (see chart for details) OTC symptom control discussed with the patient F/u with primary care Appropriate isolation discussed Plan discussed with patient. Verbalized understanding. Instructed on emergent reasons to return and verbalized understanding. This was an independent nurse practitioner visit. GURU Mckinney 04/09/221957 [facility] Phone: 04-09-2022 Emergency department Note ED PROVIDER NOTE Giuliana Grewal is a 36 y.o. female With a past medical history of has a past medical history of Anemia, Asthma, Cirrhosis, Congestive heart failure, Graves' disease, Migraine, STEINER (nonalcoholic steatohepatitis), Other cirrhosis of liver, Polycystic ovarian disease, and Seizure disorder.presenting with complaints of myalgias, nasal congestion, diarrhea, headache, onset today. The patient states that these symptoms began gradually. The history is obtained from the patient. The patient states that he has had some subjective chills at home. Patient has not been vaccinated for COVID. The patient denies any abdominal pain, left upper quadrant fullness, or early satiety. She took dayquil OTC this morning at 10am. She did have a positive home COVID test today. Review of systems all systems were reviewed and are negative except as noted above or presents elsewhere in the chart. Constitutional: pos for fever, chills Eyes: neg for injection ENT: neg for epistaxis GI: neg for vomiting : neg for incontinence MS: pos for myalgias Psych: neg for agitation Neuro: neg for confusion Respiratory: neg for dyspnea Skin: neg for rash Allergies Allergen Reactions Benadryl [Diphenhydramine] Hives, Shortness of Breath and Rash *Seafood - Food Allergy Throat closes up and turns red Fish Allergy Fish-Derived Products Rash Throat swells closed. Peg-8 Beeswax [Polyethylene Glycol] No current facility-administered medications for this encounter. Current Outpatient Medications: albuterol 108 (90 Base) MCG/ACT Aero Soln inhaler, Inhale 1 puff every 6 hours as needed for Shortness of Breath. (Patient not taking: Reported on 03/25/2022), Disp: 6.7 g, Rfl: 0 faMOTIdine 20 MG tablet, Take 1 tablet by mouth every 12 hours., Disp: 60 tablet, Rfl: 0 furOSEmide 40 MG tablet, Take 20 mg by mouth 2 times daily., Disp: , Rfl: lisinopril 10 MG tablet, Take 10 mg by mouth daily., Disp: , Rfl: meloxicam 7.5 MG tablet, Take 1 tablet by mouth daily., Disp: 30 tablet, Rfl: 0 methimazole 10 MG tablet, Take 20 mg by mouth daily., Disp: , Rfl: ondansetron 4 MG Tab Dispersible tablet, Take 1 tablet by mouth every 8 hours as needed for Nausea / Vomiting. (Patient not taking: Reported on 03/25/2022), Disp: 15 tablet, Rfl: 0 spironolactone 100 MG tablet, Take 1 tablet by mouth daily., Disp: 30 tablet, Rfl: 0 Past Surgical History: Procedure Laterality Date EGD DIAGNOSTIC N/A 10/16/2021 Laterality: N/A; Surgeon: Susie Pratt MD; Location: [facility] OR EGD DIAGNOSTIC N/A 11/17/2020 Laterality: N/A; Surgeon: Christiano Sepulveda MD; Location: [facility] ENDOSCOPY EYE SURGERY Social History Socioeconomic History Marital status: Spouse name: Not on file Number of children: Not on file Years of education: Not on file Highest education level: Not on file Occupational History Not on file Tobacco Use Smoking status: Current Every Day Smoker Packs/day: 1.00 Types: Cigarettes Start date: 2002 Last attempt to quit: 06/2021 Years since quittin.8 Smokeless tobacco: Never Used Tobacco comment: Started at age 17. Vaping Use Vaping Use: Every day Substances: Nicotine, THC, Started at age 31. Devices: Refillable tank Substance and Sexual Activity Alcohol use: Yes Comment: socially Drug use: Yes Frequency: 2.0 times per week Types: Marijuana Sexual activity: Not on file Other Topics Concern Service Not Asked Blood Transfusions Not Asked Caffeine Concern Not Asked Occupational Exposure Not Asked Hobby Hazards Not Asked Sleep Concern Not Asked Stress Concern Not Asked Weight Concern Not Asked Special Diet Not Asked Back Care Not Asked Exercise Not Asked Bike Helmet Not Asked Seat Belt Not Asked Domestic Violence Not Asked Social History Narrative Not on file Social Determinants of Health Financial Resource Strain: Not on file Food Insecurity: Not on file Transportation Needs: Not on file Physical Activity: Not on file Stress: Not on file Social Connections: Not on file Intimate Partner Violence: Not on file Housing Stability: Not on file Vitals: 04/09/22 1935 BP: 153/63 Pulse: 91 Resp: 18 Temp: 101.2 F (38.4 C) Physical exam: Constitutional: Vital signs and nursing note are reviewed; the patient is comfortable. The patient is alert and oriented and conversant. The patient is not toxic. Head: The head is atraumatic and normocephalic. Eyes: No discharge is present from the eyes. The sclera are normal. ENT: Tolerates PO secretions, no phonation changes Neck: Normal range of motion is achieved in the neck. There is no JVD present. No meningeal signs are present Respiratory/chest: easy, regular, unlabored. No accessory muscle use. No rales, rhonchi, or stridor. Breath sounds are CTA bilaterally. There is no respiratory distress. Cardiovascular: Heart shows a regular rate and rhythm without murmurs clicks or gallops. abdominal exam: The abdomen is non tender diffusely. No guarding, no rebound, no peritoneal signs. BS x4. obese appearance. Neuro: AAOx3, ambulates steadily, no focal CN deficits. GCS 15 Skin: No evidence of rashes on exposed skin, no cyanosis Psych: The patient is calm, and appropriate for the situation. Medical decision making: I estimate there is LOW risk for ACUTE CORONARY SYNDROME, PNEUMONIA REQUIRING ADMISSION, OR MENINGITIS thus I consider the discharge disposition reasonable. Giuliana Grewal (or their surrogate) and I have discussed the diagnosis and risks, and we agree with discharging home with close follow-up. We also discussed returning to the Emergency Department immediately if new or worsening symptoms occur. We have discussed the symptoms which are most concerning that necessitate immediate return. IMPRESSION: COVID 19 PLAN: Pertinent labs and images reviewed (see chart for details) OTC symptom control discussed with the patient F/u with primary care Appropriate isolation discussed Plan discussed with patient. Verbalized understanding. Instructed on emergent reasons to return and verbalized understanding. This was an independent nurse practitioner visit. GURU Mckinney 04/09/221957 Took home covid test earlier today and was +. C/o diarrhea, generalized body aches. Took dayquil around 11 am nothing since. States that she can not take tylenol or ibruophen documented in this encounter [facility] 04-09-2022 Emergency department Note Took home covid test earlier today and was +. C/o diarrhea, generalized body aches. Took dayquil around 11 am nothing since. States that she can not take tylenol or ibruophen [facility] 03-25-2022 History of Present illness Narrative [facility] URGENT CARE PATIENT NAME: Giuliana Grewal DATE OF : 1985 DATE OF VISIT: 03/25/2022 PROVIDER: Justus Escobedo PA-C HISTORY OF PRESENT ILLNESS: Giuliana Grewal is a 36 y.o. female who is presenting today with Dental Pain (Patient believes she has a tooth infection and needs antibiotics. /Left lower back tooth ) She states that long ago a dentist had injured her left mandibular molars and never flex them. She states that she has intermittent problems with those particular teeth. No fevers, difficulty swallowing. VITAL SIGNS: Vitals: 03/25/22 1522 BP: 134/82 Pulse: 71 Resp: 18 Temp: 98.8 degrees F (37.1 degrees C) TempSrc: Temporal SpO2: 98% ALLERGIES: Benadryl [diphenhydramine], *seafood - food allergy, Fish allergy, Fish-derived products, and Peg-8 beeswax [polyethylene glycol] MEDICATIONS: Outpatient Medications Prior to Visit Medication Sig Dispense Refill faMOTIdine 20 MG tablet Take 1 tablet by mouth every 12 hours. 60 tablet 0 furOSEmide 40 MG tablet Take 20 mg by mouth 2 times daily. lisinopril 10 MG tablet Take 10 mg by mouth daily. methimazole 10 MG tablet Take 20 mg by mouth daily. spironolactone 100 MG tablet Take 1 tablet by mouth daily. 30 tablet 0 albuterol 108 (90 Base) MCG/ACT Aero Soln inhaler Inhale 1 puff every 6 hours as needed for Shortness of Breath. (Patient not taking: Reported on 03/25/2022) 6.7 g 0 ondansetron 4 MG Tab Dispersible tablet Take 1 tablet by mouth every 8 hours as needed for Nausea / Vomiting. (Patient not taking: Reported on 03/25/2022) 15 tablet 0 No facility-administered medications prior to visit. PAST MEDICAL HISTORY: Past Medical History: Diagnosis Date Anemia Asthma Cirrhosis Congestive heart failure Graves' disease Migraine STEINER (nonalcoholic steatohepatitis) Other cirrhosis of liver Polycystic ovarian disease Seizure disorder PAST SURGICAL HISTORY: Past Surgical History: Procedure Laterality Date EGD DIAGNOSTIC N/A 10/16/2021 Laterality: N/A; Surgeon: Susie Pratt MD; Location: [facility] OR EGD DIAGNOSTIC N/A 11/17/2020 Laterality: N/A; Surgeon: Christiano Sepulveda MD; Location: [facility] ENDOSCOPY EYE SURGERY FAMILY HISTORY: Family History Problem Relation Age of Onset Uterine Cancer Mother Heart Disease - Other Mother Heart Disease - Other Father Breast Cancer Sister Cancer- Other Maternal Aunt SOCIAL HISTORY: Social History Tobacco Use Smoking status: Current Every Day Smoker Packs/day: 1.00 Types: Cigarettes Start date: 2002 Last attempt to quit: 06/2021 Years since quittin.7 Smokeless tobacco: Never Used Tobacco comment: Started at age 17. Substance Use Topics Alcohol use: Yes Comment: socially REVIEW OF SYSTEMS: Review of Systems Constitutional: Negative. HENT: Positive for dental problem. Respiratory: Negative. Cardiovascular: Negative. Gastrointestinal: Negative. Musculoskeletal: Negative. PHYSICAL EXAM: Physical Exam Vitals and nursing note reviewed. Constitutional: General: She is not in acute distress. Appearance: She is not toxic-appearing. HENT: Head: Normocephalic. Mouth/Throat: Comments: Overall poor dentition. The left mandibular molars are ground down to the gumline. There is surrounding gingival erythema and edema. Floor of mouth soft nontender to palpation. No abscess present. Cardiovascular: Heart sounds: Normal heart sounds. Pulmonary: Breath sounds: Normal breath sounds. Musculoskeletal: General: Normal range of motion. Skin: General: Skin is warm. Neurological: Mental Status: She is alert. LAB RESULTS: No results found for this or any previous visit (from the past 2 hour(s)). ASSESSMENT & PLAN: 1. Dental infection: Patient given Augmentin and meloxicam for pain. Strongly encouraged dentist follow-up documented in this encounter [facility] 03-25-2022 Instructions Luis Armando Escobedo PA-C - 03/25/2022 2:45 PM EDT Please consider following up with the dentist for the teeth that are bothering you. documented in this encounter [facility] 03-18-2022 Physician Emergency department Note Chief Complaint Patient presents with Seizure Giuliana Grewal is a 36 y.o. female Pt presents for possible seizure. States she has had similar episodes since I was 25 years old . State they occur 3-4x per week. Pt was admitted 2 weeks ago, seen by neurology, negative EEG & CT. 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 States she was referred to [facility] for 24 hour EEG, however decided not to follow-up because she is playing to he moved to [place] at the end of this week. States she had generalized headache yesterday, planned to come to emergency department today for evaluation because headache typically means she is going to have a seizure. Went to work this morning, however states she could not leave to come to ER because she was the only morning at work. States she was sitting outside smoking a cigarette with 2 other people when she had a seizure. States episodes entail being awake, but unable to talk or respond to people. Pt is unsure how long episode lasted today. Back to baseline now. Denies any recent illness. Denies any recent head trauma. States episodes associated with photophobia. The history is provided by the patient. PMH: Past Medical History: Diagnosis Date Anemia Asthma Cirrhosis Congestive heart failure Graves' disease Migraine STEINER (nonalcoholic steatohepatitis) Other cirrhosis of liver Polycystic ovarian disease Seizure disorder PSH: Past Surgical History: Procedure Laterality Date EGD DIAGNOSTIC N/A 10/16/2021 Laterality: N/A; Surgeon: Susie Pratt MD; Location: [facility] OR EGD DIAGNOSTIC N/A 11/17/2020 Laterality: N/A; Surgeon: Christiano Sepulveda MD; Location: [facility] ENDOSCOPY EYE SURGERY Family Hx: Family History Problem Relation Age of Onset Uterine Cancer Mother Heart Disease - Other Mother Heart Disease - Other Father Breast Cancer Sister Cancer- Other Maternal Aunt Allergies: Allergies Allergen Reactions Benadryl [Diphenhydramine] Hives, Shortness of Breath and Rash *Seafood - Food Allergy Throat closes up and turns red Fish Allergy Fish-Derived Products Rash Throat swells closed. Peg-8 Beeswax [Polyethylene Glycol] Social Hx: Social History Socioeconomic History Marital status: Spouse name: Not on file Number of children: Not on file Years of education: Not on file Highest education level: Not on file Occupational History Not on file Tobacco Use Smoking status: Current Every Day Smoker Packs/day: 1.00 Types: Cigarettes Start date: 2002 Last attempt to quit: 06/2021 Years since quittin.7 Smokeless tobacco: Never Used Tobacco comment: Started at age 17. Vaping Use Vaping Use: Every day Substances: Nicotine, THC, Started at age 31. Devices: Refillable tank Substance and Sexual Activity Alcohol use: Yes Comment: socially Drug use: Yes Frequency: 2.0 times per week Types: Marijuana Sexual activity: Not on file Other Topics Concern Service Not Asked Blood Transfusions Not Asked Caffeine Concern Not Asked Occupational Exposure Not Asked Hobby Hazards Not Asked Sleep Concern Not Asked Stress Concern Not Asked Weight Concern Not Asked Special Diet Not Asked Back Care Not Asked Exercise Not Asked Bike Helmet Not Asked Seat Belt Not Asked Domestic Violence Not Asked Social History Narrative Not on file Social Determinants of Health Financial Resource Strain: Not on file Food Insecurity: Not on file Transportation Needs: Not on file Physical Activity: Not on file Stress: Not on file Social Connections: Not on file Intimate Partner Violence: Not on file Housing Stability: Not on file Medications: Current Outpatient Medications Medication Instructions albuterol 108 (90 Base) MCG/ACT Aero Soln inhaler 1 puff, Inhalation, EVERY 6 HOURS NEEDED faMOTIdine (PEPCID) 20 mg, Oral, EVERY 12 HOURS furOSEmide (LASIX) 20 mg, Oral, 2 TIMES DAILY lisinopril (PRINIVIL) 10 mg, Oral, DAILY methimazole (TAPAZOLE) 20 mg, Oral, DAILY ondansetron (ZOFRAN-ODT) 4 mg, Oral, EVERY 8 HOURS NEEDED spironolactone (ALDACTONE) 100 mg, Oral, DAILY ROS Review of Systems Constitutional: Negative for activity change, appetite change, chills, diaphoresis, fatigue and fever. HENT: Negative for congestion, rhinorrhea, sinus pressure, sinus pain and sore throat. Eyes: Positive for photophobia. Negative for pain and visual disturbance. Respiratory: Negative for cough, chest tightness and shortness of breath. Cardiovascular: Negative for chest pain, palpitations and leg swelling. Gastrointestinal: Negative for abdominal distention, abdominal pain, constipation, diarrhea, nausea and vomiting. Genitourinary: Negative for decreased urine volume, difficulty urinating, dysuria, flank pain and frequency. Musculoskeletal: Negative for arthralgias, back pain, myalgias and neck pain. Skin: Negative for color change, pallor, rash and wound. Neurological: Positive for seizures. Negative for dizziness, tremors, facial asymmetry, speech difficulty, weakness, light-headedness, numbness and headaches. Psychiatric/Behavioral: Negative for confusion. Physical Exam ED Triage Vitals Enc Vitals Group BP 03/18/22 1619 161/74 Pulse (Heart Rate) 03/18/22 1619 98 Resp Rate 03/18/22 1619 18 Temp 03/18/22 1619 99 F (37.2 C) Temp source 03/18/22 1619 Temporal O2 Sat (%) 03/18/22 1619 100 % Weight -- Height 03/18/22 1620 1.676 m (5' 6 ) Head Circumference -- Peak Flow -- Pain Score -- Pain Loc -- Pain Edu? -- Excl. in GC? -- Vitals: 03/18/22 1619 03/18/22 1620 BP: 161/74 Pulse: 98 Resp: 18 Temp: 99 degrees F (37.2 degrees C) TempSrc: Temporal SpO2: 100% Height: 1.676 m (5' 6 ) Physical Exam Vitals and nursing note reviewed. Constitutional: General: She is not in acute distress. Appearance: Normal appearance. She is not ill-appearing or diaphoretic. Comments: Sitting up in bed alert, relaxed, legs crossed, arms on railing. No acute distress. Not appear in pain. Calm, pleasant. Conversing normally. Well-appearing. HENT: Head: Normocephalic and atraumatic. Right Ear: External ear normal. Left Ear: External ear normal. Nose: Nose normal. No rhinorrhea. Mouth/Throat: Mouth: Mucous membranes are moist. Eyes: Extraocular Movements: Extraocular movements intact. Conjunctiva/sclera: Conjunctivae normal. Pupils: Pupils are equal, round, and reactive to light. Cardiovascular: Rate and Rhythm: Normal rate and regular rhythm. Pulmonary: Effort: Pulmonary effort is normal. No respiratory distress. Abdominal: General: There is no distension. Palpations: Abdomen is soft. Musculoskeletal: General: No deformity or signs of injury. Cervical back: No rigidity. Skin: General: Skin is dry. Coloration: Skin is not jaundiced. Findings: No erythema. Neurological: Mental Status: She is alert and oriented to person, place, and time. Comments: GCS 15. Alert oriented x4. Speech clear. Moves all 4 extremities. Cranial nerves 2-12 grossly intact. Psychiatric: Mood and Affect: Mood normal. Behavior: Behavior normal. Thought Content: Thought content normal. Judgment: Judgment normal. ED Course & MDM Medications naproxen (NAPROSYN) tablet 500 mg (500 mg Oral Given 03/18/221746) acetaminophen (TYLENOL) tablet 1,000 mg (1,000 mg Oral Given 03/18/221746) Patient at baseline on arrival to ER. No neuro deficits on exam. Naproxen, Tylenol given for mild generalized headache. No recent head trauma or neuro deficits to suggest acute intracranial process. No signs head trauma. Patient had negative head CT for same symptoms 2 weeks ago. Patient was evaluated by Neurology, episodes felt to be nonepileptic, was not started on medications. Will hold anti epileptic medications at this time patient advised she needs to follow-up with neurology outpatient as instructed. Advised to return to ER if new or worsening symptoms. Diagnosis: 1. Seizure-like activity This note was dictated using medical voice recognition software. Attempts at proofreading were made, but errors may occasionally still occur. DO Carla Allen DO 03/18/221750 [facility] Work Phone: 03-18-2022 Emergency department Note Chief Complaint Patient presents with Seizure Giuliana Grewal is a 36 y.o. female Pt presents for possible seizure. States she has had similar episodes since I was 25 years old . State they occur 3-4x per week. Pt was admitted 2 weeks ago, seen by neurology, negative EEG & CT. 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 States she was referred to [facility] for 24 hour EEG, however decided not to follow-up because she is playing to he moved to [place] at the end of this week. States she had generalized headache yesterday, planned to come to emergency department today for evaluation because headache typically means she is going to have a seizure. Went to work this morning, however states she could not leave to come to ER because she was the only morning at work. States she was sitting outside smoking a cigarette with 2 other people when she had a seizure. States episodes entail being awake, but unable to talk or respond to people. Pt is unsure how long episode lasted today. Back to baseline now. Denies any recent illness. Denies any recent head trauma. States episodes associated with photophobia. The history is provided by the patient. PMH: Past Medical History: Diagnosis Date Anemia Asthma Cirrhosis Congestive heart failure Graves' disease Migraine STEINER (nonalcoholic steatohepatitis) Other cirrhosis of liver Polycystic ovarian disease Seizure disorder PSH: Past Surgical History: Procedure Laterality Date EGD DIAGNOSTIC N/A 10/16/2021 Laterality: N/A; Surgeon: Susie Pratt MD; Location: [facility] OR EGD DIAGNOSTIC N/A 11/17/2020 Laterality: N/A; Surgeon: Christiano Sepulveda MD; [facility] Family Hx: Family History Problem Relation Age of Onset Uterine Cancer Mother Heart Disease - Other Mother Heart Disease - Other Father Breast Cancer Sister Cancer- Other Maternal Aunt Allergies: Allergies Allergen Reactions Benadryl [Diphenhydramine] Hives, Shortness of Breath and Rash *Seafood - Food Allergy Throat closes up and turns red Fish Allergy Fish-Derived Products Rash Throat swells closed. Peg-8 Beeswax [Polyethylene Glycol] Social Hx: Social History Socioeconomic History Marital status: Spouse name: Not on file Number of children: Not on file Years of education: Not on file Highest education level: Not on file Occupational History Not on file Tobacco Use Smoking status: Current Every Day Smoker Packs/day: 1.00 Types: Cigarettes Start date: 2002 Last attempt to quit: 06/2021 Years since quittin.7 Smokeless tobacco: Never Used Tobacco comment: Started at age 17. Vaping Use Vaping Use: Every day Substances: Nicotine, THC, Started at age 31. Devices: Refillable tank Substance and Sexual Activity Alcohol use: Yes Comment: socially Drug use: Yes Frequency: 2.0 times per week Types: Marijuana Sexual activity: Not on file Other Topics Concern Service Not Asked Blood Transfusions Not Asked Caffeine Concern Not Asked Occupational Exposure Not Asked Hobby Hazards Not Asked Sleep Concern Not Asked Stress Concern Not Asked Weight Concern Not Asked Special Diet Not Asked Back Care Not Asked Exercise Not Asked Bike Helmet Not Asked Seat Belt Not Asked Domestic Violence Not Asked Social History Narrative Not on file Social Determinants of Health Financial Resource Strain: Not on file Food Insecurity: Not on file Transportation Needs: Not on file Physical Activity: Not on file Stress: Not on file Social Connections: Not on file Intimate Partner Violence: Not on file Housing Stability: Not on file Medications: Current Outpatient Medications Medication Instructions albuterol 108 (90 Base) MCG/ACT Aero Soln inhaler 1 puff, Inhalation, EVERY 6 HOURS NEEDED faMOTIdine (PEPCID) 20 mg, Oral, EVERY 12 HOURS furOSEmide (LASIX) 20 mg, Oral, 2 TIMES DAILY lisinopril (PRINIVIL) 10 mg, Oral, DAILY methimazole (TAPAZOLE) 20 mg, Oral, DAILY ondansetron (ZOFRAN-ODT) 4 mg, Oral, EVERY 8 HOURS NEEDED spironolactone (ALDACTONE) 100 mg, Oral, DAILY ROS Review of Systems Constitutional: Negative for activity change, appetite change, chills, diaphoresis, fatigue and fever. HENT: Negative for congestion, rhinorrhea, sinus pressure, sinus pain and sore throat. Eyes: Positive for photophobia. Negative for pain and visual disturbance. Respiratory: Negative for cough, chest tightness and shortness of breath. Cardiovascular: Negative for chest pain, palpitations and leg swelling. Gastrointestinal: Negative for abdominal distention, abdominal pain, constipation, diarrhea, nausea and vomiting. Genitourinary: Negative for decreased urine volume, difficulty urinating, dysuria, flank pain and frequency. Musculoskeletal: Negative for arthralgias, back pain, myalgias and neck pain. Skin: Negative for color change, pallor, rash and wound. Neurological: Positive for seizures. Negative for dizziness, tremors, facial asymmetry, speech difficulty, weakness, light-headedness, numbness and headaches. Psychiatric/Behavioral: Negative for confusion. Physical Exam ED Triage Vitals Enc Vitals Group BP 03/18/22 1619 161/74 Pulse (Heart Rate) 03/18/22 1619 98 Resp Rate 03/18/22 1619 18 Temp 03/18/22 1619 99 F (37.2 C) Temp source 03/18/22 1619 Temporal O2 Sat (%) 03/18/22 1619 100 % Weight -- Height 03/18/22 1620 1.676 m (5' 6 ) Head Circumference -- Peak Flow -- Pain Score -- Pain Loc -- Pain Edu? -- Excl. in GC? -- Vitals: 03/18/22 1619 03/18/22 1620 BP: 161/74 Pulse: 98 Resp: 18 Temp: 99 degrees F (37.2 degrees C) TempSrc: Temporal SpO2: 100% Height: 1.676 m (5' 6 ) Physical Exam Vitals and nursing note reviewed. Constitutional: General: She is not in acute distress. Appearance: Normal appearance. She is not ill-appearing or diaphoretic. Comments: Sitting up in bed alert, relaxed, legs crossed, arms on railing. No acute distress. Not appear in pain. Calm, pleasant. Conversing normally. Well-appearing. HENT: Head: Normocephalic and atraumatic. Right Ear: External ear normal. Left Ear: External ear normal. Nose: Nose normal. No rhinorrhea. Mouth/Throat: Mouth: Mucous membranes are moist. Eyes: Extraocular Movements: Extraocular movements intact. Conjunctiva/sclera: Conjunctivae normal. Pupils: Pupils are equal, round, and reactive to light. Cardiovascular: Rate and Rhythm: Normal rate and regular rhythm. Pulmonary: Effort: Pulmonary effort is normal. No respiratory distress. Abdominal: General: There is no distension. Palpations: Abdomen is soft. Musculoskeletal: General: No deformity or signs of injury. Cervical back: No rigidity. Skin: General: Skin is dry. Coloration: Skin is not jaundiced. Findings: No erythema. Neurological: Mental Status: She is alert and oriented to person, place, and time. Comments: GCS 15. Alert oriented x4. Speech clear. Moves all 4 extremities. Cranial nerves 2-12 grossly intact. Psychiatric: Mood and Affect: Mood normal. Behavior: Behavior normal. Thought Content: Thought content normal. Judgment: Judgment normal. ED Course & MDM Medications naproxen (NAPROSYN) tablet 500 mg (500 mg Oral Given 03/18/221746) acetaminophen (TYLENOL) tablet 1,000 mg (1,000 mg Oral Given 03/18/221746) Patient at baseline on arrival to ER. No neuro deficits on exam. Naproxen, Tylenol given for mild generalized headache. No recent head trauma or neuro deficits to suggest acute intracranial process. No signs head trauma. Patient had negative head CT for same symptoms 2 weeks ago. Patient was evaluated by Neurology, episodes felt to be nonepileptic, was not started on medications. Will hold anti epileptic medications at this time patient advised she needs to follow-up with neurology outpatient as instructed. Advised to return to ER if new or worsening symptoms. Diagnosis: 1. Seizure-like activity This note was dictated using medical voice recognition software. Attempts at proofreading were made, but errors may occasionally still occur. DO Carla Allen DO 03/18/221750 Seizure pads placed on bed, call light within reach. Pt reports that she had a seizure at work about 30 minutes ago. Pt reports a hx of seizures, not currently on medications for it. Pt reports headache that started yesterday. documented in this encounter [facility] 03-18-2022 Emergency department Note Seizure pads placed on bed, call light within reach. [facility] 03-18-2022 Emergency department Note Pt reports that she had a seizure at work about 30 minutes ago. Pt reports a hx of seizures, not currently on medications for it. Pt reports headache that started yesterday. [facility] 01-31-2022 Hospital Discharge instructions Caron Duggan MD - 01/31/2022 12:48 AM EDT Your xrays show a break in the foot bone near your little toe Use post op shoe and crutches until you follow up with podiatry Keep extremity elevated Return for new or worsening symptoms or for any additional concerns The following attachments cannot be sent through Care Everywhere.Metatarsal Fracture (Sammarinese)documented in this encounter [facility] 01-30-2022 Emergency department Note Pt states that she fell coming down a step last and hurt the top of her left foot. Reports that the left foot is still swollen. [facility] 01-30-2022 Emergency department Note Pt states that she fell coming down a step last and hurt the top of her left foot. Reports that the left foot is still swollen. EMERGENCY DEPARTMENT ENCOUNTER CHIEF COMPLAINT Foot Swelling (right) HPI Giuliana Grewal is a 36 y.o. female who presents to the ED from home for left foot pain. Patient states that she twisted her foot on step 1 week ago. Reports persistent pain and swelling. Has been walking on it. No numbness or tingling. No breaks in the skin. No ankle pain PAST MEDICAL HISTORY Past Medical History: Diagnosis Date Anemia Asthma Cirrhosis Congestive heart failure Graves' disease Migraine STEINER (nonalcoholic steatohepatitis) Other cirrhosis of liver Polycystic ovarian disease Seizure disorder SURGICAL HISTORY Past Surgical History: Procedure Laterality Date EGD DIAGNOSTIC N/A 10/16/2021 Laterality: N/A; Surgeon: Susie Pratt MD; Location: [facility] EGD DIAGNOSTIC N/A 11/17/2020 Laterality: N/A; Surgeon: Christiano Sepulveda MD; Location: [facility] ENDOSCOPY EYE SURGERY CURRENT MEDICATIONS Current Outpatient Medications Medication Sig albuterol 108 (90 Base) MCG/ACT Aero Soln inhaler Inhale 1 puff every 6 hours as needed for Shortness of Breath. faMOTIdine 20 MG tablet Take 1 tablet by mouth every 12 hours. furOSEmide 40 MG tablet Take 40 mg by mouth daily. lisinopril 10 MG tablet Take 10 mg by mouth daily. methimazole 10 MG tablet Take 20 mg by mouth daily. ondansetron 4 MG Tab Dispersible tablet Take 1 tablet by mouth every 8 hours as needed for Nausea / Vomiting. spironolactone 100 MG tablet Take 1 tablet by mouth daily. ALLERGIES Allergies Allergen Reactions Benadryl [Diphenhydramine] Hives, Shortness of Breath and Rash *Seafood - Food Allergy Throat closes up and turns red Fish Allergy Fish-Derived Products Rash Throat swells closed. Peg-8 Beeswax [Polyethylene Glycol] FAMILY HISTORY Family History Problem Relation Age of Onset Uterine Cancer Mother Heart Disease - Other Mother Heart Disease - Other Father Breast Cancer Sister Cancer- Other Maternal Aunt SOCIAL HISTORY Social History Socioeconomic History Marital status: Tobacco Use Smoking status: Former Smoker Packs/day: 1.00 Types: Cigarettes Start date: 2002 Quit date: 06/2021 Years since quittin.6 Smokeless tobacco: Never Used Tobacco comment: Started at age 17. Vaping Use Vaping Use: Every day Substances: Nicotine, THC, Started at age 31. Devices: Refillable tank Substance and Sexual Activity Alcohol use: Not Currently Drug use: Yes Frequency: 2.0 times per week Types: Marijuana REVIEW OF SYSTEMS General: Denies fevers, chills, malaise Neurological: denies numbness, tingling, weakness Endocrine: denies polyuria, polydipsia, heat or cold intolerance Muskuloskeletal: left foot pain Skin: denies rashes or sores Remainder of ROS reviewed and are negative PHYSICAL EXAM VITAL SIGNS: Smoking Status Former Smoker There were no vitals filed for this visit. Constitutional: Well developed, Well nourished, Non-toxic appearance. HENT: Normocephalic, Atraumatic. Bilateral external ears normal. Neck: Trachea midline Eyes: Pupils equal, sclera anicteric Respiratory: No respiratory distress Cardiovascular: rrr. Extremities: swelling and tenderness to dorsum of left foot . Some bruising noted Skin: Warm, Dry, No erythema, No rash. Neurologic: Alert & oriented x 3, No focal deficits noted. Normal sensory function, Normal motor function Psychiatric: Affect normal, Judgment normal, Mood normal. ED Interventions/labs: No results found for this visit on 01/30/22. No orders to display X-ray left foot three views viewed by me interpreted by me distal 5th metatarsal fracture ED Course: Vitals reviewed Medical Decision Making Giuliana Grewal is a 36 y.o. female who presents with left 5th metatarsal fracture. Closed. Injury occurred approximately 1 week ago. Given postop shoe given crutches supportive care instructions. Impression: Left 5th metacarpal fracture Dispo: Discharge ot home MD Caron Brumfield MD 01/31/22 0127 documented in this encounter [facility] 01-30-2022 Physician Emergency department Note EMERGENCY DEPARTMENT ENCOUNTER CHIEF COMPLAINT Foot Swelling (right) HPI Giuliana Grewal is a 36 y.o. female who presents to the ED from home for left foot pain. Patient states that she twisted her foot on step 1 week ago. Reports persistent pain and swelling. Has been walking on it. No numbness or tingling. No breaks in the skin. No ankle pain PAST MEDICAL HISTORY Past Medical History: Diagnosis Date Anemia Asthma Cirrhosis Congestive heart failure Graves' disease Migraine STEINER (nonalcoholic steatohepatitis) Other cirrhosis of liver Polycystic ovarian disease Seizure disorder SURGICAL HISTORY Past Surgical History: Procedure Laterality Date EGD DIAGNOSTIC N/A 10/16/2021 Laterality: N/A; Surgeon: Susie Pratt MD; Location: [facility] EGD DIAGNOSTIC N/A 11/17/2020 Laterality: N/A; Surgeon: Christiano Sepulveda MD; Location: [facility] CURRENT MEDICATIONS Current Outpatient Medications Medication Sig albuterol 108 (90 Base) MCG/ACT Aero Soln inhaler Inhale 1 puff every 6 hours as needed for Shortness of Breath. faMOTIdine 20 MG tablet Take 1 tablet by mouth every 12 hours. furOSEmide 40 MG tablet Take 40 mg by mouth daily. lisinopril 10 MG tablet Take 10 mg by mouth daily. methimazole 10 MG tablet Take 20 mg by mouth daily. ondansetron 4 MG Tab Dispersible tablet Take 1 tablet by mouth every 8 hours as needed for Nausea / Vomiting. spironolactone 100 MG tablet Take 1 tablet by mouth daily. ALLERGIES Allergies Allergen Reactions Benadryl [Diphenhydramine] Hives, Shortness of Breath and Rash *Seafood - Food Allergy Throat closes up and turns red Fish Allergy Fish-Derived Products Rash Throat swells closed. Peg-8 Beeswax [Polyethylene Glycol] FAMILY HISTORY Family History Problem Relation Age of Onset Uterine Cancer Mother Heart Disease - Other Mother Heart Disease - Other Father Breast Cancer Sister Cancer- Other Maternal Aunt SOCIAL HISTORY Social History Socioeconomic History Marital status: Tobacco Use Smoking status: Former Smoker Packs/day: 1.00 Types: Cigarettes Start date: 2002 Quit date: 06/2021 Years since quittin.6 Smokeless tobacco: Never Used Tobacco comment: Started at age 17. Vaping Use Vaping Use: Every day Substances: Nicotine, THC, Started at age 31. Devices: Refillable tank Substance and Sexual Activity Alcohol use: Not Currently Drug use: Yes Frequency: 2.0 times per week Types: Marijuana REVIEW OF SYSTEMS General: Denies fevers, chills, malaise Neurological: denies numbness, tingling, weakness Endocrine: denies polyuria, polydipsia, heat or cold intolerance Muskuloskeletal: left foot pain Skin: denies rashes or sores Remainder of ROS reviewed and are negative PHYSICAL EXAM VITAL SIGNS: Smoking Status Former Smoker There were no vitals filed for this visit. Constitutional: Well developed, Well nourished, Non-toxic appearance. HENT: Normocephalic, Atraumatic. Bilateral external ears normal. Neck: Trachea midline Eyes: Pupils equal, sclera anicteric Respiratory: No respiratory distress Cardiovascular: rrr. Extremities: swelling and tenderness to dorsum of left foot . Some bruising noted Skin: Warm, Dry, No erythema, No rash. Neurologic: Alert & oriented x 3, No focal deficits noted. Normal sensory function, Normal motor function Psychiatric: Affect normal, Judgment normal, Mood normal. ED Interventions/labs: No results found for this visit on 01/30/22. No orders to display X-ray left foot three views viewed by me interpreted by me distal 5th metatarsal fracture ED Course: Vitals reviewed Medical Decision Making Giuliana Grewal is a 36 y.o. female who presents with left 5th metatarsal fracture. Closed. Injury occurred approximately 1 week ago. Given postop shoe given crutches supportive care instructions. Impression: Left 5th metacarpal fracture Dispo: Discharge ot home MD Caron Brumfield MD 01/31/22 0127 [facility] 11-30-2021 Hospital Discharge instructions Valarie Myers CNP - 11/30/2021 11:56 PM EDT Take Zofran to help with nausea CLEAR LIQUIDS (small amounts) and easy to digest foods for the next 24 hours, advance diet slowly Continue ibuprofen or Tylenol for management of fever Keflex for the UTI Return to ER if new or worsening symptoms The following attachments cannot be sent through Care Everywhere.Urinary Tract Infections (UTIs) in Women ([facility]) ([place])Gastroenteritis ([place]inese)documented in this encounter [facility] 11-30-2021 Physician Emergency department Note dEPARTMENT of Emergency Medicine CHIEF COMPLAINT Fever and Vomiting HPI Giuliana Grewal is a 36 y.o. female who presents to the ED for evaluation of vomiting, diarrhea, fever, sore throat, and congestion that began suddenly at 1:00 a.m. today. Patient has had over 10 episodes of nonbilious, nonbloody vomiting along with a few episodes of nonbloody diarrhea. 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 Patient states she has mild abdominal pain, worse when vomiting. Has a history of seizures, then she has had 2 seizures today which she describes as staring. Has body aches but no pain with urination, flank pain. Took ibuprofen this morning without complete relief of symptoms. REVIEW OF SYSTEMS Review of Systems Constitutional: Positive for activity change, appetite change, fatigue and fever. HENT: Positive for congestion and sore throat. Negative for ear pain. Eyes: Negative for photophobia. Respiratory: Positive for cough. Negative for shortness of breath. Cardiovascular: Negative for chest pain. Gastrointestinal: Positive for abdominal pain, diarrhea, nausea and vomiting. Genitourinary: Negative for decreased urine volume, difficulty urinating and flank pain. Musculoskeletal: Positive for myalgias. Negative for neck pain and neck stiffness. Neurological: Positive for seizures. Negative for dizziness and facial asymmetry. Hematological: Negative. Psychiatric/Behavioral: Negative. PAST MEDICAL HISTORY Past Medical History: Diagnosis Date Anemia Asthma Cirrhosis Congestive heart failure Graves' disease Migraine STEINER (nonalcoholic steatohepatitis) Other cirrhosis of liver Polycystic ovarian disease Seizure disorder SURGICAL HISTORY Past Surgical History: Procedure Laterality Date EGD DIAGNOSTIC N/A 10/16/2021 Laterality: N/A; Surgeon: Susie Pratt MD; Location: [facility] OR EGD DIAGNOSTIC N/A 11/17/2020 Laterality: N/A; Surgeon: Christiano Sepulveda MD; Location: [facility] CURRENT MEDICATIONS No current facility-administered medications for this encounter. Current Outpatient Medications Medication Sig Dispense Refill albuterol 108 (90 Base) MCG/ACT Aero Soln inhaler Inhale 1 puff every 6 hours as needed for Shortness of Breath. 6.7 g 0 faMOTIdine 20 MG tablet Take 1 tablet by mouth every 12 hours. 60 tablet 0 furOSEmide 40 MG tablet Take 40 mg by mouth daily. lisinopril 10 MG tablet Take 10 mg by mouth daily. methimazole 10 MG tablet Take 20 mg by mouth daily. ondansetron 4 MG Tab Dispersible tablet Take 1 tablet by mouth every 4 hours as needed for Nausea. Place on tongue 30 tablet 0 spironolactone 100 MG tablet Take 1 tablet by mouth daily. 30 tablet 0 ALLERGIES Allergies Allergen Reactions Benadryl [Diphenhydramine] Hives, Shortness of Breath and Rash *Seafood - Food Allergy Throat closes up and turns red Fish Allergy Fish-Derived Products Rash Throat swells closed. Peg-8 Beeswax [Polyethylene Glycol] FAMILY HISTORY Family History Problem Relation Age of Onset Uterine Cancer Mother Heart Disease - Other Mother Heart Disease - Other Father Breast Cancer Sister Cancer- Other Maternal Aunt SOCIAL HISTORY Social History Socioeconomic History Marital status: Spouse name: Not on file Number of children: Not on file Years of education: Not on file Highest education level: Not on file Occupational History Not on file Tobacco Use Smoking status: Former Smoker Packs/day: 1.00 Types: Cigarettes Start date: 2002 Quit date: 06/2021 Years since quittin.4 Smokeless tobacco: Never Used Tobacco comment: Started at age 17. Vaping Use Vaping Use: Every day Substances: Nicotine, THC, Started at age 31. Devices: Refillable tank Substance and Sexual Activity Alcohol use: Not Currently Drug use: Yes Frequency: 2.0 times per week Types: Marijuana Sexual activity: Not on file Other Topics Concern Service Not Asked Blood Transfusions Not Asked Caffeine Concern Not Asked Occupational Exposure Not Asked Hobby Hazards Not Asked Sleep Concern Not Asked Stress Concern Not Asked Weight Concern Not Asked Special Diet Not Asked Back Care Not Asked Exercise Not Asked Bike Helmet Not Asked Seat Belt Not Asked Domestic Violence Not Asked Social History Narrative Not on file Social Determinants of Health Financial Resource Strain: Not on file Food Insecurity: Not on file Transportation Needs: Not on file Physical Activity: Not on file Stress: Not on file Social Connections: Not on file Intimate Partner Violence: Not on file Housing Stability: Not on file PHYSICAL EXAM BP 142/78 Pulse 108 Temp 102 F (38.9 C) (Oral) Resp 20 Ht 1.676 m (5' 6 ) SpO2 97% BMI 34.70 kg/m Smoking Status Former Smoker Physical Exam Vitals and nursing note reviewed. Constitutional: Comments: Well nourished cooperative patient resting comfortably on exam cot; speech clear and fluent; skin pink, hot and dry HENT: Head: Normocephalic. Right Ear: Tympanic membrane, ear canal and external ear normal. Left Ear: Tympanic membrane, ear canal and external ear normal. Nose: Nose normal. Mouth/Throat: Mouth: Mucous membranes are dry. Eyes: Conjunctiva/sclera: Conjunctivae normal. Pupils: Pupils are equal, round, and reactive to light. Comments: Amblyopia affecting left eye Cardiovascular: Rate and Rhythm: Regular rhythm. Tachycardia present. Pulmonary: Effort: Pulmonary effort is normal. Breath sounds: Normal breath sounds. Abdominal: General: Abdomen is flat. Bowel sounds are normal. Palpations: Abdomen is soft. Tenderness: There is no right CVA tenderness or left CVA tenderness. Comments: Minimal tenderness with no guarding or rebound Musculoskeletal: General: Normal range of motion. Cervical back: Normal range of motion. Tenderness present. No rigidity. Skin: General: Skin is warm and dry. Neurological: Comments: No meningeal signs present Psychiatric: Mood and Affect: Mood normal. Behavior: Behavior normal. Results for orders placed or performed during the hospital encounter of 11/30/21 RESPIRATORY PANEL (COVID, FLU, RSV) Specimen: Fluid/Swab Result Value Ref Range SARS COV 2 RNA, QL REAL TIME RT PCR NEGATIVE Respiratory Syncytial Virus (RSV) NEGATIVE INFLUENZA A - PCR NEGATIVE INFLUENZA B - PCR NEGATIVE COMPREHENSIVE METABOLIC PANEL Result Value Ref Range PROTEIN, TOTAL 7.2 6.0 - 8.2 g/dL ALBUMIN 3.4 (L) 3.5 - 5.0 g/dL ALT 19 9 - 52 U/L ALKALINE PHOSPHATASE 123 38 - 126 U/L AST 32 14 - 56 U/L BILIRUBIN, TOTAL 0.8 0.2 - 1.2 mg/dL SODIUM 133 (L) 136 - 145 mmol/L POTASSIUM 3.5 3.5 - 5.0 mmol/L CHLORIDE 104 100 - 110 mmol/L CARBON DIOXIDE (CO2) 24.0 22.0 - 30.0 mm/Hg GLUCOSE 99 70 - 100 mg/dL BUN 10 7 - 22 mg/dL CREATININE SERUM 0.46 (L) 0.70 - 1.20 mg/dL CALCIUM 8.2 (L) 8.4 - 10.2 mg/dL ANION GAP 5.3 mmol/L ESTIMATED GFR, NON AMER 164 >60 mL/min/1.73 m2 CBC, EDIF, PLATELET Result Value Ref Range WBC (WHITE BLOOD COUNT) 6.18 4.80 - 10.80 10*3/uL RBC 4.46 3.80 - 5.10 10*6/uL HEMOGLOBIN (HGB) 12.5 12.0 - 16.0 g/dL HEMATOCRIT (HCT) 38.5 35.0 - 47.0 % MEAN CELL VOLUME 86.3 82.0 - 98.0 fL Mean Cell HGB 28.0 25.6 - 32.2 pg MEAN CELL HGB CONCENTRATION 32.5 32.0 - 36.0 g/dL PLATELET COUNT 172 150 - 400 10*3/uL RBC DISTRIBUTION 15.1 (H) 11.5 - 14.5 % MEAN PLATELET VOLUME 9.9 9.4 - 12.4 fL NEUTROPHIL % 74.4 (H) 36.0 - 66.0 % LYMPHOCYTES % 17.8 (L) 24.0 - 44.0 % MONOCYTE % 7.0 5.0 - 11.0 % EOSINOPHILS 0.3 0.0 - 4.0 % BASOPHIL % 0.2 0.0 - 2.0 % NEUTROPHILS (ABSOLUTE) 4.60 2.00 - 7.50 10*3/uL LYMPHOCYTES, ABSOLUTE 1.10 1.00 - 4.80 10*3/uL MONOCYTES, ABSOLUTE 0.43 0.20 - 1.20 10*3/uL EOSINOPHILS, ABSOLUTE 0.02 0.00 - 0.50 10*3/uL ABSOLUTE BASOPHIL COUNT 0.01 0.00 - 0.20 10*3/uL RBC, NUCLEATED 0.0 % RBC, NUCLEATED, ABSOLUTE 0.00 0.00 - 0.50 BILIRUBIN DIRECT Result Value Ref Range BILIRUBIN, DIRECT 0.2 0.0 - 0.4 mg/dL URINALYSIS REFLEX TO CULTURE Specimen: URINE - CLEAN CATCH Result Value Ref Range COLOR, URINE YELLOW APPEARANCE, URINE SL CLOUDY PH URINE 5.5 6.0 - 8.5 Specific [place], Urine 1.030 1.010 - 1.030 GLUCOSE, URINE NEGATIVE NEGATIVE mg/dL KETONES, URINE NEGATIVE NEGATIVE mg/dL BLOOD, URINE NEGATIVE NEGATIVE U/L PROTEIN, URINE 20 (A) NEG/TRACE mg/dL UROBILINOGEN, URINE 3 (A) <2.0 mg/dL NITRITES, URINE NEGATIVE NEGATIVE mg/dL LEUKOCYTE ESTERASE, URINE LARGE (A) NEGATIVE /uL BILIRUBIN, URINE NEGATIVE NEGATIVE mg/dL Method of collection Not stated WBC, URINE 14 (H) 0 - 5 /hpf RBC, URINE 5 (A) 0 - 2 /hpf BACTERIA, URINE 2+ (A) NONE /hpf CASTS, URINE OCC (A) NONE /hpf SQUAMOUS EPITHELIAL CELLS, URINE 10 (H) 0 - 5 /hpf CRYSTALS, URINE NORMAL Yeast NORMAL CELLS ANALYZED NORMAL CASTS, URINE REVIEW HCG QUALITATIVE, URINE Result Value Ref Range HCG, QUALITATIVE, URINE NEGATIVE URINE MICROSCOPIC Result Value Ref Range CRYSTALS, URINE None NONE /hpf Yeast NONE CELLS, OTHER OCC CLUE CELLS (A) NONE /hpf CASTS, URINE None NONE /hpf URINE OTHER None NONE /hpf ED COURSE & MEDICAL DECISION MAKING Patient given a liter of fluid along with Zofran IV on arrival with improvement in nausea. No vomiting episodes in the ED. Patient is febrile but nontoxic appearing with no respiratory distress and no meningeal signs present. Respiratory panel negative. Patient has had prior UTIs but is having no urinary symptoms at this time - will treat this episode with Keflex, first dose given in the ED. Considered pyelonephritis differential diagnosis however white count normal and no flank pain. Patient had two episodes of non bloody diarrhea but states she is feeling better following ibuprofen and Zofran. Is hungry, taking small amounts of juice and crackers without difficulty. No sign of sepsis or acute abdomen. Fever decreased after ibuprofen. Will treat supportively with Zofran, fluids and close follow-up. Discussed home management strategies along with complications, will return if symptoms worsen or new ones develop. Impression: Gastroenteritis UTI Plan: As above Keflex Disposition: Home Condition: Good Valarie Myers CNP 12/01/21 0003 [facility] 11-30-2021 Emergency department Note dEPARTMENT of Emergency Medicine CHIEF COMPLAINT Fever and Vomiting HPI Giuliana Grewal is a 36 y.o. female who presents to the ED for evaluation of vomiting, diarrhea, fever, sore throat, and congestion that began suddenly at 1:00 a.m. today. Patient has had over 10 episodes of nonbilious, nonbloody vomiting along with a few episodes of nonbloody diarrhea. 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 Patient states she has mild abdominal pain, worse when vomiting. Has a history of seizures, then she has had 2 seizures today which she describes as staring. Has body aches but no pain with urination, flank pain. Took ibuprofen this morning without complete relief of symptoms. REVIEW OF SYSTEMS Review of Systems Constitutional: Positive for activity change, appetite change, fatigue and fever. HENT: Positive for congestion and sore throat. Negative for ear pain. Eyes: Negative for photophobia. Respiratory: Positive for cough. Negative for shortness of breath. Cardiovascular: Negative for chest pain. Gastrointestinal: Positive for abdominal pain, diarrhea, nausea and vomiting. Genitourinary: Negative for decreased urine volume, difficulty urinating and flank pain. Musculoskeletal: Positive for myalgias. Negative for neck pain and neck stiffness. Neurological: Positive for seizures. Negative for dizziness and facial asymmetry. Hematological: Negative. Psychiatric/Behavioral: Negative. PAST MEDICAL HISTORY Past Medical History: Diagnosis Date Anemia Asthma Cirrhosis Congestive heart failure Graves' disease Migraine STEINER (nonalcoholic steatohepatitis) Other cirrhosis of liver Polycystic ovarian disease Seizure disorder SURGICAL HISTORY Past Surgical History: Procedure Laterality Date EGD DIAGNOSTIC N/A 10/16/2021 Laterality: N/A; Surgeon: Susie Pratt MD; Location: [facility] OR EGD DIAGNOSTIC N/A 11/17/2020 Laterality: N/A; Surgeon: Christiano Sepulveda MD; Location: [facility] CURRENT MEDICATIONS No current facility-administered medications for this encounter. Current Outpatient Medications Medication Sig Dispense Refill albuterol 108 (90 Base) MCG/ACT Aero Soln inhaler Inhale 1 puff every 6 hours as needed for Shortness of Breath. 6.7 g 0 faMOTIdine 20 MG tablet Take 1 tablet by mouth every 12 hours. 60 tablet 0 furOSEmide 40 MG tablet Take 40 mg by mouth daily. lisinopril 10 MG tablet Take 10 mg by mouth daily. methimazole 10 MG tablet Take 20 mg by mouth daily. ondansetron 4 MG Tab Dispersible tablet Take 1 tablet by mouth every 4 hours as needed for Nausea. Place on tongue 30 tablet 0 spironolactone 100 MG tablet Take 1 tablet by mouth daily. 30 tablet 0 ALLERGIES Allergies Allergen Reactions Benadryl [Diphenhydramine] Hives, Shortness of Breath and Rash *Seafood - Food Allergy Throat closes up and turns red Fish Allergy Fish-Derived Products Rash Throat swells closed. Peg-8 Beeswax [Polyethylene Glycol] FAMILY HISTORY Family History Problem Relation Age of Onset Uterine Cancer Mother Heart Disease - Other Mother Heart Disease - Other Father Breast Cancer Sister Cancer- Other Maternal Aunt SOCIAL HISTORY Social History Socioeconomic History Marital status: Spouse name: Not on file Number of children: Not on file Years of education: Not on file Highest education level: Not on file Occupational History Not on file Tobacco Use Smoking status: Former Smoker Packs/day: 1.00 Types: Cigarettes Start date: 2002 Quit date: 06/2021 Years since quittin.4 Smokeless tobacco: Never Used Tobacco comment: Started at age 17. Vaping Use Vaping Use: Every day Substances: Nicotine, THC, Started at age 31. Devices: Refillable tank Substance and Sexual Activity Alcohol use: Not Currently Drug use: Yes Frequency: 2.0 times per week Types: Marijuana Sexual activity: Not on file Other Topics Concern Service Not Asked Blood Transfusions Not Asked Caffeine Concern Not Asked Occupational Exposure Not Asked Hobby Hazards Not Asked Sleep Concern Not Asked Stress Concern Not Asked Weight Concern Not Asked Special Diet Not Asked Back Care Not Asked Exercise Not Asked Bike Helmet Not Asked Seat Belt Not Asked Domestic Violence Not Asked Social History Narrative Not on file Social Determinants of Health Financial Resource Strain: Not on file Food Insecurity: Not on file Transportation Needs: Not on file Physical Activity: Not on file Stress: Not on file Social Connections: Not on file Intimate Partner Violence: Not on file Housing Stability: Not on file PHYSICAL EXAM BP 142/78 Pulse 108 Temp 102 F (38.9 C) (Oral) Resp 20 Ht 1.676 m (5' 6 ) SpO2 97% BMI 34.70 kg/m Smoking Status Former Smoker Physical Exam Vitals and nursing note reviewed. Constitutional: Comments: Well nourished cooperative patient resting comfortably on exam cot; speech clear and fluent; skin pink, hot and dry HENT: Head: Normocephalic. Right Ear: Tympanic membrane, ear canal and external ear normal. Left Ear: Tympanic membrane, ear canal and external ear normal. Nose: Nose normal. Mouth/Throat: Mouth: Mucous membranes are dry. Eyes: Conjunctiva/sclera: Conjunctivae normal. Pupils: Pupils are equal, round, and reactive to light. Comments: Amblyopia affecting left eye Cardiovascular: Rate and Rhythm: Regular rhythm. Tachycardia present. Pulmonary: Effort: Pulmonary effort is normal. Breath sounds: Normal breath sounds. Abdominal: General: Abdomen is flat. Bowel sounds are normal. Palpations: Abdomen is soft. Tenderness: There is no right CVA tenderness or left CVA tenderness. Comments: Minimal tenderness with no guarding or rebound Musculoskeletal: General: Normal range of motion. Cervical back: Normal range of motion. Tenderness present. No rigidity. Skin: General: Skin is warm and dry. Neurological: Comments: No meningeal signs present Psychiatric: Mood and Affect: Mood normal. Behavior: Behavior normal. Results for orders placed or performed during the hospital encounter of 11/30/21 RESPIRATORY PANEL (COVID, FLU, RSV) Specimen: Fluid/Swab Result Value Ref Range SARS COV 2 RNA, QL REAL TIME RT PCR NEGATIVE Respiratory Syncytial Virus (RSV) NEGATIVE INFLUENZA A - PCR NEGATIVE INFLUENZA B - PCR NEGATIVE COMPREHENSIVE METABOLIC PANEL Result Value Ref Range PROTEIN, TOTAL 7.2 6.0 - 8.2 g/dL ALBUMIN 3.4 (L) 3.5 - 5.0 g/dL ALT 19 9 - 52 U/L ALKALINE PHOSPHATASE 123 38 - 126 U/L AST 32 14 - 56 U/L BILIRUBIN, TOTAL 0.8 0.2 - 1.2 mg/dL SODIUM 133 (L) 136 - 145 mmol/L POTASSIUM 3.5 3.5 - 5.0 mmol/L CHLORIDE 104 100 - 110 mmol/L CARBON DIOXIDE (CO2) 24.0 22.0 - 30.0 mm/Hg GLUCOSE 99 70 - 100 mg/dL BUN 10 7 - 22 mg/dL CREATININE SERUM 0.46 (L) 0.70 - 1.20 mg/dL CALCIUM 8.2 (L) 8.4 - 10.2 mg/dL ANION GAP 5.3 mmol/L ESTIMATED GFR, NON AMER 164 >60 mL/min/1.73 m2 CBC, EDIF, PLATELET Result Value Ref Range WBC (WHITE BLOOD COUNT) 6.18 4.80 - 10.80 10*3/uL RBC 4.46 3.80 - 5.10 10*6/uL HEMOGLOBIN (HGB) 12.5 12.0 - 16.0 g/dL HEMATOCRIT (HCT) 38.5 35.0 - 47.0 % MEAN CELL VOLUME 86.3 82.0 - 98.0 fL Mean Cell HGB 28.0 25.6 - 32.2 pg MEAN CELL HGB CONCENTRATION 32.5 32.0 - 36.0 g/dL PLATELET COUNT 172 150 - 400 10*3/uL RBC DISTRIBUTION 15.1 (H) 11.5 - 14.5 % MEAN PLATELET VOLUME 9.9 9.4 - 12.4 fL NEUTROPHIL % 74.4 (H) 36.0 - 66.0 % LYMPHOCYTES % 17.8 (L) 24.0 - 44.0 % MONOCYTE % 7.0 5.0 - 11.0 % EOSINOPHILS 0.3 0.0 - 4.0 % BASOPHIL % 0.2 0.0 - 2.0 % NEUTROPHILS (ABSOLUTE) 4.60 2.00 - 7.50 10*3/uL LYMPHOCYTES, ABSOLUTE 1.10 1.00 - 4.80 10*3/uL MONOCYTES, ABSOLUTE 0.43 0.20 - 1.20 10*3/uL EOSINOPHILS, ABSOLUTE 0.02 0.00 - 0.50 10*3/uL ABSOLUTE BASOPHIL COUNT 0.01 0.00 - 0.20 10*3/uL RBC, NUCLEATED 0.0 % RBC, NUCLEATED, ABSOLUTE 0.00 0.00 - 0.50 BILIRUBIN DIRECT Result Value Ref Range BILIRUBIN, DIRECT 0.2 0.0 - 0.4 mg/dL URINALYSIS REFLEX TO CULTURE Specimen: URINE - CLEAN CATCH Result Value Ref Range COLOR, URINE YELLOW APPEARANCE, URINE SL CLOUDY PH URINE 5.5 6.0 - 8.5 Specific [place], Urine 1.030 1.010 - 1.030 GLUCOSE, URINE NEGATIVE NEGATIVE mg/dL KETONES, URINE NEGATIVE NEGATIVE mg/dL BLOOD, URINE NEGATIVE NEGATIVE U/L PROTEIN, URINE 20 (A) NEG/TRACE mg/dL UROBILINOGEN, URINE 3 (A) <2.0 mg/dL NITRITES, URINE NEGATIVE NEGATIVE mg/dL LEUKOCYTE ESTERASE, URINE LARGE (A) NEGATIVE /uL BILIRUBIN, URINE NEGATIVE NEGATIVE mg/dL Method of collection Not stated WBC, URINE 14 (H) 0 - 5 /hpf RBC, URINE 5 (A) 0 - 2 /hpf BACTERIA, URINE 2+ (A) NONE /hpf CASTS, URINE OCC (A) NONE /hpf SQUAMOUS EPITHELIAL CELLS, URINE 10 (H) 0 - 5 /hpf CRYSTALS, URINE NORMAL Yeast NORMAL CELLS ANALYZED NORMAL CASTS, URINE REVIEW HCG QUALITATIVE, URINE Result Value Ref Range HCG, QUALITATIVE, URINE NEGATIVE URINE MICROSCOPIC Result Value Ref Range CRYSTALS, URINE None NONE /hpf Yeast NONE CELLS, OTHER OCC CLUE CELLS (A) NONE /hpf CASTS, URINE None NONE /hpf URINE OTHER None NONE /hpf ED COURSE & MEDICAL DECISION MAKING Patient given a liter of fluid along with Zofran IV on arrival with improvement in nausea. No vomiting episodes in the ED. Patient is febrile but nontoxic appearing with no respiratory distress and no meningeal signs present. Respiratory panel negative. Patient has had prior UTIs but is having no urinary symptoms at this time - will treat this episode with Keflex, first dose given in the ED. Considered pyelonephritis differential diagnosis however white count normal and no flank pain. Patient had two episodes of non bloody diarrhea but states she is feeling better following ibuprofen and Zofran. Is hungry, taking small amounts of juice and crackers without difficulty. No sign of sepsis or acute abdomen. Fever decreased after ibuprofen. Will treat supportively with Zofran, fluids and close follow-up. Discussed home management strategies along with complications, will return if symptoms worsen or new ones develop. Impression: Gastroenteritis UTI Plan: As above Keflex Disposition: Home Condition: Good Valarie Myers CNP 12/01/21 0003 Pt denies any current feeling of nausea or abdominal discomfort. Pt states has not seen a neurologist yet related to her seizures but states she believes they have become more frequent. Vomiting since 0200, Fever to 102.5, diarrhea. Achy all over. Took zofran around 7:30 4mg. Tolerating sips of water now. Had a seizure, focal. Hx of same, doesn't take seizure medicine. documented in this encounter [facility] 11-30-2021 Emergency department Note Pt denies any current feeling of nausea or abdominal discomfort. Pt states has not seen a neurologist yet related to her seizures but states she believes they have become more frequent. [facility] 11-30-2021 Emergency department Note Vomiting since 0200, Fever to 102.5, diarrhea. Achy all over. Took zofran around 7:30 4mg. Tolerating sips of water now. Had a seizure, focal. Hx of same, doesn't take seizure medicine. [facility] 10-29-2021 Hospital Discharge instructions Caron Duggan MD - 10/29/2021 11:57 PM EDT Return for new or worsening symptoms or for any additional concerns Zofran for nausea Tylenol for fever Zofran for nausea/vomiting Albuterol for cough/wheezing The following attachments cannot be sent through Care Everywhere.Influenza (Sammarinese)documented in this encounter [facility] 10-29-2021 Physician Emergency department Note EMERGENCY DEPARTMENT ENCOUNTER CHIEF COMPLAINT Fever and Dizziness HPI Giuliana Grewal is a 35 y.o. female who presents to the emergency department from home for a 1-2 history of fever, chills, body aches generalized malaise. Positive sick contacts. She denies chest pain shortness of breath. She does report some intermittent lightheadedness. Has not taken anything for her symptoms. PAST MEDICAL HISTORY Past Medical History: Diagnosis Date Anemia Asthma Cirrhosis Congestive heart failure Graves' disease Migraine STEINER (nonalcoholic steatohepatitis) Other cirrhosis of liver Polycystic ovarian disease Seizure disorder SURGICAL HISTORY Past Surgical History: Procedure Laterality Date EGD DIAGNOSTIC N/A 10/16/2021 Laterality: N/A; Surgeon: Susie Pratt MD; Location: [facility] OR EGD DIAGNOSTIC N/A 11/17/2020 Laterality: N/A; Surgeon: Christiano Sepulveda MD; Location: [facility]GERY CURRENT MEDICATIONS Current Outpatient Medications Medication Sig albuterol 108 (90 Base) MCG/ACT Aero Soln inhaler Inhale 1 puff every 6 hours as needed for Shortness of Breath. faMOTIdine 20 MG tablet Take 1 tablet by mouth every 12 hours. furOSEmide 40 MG tablet Take 40 mg by mouth daily. lisinopril 10 MG tablet Take 10 mg by mouth daily. methimazole 10 MG tablet Take 20 mg by mouth daily. ondansetron 4 MG Tab Dispersible tablet Take 1 tablet by mouth every 4 hours as needed for Nausea. Place on tongue spironolactone 100 MG tablet Take 1 tablet by mouth daily. ALLERGIES Allergies Allergen Reactions Benadryl [Diphenhydramine] Hives, Shortness of Breath and Rash *Seafood - Food Allergy Throat closes up and turns red Fish Allergy Fish-Derived Products Rash Throat swells closed. Peg-8 Beeswax [Polyethylene Glycol] FAMILY HISTORY Family History Problem Relation Age of Onset Uterine Cancer Mother Heart Disease - Other Mother Heart Disease - Other Father Breast Cancer Sister Cancer- Other Maternal Aunt SOCIAL HISTORY Social History Socioeconomic History Marital status: Tobacco Use Smoking status: Former Smoker Packs/day: 1.00 Types: Cigarettes Start date: 2002 Quit date: 06/2021 Years since quittin.3 Smokeless tobacco: Never Used Tobacco comment: Started at age 17. Vaping Use Vaping Use: Every day Substances: Nicotine, THC, Started at age 31. Devices: Refillable tank Substance and Sexual Activity Alcohol use: Not Currently Drug use: Yes Frequency: 2.0 times per week Types: Marijuana REVIEW OF SYSTEMS General: Fevers chills malaise HEENT: Congestion runny nose Pulmonary: Denies cough, shortness of breath, wheezing Cardiovascular: denies chest pain, palpitations, lightheadedness Gastrointestinal: denies abdominal pain, nausea, vomiting, diarrhea, melena or hematochezia : denies dysuria, hematuria, flank pain Neurological: denies headache, numbness, tingling, weakness Endocrine: denies polyuria, polydipsia, heat or cold intolerance Muskuloskeletal: denies joint pain, arthralgia, myalgia Skin: denies rashes or sores Psychiatric: denies depression or anxiety Remainder of ROS reviewed and are negative PHYSICAL EXAM VITAL SIGNS: BP 141/79 Pulse 99 Temp 98.9 F (37.2 C) (Oral) Resp 18 Ht 1.676 m (5' 6 ) Wt 97.5 kg (215 lb) SpO2 98% BMI 34.70 kg/m Smoking Status Former Smoker Vitals: 10/29/21 21510/29/21 21510/29/21 2154 10/29/21 2357 BP: Pulse: 99 Resp: 18 Temp: 102 degrees F (38.9 degrees C) 98.9 degrees F (37.2 degrees C) TempSrc: Oral Oral SpO2: 97% 98% Weight: 97.5 kg (215 lb) Height: 1.676 m (5' 6 ) Constitutional: Well developed, Well nourished, Non-toxic appearance. HENT: Normocephalic, Atraumatic. Bilateral external ears normal. Neck: No tenderness, Supple, Normal range of motion No stridor. Eyes: Pupils equal, sclera anicteric Respiratory: Normal breath sounds, No respiratory distress. No wheezing, No chest tenderness. Cardiovascular: Normal heart rate, Normal rhythm, No murmurs, No rubs, No gallops. GI: Soft, No tenderness, Bowel sounds normal. No pulsatile masses. Back: No CVA tenderness Extremities: No tenderness to palpation or major deformities, Good range of motion in all major joints noted. No edema, Intact distal pulses, No cyanosis, No clubbing. Skin: Warm, Dry, No erythema, No rash. Neurologic: Alert & oriented x 3, No focal deficits noted. Normal sensory function, Normal motor function Psychiatric: Affect normal, Judgment normal, Mood normal. ED Interventions/labs: Results for orders placed or performed during the hospital encounter of 10/29/21 RESPIRATORY PANEL (COVID, FLU, RSV) Specimen: Fluid/Swab Result Value Ref Range SARS COV 2 RNA, QL REAL TIME RT PCR NEGATIVE Respiratory Syncytial Virus (RSV) NEGATIVE INFLUENZA A - PCR POSITIVE INFLUENZA B - PCR NEGATIVE URINALYSIS REFLEX TO CULTURE Specimen: URINE - CLEAN CATCH Result Value Ref Range COLOR, URINE COLORLESS APPEARANCE, URINE CLEAR PH URINE 6.5 6.0 - 8.5 Specific [place], Urine 1.004 1.010 - 1.030 GLUCOSE, URINE NEGATIVE NEGATIVE mg/dL KETONES, URINE NEGATIVE NEGATIVE mg/dL BLOOD, URINE NEGATIVE NEGATIVE U/L PROTEIN, URINE NEGATIVE NEG/TRACE mg/dL UROBILINOGEN, URINE 0.2 <2.0 mg/dL NITRITES, URINE NEGATIVE NEGATIVE mg/dL LEUKOCYTE ESTERASE, URINE SMALL (A) NEGATIVE /uL BILIRUBIN, URINE NEGATIVE NEGATIVE mg/dL Method of collection Not stated WBC, URINE 7 (H) 0 - 5 /hpf RBC, URINE 0 0 - 2 /hpf BACTERIA, URINE NONE NONE /hpf CASTS, URINE NONE NONE /hpf SQUAMOUS EPITHELIAL CELLS, URINE 1 0 - 5 /hpf CRYSTALS, URINE NORMAL Yeast NORMAL CELLS ANALYZED NORMAL CASTS, URINE NORMAL HCG QUALITATIVE, URINE Result Value Ref Range HCG, QUALITATIVE, URINE NEGATIVE XR CHEST PORTABLE Chest x-ray portable viewed by me interpreted by me no acute abnormality ED Course: Vitals reviewed Medical Decision Making Giuliana Grewal is a 35 y.o. female who presents with fever secondary to influenza A. She is not hypoxic initial tachycardic but this did improve when her temperature came down. She denies chest pain or shortness of breath. Chest x-ray is largely unremarkable. She is appropriate for discharge. Instructed return for new worsening symptoms or any additional concerns Impression: Influenza a Dispo: Discharged home Caron Duggan MD This note dictated using Sevcon voice recognition software. Attempts at proofreading were made, but errors may occasionally still occur. Caron Duggan MD 10/30/21 0334 [facility] 10-29-2021 Emergency department Note EMERGENCY DEPARTMENT ENCOUNTER CHIEF COMPLAINT Fever and Dizziness HPI Giuliana Grewal is a 35 y.o. female who presents to the emergency department from home for a 1-2 history of fever, chills, body aches generalized malaise. Positive sick contacts. She denies chest pain shortness of breath. She does report some intermittent lightheadedness. Has not taken anything for her symptoms. PAST MEDICAL HISTORY Past Medical History: Diagnosis Date Anemia Asthma Cirrhosis Congestive heart failure Graves' disease Migraine STEINER (nonalcoholic steatohepatitis) Other cirrhosis of liver Polycystic ovarian disease Seizure disorder SURGICAL HISTORY Past Surgical History: Procedure Laterality Date EGD DIAGNOSTIC N/A 10/16/2021 Laterality: N/A; Surgeon: Susie Pratt MD; Location: [facility] OR EGD DIAGNOSTIC N/A 11/17/2020 Laterality: N/A; Surgeon: Christiano Sepulvdea MD; Location: [facility] CURRENT MEDICATIONS Current Outpatient Medications Medication Sig albuterol 108 (90 Base) MCG/ACT Aero Soln inhaler Inhale 1 puff every 6 hours as needed for Shortness of Breath. faMOTIdine 20 MG tablet Take 1 tablet by mouth every 12 hours. furOSEmide 40 MG tablet Take 40 mg by mouth daily. lisinopril 10 MG tablet Take 10 mg by mouth daily. methimazole 10 MG tablet Take 20 mg by mouth daily. ondansetron 4 MG Tab Dispersible tablet Take 1 tablet by mouth every 4 hours as needed for Nausea. Place on tongue spironolactone 100 MG tablet Take 1 tablet by mouth daily. ALLERGIES Allergies Allergen Reactions Benadryl [Diphenhydramine] Hives, Shortness of Breath and Rash *Seafood - Food Allergy Throat closes up and turns red Fish Allergy Fish-Derived Products Rash Throat swells closed. Peg-8 Beeswax [Polyethylene Glycol] FAMILY HISTORY Family History Problem Relation Age of Onset Uterine Cancer Mother Heart Disease - Other Mother Heart Disease - Other Father Breast Cancer Sister Cancer- Other Maternal Aunt SOCIAL HISTORY Social History Socioeconomic History Marital status: Tobacco Use Smoking status: Former Smoker Packs/day: 1.00 Types: Cigarettes Start date: 2002 Quit date: 06/2021 Years since quittin.3 Smokeless tobacco: Never Used Tobacco comment: Started at age 17. Vaping Use Vaping Use: Every day Substances: Nicotine, THC, Started at age 31. Devices: Refillable tank Substance and Sexual Activity Alcohol use: Not Currently Drug use: Yes Frequency: 2.0 times per week Types: Marijuana REVIEW OF SYSTEMS General: Fevers chills malaise HEENT: Congestion runny nose Pulmonary: Denies cough, shortness of breath, wheezing Cardiovascular: denies chest pain, palpitations, lightheadedness Gastrointestinal: denies abdominal pain, nausea, vomiting, diarrhea, melena or hematochezia : denies dysuria, hematuria, flank pain Neurological: denies headache, numbness, tingling, weakness Endocrine: denies polyuria, polydipsia, heat or cold intolerance Muskuloskeletal: denies joint pain, arthralgia, myalgia Skin: denies rashes or sores Psychiatric: denies depression or anxiety Remainder of ROS reviewed and are negative PHYSICAL EXAM VITAL SIGNS: BP 141/79 Pulse 99 Temp 98.9 F (37.2 C) (Oral) Resp 18 Ht 1.676 m (5' 6 ) Wt 97.5 kg (215 lb) SpO2 98% BMI 34.70 kg/m Smoking Status Former Smoker Vitals: 10/29/21 2152 10/29/21 2153 10/29/21 2154 10/29/21 2357 BP: Pulse: 99 Resp: 18 Temp: 102 degrees F (38.9 degrees C) 98.9 degrees F (37.2 degrees C) TempSrc: Oral Oral SpO2: 97% 98% Weight: 97.5 kg (215 lb) Height: 1.676 m (5' 6 ) Constitutional: Well developed, Well nourished, Non-toxic appearance. HENT: Normocephalic, Atraumatic. Bilateral external ears normal. Neck: No tenderness, Supple, Normal range of motion No stridor. Eyes: Pupils equal, sclera anicteric Respiratory: Normal breath sounds, No respiratory distress. No wheezing, No chest tenderness. Cardiovascular: Normal heart rate, Normal rhythm, No murmurs, No rubs, No gallops. GI: Soft, No tenderness, Bowel sounds normal. No pulsatile masses. Back: No CVA tenderness Extremities: No tenderness to palpation or major deformities, Good range of motion in all major joints noted. No edema, Intact distal pulses, No cyanosis, No clubbing. Skin: Warm, Dry, No erythema, No rash. Neurologic: Alert & oriented x 3, No focal deficits noted. Normal sensory function, Normal motor function Psychiatric: Affect normal, Judgment normal, Mood normal. ED Interventions/labs: Results for orders placed or performed during the hospital encounter of 10/29/21 RESPIRATORY PANEL (COVID, FLU, RSV) Specimen: Fluid/Swab Result Value Ref Range SARS COV 2 RNA, QL REAL TIME RT PCR NEGATIVE Respiratory Syncytial Virus (RSV) NEGATIVE INFLUENZA A - PCR POSITIVE INFLUENZA B - PCR NEGATIVE URINALYSIS REFLEX TO CULTURE Specimen: URINE - CLEAN CATCH Result Value Ref Range COLOR, URINE COLORLESS APPEARANCE, URINE CLEAR PH URINE 6.5 6.0 - 8.5 Specific [place], Urine 1.004 1.010 - 1.030 GLUCOSE, URINE NEGATIVE NEGATIVE mg/dL KETONES, URINE NEGATIVE NEGATIVE mg/dL BLOOD, URINE NEGATIVE NEGATIVE U/L PROTEIN, URINE NEGATIVE NEG/TRACE mg/dL UROBILINOGEN, URINE 0.2 <2.0 mg/dL NITRITES, URINE NEGATIVE NEGATIVE mg/dL LEUKOCYTE ESTERASE, URINE SMALL (A) NEGATIVE /uL BILIRUBIN, URINE NEGATIVE NEGATIVE mg/dL Method of collection Not stated WBC, URINE 7 (H) 0 - 5 /hpf RBC, URINE 0 0 - 2 /hpf BACTERIA, URINE NONE NONE /hpf CASTS, URINE NONE NONE /hpf SQUAMOUS EPITHELIAL CELLS, URINE 1 0 - 5 /hpf CRYSTALS, URINE NORMAL Yeast NORMAL CELLS ANALYZED NORMAL CASTS, URINE NORMAL HCG QUALITATIVE, URINE Result Value Ref Range HCG, QUALITATIVE, URINE NEGATIVE XR CHEST PORTABLE Chest x-ray portable viewed by me interpreted by me no acute abnormality ED Course: Vitals reviewed Medical Decision Making Giuliana Grewal is a 35 y.o. female who presents with fever secondary to influenza A. She is not hypoxic initial tachycardic but this did improve when her temperature came down. She denies chest pain or shortness of breath. Chest x-ray is largely unremarkable. She is appropriate for discharge. Instructed return for new worsening symptoms or any additional concerns Impression: Influenza a Dispo: Discharged home Caron Duggan MD This note dictated using Sevcon voice recognition software. Attempts at proofreading were made, but errors may occasionally still occur. Caron Duggan MD 10/30/21 0334 Pt to ED with c/o cough and dizziness that began this morning. documented in this encounter [facility] 10-29-2021 Emergency department Note Pt to ED with c/o cough and dizziness that began this morning. [facility] 10-16-2021 Hospital Discharge instructions Kristin Vallejo RN - 10/16/2021 9:17 AM EDT Provation papers given. Waiting for pathology for follow-up. documented in this encounter [facility] 10-16-2021 History and physical note GASTROENTEROLOGY OUTPATIENT PRE-PROCEDURE NOTE Patient Name: Giuliana Grewal MR #: [id number] Date: 10/16/21 Indication: Anemia Variceal screening Brief History: Steiner cirrhosis Anemia Past Medical History: Past Medical History: Diagnosis Date Anemia Asthma Cirrhosis Congestive heart failure Graves' disease Migraine STEINER (nonalcoholic steatohepatitis) Other cirrhosis of liver Polycystic ovarian disease Seizure disorder Past Surgical History: Procedure Laterality Date EGD DIAGNOSTIC N/A 11/17/2020 Laterality: N/A; Surgeon: Christiano Sepulveda MD; Location: [facility]COPY E[facility] SURGERY Family History Problem Relation Age of Onset Uterine Cancer Mother Heart Disease - Other Mother Heart Disease - Other Father Breast Cancer Sister Cancer- Other Maternal Aunt Allergies: Allergies Allergen Reactions Benadryl [Diphenhydramine] Hives, Shortness of Breath and Rash *Seafood - Food Allergy Throat closes up and turns red Fish Allergy Fish-Derived Products Rash Throat swells closed. Peg-8 Beeswax [Polyethylene Glycol] Home Medications: Current Outpatient Medications Medication Instructions faMOTIdine (PEPCID) 20 mg, Oral, EVERY 12 HOURS furOSEmide (LASIX) 40 mg, Oral, DAILY lisinopril (PRINIVIL) 10 mg, Oral, DAILY methimazole (TAPAZOLE) 20 mg, Oral, DAILY spironolactone (ALDACTONE) 100 mg, Oral, DAILY Review of Systems: The following system(s) were reviewed: GI system reviewed. All other systems were reviewed and are within normal limits. Physical Examination: Vitals: 10/16/21 0811 BP: 143/61 Pulse: 77 Resp: 16 Temp: 97.8 F (36.6 C) General: NAD CV: Reg Rate Pulm: Non labored Abd: Soft NT/ND Ext: HARRIS Neuro: Alert and Oriented, cranial nerves II-XII grossly intact Plan: Will proceed with endoscopic procedure as scheduled. [facility] Work Phone: 10-16-2021 History and physical note GASTROENTEROLOGY OUTPATIENT PRE-PROCEDURE NOTE Patient Name: Giuliana [facility]rewal [id number] [id number] Date: 10/16/21 Indication: Anemia Variceal screening Brief History: Steiner cirrhosis Anemia Past Medical History: Past Medical History: Diagnosis Date Anemia Asthma Cirrhosis Congestive heart failure Graves' disease Migraine STEINER (nonalcoholic steatohepatitis) Other cirrhosis of liver Polycystic ovarian disease Seizure disorder Past Surgical History: Procedure Laterality Date EGD DIAGNOSTIC N/A 11/17/2020 Laterality: N/A; Surgeon: Christiano Sepulveda MD; Location: [facility] Family History Problem Relation Age of Onset Uterine Cancer Mother Heart Disease - Other Mother Heart Disease - Other Father Breast Cancer Sister Cancer- Other Maternal Aunt Allergies: Allergies Allergen Reactions Benadryl [Diphenhydramine] Hives, Shortness of Breath and Rash *Seafood - Food Allergy Throat closes up and turns red Fish Allergy Fish-Derived Products Rash Throat swells closed. Peg-8 Beeswax [Polyethylene Glycol] Home Medications: Current Outpatient Medications Medication Instructions faMOTIdine (PEPCID) 20 mg, Oral, EVERY 12 HOURS furOSEmide (LASIX) 40 mg, Oral, DAILY lisinopril (PRINIVIL) 10 mg, Oral, DAILY methimazole (TAPAZOLE) 20 mg, Oral, DAILY spironolactone (ALDACTONE) 100 mg, Oral, DAILY Review of Systems: The following system(s) were reviewed: GI system reviewed. All other systems were reviewed and are within normal limits. Physical Examination: Vitals: 10/16/21 0811 BP: 143/61 Pulse: 77 Resp: 16 Temp: 97.8 F (36.6 C) General: NAD CV: Reg Rate Pulm: Non labored Abd: Soft NT/ND Ext: HARRIS Neuro: Alert and Oriented, cranial nerves II-XII grossly intact Plan: Will proceed with endoscopic procedure as scheduled. documented in this encounter [facility] 09-12-2021 Instructions Date Keep your appointment with Dr Taveras on 09/12/21 @ 2:45 Related to History of seizures Saw GI yesterday 09/10/21- Dr. Tapia. Plan per patient is to get scheduled for a scope to assess Liver. Related to Hepatic cirrhosis, unspecified hepatic cirrhosis type, unspecified whether ascites present Continue taking thyroid medication daily. I'm glad to hear that you have been taking medication since you were discharged from the hospital. Related to Hyperthyroidism Continue LISINOPRIL 10 mg dailyContinue Lasix 40 mg twice daily.Monitor your blood pressure daily at home. Keep a log and bring to your next appointment. Goal is 130/90 Related to Primary hypertension Lifestyle education regarding diet Related to BMI 38.0-38.9 Prescribed activity/exercise education Related to BMI 38.0-38.9 Dietary management education, guidance, and counseling Related to Dietary counseling and surveillance Giving encouragement to exercise Related to Dietary counseling and surveillance [facility] Work Phone: 1([phone]) 820-538602-23-2022 Evaluation note* Type Assessment Date assessment Dietary counseling and surveilla nce assessment BMI 38.0-38.9 assessment Hyperthyroidism assessment Primary hypertension assessment Hepatic cirrhosis, u nspecified hepatic cirrhosis type, unspecified whether ascites present assessment Mild anemia assessment History of seizures [facility] Work Phone: [phone]) 156-225002-23-2022 History of Present illness Narrative* Encounter Date Complaint History Of Prese nt Illness hospital f/u Patient presents for hospital follow-up. Patient was hospitalized x 4 days (08/30-09/02) with fluid on her lungs , CHF per hospital records. Patient states that she has been feeling better since discharge. PAtient states that she quarantined for 10 days per the hospital doctor's recommendation . Still has some rough days . Patient reports that she has been taking medications as prescribed since hospital discharge. Patient also reports that she has appointment scheduled on 09/12/21 @ 2:[address] Taveras. Patient also reports that she had an appointment on 09/10/21 with GI, states that they are planning on doing a scope . diabetes The diabetes juan david ignacious began in 2014. The problem is getting worse. Risk factors include: obesity and sedentary lifestyle. Patient did not use medication, return for a follow-up, or use education materials. She Has been managed with diet, oral medications and insulin. Comorbidity: Hypertension. Associated symptoms include: constant hunger, increased fatigue and weight gain. Pertinent negatives include blurred vision, chest pain and dyspnea. Additional information: Patient reports that she has been depressed. Not taking any medications over past couple of months. Lost her BG meter. Not checking sugars.. hypertension Comorbid conditi ons include diabetes mellitus. Risk factors include depression and obesity. Pertinent negatives include chest pain, dyspnea and visual disturbances. Additional information: BP well controlled at home per patient- elevated in office today. Diet intolerance Reports early s atiety, N/V with attempts to eat full meal. Says symptoms started since November. Went to [facility] ED in November due to irregular bleeding was told she probably had a miscarriage. HPI complete by ISA Feliz. Supervised by Omi. [employer] diabetes The diabetes juan david litus began in 2014. Risk factors include: obesity and sedentary lifestyle. Patient is compliant with using medication, and follow-up. She Has been managed with diet, oral medications and insulin. Pertinent negatives include blurred vision, chest pain, dyspnea and hypoglycemic episodes. Additional information: Taking metformin 1000mg twice daily and Basal insulin 58 units. Denies side effects. Home blood sugar log ranges 117-178. Last A1C 7.3.. hypertension Comorbid conditi ons include diabetes mellitus. Risk factors include depression and obesity. Pertinent negatives include chest pain, dyspnea, fatigue, headache and irregular heartbeat/palpitations. Additional information: Taking Lisinopril as ordered. BP home log [id number] per patient. 10 pounds weight loss since last visit. 2 month DM check Patient did not bring the BG record. Pt checks once before morning, once before bedtime. Based on what she can rembermber, the morning reading (arond 11 am) between 130s to 180s. The bedtime reading ranges between 212 to 265. Patient reports dinner time around 8pm. The bedtime BG reading is usually around 2 AM. Now she is up to 58 units Basaglar at bedtime after continuous titrating. She still takes metformin 500 mg 2 tablets BID. No longer on Victoza.Eye exam done several month ago. Negative. Patientt aware of yearly eye exam needed being a diabetic. depression This is a follow up visit. There is worsening of previously reported symptoms. The patient presents with decreased need for sleep, difficulty falling asleep, difficulty staying asleep and hallucinations (visual) but denies fatigue, loss of appetite, paranoia or thoughts of or suicide. The patient's risk factors include history of depression and relationship problems. The patient's risk factors exclude victim of abuse or violence. The patient's relieving factors are her dog. The patient denies any weight gain. Additional information: took citalopram for a few weeks but stopped because depression was getting worse. Is thinking about cutting again, wants to escape life stressors (pain relief), not wanting to kill self. Irritable mood swings. has always had difficulty sleeping. only sleeps 1-2 hrs/night. diabetes The diabetes juan david ignacious began in 2014. Risk factors include: obesity and sedentary lifestyle. Patient did not use medication, or return for a follow-up. She Has been managed with oral medications. Pertinent negatives include chest pain, dyspnea, foot ulcers, frequent urination, polydipsia, weight gain and weight loss. Additional information: taking garcinia camb[place] and natural cleanser to help with weight loss. Has used in the past with relief. Started supplements 4-8 weeks ago.. depression (comments) has always had hard time sleeping. as a child i only slept 15/min a night and woke up rejuvenated. Has stayed awake for 3 days straight. Increase in goal-oriented behavior: cleaning, making fairy gardens. Has all this energy but struggles with depression all day. Has always had a gift for spiritual stuff. I can see spirits but cannot communicate with them. Feels rage and desire for physical violence toward . He will not file for divorce and she does not have the money to do it. She sees him every day even though she left him and moved in with mom. He comes to mother's apt daily to use wifi. Mom lets him because she feels bad for him. Pt has never done anything to harm him and feels physically safe around him, and no plans to harm him, he just irritates her to the point she wants to. She walks away and goes into her room but he will often follow her. feeling bloated -- The symptoms began 3 weeks ago. had this in the pastno abdominal pain, constipationmild diarrhea thinks due to food: juices No relief of symptoms after defecationNo excess gas Follow Up of anxiety (comments) Feels safe at home but makes sure to not be alone with him. Restraining order discussed. Pt does not feel like that is needed at this time. Diabetes The diabetes juan david corcoran began in 2014. The problem is stable. Risk factors include: obesity and sedentary lifestyle. Patient is compliant with using medication. Patient did not return for a follow-up. She Has been managed with oral medications. Home glucose readings: Min 120, Max 180 Associated symptoms include: dyspnea. Pertinent negatives include burning of extremities, chest pain, frequent urination and polydipsia. Additional information: recent bronchitis. went to urgent care. Checking blood pressure and is normal at home. 111/56. Follow Up of anxiety This is an initial visit. The patient reports functioning as somewhat difficult. The patient presents with anxious/fearful thoughts, depressed mood, difficulty concentrating, difficulty falling asleep, diminished interest or pleasure, feelings of guilt, restlessness and thoughts of or suicide but denies decreased need for sleep, increased energy or loss of appetite. The patient's risk factors include history of depression, history of suicidal attempts and relationship problems. The patient's risk factors exclude social isolation. The Follow Up of anxiety is aggravated by conflict or stress. The patient's relieving factors are friends and activity. The patient denies any vomiting. Additional information: pt has not felt this bad in 7 years. Has never been on anti-depressant because mom was afraid she would get addicted. History of cutting and starting to have those thoughts. In stressful time with . Going to file for disillusion of marriage in September. back pain Severity level i s 9. The problem is fluctuating. It occurs intermittently. Location of pain is lower back. Pain is radiated to the left thigh and right thigh.The patient describes the pain as sharp and throbbing. Context: no injury.The patient denies aggravating factors. Symptoms are relieved by heat and pain meds/drugs. Additional information: Has had for years. Been in ED multiple times for back and no known reason for this pain. Has had xrays and possibly MRI at [facility]. Has tried ibuprofen, heat alone without relief. Will come for several days and then sometimes gone for several m. diabetes The problem is i mproving. Risk factors include: obesity and sedentary lifestyle. Patient is compliant with using medication, follow-up, and using education materials. She Has been managed with oral medications. Home glucose readings: Min 75, Max 130 Associated symptoms include: frequent urination and polydipsia. Pertinent negatives include blurred vision, chest pain, diarrhea, dyspnea, foot ulcers, hypoglycemic episodes, increased fatigue and slow healing wounds / sores. Additional information: bs-- non-fasings 120-130 and abdominal pain from ED visit improved.. 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 Recent ED visits for injuries, no labs in recent years.Last tetanus vaccine was middle schoolHas had pneumonia several times but never had pneumonia vaccine.Last saw eye doctor 07/2014.Last dental 8 years ago. Nervous about dentist. Unable to go to [facility] because no transportation. Last pap a few months ago. Sees hamer [employer]. diabetes Risk factors inc lude: obesity and sedentary lifestyle. Home glucose readings: Min 97, Max 258, Avg 150. Associated symptoms include: frequent urination and nocturia. Pertinent negatives include blurred vision, burning of extremities, chest pain, diarrhea, dyspnea, foot ulcers, frequent infections, hypoglycemic episodes, polydipsia and weight gain. Additional information: mom was hospitalized and diagnosed with diabetes last month. Been saw tankroom worker and pacs administrator and have been doing diet together. has lost [address] [facility] Communication Intelligence Work Phone: [phone] 817-481408-25-2021 Emergency department Note* Eloise Perkins APRN-ASSEMBLY CLEANER - 03/13/2021 4:05 PM EDT Giuliana Grewal 35 y.o. femalewith a past medical history of Past Medical History: Diagnosis Date Anemia Asthma Migraine Other cirrhosis of liver presents status post ankle injury. The patient states that the injury happened acutely. The historyis obtained from the patient. The mechanism of injury is apparent and was supination of the foot when she stepped in an uneven area of a parking lot 2 days ago. No head trauma or LOC. She has been wearing a boot she had secondary to recent foot fracture to this same side. Patient describes the painas aching and pressure. Patient states the pain worsens on ambulation and with any weightbearing. Patient denies any distal neurologic symptoms including numbness, tingling, or coolness of the foot Review of systems all systems were reviewed and are negative except as noted above or presents elsewhere in the chart. Cardiovascular: Negative for CP Respiratory: Negative for SOB Consitutional: Negative for fever HEENT: Negative for epistaxis Neuro: Negative for confusion Musculoskeletal: Positive for joint pain and edema Skin: negative for wounds Allergies Allergen Reactions Benadryl [Diphenhydramine] Hives, Shortness of Breath and Rash *Seafood - Food Allergy Throat closes up and turns red Fish Allergy Fish-Derived Products Rash Throat swells closed. No current facility-administered medications for this encounter. Current Outpatient Medications: chlorhexidine 0.12 % Solution oral solution, Swish and spit 15 mL every 12 hours for 7 days., Disp:210 mL, Rfl: 0 CUSTOM MEDICATION, Please obtain Chem 6 and Magnesium. Please fax labs attn: Ludy Olsonkeron LOVETT to [phone]. She will need to go to [facility] or another lab to have the labs drawn. (Patient not taking: Reported on 12/10/2020), Disp: 1 Each, Rfl: 0 furOSEmide 40 MG tablet, Take 1 tablet by mouth 2 times daily for 21 days., Disp: 42 tablet, Rfl: 0 ibuprofen 600 MG tablet, Take 1 tablet by mouth every 6 hours as needed for Moderate Pain (1st line)., Disp: 30 tablet, Rfl: 0 methimazole 10 MG tablet, Take 2 tablets by mouth 2 times daily., Disp: 120 tablet, Rfl: 0 oxyCODONE 5 MG tablet, Take 1 tablet by mouth every 6 hours as needed for Moderate Pain for up to 5days., Disp: 7 tablet, Rfl: 0 polyethylene glycol 17 g Pack packet, Take 1 packet by mouth daily as needed for Constipation 1st Line., Disp: 24 Each, Rfl: 0 spironolactone 100 MG tablet, Take 1 tablet by mouth daily., Disp: 30 tablet, Rfl: 0 Past Surgical History: Procedure Laterality Date EGD DIAGNOSTIC N/A 11/17/2020 Laterality: N/A; Surgeon: Christiano Sepulveda MD; Location: [facility] Social History Socioeconomic History Marital status: Spouse name: Not on file Number of children: Not on file Years of education: Not on file Highest education level: Not on file Occupational History Not on file Tobacco Use Smoking status: Current Every Day Smoker Packs/day: 1.00 Types: Cigarettes Smokeless tobacco: Never Used Tobacco comment: Started at age 17. Vaping Use Vaping Use: Every day Substances: Started at age 31. Devices: Refillable tank Substance and Sexual Activity Alcohol use: Never Drug use: Never Sexual activity: Not on file Other Topics Concern Not on file Social History Narrative Not on file Social Determinants of Health Financial Resource Strain: Difficulty of Paying Living Expenses: Food Insecurity: Worried About Running Out of Food in the Last Year: Ran Out of Food in the Last Year: Transportation Needs: Lack of Transportation (Medical): Lack of Transportation (Non-Medical): Physical Activity: Days of Exercise per Week: Minutes of Exercise per Session: Stress: Feeling of Stress : Social Connections: Frequency of Communication with Friends and Family: Frequency of Social Gatherings with Friends and Family: Attends Restorationism Services: Active Member of Clubs or Organizations: Attends Club or Organization Meetings: Marital Status: Intimate Partner Violence: Fear of Current or Ex-Partner: Emotionally Abused: Physically Abused: Sexually Abused: Vitals: 03/13/21 1549 BP: 171/75 Pulse: 93 Resp: 16 Temp: 98 F (36.7 C) Physical exam: Constitutional: Vital signs and nursing note are reviewed, the patient is comfortable. The patient is alert and oriented and conversant. The patient is non toxic, and well-nourished. Head: The head is atraumatic and normocephalic. Eyes: No discharge is present from the eyes. The sclera are normal. Neck: Normal range of motion is achieved in the neck. There is no JVD present. Respiratory/chest: Breath sounds are normal. There is no respiratory distress. Cardiovascular: Heart shows a regular rate and rhythm without murmurs clicks or gallops. +2 PT and DP pulses Lower extremity exam: There is no obvious compartment syndrome. The knee evaluation shows that bothknees have no deformity, no swelling, and no proximal fibular head tenderness. The ankle evaluationshows normal tendon function, capillary refill less than 2 seconds, distal motor function which is intact, distal sensory function which is intact. There is localized swelling and tenderness noted ofthe latereal malleolus. The foot evaluation shows mild tenderness at the base of the fifth metatarsal. Patel test normal. Neuro: AAOx3, no aphasia or dysarthria, no focal sensory or motor deficits. GCS 15. No focal CN deficit Psych: The patient is calm, and appropriate for the situation. Medical decision making: Concerns for an ankle fracture based on physical exam. Films are obtained and are negative for fracture at this time. Plan is subsequently for symptom control limited weight-bearing and ankle immobilization. No s/s of compartment syndrome, neurovascular compromise, or septic joint. XR ANKLE LEFT 3+ VIEWS Final Result IMPRESSION: Soft tissue swelling of the ankle without evidence of acute fracture or dislocation. Chronic fracture along the lateral malleolus without significant callus formation. XR FOOT LEFT 3 VIEWS Final Result IMPRESSION: Prominent soft tissue swelling along the dorsal aspect of foot. No underlying fracture or dislocation is appreciated radiographically. Calcaneal enthesopathy. Upon re-evaluation the patient is updated on her results. She is resting comfortably on the cart. She will continue to wear her Waldemar wrap and Velcro boot as needed, and will follow up with her orthopedist. IMPRESSION: Ankle sprain PLAN: Pertinent labs and images reviewed (see chart for details) The patient is at baseline ambulation upon discharge RICE Ibuprofen and/or tylenol OTC F/u with ortho Plan discussed with patient. Verbalized understanding. Instructed on emergent reasons to return andverbalized understanding. This was an independent nurse practitioner visit. GURU Mckinney 03/13/21 [id number] * Regi Garcia RN - 03/13/2021 3:49 PM EDT PT STATES SHE FELL Thursday AND FELT LIKE SHE BROKE HER LEFT ANKLE. PT STATES SHE HAD HER BOOT FROM THE LAST TIME SHE HURT HER ANKLE SO SHE JUST PUT IT ON. PT STATES IT JUST IS NOT GETTING ANY BETTER. documented in this encounterOAKLAWN [id number] Emergency department Note * Shadi Fisher RN - 03/10/2021 10:40 PM EDT Pt reports she felt fine this morning but after waking from her second nap had a very sore throat and pain with swallowing. States she has not been around anyone that is sick. States she feels great other than the throat pain. * Conor Branch RN - 03/10/2021 9:48 PM EDT Pt states having sore throat that started earlier today. Pt denies any other symptoms at this time. documented in this [facility]08-22-2021 Hospital Discharge instructions* Instructions* Caron Duggan MD - 03/10/2021 Rapid strep is negative Return for new or worsening symptoms or for any additional concerns * Attachments The following attachments cannot be sent through Care Everywhere. * Sore Throat (Sammarinese) documented in this [facility]11-22-2020 Emergency department Note * Jose David Pepe RN - 06/10/2020 12:04 AM EST Pt to ed for sore throat * 1 day. Denies, chest pain, fever, or cough. * Ciro Church MD, PhD - 06/10/2020 12:02 AM EST EMERGENCY DEPARTMENT ENCOUNTER CHIEF COMPLAINT Chief Complaint Patient presents with Sore Throat HPI Giuliana Grewal is a 34 y.o. female with history significant for Asthma, smoking who presents with Sore throat. patient states she has had less than 24 hours of sore throat. She denies any cough, fevers, nausea or vomiting. She denies any shortness of breath. She has been tolerating p.o. without difficulty. She has notes that her throat feels swollen. She denies any recent antibiotic use. She denies sick contacts. She denies any travel. REVIEW OF SYSTEMS Constitutional: Denies chills, fatigue, unexpected weight loss or fever. HENT: Denies rhinorrhea. + Sore throat Eyes: Denies vision changes. Respiratory: Denies shortness of breath or cough. Cardiovascular: Denies chest pain, leg swelling or palpitations. Gastrointestinal: Denies abdominal pain, diarrhea, nausea and vomiting. Genitourinary: Denies dysuria or hematuria. Skin: Denies rashes or wounds. MSK: Denies joint pain. Neurologic: Denies headache, lightheadedness, numbness, or weakness. All other systems reviewed and are negative. PAST MEDICAL HISTORY No past medical history on file. SURGICAL HISTORY No past surgical history on file. CURRENT MEDICATIONS Current Outpatient Medications Medication Sig cyclobenzaprine 10 MG tablet Take 1 tablet by mouth 3 times daily as needed for Muscle spasms. ALLERGIES Allergies Allergen Reactions Diphenhydramine Fish Allergy FAMILY HISTORY No family history on file. SOCIAL HISTORY Social History Socioeconomic History Marital status: Spouse name: Not on file Number of children: Not on file Years of education: Not on file Highest education level: Not on file Occupational History Not on file Social Needs Financial resource strain: Not on file Food insecurity Worry: Not on file Inability: Not on file Transportation needs Medical: Not on file Non-medical: Not on file Tobacco Use Smoking status: Not on file Substance and Sexual Activity Alcohol use: Not on file Drug use: Not on file Sexual activity: Not on file Lifestyle Physical activity Days per week: Not on file Minutes per session: Not on file Stress: Not on file Relationships Social connections Talks on phone: Not on file Gets together: Not on file Attends advent service: Not on file Active member of club or organization: Not on file Attends meetings of clubs or organizations: Not on file Relationship status: Not on file Intimate partner violence Fear of current or ex partner: Not on file Emotionally abused: Not on file Physically abused: Not on file Forced sexual activity: Not on file Other Topics Concern Not on file Social History Narrative Not on file PHYSICAL EXAM Vital Signs:BP (!) 163/92 Pulse 96 Temp 97.2 F (36.2 C) (Tympanic) Resp 18 Constitutional: Well appearing, in no acute distress. HENT: Normocephalic and atraumatic. Bilateral tonsillar swelling without exudates. No unilateral swelling and uvula is midline. No cervical adenopathy appreciated. No trismus appreciated to her sublingual space is soft to palpation without tenderness. Neck: Normal range of motion. Neck supple. Cardiovascular: Normal rate and regular rhythm. No murmurs, rubs, gallops Pulmonary: Effort normal, non-labored. Good aeration and symmetric breath sounds. No wheezes or Rhonchi. Abdominal: Abdomen soft, non-distended. There is no tenderness. No rebound or guarding. MSK: No deformities, joint effusions. Neurological: Oriented to person, place, and time. Skin: Skin is warm and dry. No rashes or wounds noted. Psychiatric: Appropriate mood and affect. Labs: Results for orders placed or performed during the hospital encounter of 06/09/20 CULTURE STREP A SCREEN Result Value Ref Range STREPTOCOCCUS, GROUP A CULTURE NEGATIVE RAPID STREP A ANTIGEN WITH REFLEX TO THROAT CULTURE Specimen: Swab Result Value Ref Range RAPID STREP, GROUP A NEGATIVE Negative ED COURSE & MEDICAL DECISION MAKING Assessment: Giuliana Grewal is a 34 y.o. female who presents with Sore throat. No specific signs symptoms for covered 19. Most likely viral pharyngitis but we will obtain a strep swab to evaluate and treat as indicated. I did discuss with patient she develops fevers That she should plan to remainisolated outside of work but otherwise she is free to return to work even if her strep test is posit pascual. DDx includes but not limited to: Viral pharyngitis, strep pharyngitis, other viral illness Initial Plan: strep swab MDM: Strep negative. Again most likely a viral pharyngitis but follow-up culture will be obtained discussed with patient that she would receive follow-up call if this were positive and she would need to be started on antibiotics at that time. I discussed with patient that she may return back to work if she develops a fever cough that she should remain isolated home. The patient has iven.remained hemodynamically stable while in the emergency department. Strict return precautions given. Patient and family/caregiver are understanding of and agreeable with this plan. Impression: pharyngitis Disposition: discharge This note dictated using medical voice recognition software. Attempts at proofreading were made, but errors may occasionally still occur. Ciro Church MD, PhD 06/10/20 0052 * Jessica Cee RN - 06/10/2020 12:00 AM EST Pt states she started having a sore throat this morning. Pt states she has not taken any OTC meds. Pt states part of it looks white. Pt denies fever. documented in this encounterOAKLAWN [id number] Emergency department Note * KtAbdiel yee Rosanna, - 05/21/2020 2:20 AM EST dEPARTMENT of Emergency Medicine CHIEF COMPLAINT Rib Pain HPI Giuliana Grewal is a 34 y.o. female who presents right rib pain. She states it started after she was simply reaching for a piece of paper. She states she reached across her body into the left to pepper picker that piece of paper this started earlier today. She has had no cough no fever no chills no shortness of breath no GI or symptomatology and she certain that she had no trauma to this area. Shedoes state it hurts if she reaches with her right arm returns left or right she. She denies any symptoms in her neck arm forearm her hand she denies any abdominal pain denies any CVA pain REVIEW OF SYSTEMS Review of Systems Constitutional: Negative. HENT: Negative. Eyes: Negative. Respiratory: Negative for apnea, cough, choking, chest tightness, shortness of breath, wheezing andstridor. Cardiovascular: Positive for chest pain. Negative for palpitations and leg swelling. Gastrointestinal: Negative. Endocrine: Negative. Genitourinary: Negative. Musculoskeletal: Positive for myalgias. Negative for arthralgias, back pain, gait problem, joint swelling, neck pain and neck stiffness. Skin: Negative. PAST MEDICAL HISTORY No past medical history on file. SURGICAL HISTORY No past surgical history on file. CURRENT MEDICATIONS No current facility-administered medications for this encounter. Current Outpatient Medications Medication Sig Dispense Refill cyclobenzaprine 10 MG tablet Take 1 tablet by mouth 3 times daily as needed for Muscle spasms. 21 tablet 0 ALLERGIES Allergies Allergen Reactions Diphenhydramine Fish Allergy FAMILY HISTORY History reviewed. No pertinent family history. SOCIAL HISTORY Social History Socioeconomic History Marital status: Spouse name: Not on file Number of children: Not on file Years of education: Not on file Highest education level: Not on file Occupational History Not on file Social Needs Financial resource strain: Not on file Food insecurity Worry: Not on file Inability: Not on file Transportation needs Medical: Not on file Non-medical: Not on file Tobacco Use Smoking status: Not on file Substance and Sexual Activity Alcohol use: Not on file Drug use: Not on file Sexual activity: Not on file Lifestyle Physical activity Days per week: Not on file Minutes per session: Not on file Stress: Not on file Relationships Social connections Talks on phone: Not on file Gets together: Not on file Attends advent service: Not on file Active member of club or organization: Not on file Attends meetings of clubs or organizations: Not on file Relationship status: Not on file Intimate partner violence Fear of current or ex partner: Not on file Emotionally abused: Not on file Physically abused: Not on file Forced sexual activity: Not on file Other Topics Concern Not on file Social History Narrative Not on file PHYSICAL EXAM BP 145/78 Pulse 78 Temp 98 F (36.7 C) Resp 20 Ht 1.676 m (5' 6 ) Physical Exam she appears in no distress whatsoever. She is alert she is oriented times person place and situation. Normocephalic face no swelling asymmetry discoloration ears EACs patent TMs intact no redness or drainage nostrils clear no redness drainage lesions oropharynx no pustules lesions disc oloration swelling asymmetry ice P ER LA EOMI conjunctivas sclera clear neck supple no pain on complete range of motion no lymphadenopathy Spurling is negative. Heart regular rhythm and rate no ectopy no murmurs no rubs. She has no intercostal retractions there is no skin rash or discoloration. Shehas pain over her right lateral ribs midportion and it is in the anterior axillary line to the posterior axillary line. There is no crepitance here abdomen is soft there is no reproducible tendernessno organomegaly no guarding no rebound bowel sounds are normal. She has no CVA pain no lumbosacral her thoracic pain on palpation. Skin no rash or jaundice no ecchymosis or discoloration. Neurologic i s normal no focal weakness is noted mood and affect are normal. ED COURSE & MEDICAL DECISION MAKING One view chest x-ray interpreted by me no pneumothorax infiltrate no cardiomegaly. Bony structures appear intact. I think she has musculoskeletal pain she has no GI or respiratory symptoms there has been no trauma she can reproduce her pain if she twists turns if she reaches for something and I can reproduce her pain and it is over the chest wall right side lateral aspect on direct palpation and twisting and turning of the chest. Abdiel Hayes DO 05/21/20 1006 * Conor Branch RN - 05/21/2020 12:11 AM EST Pt states having pain to her right ribs that is worse with movement. Pt states pain started earliertoday. Pt denies any known injury. 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 documented in this encounter [facility] note* Diagnosis Pharyngitis, unspecified etiology- Primary documented in this encounter [facility] note* Diagnosis Sprain of left ankle, unspecified ligament, initial encounter- Primary documented in this encounter [facility] note* Diagnosis Chest wall pain- Primary Painful respiration documented in this encounter [facility] note* Diagnosis Pharyngitis, unspecified etiology- Primary documented in this encounter [facility] note* Diagnosis Influenza A- Primary Influenza with other respiratory manifestations documented in this encounter [facility] note* Diagnosis Gastroenteritis, acute- Primary Other and unspecified noninfectious gastroenteritis and colitis Acute cystitis without hematuria Acute cystitis documented in this encounter [facility] note* Diagnosis Closed nondisplaced fracture of fifth metatarsal bone of left foot, initial encounter- Primary documented in this encounter [facility] note* Diagnosis Seizure-like activity- Primary Other convulsions documented in this encounter [facility] note* Diagnosis Pain, dental- Primary Unspecified disorder of the teeth and supporting structures documented in this encounter [facility] note* Diagnosis COVID-19- Primary documented in this encounter [facility] note* Diagnosis Graves disease- Primary Toxic diffuse goiter without mention of thyrotoxic crisis or storm documented in this encounter [facility] Discharge instructions* Attachments The following attachments cannot be sent through Care Everywhere. * RICE: General Info (Sammarinese) * Ankle Sprain (Sammarinese) [facility] Instructions* Abdiel Hayes, DO - 05/21/2020 Take 1 Flexeril tablet every 8 to 12 hours as needed for pain along with Motrin every 8 hours as needed for pain. Flexeril can cause drowsiness no alcohol no driving do not take it work do not take 8hours prior to going to work. * Attachments The following attachments cannot be sent through Care Everywhere. * Chest Pain: Musculoskeletal (Sammarinese) * cyclobenzaprine (Sammarinese) [facility] Attachments The following attachments cannot be sent through Care Everywhere. * Sore Throat (Sammarinese) [facility]* Attachments The following attachments cannot be sent through Care Everywhere. * Seizures ([facility]) ([place]ammarinese) [facility] Attachments The following attachments cannot be sent through Care Everywhere. 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 [K75.81, K74.60] Procedures [place] ESOPHAGOGASTRODUODENOSCOPY TRANSORAL DIAGNOSTIC EGD DIAGNOSTIC Referral ID Status Reason Start Date Expiration Date Visits Re quested Visits Authorized [id number] 1 1 [facility] Summary Purpose Family History No Family History Records Found Family Member Type Diagnosis Age At Onset Father Problem (finding) Alzheimer's disease Mother Problem (finding) Asthma Mother Problem (finding) High cholesterol Mother Problem (finding) Allergies Maternal grandmother Problem (finding) Diabetes mellit us Mother Problem (finding) Irritable bowel disease Maternal grandfather Problem (finding) Stroke Mother Problem (finding) Depression Mother Problem (finding) Hypertension Mother Problem (finding) Diabetes mellitus Mother Problem (finding) Cancer, uterine 59 Advance Directives No Advanced Directives Records FoundDocuments on File Type Date Recorded Patient Rn Lactation Expl anation Advance Directives and Livin g Will 02/02/2019 2:20 PM Documents on File Type Date Recorded Patient Rn Lactation Expl anation Advance Directives and Livin g Will 02/02/2019 2:20 PM Documents on File Type Date Recorded Patient Rn Lactation Janette santiago Advance Directives and Livin g Will 06/16/2021 2:20 PM Directive Yes / No Effective Date File Name No Information Latest Code Status on File Code Status Date Activated Date Inactivated Comments Full Code 08/31/2021 1:03 AM Full Code 01/20/2021 6:30 AM 08/31/2021 1:03 AM DNR[facility]-ARREST 11/17/2020 3:25 PM 01/20/2021 6:30 AM I have discussed Giuliana Grewal's Do Not Resuscitate/ Do not intubate wishes with her. She is in agreement with this code status. DNR Suspension 11/17/2020 1:38 PM 11/17/2020 3:24 PM DNR t emporary suspension for EGD procedure 11/17/2020 At 13:38 [facility]NR[facility]-ARREST 11/16/2020 8:31 PM 11/17/2020 1:38 PM I have discussed Giuliana Grewal's Do Not Resuscitate wishes with her. She is in agreement with this code status. Latest Code Status on File Code Status Date Activated Date Inactivated Comments Full Code 01/20/2021 6:30 AM [facility] 11/17/2020 3:25 PM 01/20/2021 6:30 AM I have discussed Giuliana Grewal's Do Not Resuscitate/ Do not intubate wishes with her. She is in agreement with this code status. DNR Suspension 11/17/2020 1:38 PM 11/17/2020 3:24 PM DNR t emporary suspension for EGD procedure 11/17/2020 At 13:38 [facility] 11/16/2020 8:31 PM 11/17/2020 1:38 PM I have discussed Giuliana Grewal's Do Not Resuscitate wishes with her. She is in agreement with this code status. DNRCC-ARREST 11/16/2020 3:53 PM 11/16/2020 8:31 PM I hav e discussed Giuliana Grewal's Do Not Resuscitate wishes with her. She is in agreement with this code status. Patient would also like to be DNI Latest Code Status on File Code Status Date Activated Date Inactivated Comments Full Code 08/31/2021 1:03 AM Full Code 01/20/2021 6:30 AM 08/31/2021 1:03 AM Reason for Referral Status Reason Specialty Diagnoses / Procedures Referred By Contact Referred To Contact Authorized Specialty Services Required/[facility]/[place] bolism / Endocrinology Diagnoses Type 2 diabetes mellitus with hyperglycemia, with long-term current use of insulin (HCC) Martínez Burk MD [address] [facility] [address] [place] [address] Lois Owens MD [address] [facility] [place] [address] Status Reason Specialty Diagnoses / Procedures Referred By Contact Referred To Contact Authorized Maternal and Medicine Diagnoses Encounter for preconception consultation Celina Dickey MD [address] [facility] [address] [place] [address] [facility] [place] [address] Specialty Diagnoses / Procedures Referred By Joanne karimi Referred To Contact Endocrinology Diagnoses Hyperthyroidism Azalea Kennedy, ASSEMBLY CLEANER [address] [place] [address] Mallorie Crowe DO [address] [facility] [place] [address] Referral ID Status Reason Start Date Expiration Date V isits Requested Visits Authorized [id number] Authorized 08/22/2021 08/22/2022 1 1 Assessments Diagnosis Encounter for preconception consultation- Primary Type 2 diabetes mellitus with hyperglycemia, with long-term current use of insulin (HCC) 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 hospital f/u (chief complaint). Description: Patient presents for hospital follow-up. Patient was hospitalized x 4 days (08/30-09/02) with fluid on her lungs , CHF per hospital records. Patient states that she has been feeling better since discharge. PAtient states that she quarantined for 10 days per the hospital doctor's recommendation . Still has some "rough days . Patient reports that she has been taking medications as prescribed sincehospital discharge. Patient also reports that she has appointment scheduled on 09/12/21 @ 2:[address] Taveras. Patient also reports that she had an appointment on 09/10/21 with GI, states that they are planning on doing a scope . Physical Exam Exam Findings Details Cardiovascular Normal Heart rate - Reg ular rate. Rhythm - Regular. Extra sounds - None. Extremities - No edema. Cardiovascular * Murmurs - Systol ic: Grade: III/. Eyes Normal Conjunctiva - Ri ght: Normal, Left: Normal. Pupil - Right: Normal, Left: Normal. Neck Exam Normal Inspection - Nor mal. Palpation - Normal. Respiratory Normal Auscultation - N ormal. Effort - Normal. Vascular Normal Pulses - Dorsali s pedis: Normal. Extremity Normal No edema. Neurological Normal Memory - Normal. Sensory - Normal. Psychiatric Normal Orientation - Or iented to time, place, person & situation. Appropriate mood and affect. Additional Source Comments INFORMATION SOURCE (unrecogn ized section and content) DATE CREATED AUTHOR 03/13/2019 [facility] DATE CREATED AUTHOR AUTHOR'S ORGANIZ ATION 02/10/2020 [facility] DATE CREATED AUTHOR AUTHOR'S ORGANIZ ATION 06/20/2021 [facility] DATE CREATED AUTHOR AUTHOR'S ORGANIZ ATION 02/08/2022 [facility] DATE CREATED AUTHOR AUTHOR'S ORGANIZ ATION 03/14/2022 [facility] DATE CREATED AUTHOR AUTHOR'S ORGANIZ ATION 04/20/2022 [facility] DATE CREATED AUTHOR AUTHOR'S ORGANIZ ATION 08/13/2022 [facility] DATE CREATED AUTHOR AUTHOR'S ORGANIZ ATION 09/06/2022 [facility] DATE CREATED AUTHOR AUTHOR'S ORGANIZ ATION 01/29/2023 [facility] DATE CREATED AUTHOR AUTHOR'S ORGANIZ ATION 10/12/2023 [facility] Care Teams (unrecognized sec tion and content) Electronics Assembler And Tester Relationship Specialty Start Date End Date System, Provider Not In PCP - General 06/16/21 Electronics Assembler And Tester Relationship Specialty Start Date End Date Azalea Kennedy, SUPERVISOR SHEARING-ASSEMBLY CLEANER [address] [place] [address] PCP - General Nurse Practitioner - Family 09/03/21 Electronics Assembler And Tester Relationship Specialty Start Date End Date Ludy Marion SUPERVISOR SHEARING-ASSEMBLY CLEANER [address] [place] [address] PCP - General Certified Nurse Practitioner 11/22/20 Electronics Assembler And Tester Relationship Specialty Start Date End Date Azalea Kennedy, SUPERVISOR SHEARING-ASSEMBLY CLEANER [address] [place] [address] PCP - General Nurse Practitioner - Family 09/03/21 Electronics Assembler And Tester Relationship Specialty Start Date End Date Azalea Kennedy, SUPERVISOR SHEARING-ASSEMBLY CLEANER [address] [place] [address] PCP - General Nurse Practitioner - Family 09/03/21 Electronics Assembler And Tester Relationship Specialty Start Date End Date Azalea Kennedy, SUPERVISOR SHEARING-ASSEMBLY CLEANER [address] [place] [address] PCP - General Nurse Practitioner - Family 09/03/21 Electronics Assembler And Tester Relationship Specialty Start Date End Date Azalea Kennedy, SUPERVISOR SHEARING-ASSEMBLY CLEANER [address] [place] [address] PCP - General Nurse Practitioner - Family 09/03/21 Electronics Assembler And Tester Relationship Specialty Start Date End Date Azalea Kennedy, SUPERVISOR SHEARING-ASSEMBLY CLEANER [address] [place] [address] PCP - General Nurse Practitioner - Family 09/03/21 Electronics Assembler And Tester Relationship Specialty Start Date End Date Azalea Patel, ASSEMBLY CLEANER [address] [place] [address] PCP - General Nurse Practitioner 08/27/22 Continuous Active and Recently Administ ered Medications (unrecognized section and content) Medication Order 10/14/2021 10/15/2021 10/16/2021 sodium chloride 0.9% IV solution Intravenous, at 100 mL/hr, CONTINUOUS, Starting on Thu10/16/21 at 0815, Until Thu10/18/21 at 0317, Pre-op/Pre-Proc 0817 ($$New Bag$$ - Provider: Vianey Tillman, GALE)0926 (Stopped - Provider: Kristin Vallejo RN - Comment: 600ml given) PRN Medication Order 10/14/2021 10/15/2021 10/16/2021 sodium chloride flush 0.9 % injection 5 mL 5 mL, Intravenous, NEEDED, Starting on Thu10/16/21 at 0804, Until Thu10/18/21 at 0317, Flush, Administer before and after IV medications., Pre-op/Pre-Proc Scheduled Medication Order 03/08/2021 03/09/2021 03/10/2021 dexAMETHasone PF (DECADRON) 10 mg (COMPLETED) 10 mg, Oral, ONCE, 1 dose, On 03/10/21 at 2345, FOR ORAL USE 2315 (Given - Provid er: Shadi Fisher RN) ibuprofen (MOTRIN) tablet 600 mg (COMPLETED) 600 mg, Oral, ONCE, 1 dose, On 03/10/21 at 2315, Give with food 2315 (Given - Provid er: Shadi Fisher RN) Scheduled Medication Order 10/28/2021 10/29/2021 10/30/2021 acetaminophen (TYLENOL) tablet 1,000 mg (COMPLETED) 1,000 mg, Oral, ONCE, 1 dose, On Thu10/29/21 at 2300, Maximum dose of acetaminophen is 4000 mg from all sources in 24 hours. 2238 (Given - Provider: Ana Laura Polanco, GALE) ibuprofen (MOTRIN) tablet 600 mg (COMPLETED) 600 mg, Oral, ONCE, 1 dose, On Thu10/29/21 at 2300, Give with food 2308 (Given - Provider: Edson Mart RN) Scheduled Medication Order 11/29/2021 11/30/2021 12/01/2021 cephALEXin (KEFLEX) capsule 500 mg (COMPLETED) 500 mg, Oral, ONCE, 1 dose, On 12/01/21 at 0030 0008 (Given - Provid er: Isrrael Burnette RN) ibuprofen (MOTRIN) tablet 600 mg (COMPLETED) 600 mg, Oral, ONCE, 1 dose, On 11/30/21 at 2300, Give with food 2324 (Given - Provider: Conor Branch RN) ondansetron 4mg/2ml (ZOFRAN) injection 4 mg (COMPLETED) 4 mg, Intravenous, ONCE, 1 dose, On 11/30/21 at 2215 2156 (Given - Provider: Conor Branch RN) sodium chloride 0.9% IV solution 1,000 mL (COMPLETED) 1,000 mL, Intravenous, ONCE, 1 dose, On 11/30/21 at 2215 2157 ($$New Bag$$ - Provider: Conor Branch RN)2257 (Stopped - Provider: Isrrael Burnette RN) Scheduled Medication Order 01/29/2022 01/30/2022 01/31/2022 ibuprofen (MOTRIN) tablet 600 mg (COMPLETED) 600 mg, Oral, ONCE, 1 dose, On Thu01/31/22 at 0100, Give with food 0115 (Given - Provid er: Regi Garcia RN) lidocaine (LIDODERM) 5 % patch 1 patch 1 patch, Transdermal, Administer over 12 Hours, ONCE, 1 dose, On Thu01/31/22 at 0145, Apply to left foot. Remove patch after duration of 12 hours. An action of Patch Applied within the MAR will schedule the MAR patch removal 12 hours later. 0117 (Canceled Entry - Provider: Regi Garcia RN - Comment: duplicate order) lidocaine (LIDODERM) 5 % patch 1 patch 1 patch, Transdermal, Administer over 12 Hours, ONCE, 1 dose, On Thu01/31/22 at 0145, Apply to left foot . Remove patch after duration of 12 hours. An action of Patch Applied within the MAR will schedule the MAR patch removal 12 hours later. 0116 (Patch Applied - Provider: Regi Garcia RN)0127 (Due: Patch Removed - Provider: System Discharge - Comment: Time automatically adjusted from order being discontinued) Scheduled Medication Order 03/16/2022 03/17/2022 03/18/2022 acetaminophen (TYLENOL) tablet 1,000 mg (COMPLETED) 1,000 mg, Oral, ONCE, 1 dose, On Thu03/18/22 at 1815, Maximum dose of acetaminophen is 4000 mg from all sources in 24 hours. 1747 (Given - Provid er: Nika Colmenares RN) naproxen (NAPROSYN) tablet 500 mg (COMPLETED) 500 mg, Oral, ONCE, 1 dose, On Thu03/18/22 at 1745, Give with food 174 (Given - Provid er: Nika Colmenares RN) Scheduled Medication Order 04/07/2022 04/08/2022 04/09/2022 acetaminophen (TYLENOL) tablet 500 mg (COMPLETED) 500 mg, Oral, ONCE, 1 dose, On Thu04/09/22 at 2000, Maximum dose of acetaminophen is 4000 mg from all sources in 24 hours. 1950 (Given - Provid er: Azalea Valentine RN) Reason for Visit (unrecogniz ed section and content) Reason Comments Sore Throat Reason Comments Ankle Injury Reason Comments Rib Pain Reason Comments Fever Dizziness Reason Comments Fever Vomiting Reason Comments Foot Swelling right Reason Comments Seizure Reason Comments Dental Pain Patient believes she has a tooth infection and needs antibiotics. Left lower back tooth Reason Comments Generalized Body Aches Diarrhea FOR RECORDS PERTAINING TO PATIENTS WHO ARE OR HAVE BEEN ENROLLED IN A CHEMICAL DEPENDENCY/SUBSTANCEABUSE PROGRAM, SOME INFORMATION MAY BE OMITTED. This clinical summary was aggregated from multiple sources. Caution should be exercised in using it in the provision of clinical care. This summary normalizes information from multiple sources, and as a consequence, information in this document may materially change the coding, format and clinical context of patient data. In addition, data may be omitted in some cases. CLINICAL DECISIONS SHOULD BE BASED ON THE PRIMARY CLINICAL RECORDS. [employer] provides no warranty or guarantee of the accuracy or completeness of information in this document.
[2024-05-07] MEDS: Ketorolac 60 MG/2 ML Vial IM (02:45)
[2024-05-07] MEDS: Acetaminophen 500 MG Tablet 1000 MG PO (02:45)
[2024-05-07 02:58] VITALS: PULSE 110; RESP 26
[2024-05-07] MEDS: Albuterol 2.5 MG/3 ML VIAL.NEB. INHALATION (02:58)
[2024-05-07 03:04] LABS: Bacteria 0 SEEN /hpf (None Seen); Mucous, Urine 0 SEEN /hpf (<or=2+)
[2024-05-07 03:21] LABS: Color, Urine Yellow (Yellow); Glucose, Dipstick Normal (Normal); Ketone-Dipstick Negative (Negative); Leukocyte Esterase-Dipstick 100 /ul (Negative); Nitrite-Dipstick Negative (Negative); Occult Blood-Urine 25 /ul (Negative); Protein-Dipstick Negative (Negative); Specific Gravity, Urine 1.015 (1.002-1.030); Urine Bilirubin Dipstick Negative (Negative); Urine Clarity Clear (Clear); Urine Urobilinogen Normal (Normal)
[2024-05-07 03:37] LABS: Fine Granular Cast- Urine 0-5 SEEN /lpf (0-5); Hyaline Cast 0-5 SEEN /lpf (0-5); Red Blood Cells-Urine 5-10 SEEN /hpf (0-5); Squamous Epithelial Cells - UA 5-10 SEEN /hpf (5-10); White Blood Cells 0-5 SEEN /hpf (0-5)
[2024-05-07] MEDS: Albuterol Sulfate 8 gm Inhaler (60 puffs) 2 PUFF INHALATION (04:02)
[2024-05-07] MEDS: Triamcinolone Acetonide 40 MG/ML Vial IM (04:06)
== END 2024-05-07 04:09 | disposition home or self-care (01) ==
PROVIDERS: Emergency Provider Emergency Medicine; Visit Provider Emergency Medicine
DX: J45.901 Unspecified asthma with (acute) exacerbation (principal); I50.9 Heart failure, unspecified; B34.9 Viral infection, unspecified; M79.10 Myalgia, unspecified site; Z11.52 Encounter for screening for COVID-19; R35.0 Frequency of micturition; Z79.899 Other long term (current) drug therapy; Z86.73 Personal history of transient ischemic attack (TIA), and cerebral infarction without residual deficits
CPT/HCPCS: 71046; 81001; 87631; 94640; 96372; 99282

== ENCOUNTER 2024-07-01 02:06 | Emergency (ER) | payer SELFPAY ==
[2024-07-01 02:07] VITALS: BP 155/87; BP 173/66; PULSE 111; PULSE 97; RESP 16; RESP 22; TEMP 37.2; O2SAT 97; BMI 42.7
[2024-07-01] MEDS: Ipratropium/Albuterol Sulfate 3 ML AMPUL.NEB INHALATION (02:27)
[2024-07-01 02:28] VITALS: PULSE 112; RESP 20
[2024-07-01] MEDS: predniSONE 20 MG Tablet 60 MG PO (02:31)
[2024-07-01] MEDS: guaiFENesin/Codeine 5 ML UDC 10 ML PO (02:32)
--- NOTE | 2024-07-01 02:40 | RAD_ITS ---
EXAM: XR CHEST, 2 VIEWS CLINICAL INDICATION: cough TECHNIQUE: Frontal and lateral views of the chest. COMPARISON: 05/07/2024. FINDINGS: LUNGS AND PLEURAL SPACES: Small area of consolidation laterally in the anterior segment of the right upper lobe consistent with pneumonia. No pneumothorax. No effusion. HEART: Unremarkable. Cardiac silhouette not enlarged. MEDIASTINUM: Central airways and mediastinal contour are unremarkable. BONES/JOINTS: Unremarkable. No acute fracture. SOFT TISSUES: Unremarkable. RAD/Chest PA and Lateral IMPRESSION: Small area of consolidation laterally in the anterior segment of the right upper lobe consistent with pneumonia. Electronically Signed: Manny Scales MD at 4:24 EST ,
[2024-07-01 03:07] VITALS: BP 148/75; PULSE 85; RESP 18; O2SAT 95
[2024-07-01 04:00] VITALS: BP 163/79
--- NOTE | 2024-07-01 04:07 | EDS_ITS ---
HPI History of Present Illness Chief Complaint: Shortness of Breath Informant: patient and EMS Narrative Narrative: Patient is a 38-year-old medical history of anxiety bipolar disorder and asthma. She states she has had 2 to 3 days of congestion and cough. She denies any fevers chills or known sick contacts. She states that this evening her cough worsened and despite using her inhaler she has had increased shortness of breath. With concern for potential pneumonia she presents for evaluation [facility] Medical History Anxiety Bipolar disorder Depression Hyperthyroidism Smoker Asthma Non-alcoholic cirrhosis Congestive heart failure (CHF) Migraines Stroke/cerebrovascular accident Seizures Home Medications ?Medication ?Instructions ?Recorded ?Last Taken ?Type ibuprofen 600 mg tablet 600 mg PO Q6H PRN PRN pain #20 11/07/23 Unknown Rx TABLETS spironolactone 50 mg tablet 50 mg PO DAILY liver cirrhosis 05/07/24 Unknown History (Aldactone) albuterol sulfate 90 mcg/actuation 2 puff inhalation Q4H PRN PRN 07/01/24 Unknown Rx aerosol inhaler (Ventolin HFA) Wheezing/SOB #1 device codeine 10 mg-guaifenesin 200 mg/5 10 ml PO 4X/DAY PRN cough 5 days 07/01/24 Unknown Rx mL oral liquid #200 mL doxycycline hyclate 100 mg capsule 100 mg PO BID 10 days #20 caps 07/01/24 Unknown Rx prednisone 20 mg tablet 40 mg (2 x 20 mg) PO DAILY 5 days 07/01/24 Unknown Rx #10 tabs Allergy/AdvReac Type Severity Reaction Status Date / Time bee venom protein (honey bee) Allergy Severe Anaphylaxis Verified 07/01/24 02:10 diphenhydramine (From Allergy Severe Anaphylaxis Verified 07/01/24 02:10 Benadryl) Fish Containing Products AdvReac Severe Anaphylaxis Verified 07/01/24 02:10 Social History Smoking Status: Current every day smoker tobacco type: cigarettes ROS ROS ED Constitutional Constitutional ED: Denies chills or fever(s) Eyes Eyes: Denies change in vision ENT ENT ED: Reports rhinorrhea and sore throat Cardiovascular Cardiovascular: Denies chest pain Respiratory/Chest Respiratory/Chest: Reports cough, dyspnea and sputum Gastrointestinal Gastrointestinal: Denies abdominal pain, diarrhea, nausea or vomiting Genitourinary Genitourinary ED: Denies dysuria Musculoskeletal Musculoskeletal: Denies myalgias Integumentary Denies rash Neurologic Neurologic: Denies headache(s) Psychiatric Psychiatric: Reports anxiety Hematologic/Lymphatic Hematologic/Lymphatic: Denies easy bleeding or easy bruising Allergic/Immunologic Allergic/Immunologic ED: Denies mouth swelling or tongue swelling EXAM Physical Exam Const Vital Signs: 07/01/24 02:07 07/01/24 02:07 07/01/24 02:28 Temperature 98.9 F Temperature Source Oral Pulse Rate 97 111 H 112 H Respiratory Rate 22 H 16 20 H Respiratory Effort Respiratory Pattern Tachypnea Blood Pressure 155/87 H 173/66 H Blood Pressure Mean 109 101 Pulse Ox 97 97 Oxygen Delivery Method Room Air Room Air 07/01/24 02:39 07/01/24 03:07 07/01/24 04:00 Temperature Temperature Source Pulse Rate 85 Respiratory Rate 18 Respiratory Effort Normal Respiratory Pattern Blood Pressure 148/75 H 163/79 H Blood Pressure Mean 99 107 Pulse Ox 95 Oxygen Delivery Method Room Air 07/01/24 04:19 Temperature 98.0 F Temperature Source Pulse Rate 102 H Respiratory Rate 18 Respiratory Effort Respiratory Pattern Blood Pressure 163/79 H Blood Pressure Mean 107 Pulse Ox 97 Oxygen Delivery Method Positive well nourished, well developed and obese General Appearance ED: well developed; Negative for pallor Nutritional Appearance: obese HEENT HEENT Narrative: No tongue or lip swelling no oral lesions no airway edema or compromise There is cobblestoning noted in the posterior pharynx consistent with sinus drainage. No secondary findings to suggest infection Eyes PERRL and EOMs intact bilaterally General Eye ED: Negative for scleral icterus Neck supple and no JVD Chest Wall palpation of chest normal Resp Resp Narrative: Patient is tachypneic and breath sounds are diminished throughout with diffuse expiratory wheeze. No nasal flaring retractions or accessory muscle use. No stridor or grunting Cardio regular rate and regular rhythm Rate: other Other Details: Heart is regular rate and rhythm without murmurs rubs or gallop Radial and carotid pulses are equal and symmetric Extremity normal to inspection Extremity Narrative: No asymmetric edema no pitting edema negative Homans' sign bilaterally Neuro oriented x3, CN's II-XII intact bilaterally and no sensory deficits noted Sensorium / Orientation: alert Motor Exam: strength 5/5 throughout Psych Mood & Affect: anxious Skin no rashes or lesions noted General Skin Exam: Negative for jaundice or pallor MDM MDM MDM Narrative Medical decision making narrative: Patient arrived to the ER hypertensive but otherwise afebrile satting 97% on room air and in no acute distress. Her constellation of symptoms is concerning for a viral URI secondary to COVID versus influenza versus RSV. There is also concern that she has pneumonia or pneumothorax. I discussed with patient obtaining a viral swab to help in aiding with her diagnosis but patient has low concern for this and does not want a viral swab obtained. Chest x-ray was ordered and does not show any pneumothorax or vascular congestion but does show haziness in the right upper lobe consistent with developing pneumonia. The patient was given DuoNeb and prednisone and had improvement of her work of breathing and her pulse ox remained 97 to 100% on room air. At this time she is not triggering septic protocol she is not hypoxic she is not requiring submental oxygen she is not showing signs of respiratory distress and therefore she placed on symptomatic medications and discharged home History & Record Review Discussion w/independent historian: EMS personnel and Patient Radiography Diagnostic Testing: Clinical Impression(s) from Imaging Studies Chest X-Ray 07/01/24 02:40 IMPRESSION: Small area of consolidation laterally in the anterior segment of the right upper lobe consistent with pneumonia. Electronically Signed: Manny Scales MD at 4:24 EST , 2 view chest x-ray as interpreted by the emergency medicine physician reveals hazy opacity in the right upper lobe consistent with pneumonia Discharge Plan Triage Chief Complaint: Shortness of Breath ED Provider: Colby Bonilla Dx/Rx/DC Orders Clinical Impression: Asthma exacerbation, Right upper lobe pneumonia, Hypertension, Bipolar disorder Instructions: ED Pneumonia (Adult), Asthma Prescriptions: New prednisone 20 mg tablet 40 mg PO DAILY 5 Days Qty: 10 0RF albuterol sulfate [Ventolin HFA] 90 mcg/actuation HFA aerosol inhaler 2 puff inhalation Q4H PRN PRN (Reason: Wheezing/SOB) Qty: 1 0RF codeine-guaifenesin 10-200 mg/5 mL liquid 10 ml PO 4X/DAY PRN (Reason: cough) 5 Days Qty: 200 0RF doxycycline hyclate 100 mg capsule 100 mg PO BID 10 Days Qty: 20 0RF No Action ibuprofen 600 mg tablet 600 mg PO Q6H PRN PRN (Reason: pain) Qty: 20 0RF spironolactone [Aldactone] 50 mg tablet 50 mg PO DAILY Primary Care Provider: Care Physician,No Primary Referrals: Lowell Franco MD [Med Staff - Active Staff] - Care Physician,No Primary [Primary Care Provider] - Print Language: Urdu Disposition Disposition: Home, Self Care Discharge Date/Time: 07/01/24 04:30
[2024-07-01 04:19] VITALS: BP 163/79; PULSE 102; RESP 18; TEMP 36.7; O2SAT 97
[2024-07-01] MEDS: Doxycycline monohydrate 25 MG/5 ML SUSP. 100 MG PO (04:28)
== END 2024-07-01 04:30 | disposition home or self-care (01) ==
PROVIDERS: Emergency Provider Emergency Medicine; Visit Provider Emergency Medicine
DX: J18.9 Pneumonia, unspecified organism (principal); I11.0 Hypertensive heart disease with heart failure; I50.9 Heart failure, unspecified; F31.9 Bipolar disorder, unspecified; J45.901 Unspecified asthma with (acute) exacerbation; Z11.52 Encounter for screening for COVID-19; F41.9 Anxiety disorder, unspecified; F17.210 Nicotine dependence, cigarettes, uncomplicated; Z79.899 Other long term (current) drug therapy; Z86.73 Personal history of transient ischemic attack (TIA), and cerebral infarction without residual deficits
CPT/HCPCS: 71046; 94640; 99285

== ENCOUNTER 2024-07-03 22:44 | Emergency (ER) | payer SELFPAY ==
[2024-07-03 22:45] VITALS: BP 167/82; PULSE 98; RESP 18; TEMP 36.6; O2SAT 94; BMI 41.5
[2024-07-03 22:48] VITALS: BP 167/82; PULSE 98; RESP 18; TEMP 36.6; O2SAT 97
--- NOTE | 2024-07-03 23:03 | EX.ED.DYSGE1 ---
HPI History of Present Illness Chief Complaint: General Illness Informant: patient and EMS Narrative Narrative: Patient is a 38-year-old female with past medical history of hypertension bipolar disorder and asthma. She was seen 2 days ago secondary to cough and congestion at that time found to have a right upper lobe pneumonia. She was prescribed medications but states she could not fill any of them secondary to financial issues. She states however despite not feeling her medications she was doing better until this evening around 6 PM after returning home from work. She states she then began having bouts of nausea vomiting and diarrhea. She states that there was no blood or discoloration to either. She does report her boss was sick with similar symptoms a few days ago. She states she cannot hold any food or fluid down and secondary to this called EMS and was brought in for evaluation. Patient does states she was given Zofran per squad and since that time has had no further bouts of vomiting. [facility] Medical History Anxiety Bipolar disorder Depression Hyperthyroidism Smoker Asthma Non-alcoholic cirrhosis Congestive heart failure (CHF) Migraines Stroke/cerebrovascular accident Seizures Home Medications ?Medication ?Instructions ?Recorded ?Last Taken ?Type ibuprofen 600 mg tablet 600 mg PO Q6H PRN PRN pain #20 11/07/23 Unknown Rx TABLETS spironolactone 50 mg tablet 50 mg PO DAILY liver cirrhosis 05/07/24 Unknown History (Aldactone) albuterol sulfate 90 mcg/actuation 2 puff inhalation Q4H PRN PRN 07/01/24 Unknown Rx aerosol inhaler (Ventolin HFA) Wheezing/SOB #1 device codeine 10 mg-guaifenesin 200 mg/5 10 ml PO 4X/DAY PRN cough 5 days 07/01/24 Unknown Rx mL oral liquid #200 mL doxycycline hyclate 100 mg capsule 100 mg PO BID 10 days #20 caps 07/01/24 Unknown Rx prednisone 20 mg tablet 40 mg (2 x 20 mg) PO DAILY 5 days 07/01/24 Unknown Rx #10 tabs promethazine 25 mg tablet 25 mg PO TID PRN nausea and 07/04/24 Unknown Rx vomiting #21 tabs Allergy/AdvReac Type Severity Reaction Status Date / Time bee venom protein (honey bee) Allergy Severe Anaphylaxis Verified 07/01/24 02:10 diphenhydramine (From Allergy Severe Anaphylaxis Verified 07/01/24 02:10 Benadryl) Fish Containing Products AdvReac Severe Anaphylaxis Verified 07/01/24 02:10 Social History Smoking Status: Current every day smoker tobacco type: cigarettes ROS ROS ED Constitutional Constitutional ED: Denies chills or fever(s) Eyes Eyes: Denies blurry vision or change in vision ENT ENT ED: Denies sore throat Cardiovascular Cardiovascular: Denies chest pain Respiratory/Chest Respiratory/Chest: Reports cough; Denies dyspnea Gastrointestinal Gastrointestinal: Reports diarrhea, nausea and vomiting; Denies abdominal pain Genitourinary Genitourinary ED: Denies dysuria Musculoskeletal Musculoskeletal: Denies myalgias Integumentary Denies rash Neurologic Neurologic: Denies headache(s) Psychiatric Psychiatric: Reports anxiety Hematologic/Lymphatic Hematologic/Lymphatic: Denies easy bleeding or easy bruising Allergic/Immunologic Allergic/Immunologic ED: Denies mouth swelling or tongue swelling EXAM Physical Exam Const Vital Signs: 07/03/24 22:45 07/03/24 22:48 07/03/24 22:49 Temperature 98 F 98 F Temperature Source Oral Oral Pulse Rate 98 98 Respiratory Rate 18 18 Respiratory Effort Normal Respiratory Pattern Normal Blood Pressure 167/82 H 167/82 H Blood Pressure Mean 110 110 Pulse Ox 94 97 Oxygen Delivery Method Room Air Room Air 07/04/24 00:45 07/04/24 01:43 Temperature 98.7 F Temperature Source Pulse Rate 104 H 68 Respiratory Rate 18 16 Respiratory Effort Respiratory Pattern Blood Pressure 175/91 H 145/75 H Blood Pressure Mean 119 98 Pulse Ox 97 100 Oxygen Delivery Method Room Air Positive well nourished, well developed and obese General Appearance ED: well developed; Negative for pallor Nutritional Appearance: obese HEENT HEENT Narrative: No tongue or lip swelling no oral lesions no airway edema or compromise Cobblestoning is noted in the posterior pharynx consistent with sinus drainage No trismus change in voice or difficulty with secretions. No tonsil hypertrophy exudates or hard palate petechiae. Eyes PERRL and EOMs intact bilaterally General Eye ED: Negative for scleral icterus Neck supple and no JVD Neck Narrative: No nuchal rigidity or meningeal signs Resp normal respiratory effort Resp Narrative: Breath sounds are with faint expiratory wheeze but otherwise no nasal flaring retractions tachypnea or accessory muscle use Cardio regular rate and regular rhythm GI non-distended and no masses GI Narrative: Abdomen is obese soft and nondistended with hyperactive bowel sounds. There is mild diffuse pain with palpation without voluntary guarding or rigidity. No pulsatile mass or fluid wave Auscultation: hyperactive bowel sounds Palpation: soft Extremity normal to inspection Extremity Narrative: No asymmetric edema no pitting edema negative Homans' sign bilaterally Neuro oriented x3, CN's II-XII intact bilaterally and no sensory deficits noted Sensorium / Orientation: alert Motor Exam: strength 5/5 throughout Psych Mood & Affect: anxious Skin no rashes or lesions noted General Skin Exam: Negative for jaundice or pallor MDM MDM MDM Narrative Medical decision making narrative: Patient arrived to the ER hypertensive but otherwise with stable vital. She states after her last visit to the ER that her cough and shortness of breath were improving and being controlled with just her inhaler. She states she did not have the financial means to obtain her cough syrup steroids or antibiotics. She reported however today her symptoms were different and the fact that after returning home from work she had bouts of vomiting and diarrhea. She did report a sick contact at work with similar symptoms. There is concern this could be viral infection such as COVID influenza or RSV so a swab was obtained. With her reports of vomiting diarrhea there is concern for acute kidney injury or electrolyte abnormality versus pancreatitis or biliary colic or acute cholecystitis. As she was recently diagnosed with pneumonia there is also concern that she could be developing systemic infection/sepsis. Patient's white count is normal and she is afebrile she is not having increased work of breathing and her pulse ox is in the mid to high 90s on room air and therefore I have low concern that this is worsening of her recent diagnosis. Blood work showed no signs of acute kidney injury or electrolyte abnormality and her lipase is normal going against pancreatitis. She was given IV fluids as well as IV Zofran and Compazine. She was able to drink water without recurrent bouts of vomiting. On reevaluation her abdomen remains soft and nonsurgical. Therefore at this time I feel this is most likely a viral stomach infection and as she is not showing signs of ASHA or electrolyte abnormality or pancreatitis there is no need for further admission especially as she is able to tolerate a oral challenge in the ER and she is otherwise safe for discharge History & Record Review Discussion w/independent historian: EMS personnel and Patient Additional record(s) reviewed:: Prior ED visit Lab Data Attestation: I reviewed the patient's lab results. Labs: Laboratory Results - last 24 hr 07/03/24 23:11 WBC 10.9 RBC 4.85 Hgb 13.0 Hct 39.9 MCV 82.3 MCH 26.8 L MCHC 32.6 RDW Std Deviation 41.1 RDW Coeff of Woody 13.9 Plt Count 212 MPV 10.7 Immature Gran % (Auto) 0.500 Neut % (Auto) 80.6 H Lymph % (Auto) 11.8 L Harlan % (Auto) 4.4 Eos % (Auto) 2.5 Baso % (Auto) 0.2 Absolute Neuts (auto) 8.8 H Absolute Lymphs (auto) 1.28 Nucleated RBC % 0 Differential Comment SCANNED Platelet Estimate ADEQUATE RBC Morphology NORM C+C Sodium 137 Potassium 4.1 Chloride 109 H Carbon Dioxide 21.0 Anion Gap 7 BUN 17 Creatinine 0.49 L Estim Creat Clear Calc 204.33 Est GFR (MDRD) Af Amer 184 Est GFR (MDRD) Non-Af 152 BUN/Creatinine Ratio 35.0 H Glucose 98 Calcium 8.8 Magnesium 1.9 Total Bilirubin 0.60 Direct Bilirubin 0.17 AST 28 ALT 22 Alkaline Phosphatase 156 H Total Protein 7.8 Albumin 3.1 L Globulin 4.7 H Lipase 25 Discharge Plan Triage Chief Complaint: General Illness ED Provider: Colby Bonilla Dx/Rx/DC Orders Clinical Impression: Nausea vomiting and diarrhea, Hypertension, Bipolar disorder Instructions: ED Gastroenteritis, Viral (Adult) Prescriptions: New promethazine 25 mg tablet 25 mg PO TID PRN (Reason: nausea and vomiting) Qty: 21 0RF No Action ibuprofen 600 mg tablet 600 mg PO Q6H PRN PRN (Reason: pain) Qty: 20 0RF spironolactone [Aldactone] 50 mg tablet 50 mg PO DAILY prednisone 20 mg tablet 40 mg PO DAILY 5 Days Qty: 10 0RF albuterol sulfate [Ventolin HFA] 90 mcg/actuation HFA aerosol inhaler 2 puff inhalation Q4H PRN PRN (Reason: Wheezing/SOB) Qty: 1 0RF codeine-guaifenesin 10-200 mg/5 mL liquid 10 ml PO 4X/DAY PRN (Reason: cough) 5 Days Qty: 200 0RF doxycycline hyclate 100 mg capsule 100 mg PO BID 10 Days Qty: 20 0RF Stand Alone Forms: ED Work / School Excuse Primary Care Provider: Care Physician,No Primary Referrals: Lowell Franco MD [Med Staff - Active Staff] - Care Physician,No Primary [Primary Care Provider] - Activity Restrictions/Additional Instructions: Your history and exam and workup are consistent with a viral stomach infection. This will last anywhere from 12 hours to 7 days with the average being 3 days. Keep yourself well-hydrated and use the Phenergan to help control further bouts of nausea and vomiting. Return to the ER should you have any further concerns Print Language: Belarusian Disposition Disposition: Home, Self Care Discharge Date/Time: 07/04/24 01:51
[2024-07-03] MEDS: 0.9% Normal Saline (1000mL) 1,000 ML 999 ML IV (23:19)
[2024-07-03 23:23] LABS: Absolute Lymphocyte Count 1.28 X10^3/uL (0.83-4.51); Absolute Neutrophil Count 8.8 X10^3/uL (2.0-7.7); Basophil# 0.02 X10^3/uL; Basophil% 0.2 % (0-1); Eosinophil# 0.27 X10^3/uL; Eosinophils% 2.5 % (0-5); Hematocrit 39.9 % (37-47); Lymphocyte # 1.28 X10^3/ul (0.83-4.51); Lymphocyte % 11.8 % (19-41); Mean Corp Hgb Conc 32.6 g/dL (32-36); Mean Corpuscular Hgb 26.8 pg (27.0-32.0); Mean Corpuscular Volume 82.3 fL (81-99); Mean Platelet Vol. 10.7 fl (6.2-12.0); Monocyte# 0.48 X10^3/uL; Monocyte% 4.4 % (0-10); NRBC Flagged by Analyzer 0 % (0-5); Neutrophil # 8.75 X10^3/uL (2.7-7.7); Neutrophil % 80.6 % (47-70); POSITIVE COUNT YES; Platelet Count 212 K/mm3 (150-450); RBC Distribution Width CV 13.9 % (11.6-14.6); RBC Distribution Width SD 41.1 fl (35.1-43.9); Red Blood Count 4.85 M/mm3 (4.2-5.4); White Blood Count 10.9 K/mm3 (4.4-11.0)
[2024-07-03 23:52] LABS: Differential Comment SCANNED; Differential Indicated SCAN CRITERIA MET; Platelet Estimate ADEQUATE (ADEQ); Red Cell Morphology NORM C+C NORMAL (NORM C&C)
[2024-07-04 00:27] LABS: AST(SGOT) 28 U/L (15-37); Alanine Aminotransfer ALT/SGPT 22 U/L (13-56); Albumin, Serum 3.1 g/dL (3.2-5.0); Alkaline Phosphatase 156 U/L (45-117); Anion Gap 7 (5-15); BUN 17 mg/dL (7-18); Bilirubin, Direct 0.17 mg/dL (0.00-0.30); Calcium,Total 8.8 mg/dL (8.5-10.1); Chloride 109 mmol/L (98-107); Creatinine, Serum 0.49 mg/dL (0.55-1.02); EST Glomerular Filtration Rate 152 mL/min (>60); Est Glom Filt Rate - Afr Amer 184 mL/min (>60); Estimated Creatinine Clearance 204.33 ml/min; Globulin 4.7 g/dL (2.2-4.2); Glucose 98 mg/dL (74-106); Lipase 25 U/L (13-75); Magnesium 1.9 mg/dL (1.6-2.6); Potassium 4.1 mmol/L (3.5-5.1); Protein, Total 7.8 g/dL (6.4-8.2); Sodium Level 137 mmol/L (136-145)
[2024-07-04 00:45] VITALS: BP 175/91; PULSE 104; RESP 18; O2SAT 97
[2024-07-04] MEDS: Ondansetron 4 MG/2 ML Vial IV (00:58)
[2024-07-04] MEDS: proCHLORPERazine 10 MG/2 ML Vial IV (01:35)
[2024-07-04 01:43] VITALS: BP 145/75; PULSE 68; RESP 16; TEMP 37.1; O2SAT 100
== END 2024-07-04 01:51 | disposition home or self-care (01) ==
PROVIDERS: Emergency Provider Emergency Medicine; Visit Provider Emergency Medicine
DX: R11.2 Nausea with vomiting, unspecified (principal); F31.9 Bipolar disorder, unspecified; R19.7 Diarrhea, unspecified; R05.9 Cough, unspecified; I10 Essential (primary) hypertension; F41.9 Anxiety disorder, unspecified; E66.9 Obesity, unspecified; F17.210 Nicotine dependence, cigarettes, uncomplicated; J45.909 Unspecified asthma, uncomplicated; Z87.01 Personal history of pneumonia (recurrent); Z86.73 Personal history of transient ischemic attack (TIA), and cerebral infarction without residual deficits; Z91.141 Patient's other noncompliance with medication regimen due to financial hardship
CPT/HCPCS: 80048; 80076; 83690; 83735; 85025; 87631; 96361; 96374; 96375; 99284; A4216; J2405